=== PATIENT | male | born 1930 | race Caucasian/White ===

== ENCOUNTER → 2016-09-08 | Outpatient (CLI) | payer MEDICARE, OTHER ==
[~2016-09-08] MED LIST: ACET325T49 PO; AMLO10TA4 PO; CARV25TA PO; CARV80CP PO; CEFD300C3 PO; CITA-105 PO; CITA10TA7 PO; DOFE125C PO; FLUT12AE4 IH; FLUT1DIS26 IH; FRSM40T PO; GLIM4TAB PO; INSU100I29 SQ; IPRA3AMP INH; KCL10CCR PO; LOSA50TA6 PO; LVT.1T PO; MAG355OR17 PO; MERO1VIA3 IV; METH4TAB PO; MONT10TA21 PO; Mupirocin TOP; NEBU1EAC2 MC; NF-ESOM40C; NIFE30TA82 PO; PENI500T PO; PRAV10TA23 PO; RT-ALBUTEROL SULF 2.5 MG/3 ML PRE-MIX VIAL INH ONE; TRAN4TAB2 PO; WARF4TAB PO; WARF4TAB7 PO; WARF4TAB9 PO; WARF5TAB6 PO; WARF6TAB7
--- OUTSIDE RECORDS SUMMARY | 2016-09-08 13:39 | XMS REPORT | Continuity of Care Document ---
Author Author [facility] Organization [facility] Address Unknown Phone Unavailable Care Team Providers Care Dexigraph Operator Name Role Phone Alejo Galan PCP [phone] Source Comments Some departments are not documenting in the electronic medical record. If you do not see the information that you expected, contact Release of Information in the Health Information Management department at [phone] for further assistance in locating additional records.[facility] Active Allergies and Adverse Reactions Allergen [...]
== END ==
LOC: RT 13:35
PROVIDERS: ATTEND Internal Medicine
DX: J44.9 Chronic obstructive pulmonary disease, unspecified (principal)
CPT/HCPCS: 94060; 94640; 94726; 94729

== ENCOUNTER 2016-09-11 12:05 | Emergency (ER) | payer MEDICARE, OTHER ==
[~2016-09-11] VITALS: Ht 175.3 cm; Wt 104.3 kg
[~2016-09-11 12:05] MED LIST changes: -RT-ALBUTEROL SULF 2.5 MG/3 ML PRE-MIX VIAL INH ONE
--- OUTSIDE RECORDS SUMMARY | 2016-09-11 12:10 | XMS REPORT | Continuity of Care Document ---
Author Author [facility] Organization [facility] Address Unknown Phone Unavailable Care Team Providers Care Food And Nutrition Professor Name Role Phone Alejo Galan PCP [phone] Source Comments Some departments are not documenting in the electronic medical record. If you do not see the information that you expected, contact Release of Information in the Health Information Management department at [phone] for further assistance in locating additional records.[facility] Active Allergies and Adverse Reactions Allergen [...]
--- NOTE | 2016-09-11 12:43 | Diagnostic Imaging Report ---
INDICATION: Short of air. FINDINGS: Upright portable chest shows normal heart size and vascularity. The lungs are clear. There is no effusion or pneumothorax. A pacemaker is present. IMPRESSION: No acute abnormality is seen. There has been improved aeration of the left lung base since the prior study from 06/27/16. Dictated by: Dictated on workstation # [id number]
[2016-09-11 12:47] LABS: BASOPHILS # (AUTO) 0.1 10^3/uL (0.0-0.1); BASOPHILS % (AUTO) 1 % (0-10); BILIRUBIN,URINE NEGATIVE (NEGATIVE); EOSINOPHILS # (AUTO) 0.7 10^3/uL (0.0-0.3); EOSINOPHILS % (AUTO) 8 % (0-10); KETONES,URINE NEGATIVE (NEGATIVE); LEUKOCYTE ESTERASE ,URINE NEGATIVE (NEGATIVE); LYMPHOCYTES # (AUTO) 1.4 X 10^3 (1.0-4.0); LYMPHOCYTES % (AUTO) 17 % (12-44); MEAN CORPUSCULAR HEMOGLOBIN 29 PG (25-34); MEAN CORPUSCULAR HGB CONC 35 G/DL (32-36); MEAN CORPUSCULAR VOLUME 84 FL (80-99); MEAN PLATELET VOLUME 10.4 FL (7.4-10.4); MONOCYTES # (AUTO) 0.7 X 10^3 (0.0-1.0); MONOCYTES % (AUTO) 9 % (0-12); NEUTROPHILS # (AUTO) 5.2 X 10^3 (1.8-7.8); NEUTROPHILS % (AUTO) 65 % (42-75); NITRITE,URINE NEGATIVE (NEGATIVE); PH,URINE 7 (5-9); PLATELET COUNT 228 10^3/uL (130-400); PROTEIN,URINE 3+ (NEGATIVE); RED BLOOD COUNT 5.36 10^6/uL (4.35-5.85); RED CELL DISTRIBUTION WIDTH 15.8 % (10.0-14.5); UROBILINOGEN,URINE NORMAL (NORMAL); WHITE BLOOD COUNT 8.1 10^3/uL (4.3-11.0)
[2016-09-11 12:54] LABS: SQUAMOUS EPITHELIAL CELL,UR RARE /HPF
[2016-09-11 13:06] LABS: ALANINE AMINOTRANSFERASE 17 U/L (0-55); ALBUMIN 3.9 G/DL (3.2-4.5); ANION GAP 11 MMOL/L (5-14); ASPARTATE AMINO TRANSFERASE 20 U/L (5-34); BILIRUBIN,TOTAL 0.6 MG/DL (0.1-1.0); BLOOD UREA NITROGEN 20 MG/DL (7-18); BUN/CREATININE RATIO 15; CALCIUM 8.8 MG/DL (8.5-10.1); CARBON DIOXIDE 20 MMOL/L (21-32); CHLORIDE 107 MMOL/L (98-107); CREATININE SERUM 1.37 MG/DL (0.60-1.30); GFR ESTIMATED 50; GLUCOSE 154 MG/DL (70-105); POTASSIUM 3.9 MMOL/L (3.6-5.0); SODIUM 138 MMOL/L (135-145)
--- NOTE | 2016-09-11 13:09 | ED Cough/URI ---
General Chief Complaint: Cough/Cold/Flu Symptoms Stated Complaint: SOA Nursing Triage Note: Pt states he had pneumonia in June and hasn't felt since then. States cough/SOA is returning. Denies known fever. Source: patient, family Exam Limitations: no limitations History of Present Illness Time seen by provider: 13:01 Initial Comments The patient is an 85-year-old white male known to me for nearly 40 years. He was hospitalized in June for a pneumonia. He reports he got up this morning and again felt ill with shortness of breath. He had a cough productive of at first white sputum and then more yellow-green. He had terrible post nasal drip and also reported that when he was able to cough up the mucous he felt better for a short period of time and then the cycle was repeated. He was not aware of fever and there were no chills. Timing/Duration: this morning Severity/Quality: moderate, productive cough, sputum Prior Episodes/Possible Cause: occasional episodes Allergies and Home Medications Allergies Coded Allergies: sulfamethoxazole (Verified Allergy, Mild, 08/27/14) trimethoprim (Verified Allergy, Mild, 08/27/14) Home Medications Acetaminophen 325 Mg Tablet 650 MG PO Q6H PRN PRN PAIN (Reported) Amlodipine Besylate 10 Mg Tablet 10 MG PO DAILY (Reported) Carvedilol 25 Mg Tablet 25 MG PO BID (Reported) Cefdinir 300 Mg Capsule #10 300 MG PO BID Prescribed by: ABEBE SALAS on 07/01/16 1115 Citalopram Hydrobromide 10 Mg Tablet #30 10 MG PO DAILY Prescribed by: ABEBE SALAS on 07/01/16 1115 Dofetilide 125 Mcg Capsule 125 MCG PO BID (Reported) Fluticasone/Salmeterol 12 Gm Hfa.aer.ad #1 2 PUFF IH BID@08,20 Prescribed by: ABEBE SALAS on 07/01/16 1115 Glimepiride 4 Mg Tablet 4 MG PO BID (Reported) Ipratropium/Albuterol Sulfate 3 Ml Ampul.neb #60 3 ML INH RTTID Prescribed by: ABEBE SALAS on 07/01/16 1115 Levothyroxine Sodium 100 Mcg Tablet 100 MG PO DAILY (Reported) Losartan Potassium 50 Mg Tablet 50 MG PO DAILY (Reported) Potassium Chloride 10 Meq Capcr 10 MEQ PO BID (Reported) Warfarin Sodium 4 Mg Tablet 4 MG PO HS (Reported) Constitutional: see HPI EENTM: nose congestion Respiratory: cough dyspnea on exertion phlegm short of breath Cardiovascular: no symptoms reported Gastrointestinal: no symptoms reported Genitourinary: no symptoms reported Musculoskeletal: no symptoms reported Skin: other (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) Psychiatric/Neurological: No Symptoms Reported Past Ubkwlom-Tmvyhk-Nfvzil Hx Patient Social History Alcohol Use: Denies Use Recreational Drug Use: No Smoking Status: Never a Smoker Recent Foreign Travel: No Contact w/Someone Who Travel: No Recent Infectious Disease Expo: No Recent Hopitalizations: No Physical Abuse Screen: No Sexual Abuse: No Immunizations Up To Date Tetanus Booster (TDap): Less than 5yrs PED Vaccines UTD: Yes Date of Pneumonia Vaccine: Jun 27, 2014 Date of Influenza Vaccine: May 27, 2016 Seasonal Allergies Seasonal Allergies: No Surgeries HX Surgeries: Yes Surgeries: Defibrillator, Nephrectomy, Pacemaker Respiratory Hx Respiratory Disorders: Yes (CPAP AT HS) Respiratory Disorders: Sleep Apnea Cardiovascular Hx Cardiac Disorders: Yes Cardiac Disorders: Atrial Fibrillation, Chronic Edema/Swelling, Hypertension Neurological Hx Neurological Disorders: Yes (PERIPHERAL NEUROPATHY) Neurological Disorders: Neuropathy Reproductive System Hx Reproductive Disorders: No Sexually Transmitted Disease: No HIV/AIDS: No Genitourinary Hx Genitourinary Disorders: Yes (one kidney removed (left) ) Genitourinary Disorders: Kidney Infection, Prostate Problems, UTI-Chronic Gastrointestinal Hx Gastrointestinal Disorders: No Musculoskeletal Hx Musculoskeletal Disorders: Yes Musculoskeletal Disorders: Arthritis, Gout Endocrine Hx Endocrine Disorders: Yes Endocrine Disorders: Hypothyroidsim, Diabetes, Non-Insulin dep HEENT HX ENT Disorders: Yes (current bilat cataracts, SALIVA GLAND MOVED, HARRISON FROM PAST ISSUE) HEENT Disorders: Cataract Loss of Vision: Bilateral Hearing Impairment: Denies Cancer Hx Cancer: Yes (face/ears) Cancer: Melanoma Psychosocial Hx Psychiatric Problems: No Integumentary HX Skin/Integumentary Disorder: Yes (CHRONIC CELLULITIS OF LOWER LEGS, STASIS ULCERS) Skin/Integumentary Disorders: Eczema, Recent Skin Changes Blood Transfusions Hx Blood Disorders: No Adverse Reaction to a Blood Tr: No Family Medical History Family Medial History: Dysphasia maternal mother FH: kidney cancer G8 SISTER FH: lung cancer 19 FATHER Hypertension maternal mother Kidney disease maternal mother No Family History of: AIDS Abdominal aortic aneurysm Ewing's disease Alcoholism Alzheimer's disease Aphasia Arthritis Asthma Cancer of mouth Cardiovascular disease Cataracts Colon cancer Completed stroke Congenital disease Congenital heart disease Coronary thrombosis Cystic fibrosis Deafness or hearing loss Dementia Diabetes mellitus Drug abuse Fibrocystic disease of breast Gastroenteritis Glaucoma Headache disorder Hypercholesterolemia Infertility Myocardial infarction Neoplasm Not obtainable due to adoption Osteoporosis Parkinson's disease Prostate cancer Psychosocial problem Respiratory disorder Seizure disorder Severe allergy Thyroid disease Tuberculosis Visual disorder Physical Exam Vital Signs Vital Sign - Last 12Hours 09/11/16 12:25 Temp 96.4 Pulse 60 Resp 20 B/P 163/103 Pulse Ox 95 O2 Delivery Room Air Capillary Refill : Less Than 3 Seconds General Appearance: mild distress Eyes: Bilateral Eye Normal Inspection HEENT: normal ENT inspection Neck: full range of motion Respiratory: chest non-tender no respiratory distress no accessory muscle use respiratory distress decreased breath sounds (distant) Cardiovascular: normal peripheral pulses regular rate, rhythm no edema no gallop no JVD no murmur other (pacer) Gastrointestinal: normal bowel sounds non tender soft no organomegaly no pulsatile mass Extremities: normal range of motion non-tender normal inspection no pedal edema no calf tenderness normal capillary refill pelvis stable other (minimal swelling by his standards) Neurologic/Psychiatric: scraper hand II-XII nml as tested no motor/sensory deficits alert normal mood/affect oriented x 3 Skin: normal color warm/dry cyanosis cool diaphoresis damp Progress/Results/Core Measures Results/Orders Lab Results Laboratory Tests Test 09/11/16 12:35 Range/Units Alanine Aminotransferase (ALT/SGPT) 17 0-55 U/L Albumin 3.9 3.2-4.5 G/DL Alkaline Phosphatase 63 40-136 U/L Anion Gap 11 5-14 MMOL/L Aspartate Amino Transf (AST/SGOT) 20 5-34 U/L BUN/Creatinine Ratio 15 Basophils # (Auto) 0.1 0.0-0.1 10^3/uL Basophils (%) (Auto) 1 0-10 % Blood Urea Nitrogen 20 H 7-18 MG/DL Calcium Level 8.8 8.5-10.1 MG/DL Carbon Dioxide Level 20 L 21-32 MMOL/L Chloride Level 107 98-107 MMOL/L Creatinine 1.37 H 0.60-1.30 MG/DL Eosinophils # (Auto) 0.7 H 0.0-0.3 10^3/uL Eosinophils (%) (Auto) 8 0-10 % Estimat Glomerular Filtration Rate 50 Glucose Level 154 H 70-105 MG/DL Hematocrit 45 40-54 % Hemoglobin 15.5 13.3-17.7 G/DL Lymphocytes # (Auto) 1.4 1.0-4.0 X 10^3 Lymphocytes (%) (Auto) 17 12-44 % Mean Corpuscular Hemoglobin 29 25-34 PG Mean Corpuscular Hemoglobin Concent 35 32-36 G/DL Mean Corpuscular Volume 84 80-99 FL Mean Platelet Volume 10.4 7.4-10.4 FL Monocytes # (Auto) 0.7 0.0-1.0 X 10^3 Monocytes (%) (Auto) 9 0-12 % Neutrophils # (Auto) 5.2 1.8-7.8 X 10^3 Neutrophils (%) (Auto) 65 42-75 % Platelet Count 228 130-400 10^3/uL Potassium Level 3.9 3.6-5.0 MMOL/L Red Blood Count 5.36 4.35-5.85 10^6/uL Red Cell Distribution Width 15.8 H 10.0-14.5 % Sodium Level 138 135-145 MMOL/L Total Bilirubin 0.6 0.1-1.0 MG/DL Total Protein 7.0 6.4-8.2 G/DL Troponin I < 0.30 <0.30 NG/ML Urine Bacteria NEGATIVE /HPF Urine Bilirubin NEGATIVE NEGATIVE Urine Casts NONE /LPF Urine Clarity CLEAR Urine Color YELLOW Urine Crystals NONE /LPF Urine Culture Indicated NO Urine Glucose (UA) 1+ H NEGATIVE Urine Ketones NEGATIVE NEGATIVE Urine Leukocyte Esterase NEGATIVE NEGATIVE Urine Mucus NEGATIVE /LPF Urine Nitrite NEGATIVE NEGATIVE Urine Protein 3+ H NEGATIVE Urine RBC NONE /HPF Urine RBC (Auto) 2+ H NEGATIVE Urine Specific [place] 1.010 L 1.016-1.022 Urine Squamous Epithelial Cells RARE /HPF Urine Urobilinogen NORMAL NORMAL MG/DL Urine WBC NONE /HPF Urine pH 7 5-9 White Blood Count 8.1 4.3-11.0 10^3/uL My Orders Orders-SAÚL PUENTE MD Cbc With Automated Diff (09/11/16 12:07) Comprehensive Metabolic Panel (09/11/16 12:07) Troponin I (09/11/16 12:07) Ua Culture If Indicated (09/11/16 12:07) Chest 1 View, Ap/Pa Only (09/11/16 12:07) Vital Signs/I&O Vital Sign - Last 12Hours 09/11/16 09/11/16 12:25 12:34 Temp 96.4 Pulse 60 Resp 20 B/P 163/103 Pulse Ox 95 O2 Delivery Room Air Room Air Blood Pressure Mean: 123 Departure Impression Impression: Primary Impression: acute bronchitis Disposition: 01 HOME, SELF-CARE Condition: Stable/Unchanged Departure-Patient Inst. Decision time for Depature: 13:29 Referrals: MANAN GEE MD (PCP/Family) Primary Care Physician Patient Instructions: Aspiration Pneumonia (DC), Acute Bronchitis, Adult (DC) Add. Discharge Instructions: All discharge instructions reviewed with patient and/or family. Voiced understanding. Increase fluid intake Take Omnicef as directed Tylenol 650 mg every 4-6 hours as needed for fever and muscle aches Scripts Cefdinir 300 Mg [id number] Mg PO twice a day #14 CAP Prov:SAÚL PUENTE MD 09/11/16 SAÚL PUENTE MD Sep 11, 2016 13:09
[2016-09-11 13:12] LABS: TROPONIN I < 0.30 NG/ML (<0.30)
[2016-09-11] MEDS ORDERED: CEFD300C3 PO (13:31)
[2016-09-11 13:40] VITALS: BP 152/90
== END 2016-09-11 13:40 | disposition home or self-care (01) ==
LOC: EDUNIT# 12:05 → ER 12:06
DX: J20.9 Acute bronchitis, unspecified (principal); I48.2 Chronic atrial fibrillation; I10 Essential (primary) hypertension; E11.9 Type 2 diabetes mellitus without complications; Z79.899 Other long term (current) drug therapy; Z79.84 Long term (current) use of oral hypoglycemic drugs; Z95.0 Presence of cardiac pacemaker
CPT/HCPCS: 36415; 71010; 80053; 81000; 84484; 85025

== ENCOUNTER 2016-09-23 09:24 | Outpatient (RCR) | payer MEDICARE, OTHER ==
--- OUTSIDE RECORDS SUMMARY | 2016-07-29 09:56 | XMS REPORT | Continuity of Care Document ---
Author Author [facility] Organization [facility] Address Unknown Phone Unavailable Care Team Providers Care Auto Repair Technician Name Role Phone Alejo Galan PCP [phone] Source Comments Some departments are not documenting in the electronic medical record. If you do not see the information that you expected, contact Release of Information in the Health Information Management department at [phone] for further assistance in locating additional records.[facility] Active Allergies and Adverse Reactions Allergen Noted Date Severity Reactions Comments Septra I.V. 10/15/2014 HIVES Sulfamethoxazole-Trimetho 09/20/2008 HIVES, BLISTERS prim Current Medications Prescription Sig. Disp. Refills Start End Date Status Date potassium chloride SR Take 1 Tab by mouth Twice Active (K-DUR) 10 mEq tablet Daily. Carvedilol Phosphate 80 Take 1 Cap by mouth Active mg CM24 Daily. (brand name Coreg CR). furosemide (LASIX) 40 mg Take 1 Tab by mouth twice Active tablet daily as needed. pravastatin (PRAVACHOL) Take 1 Tab by mouth at Active 10 mg tablet bedtime daily. montelukast (SINGULAIR) Take 1 Tab by mouth at Active 10 mg tablet bedtime daily. levothyroxine (SYNTHROID) Take 1 Tab by mouth Active 100 mcg tablet Daily. fluticasone/salmeterol Inhale 1 Puff by mouth Active (ADVAIR) 250/50 mcg Every 12 Hours. inhalation disk losartan (COZAAR) 50 mg Take 50 mg by mouth Active tablet daily. NIFEdipine SR Take 30 mg by mouth Active (PROCARDIA-XL; ADALAT CC) daily. 30 mg tablet cephalexin (KEFLEX) 500 Take 1 Cap by mouth four 40 Cap 1 10/15/19 Active mg capsule times daily. 15 glimepiride (AMARYL) 4 mg Take 4 mg by mouth twice Active tablet daily. warfarin (COUMADIN) 4 mg Take by mouth daily. Active tablet alternates between 6 and 8 mg daily cetirizine (ZYRTEC) 10 mg Take 10 mg by mouth Active tablet daily. levofloxacin (LEVAQUIN) Take 1 Tab by mouth 14 Tab 1 10/23/19 Active 500 mg tablet daily. 15 Active Problems Problem Noted Date Postop check 12/03/2014 Ankle pain 09/25/2008 Social History Tobacco Use Types Packs/Day Years Used Date Never Smoker Smokeless Tobacco: Never Used Tobacco Cessation: Counseling Given: Yes Comments: Last Filed Vital Signs Vital Sign Reading Time Taken Blood Pressure 154/77 12/17/2014 12:09 PM CDT Pulse 68 12/17/2014 12:09 PM CDT Temperature 36.5 C (97.7 F) 11/04/2014 1:03 PM CDT Respiratory Rate - - Height 1.702 m (5' 7") 12/17/2014 12:09 PM CDT Weight 112.492 kg (248 lb) 12/17/2014 12:09 PM CDT Body Mass Index 38.83 12/17/2014 12:09 PM CDT Oxygen Saturation 98% 11/04/2014 1:48 PM CDT Plan of Care Health Maintenance Due Date Last Done Comments Physical (Comprehensive) 12/01/1937 Exam Pertussis Vaccine 12/01/1942 Tetanus Vaccine 12/01/1948 Shingles Vaccine 1991 Prevnar/Pneumovax (#1) 12/01/1996 Influenza Vaccine 04/22/2015 Results from Last 3 Months Not on file
== END 2016-09-23 16:00 | disposition home or self-care (01) ==
LOC: WOUNDCARE 09:24
PROVIDERS: ATTEND Internal Medicine
DX: E11.622 Type 2 diabetes mellitus with other skin ulcer (principal); L97.802 Non-pressure chronic ulcer of other part of unspecified lower leg with fat layer exposed; I70.232 Atherosclerosis of native arteries of right leg with ulceration of calf; I87.311 Chronic venous hypertension (idiopathic) with ulcer of right lower extremity
CPT/HCPCS: 11042; 29581; 97597; 99212

== ENCOUNTER 2017-03-17 08:57 | Outpatient (RCR) | payer MEDICARE, OTHER | END 2017-03-21 16:00 | disposition home or self-care (01) | LOC: WOUNDCARE 08:57 | PROVIDERS: ATTEND Internal Medicine | DX: E11.622 Type 2 diabetes mellitus with other skin ulcer (principal); L97.802 Non-pressure chronic ulcer of other part of unspecified lower leg with fat layer exposed; I87.311 Chronic venous hypertension (idiopathic) with ulcer of right lower extremity | CPT/HCPCS: 11042; 29581; 87070; 87075; 87077; 87186; 87205 ==

== ENCOUNTER → 2017-03-24 | Outpatient (CLI) | payer MEDICARE, OTHER | LOC: WOUNDCARE 09:02 | PROVIDERS: ATTEND Internal Medicine | DX: E11.622 Type 2 diabetes mellitus with other skin ulcer (principal); L97.802 Non-pressure chronic ulcer of other part of unspecified lower leg with fat layer exposed; I87.311 Chronic venous hypertension (idiopathic) with ulcer of right lower extremity | CPT/HCPCS: 11042 ==

== ENCOUNTER → 2017-03-31 | Outpatient (CLI) | payer MEDICARE, OTHER | LOC: WOUNDCARE 09:04 | PROVIDERS: ATTEND Internal Medicine | DX: E11.622 Type 2 diabetes mellitus with other skin ulcer (principal); L97.802 Non-pressure chronic ulcer of other part of unspecified lower leg with fat layer exposed; I87.311 Chronic venous hypertension (idiopathic) with ulcer of right lower extremity | CPT/HCPCS: 11042 ==

== ENCOUNTER → 2017-04-05 | Outpatient (CLI) | payer MEDICARE, OTHER | LOC: WOUNDCARE 09:50 | PROVIDERS: ATTEND Nurse Practitioner | DX: E11.622 Type 2 diabetes mellitus with other skin ulcer (principal); L97.802 Non-pressure chronic ulcer of other part of unspecified lower leg with fat layer exposed; I87.311 Chronic venous hypertension (idiopathic) with ulcer of right lower extremity | CPT/HCPCS: 15271 ==

== ENCOUNTER → 2017-04-14 | Outpatient (CLI) | payer MEDICARE, OTHER | LOC: WOUNDCARE 09:25 | PROVIDERS: ATTEND Internal Medicine | DX: E11.622 Type 2 diabetes mellitus with other skin ulcer (principal); L97.802 Non-pressure chronic ulcer of other part of unspecified lower leg with fat layer exposed; I87.311 Chronic venous hypertension (idiopathic) with ulcer of right lower extremity | CPT/HCPCS: 99212 ==

== ENCOUNTER → 2017-06-23 | Outpatient (CLI) | payer MEDICARE, OTHER | LOC: WOUNDCARE 09:21 | PROVIDERS: ATTEND Internal Medicine | DX: E11.622 Type 2 diabetes mellitus with other skin ulcer (principal); L97.802 Non-pressure chronic ulcer of other part of unspecified lower leg with fat layer exposed; I87.311 Chronic venous hypertension (idiopathic) with ulcer of right lower extremity | CPT/HCPCS: 11042; 87070; 87075; 87077; 87101; 87205 ==

== ENCOUNTER → 2017-06-23 | Outpatient (CLI) | payer MEDICARE, OTHER ==
[2017-06-23 11:24] LABS: BASOPHILS % (AUTO) 0 % (0-10); EOSINOPHILS # (AUTO) 0.3 10^3/uL (0.0-0.3); EOSINOPHILS % (AUTO) 3 % (0-10); LYMPHOCYTES # (AUTO) 1.1 X 10^3 (1.0-4.0); LYMPHOCYTES % (AUTO) 11 % (12-44); MEAN CORPUSCULAR HEMOGLOBIN 29 PG (25-34); MEAN CORPUSCULAR HGB CONC 33 G/DL (32-36); MEAN CORPUSCULAR VOLUME 86 FL (80-99); MEAN PLATELET VOLUME 9.8 FL (7.4-10.4); MONOCYTES # (AUTO) 0.9 X 10^3 (0.0-1.0); MONOCYTES % (AUTO) 9 % (0-12); NEUTROPHILS # (AUTO) 7.8 X 10^3 (1.8-7.8); NEUTROPHILS % (AUTO) 77 % (42-75); PLATELET COUNT 328 10^3/uL (130-400); RED BLOOD COUNT 4.58 10^6/uL (4.35-5.85); RED CELL DISTRIBUTION WIDTH 14.8 % (10.0-14.5); WHITE BLOOD COUNT 10.2 10^3/uL (4.3-11.0)
[2017-06-23 11:45] LABS: ERYTHROCYTE SEDIMENTATION RATE 19 MM/HR (0-30)
== END ==
LOC: LAB 11:10
PROVIDERS: ATTEND Internal Medicine
DX: E11.622 Type 2 diabetes mellitus with other skin ulcer (principal); L97.802 Non-pressure chronic ulcer of other part of unspecified lower leg with fat layer exposed; I87.311 Chronic venous hypertension (idiopathic) with ulcer of right lower extremity
CPT/HCPCS: 36415; 85025; 85652

== ENCOUNTER → 2017-07-07 | Outpatient (CLI) | payer MEDICARE, OTHER | LOC: WOUNDCARE 08:04 | PROVIDERS: ATTEND Internal Medicine | DX: E11.622 Type 2 diabetes mellitus with other skin ulcer (principal); L97.212 Non-pressure chronic ulcer of right calf with fat layer exposed; L97.802 Non-pressure chronic ulcer of other part of unspecified lower leg with fat layer exposed; I87.311 Chronic venous hypertension (idiopathic) with ulcer of right lower extremity; I70.232 Atherosclerosis of native arteries of right leg with ulceration of calf | CPT/HCPCS: 11042 ==

== ENCOUNTER → 2017-07-12 | Outpatient (CLI) | payer MEDICARE, OTHER | LOC: WOUNDCARE 08:15 | PROVIDERS: ATTEND Nurse Practitioner | DX: L97.802 Non-pressure chronic ulcer of other part of unspecified lower leg with fat layer exposed (principal); L97.212 Non-pressure chronic ulcer of right calf with fat layer exposed; I87.311 Chronic venous hypertension (idiopathic) with ulcer of right lower extremity; I70.232 Atherosclerosis of native arteries of right leg with ulceration of calf; E11.622 Type 2 diabetes mellitus with other skin ulcer | CPT/HCPCS: 11042 ==

== ENCOUNTER → 2017-07-21 | Outpatient (CLI) | payer MEDICARE, OTHER ==
[~2017-07-21] MED LIST changes: +ACET-93 PO; +DOXY100C2 PO; +FLUO20CA25 PO; +LEVO100T7 PO; +LOSA50TA36 PO; +POTA10TA10 PO
== END ==
LOC: WOUNDCARE 08:12
PROVIDERS: ATTEND Internal Medicine
DX: E11.622 Type 2 diabetes mellitus with other skin ulcer (principal); L97.212 Non-pressure chronic ulcer of right calf with fat layer exposed; L97.802 Non-pressure chronic ulcer of other part of unspecified lower leg with fat layer exposed; I87.311 Chronic venous hypertension (idiopathic) with ulcer of right lower extremity; I70.232 Atherosclerosis of native arteries of right leg with ulceration of calf
CPT/HCPCS: 11042

== ENCOUNTER → 2017-07-28 | Outpatient (CLI) | payer MEDICARE, OTHER | LOC: WOUNDCARE 08:37 | PROVIDERS: ATTEND Internal Medicine | DX: E11.622 Type 2 diabetes mellitus with other skin ulcer (principal); I87.311 Chronic venous hypertension (idiopathic) with ulcer of right lower extremity; I70.232 Atherosclerosis of native arteries of right leg with ulceration of calf; L97.212 Non-pressure chronic ulcer of right calf with fat layer exposed; L97.802 Non-pressure chronic ulcer of other part of unspecified lower leg with fat layer exposed | CPT/HCPCS: 11042 ==

== ENCOUNTER → 2017-08-04 | Outpatient (CLI) | payer MEDICARE, OTHER | LOC: WOUNDCARE 08:06 | PROVIDERS: ATTEND Nurse Practitioner | DX: L97.212 Non-pressure chronic ulcer of right calf with fat layer exposed (principal); E11.622 Type 2 diabetes mellitus with other skin ulcer; L97.802 Non-pressure chronic ulcer of other part of unspecified lower leg with fat layer exposed; I87.311 Chronic venous hypertension (idiopathic) with ulcer of right lower extremity; I70.232 Atherosclerosis of native arteries of right leg with ulceration of calf | CPT/HCPCS: 11042; 15271 ==

== ENCOUNTER → 2017-08-11 | Outpatient (CLI) | payer MEDICARE, OTHER | LOC: WOUNDCARE 08:13 | PROVIDERS: ATTEND Internal Medicine | DX: E11.622 Type 2 diabetes mellitus with other skin ulcer (principal); L97.212 Non-pressure chronic ulcer of right calf with fat layer exposed; L97.802 Non-pressure chronic ulcer of other part of unspecified lower leg with fat layer exposed; I87.311 Chronic venous hypertension (idiopathic) with ulcer of right lower extremity; I70.232 Atherosclerosis of native arteries of right leg with ulceration of calf | CPT/HCPCS: 11042; 15271 ==

== ENCOUNTER → 2017-08-18 | Outpatient (CLI) | payer MEDICARE, OTHER ==
[~2017-08-18] MED LIST changes: +CEFE2FRO IV
== END ==
LOC: WOUNDCARE 08:13
PROVIDERS: ATTEND Internal Medicine
DX: E11.622 Type 2 diabetes mellitus with other skin ulcer (principal); L97.212 Non-pressure chronic ulcer of right calf with fat layer exposed; L97.802 Non-pressure chronic ulcer of other part of unspecified lower leg with fat layer exposed; I87.311 Chronic venous hypertension (idiopathic) with ulcer of right lower extremity; I70.232 Atherosclerosis of native arteries of right leg with ulceration of calf
CPT/HCPCS: 11042; 87070; 87075; 87077; 87186; 87205

== ENCOUNTER → 2017-08-23 | Outpatient (CLI) | payer MEDICARE, OTHER | LOC: WOUNDCARE 08:15 | PROVIDERS: ATTEND Nurse Practitioner | DX: E11.622 Type 2 diabetes mellitus with other skin ulcer (principal); L97.802 Non-pressure chronic ulcer of other part of unspecified lower leg with fat layer exposed; I87.311 Chronic venous hypertension (idiopathic) with ulcer of right lower extremity; I70.232 Atherosclerosis of native arteries of right leg with ulceration of calf; L97.212 Non-pressure chronic ulcer of right calf with fat layer exposed | CPT/HCPCS: 11042; 15271 ==

== ENCOUNTER → 2017-09-01 | Outpatient (CLI) | payer MEDICARE, OTHER | LOC: WOUNDCARE 08:12 | PROVIDERS: ATTEND Internal Medicine | DX: E11.622 Type 2 diabetes mellitus with other skin ulcer (principal); L97.802 Non-pressure chronic ulcer of other part of unspecified lower leg with fat layer exposed; I87.311 Chronic venous hypertension (idiopathic) with ulcer of right lower extremity; I70.232 Atherosclerosis of native arteries of right leg with ulceration of calf; L97.212 Non-pressure chronic ulcer of right calf with fat layer exposed | CPT/HCPCS: 11042 ==

== ENCOUNTER 2017-09-05 10:21 | Outpatient (RCR) | payer MEDICARE, OTHER ==
[2017-08-23] MEDS: CEFEPIME 2 GM/NS 50 ML IVPB IV SCH ×2 (13:40)
[2017-08-23] MEDS: CATHETER FLUSH 10 ML SYR IV PRN ×2 (13:40→14:11)
[2017-08-23 14:15] VITALS: BP 135/80
[2017-08-24] MEDS: CEFEPIME 2 GM/NS 50 ML IVPB IV SCH ×2 (08:27)
[2017-08-24 08:28] VITALS: BP 173/78
[2017-08-24 08:56] VITALS: BP 173/78
[2017-08-25] MEDS: CEFEPIME 2 GM/NS 50 ML IVPB IV SCH ×2 (08:38)
[2017-08-25] MEDS: CATHETER FLUSH 10 ML SYR IV PRN (08:39)
[2017-08-25 09:10] VITALS: BP 149/77
[2017-08-26] MEDS: CATHETER FLUSH 10 ML SYR IV PRN (08:28)
[2017-08-26] MEDS: CEFEPIME 2 GM/NS 50 ML IVPB IV SCH ×2 (08:29)
[2017-08-26 09:01] VITALS: BP 147/65
[2017-08-27] MEDS: CATHETER FLUSH 10 ML SYR IV PRN (09:36)
[2017-08-27] MEDS: CEFEPIME 2 GM/NS 50 ML IVPB IV SCH ×2 (09:38)
[2017-08-27 10:07] VITALS: BP 142/76
[2017-08-28] MEDS: CATHETER FLUSH 10 ML SYR IV PRN (09:35)
[2017-08-28] MEDS: CEFEPIME 2 GM/NS 50 ML IVPB IV SCH ×2 (09:36)
[2017-08-28 10:06] VITALS: BP 155/87
[2017-08-29] MEDS: CEFEPIME 2 GM/NS 50 ML IVPB IV SCH ×2 (08:29)
[2017-08-29] MEDS: CATHETER FLUSH 10 ML SYR IV PRN (08:29)
[2017-08-29 08:55] VITALS: BP 155/81
[2017-08-30] MEDS: CEFEPIME 2 GM/NS 50 ML IVPB IV SCH ×2 (08:48)
[2017-08-30] MEDS: CATHETER FLUSH 10 ML SYR IV PRN (08:48)
[2017-08-30 09:15] VITALS: BP 177/84
[2017-08-31] MEDS: CATHETER FLUSH 10 ML SYR IV PRN ×2 (08:44→09:15)
[2017-08-31] MEDS: CEFEPIME 2 GM/NS 50 ML IVPB IV SCH ×2 (08:44)
[2017-08-31 09:35] VITALS: BP 174/84
[2017-09-01] MEDS: CEFEPIME 2 GM/NS 50 ML IVPB IV SCH ×2 (09:10)
[2017-09-01 09:12] VITALS: BP 147/78
[2017-09-01 09:39] VITALS: BP 147/78
[2017-09-02] MEDS: CEFEPIME 2 GM/NS 50 ML IVPB IV SCH ×2 (08:28)
[2017-09-02 08:29] VITALS: BP 165/84
[2017-09-02 08:58] VITALS: BP 165/84
[2017-09-03 09:35] VITALS: BP 160/77
[2017-09-03] MEDS: CEFEPIME 2 GM/NS 50 ML IVPB IV SCH ×2 (09:41)
[2017-09-03] MEDS: CATHETER FLUSH 10 ML SYR IV PRN (09:41)
[2017-09-04 10:30] VITALS: BP_SYST 160; BP_SYST 170; BP_DIAS 77; BP_DIAS 80
[2017-09-04] MEDS: CATHETER FLUSH 10 ML SYR IV PRN (10:35)
[2017-09-04] MEDS: CEFEPIME 2 GM/NS 50 ML IVPB IV SCH ×2 (10:35)
[~2017-09-05] VITALS: Ht 172.7 cm; Wt 110.7 kg
[2017-09-05] MEDS: CEFEPIME 2 GM/NS 50 ML IVPB IV SCH ×2 (10:25)
[2017-09-05] MEDS: CATHETER FLUSH 10 ML SYR IV PRN (10:25)
[2017-09-05 10:58] VITALS: BP 140/79
[2017-09-06 10:22] VITALS: BP 0/0
== END 2017-11-21 | disposition home or self-care (01) ==
LOC: SDC 10:21
PROVIDERS: ATTEND Nurse Practitioner
DX: E11.622 Type 2 diabetes mellitus with other skin ulcer (principal); L97.802 Non-pressure chronic ulcer of other part of unspecified lower leg with fat layer exposed; I87.311 Chronic venous hypertension (idiopathic) with ulcer of right lower extremity; I70.232 Atherosclerosis of native arteries of right leg with ulceration of calf; L97.212 Non-pressure chronic ulcer of right calf with fat layer exposed
CPT/HCPCS: 96365

== ENCOUNTER → 2017-09-08 | Outpatient (CLI) | payer MEDICARE, OTHER | LOC: WOUNDCARE 08:11 | PROVIDERS: ATTEND Internal Medicine | DX: E11.622 Type 2 diabetes mellitus with other skin ulcer (principal); L97.212 Non-pressure chronic ulcer of right calf with fat layer exposed; I87.311 Chronic venous hypertension (idiopathic) with ulcer of right lower extremity; I70.232 Atherosclerosis of native arteries of right leg with ulceration of calf; L97.802 Non-pressure chronic ulcer of other part of unspecified lower leg with fat layer exposed | CPT/HCPCS: 11042 ==

== ENCOUNTER → 2017-09-15 | Outpatient (CLI) | payer MEDICARE, OTHER | LOC: WOUNDCARE 08:13 | PROVIDERS: ATTEND Internal Medicine | DX: E11.622 Type 2 diabetes mellitus with other skin ulcer (principal); L97.802 Non-pressure chronic ulcer of other part of unspecified lower leg with fat layer exposed; I87.311 Chronic venous hypertension (idiopathic) with ulcer of right lower extremity; I70.232 Atherosclerosis of native arteries of right leg with ulceration of calf; L97.212 Non-pressure chronic ulcer of right calf with fat layer exposed | CPT/HCPCS: 15271; 97597 ==

== ENCOUNTER → 2017-09-22 | Outpatient (CLI) | payer MEDICARE, OTHER | LOC: WOUNDCARE 08:16 | PROVIDERS: ATTEND Internal Medicine | DX: E11.622 Type 2 diabetes mellitus with other skin ulcer (principal); L97.802 Non-pressure chronic ulcer of other part of unspecified lower leg with fat layer exposed; I87.311 Chronic venous hypertension (idiopathic) with ulcer of right lower extremity; I70.232 Atherosclerosis of native arteries of right leg with ulceration of calf; L97.212 Non-pressure chronic ulcer of right calf with fat layer exposed | CPT/HCPCS: 15271 ==

== ENCOUNTER → 2017-09-29 | Outpatient (CLI) | payer MEDICARE, OTHER | LOC: WOUNDCARE 08:15 | PROVIDERS: ATTEND Internal Medicine | DX: E11.622 Type 2 diabetes mellitus with other skin ulcer (principal); L97.802 Non-pressure chronic ulcer of other part of unspecified lower leg with fat layer exposed; I87.311 Chronic venous hypertension (idiopathic) with ulcer of right lower extremity; I70.232 Atherosclerosis of native arteries of right leg with ulceration of calf; L97.212 Non-pressure chronic ulcer of right calf with fat layer exposed | CPT/HCPCS: 15271 ==

== ENCOUNTER 2017-09-30 19:40 | Emergency (ER) | payer MEDICARE, OTHER ==
[~2017-09-30] VITALS: Ht 172.7 cm; Wt 110.7 kg
[2017-09-30] MEDS ORDERED: TETANUS,DIPTH,PERTUSS P/F (BOOSTRIX) 0.5 ML VIAL IM STA (20:01)
[2017-09-30 20:08] LABS: BASOPHILS # (AUTO) 0.1 10^3/uL (0.0-0.1); BASOPHILS % (AUTO) 1 % (0-10); EOSINOPHILS # (AUTO) 0.5 10^3/uL (0.0-0.3); EOSINOPHILS % (AUTO) 4 % (0-10); HEMATOCRIT 44 % (40-54); HEMOGLOBIN 14.9 G/DL (13.3-17.7); LYMPHOCYTES # (AUTO) 1.5 X 10^3 (1.0-4.0); LYMPHOCYTES % (AUTO) 14 % (12-44); MEAN CORPUSCULAR HEMOGLOBIN 28 PG (25-34); MEAN CORPUSCULAR HGB CONC 34 G/DL (32-36); MEAN CORPUSCULAR VOLUME 84 FL (80-99); MEAN PLATELET VOLUME 10.3 FL (7.4-10.4); MONOCYTES # (AUTO) 0.9 X 10^3 (0.0-1.0); MONOCYTES % (AUTO) 8 % (0-12); NEUTROPHILS % (AUTO) 73 % (42-75); PLATELET COUNT 265 10^3/uL (130-400); RED BLOOD COUNT 5.24 10^6/uL (4.35-5.85); RED CELL DISTRIBUTION WIDTH 15.5 % (10.0-14.5); WHITE BLOOD COUNT 10.9 10^3/uL (4.3-11.0)
[2017-09-30 20:17] LABS: INR 1.1 (0.8-1.4); PROTHROMBIN TIME PATIENT 14.1 SEC (12.2-14.7)
[2017-09-30 20:27] LABS: BILIRUBIN,TOTAL 0.5 MG/DL (0.1-1.0); CREATININE SERUM 1.73 MG/DL (0.60-1.30); POTASSIUM 4.2 MMOL/L (3.6-5.0); TOTAL PROTEIN 7.4 GM/DL (6.4-8.2)
--- NOTE | 2017-09-30 21:07 | Diagnostic Imaging Report ---
PROCEDURE: CT head and CT cervical spine without contrast. TECHNIQUE: Multiple contiguous axial images were obtained through the brain and cervical spine without the use of intravenous contrast. Sagittal and coronal reformations through the cervical spine were then performed. INDICATION: Hit head. Knot on the forehead. Headache and neck pain. FINDINGS: The ventricles are normal in size, shape and position. There is atrophy present. There is no acute parenchymal hemorrhage, edema or mass. There is no extra-axial mass or hemorrhage. There is no skull fracture. There is scalp edema/hematoma in the left frontal region. There are diffuse degenerative changes of the cervical spine with disc space narrowing at all levels. There is spondylosis which is most prominent at C4-5, C5-6 and C6-7. There is several millimeters of spondylolisthesis at C3-4 and C6-7 which is likely due to the degenerative disc and facet disease that is present. No fracture is evident. There is no swelling. IMPRESSION: 1. CT of the head shows a left frontal scalp hematoma. No acute intracranial abnormality is seen. 2. CT of the cervical spine shows diffuse degenerative changes with no fracture seen. Dictated by: Dictated on workstation # [id number]
--- NOTE | 2017-09-30 21:08 | Diagnostic Imaging Report ---
INDICATION: Pelvic pain A single view of the pelvis shows no fracture, dislocation or other acute bony abnormality. No significant degenerative changes of either hip joint is seen. There is scoliosis and degenerative changes of the spine. IMPRESSION: No acute abnormality is seen. Dictated by: Dictated on workstation # [id number]
--- NOTE | 2017-09-30 21:09 | Diagnostic Imaging Report ---
INDICATION: Chest pain. EXAMINATION: Frontal view of the chest was obtained. FINDINGS: Cardiomegaly with normal vascularity. The lungs are clear. There is no effusion or pneumothorax. A pacemaker is present. IMPRESSION: No acute abnormality is seen with no significant change from 09/11/2016. Dictated by: Dictated on workstation # [id number]
--- NOTE | 2017-09-30 21:37 | ED Fall/Injury ---
General Stated Complaint: FALL/HEAD INJ Source: patient History of Present Illness Date Seen by Provider: Sep 30, 2017 Time Seen by Provider: 19:53 Initial Comments PT ARRIVES VIA POV FROM HOME--DROVE SELF HERE STATES HE FELL AND HIT HIS HEAD ON THE DOOR FRAME, THEN HIT THE [place] FLOOR NO LOSS OF CONSCIOUSNESS OCCURRED AT 1900 TODAY PT LIVES ALONE, WAS ABLE TO GET UP ON HIS OWN NO NECK PAIN NO VISION CHANGES NO NAUSEA/VOMITING NO PARESTHESIAS OR MOTOR DEFICITS HAS SMALL LACERATION TO FOREHEAD LAST TETANUS UNKNOWN PT IS ON COUMADIN FOR CHRONIC ATRIAL FIBRILLATION PCP: DR. GEE Allergies and Home Medications Allergies Coded Allergies: sulfamethoxazole (Verified Allergy, Mild, 08/27/14) trimethoprim (Verified Allergy, Mild, 08/27/14) Home Medications Acetaminophen 500 Mg Tablet, 500 MG PO Q6H PRN for PAIN-MILD, (Reported) Amlodipine Besylate 10 Mg Tablet, 10 MG PO DAILY, (Reported) Carvedilol 25 Mg Tablet, 25 MG PO BID, (Reported) Cefepime HCl/Dextrose, Iso-Osm 2 Gm/100 Ml Froz.piggy, 2 GM IV DAILY for 14 Days , (Reported) Dofetilide 125 Mcg Capsule, 125 MCG PO HS, (Reported) Fluoxetine HCl 20 Mg Capsule, 20 MG PO DAILY, (Reported) Glimepiride 4 Mg Tablet, 4 MG PO BID, (Reported) Insulin Detemir 100 Unit/1 Ml Insuln.pen, 28 UNITS SQ HS, (Reported) Levothyroxine Sodium 100 Mcg Tablet, 100 MCG PO DAILY, (Reported) Losartan Potassium 50 Mg Tablet, 50 MG PO DAILY, (Reported) Potassium Chloride 10 Meq Tablet.er, 10 MEQ PO BID, (Reported) Warfarin Sodium 4 Mg Tablet, 4 MG PO HS, (Reported) Constitutional: no symptoms reported Eyes: No Symptoms Reported Ears, Nose, Mouth, Throat: no symptoms reported Respiratory: no symptoms reported Cardiovascular: no symptoms reported Gastrointestinal: no symptoms reported Genitourinary: no symptoms reported Musculoskeletal: no symptoms reported Skin: see HPI Psychiatric/Neurological: No Symptoms Reported, Denies Headache, Denies Numbness, Denies Paresthesia, Denies Tingling, Denies Weakness Past Prmzoxa-Dxcwwv-Ueyvgu Hx Patient Social History Alcohol Use: Denies Use Recreational Drug Use: No Smoking Status: Never a Smoker Recent Foreign Travel: No Contact w/Someone Who Travel: No Recent Hopitalizations: No Immunizations Up To Date Tetanus Booster (TDap): Unknown PED Vaccines UTD: Yes Date of Pneumonia Vaccine: Jun 27, 2014 Date of Influenza Vaccine: May 25, 2017 Seasonal Allergies Seasonal Allergies: No Surgeries History of Surgeries: Yes (MULTIPLE SKIN CANCERS REMOVED--[facility] ) Surgeries: Defibrillator, Nephrectomy, Pacemaker Respiratory History of Respiratory Disorde: Yes Respiratory Disorders: Sleep Apnea Currently Using CPAP: Yes Currently Using BIPAP: No Cardiovascular History of Cardiac Disorders: Yes Cardiac Disorders: Atrial Fibrillation, Chronic Edema/Swelling, Hypertension Neurological History of Neurological Disord: Yes Neurological Disorders: Neuropathy Reproductive System Hx Reproductive Disorders: No Sexually Transmitted Disease: No HIV/AIDS: No Genitourinary History of Genitourinary Disor: Yes Genitourinary Disorders: Kidney Infection, Prostate Problems, UTI-Chronic Gastrointestinal History of Gastrointestinal Di: No Musculoskeletal History of Musculoskeletal Dis: Yes Musculoskeletal Disorders: Arthritis, Gout Endocrine History of Endocrine Disorders: Yes Endocrine Disorders: Diabetes, Insulin dep, Hypothyroidsim HEENT HEENT Disorders: Cataract Loss of Vision: Bilateral Hearing Impairment: Denies Cancer History of Cancer: Yes Cancer: Melanoma Psychosocial History of Psychiatric Problem: No Integumentary History of Skin or Integumenta: Yes (SKIN CANCERS--MULTIPLE; HARRISON TO BODY FROM THE WAIST UP--[employer]. ) Skin/Integumentary Disorders: Eczema Blood Transfusions Adverse Reaction to a Blood Tr: No Family Medical History Family Medial History: Dysphasia maternal mother FH: kidney cancer G8 SISTER FH: lung cancer 19 FATHER Hypertension maternal mother Kidney disease maternal mother No Family History of: AIDS Abdominal aortic aneurysm [place]'s disease Alcoholism Alzheimer's disease Aphasia Arthritis Asthma Cancer of mouth Cardiovascular disease Cataracts Colon cancer Completed stroke Congenital disease Congenital heart disease Coronary thrombosis Cystic fibrosis Deafness or hearing loss Dementia Diabetes mellitus Drug abuse Fibrocystic disease of breast Gastroenteritis Glaucoma Headache disorder Hypercholesterolemia Infertility Myocardial infarction Neoplasm Not obtainable due to adoption Osteoporosis Parkinson's disease Prostate cancer Psychosocial problem Respiratory disorder Seizure disorder Severe allergy Thyroid disease Tuberculosis Visual disorder Physical Exam Vital Signs Vital Signs - First Documented 09/30/17 19:50 Temp 98.0 Pulse 61 Resp 20 B/P (MAP) 185/78 (113) Pulse Ox 98 O2 Delivery Room Air Capillary Refill : General Appearance: WD/WN, no apparent distress HEENT: PERRL/EOMI, other (MINOR ABRASION TO FRONTAL ASPECT OF HEAD, WITH 2 CM SUPERFICIAL LACERATION TO RIGHT FRONTAL AREA/FOREHEAD; LARGE HEMATOMA TO MID AND LEFT FOREHEAD/FRONTAL AREA) Neck: non-tender, full range of motion, supple, normal inspection Cardiovascular: irregularly irregular Respiratory: chest non-tender, normal breath sounds Gastrointestinal: non tender, soft Back: normal inspection, no CVA tenderness, no vertebral tenderness Extremities: normal range of motion, non-tender, other (2+ EDEMA ON RIGHT, TRACE ON LEFT ( NORMAL FOR PT) HAS CHRONIC VENOUS STASIS CHANGES AND WOODY INDURATION. ) Neurologic/Psychiatric: quantometer operator II-XII nml as tested, no motor/sensory deficits, alert, normal mood/affect, oriented x 3, other (SPEECH CLEAR, GAIT STEADY) Skin: normal color, warm/dry Janneth Coma Score Best Eye Response: (4) Open Spontaneously Best Verbal Response: (5) Oriented Best Motor Response: (6) Obeys Commands Janneth Total: 15 Laceration Repair : Wound Location: Face Other Wound Location FOREHEAD Wound Length (cm): 2 Wound's Depth, Shape: superficial (CURVED) Wound Explored: clean Betadine Prep?: No (BETASEPT) Other Closure Supply: Wound Adhesive (DERMABOND) Progress/Results/Core Measures Results/Orders Lab Results Laboratory Tests Test 09/30/17 20:02 Range/Units White Blood Count 10.9 4.3-11.0 10^3/uL Red Blood Count 5.24 4.35-5.85 10^6/uL Hemoglobin 14.9 13.3-17.7 G/DL Hematocrit 44 40-54 % Mean Corpuscular Volume 84 80-99 FL Mean Corpuscular Hemoglobin 28 25-34 PG Mean Corpuscular Hemoglobin Concent 34 32-36 G/DL Red Cell Distribution Width 15.5 H 10.0-14.5 % Platelet Count 265 130-400 10^3/uL Mean Platelet Volume 10.3 7.4-10.4 FL Neutrophils (%) (Auto) 73 42-75 % Lymphocytes (%) (Auto) 14 12-44 % Monocytes (%) (Auto) 8 0-12 % Eosinophils (%) (Auto) 4 0-10 % Basophils (%) (Auto) 1 0-10 % Neutrophils # (Auto) 8.0 H 1.8-7.8 X 10^3 Lymphocytes # (Auto) 1.5 1.0-4.0 X 10^3 Monocytes # (Auto) 0.9 0.0-1.0 X 10^3 Eosinophils # (Auto) 0.5 H 0.0-0.3 10^3/uL Basophils # (Auto) 0.1 0.0-0.1 10^3/uL Prothrombin Time 14.1 12.2-14.7 SEC INR Comment 1.1 0.8-1.4 Activated Partial Thromboplast Time 28 24-35 SEC Sodium Level 138 135-145 MMOL/L Potassium Level 4.2 3.6-5.0 MMOL/L Chloride Level 107 98-107 MMOL/L Carbon Dioxide Level 19 L 21-32 MMOL/L Anion Gap 12 5-14 MMOL/L Blood Urea Nitrogen 21 H 7-18 MG/DL Creatinine 1.73 H 0.60-1.30 MG/DL Estimat Glomerular Filtration Rate 38 BUN/Creatinine Ratio 12 Glucose Level 174 H 70-105 MG/DL Calcium Level 9.0 8.5-10.1 MG/DL Total Bilirubin 0.5 0.1-1.0 MG/DL Aspartate Amino Transf (AST/SGOT) 26 5-34 U/L Alanine Aminotransferase (ALT/SGPT) 18 0-55 U/L Alkaline Phosphatase 63 40-136 U/L Total Protein 7.4 6.4-8.2 GM/DL Albumin 4.0 3.2-4.5 GM/DL My Orders Orders - SUYOLIS K DO Saline Lock/Iv-Start (09/30/17 20:01) Cbc With Automated Diff (09/30/17 20:01) Comprehensive Metabolic Panel (09/30/17 20:01) Protime With Inr (09/30/17 20:01) Partial Thromboplastin Time (09/30/17 20:01) Chest 1 View, Ap/Pa Only (09/30/17 20:01) Pelvis (09/30/17 20:01) Dipht,Pertuss(Acell),Tet Adult (Boostrix (09/30/17 20:01) Ct Head/Cervical Spine Wo (09/30/17 20:01) Vital Signs/I&O Vital Sign - Last 12Hours 09/30/17 09/30/17 19:50 21:55 Temp 98.0 98.0 Pulse 61 60 Resp 20 16 B/P (MAP) 185/78 (113) Pulse Ox 98 97 O2 Delivery Room Air Room Air Progress Note : Progress Note UNEVENTFUL ER STAY ENCOURAGED PT TO BE ADMITTED FOR OBSERVATION, HE LIVES ALONE AND PT ADAMANTLY DECLINES. Diagnostic Imaging Comments CT HEAD/CERVICAL SPINE--NO ACUTE PROCESS, OTHER THAN FRONTAL SCALP HEMATOMA AND DEGENERATIVE/CHRONIC CHANGES OF BRAIN AND CERVICAL SPINE--PER RADIOLOGIST REPORT @ 2127 Reviewed: Reviewed by Me Departure Impression Impression: Primary Impression: Status post fall Additional Impressions: Closed head injury without loss of consciousness CERVICAL SPINE STRAIN Head contusion Facial laceration Ioikcgfjbk-yfmmuyels-mjabplj (DPT) vaccination administered at current visit Disposition: HOME, SELF-CARE Condition: Stable Departure-Patient Inst. Referrals: MANAN GEE MD (PCP/Family) Primary Care Physician Patient Instructions: Cervical Muscle Strain (DC), Concussion, Adult (DC), Diphtheria and Tetanus Toxoids, and Acellular Pertussis Vaccine, Laceration Repair With Glue (DC) Add. Discharge Instructions: ICE TO SORE AREAS AT 20 MINUTE INTERVALS LEAVE WOUND ADHESIVE ALONE--WILL FALL OFF ON ITS OWN IN A FEW DAYS TYLENOL NEEDED FOR PAIN RETURN TO ER IF PROBLEMS YOLIS BLUE DO Sep 30, 2017 21:37
[2017-09-30 21:55] VITALS: BP 174/80
--- OUTSIDE RECORDS SUMMARY | 2017-10-02 10:32 | XMS REPORT | Continuity of Care Document ---
Author Author [employer] Organization [facility] Address Unknown Phone Unavailable Care Team Providers Care Dump Grader Name Role Phone [employer] Unavailable Unavailable Problems Medications Allergies, Adverse Reactions, Alerts Immunizations Results Vital Signs Encounters Location Location Details Encounter Type Encounter Number Reason For Visit Attending Provider ADM Date DC Date Status Source OUTPATIENT [id number] SHADE SANCHZE 12/17/2014 12/17/2014 Active [facility] Tej H[place] 10/12/2017 Active [facility] Procedures Plan of Care Social History Assessment and Plan Family History Advance Directives Functional Status
--- OUTSIDE RECORDS SUMMARY | 2017-10-02 10:32 | XMS REPORT ---
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 517864023 Problem Lentigo L81.4 Active 501371516 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 508034678 Problem 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 750553759 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 [id number] ALLERGIES No Information SOCIAL HISTORY Never Assessed PLAN OF CARE VITAL SIGNS MEDICATIONS Medication Instructions Dosage Frequency Start Date End Date Duration Status Warfarin Sodium 10 MG Orally Once a day 1 tablet 24h Active Klor-Con 10 10 MEQ Orally Four times a day 1 tablet 6h Active Advair Diskus 100-50 MCG/DOSE Inhalation Twice a day 1 puff 12h Active Levothyroxine Sodium 25 MCG Orally Once a day 1 tablet 24h Active Coreg CR 10 MG Orally Once a day 1 capsule with food 24h Active Clobetasol Propionate 0.05 % Externally apply a thin layer Twice a day for 2 weeks 1 application to affected area May, 14 days Active Keflex 500 MG Orally Twice a day 1 capsule 12h 15 Mar, 2016 7 days Active Mylanta 200-200-20 MG/5ML Orally Four times a day 10 ml as needed 6h Active Losartan Potassium 50 MG Orally Once a day 1 tablet 24h Active lasix 1 tab Active Glimepiride 1 MG Orally Once a day 1 tablet with breakfast or the first main meal of the day 24h Active Cefadroxil 500 MG Orally BID 1 capsule 12h Aug, 07 days Active Nicotinamide - as directed Aug, Active Tikosyn 125 MCG Orally Once a day 1 capsule 24h Active Clobetasol Propionate 0.05 APPLY THIN LAYER TO AFFECTED AREA TWO TIMES A DAY FOR 2 WEEKS 20 Active Efudex 5 % Externally daily 1 application to affected area 24h Jul, 21 days Active RESULTS No Results PROCEDURES No Known procedures IMMUNIZATIONS No Known Immunizations MEDICAL (GENERAL) HISTORY Type Description Date Medical History NIDDM Medical History pacemaker/ defibrillator Medical History asthma Medical History chronic kidney disease Medical History gout Medical History peripheral vascular disease Medical History DJD Medical History hyperthyroid 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
--- OUTSIDE RECORDS SUMMARY | 2017-10-02 10:32 | XMS REPORT | Clinical Summary ---
Author Author [facility] Organization [facility] Address Unknown Phone Unavailable Care Team Providers Care Payroll Processor Name Role Phone Carisa Brown RN Unavailable Unavailable Alejo Galan MD PCP Andra Vargas APRN Unavailable Source Comments Some departments are not documenting in the electronic medical record. If you do not see the information that you expected, contact Release of Information in the Health Information Management department at [phone] for further assistance in locating additional records.[facility] Allergies Active Allergy Reactions Severity Noted Date Comments Septra I.V. HIVES 10/15/2014 Sulfamethoxazole-Trimetho HIVES, BLISTERS 09/20/2008 prim Current Medications Prescription Sig. Disp. Refills [...] Never Used Tobacco Cessation: Counseling Given: Yes Sex Assigned at Date Recorded Not on file Last Filed Vital Signs Vital Sign Reading Time Taken Blood Pressure 154/77 12/17/2014 12:09 PM CDT Pulse 68 12/17/2014 12:09 PM CDT Temperature 36.5 C (97.7 F) 11/04/2014 1:03 PM CDT Respiratory Rate - - Oxygen Saturation 98% 11/04/2014 1:48 PM CDT Inhaled Oxygen - - Concentration Weight 112.5 kg (248 lb) 12/17/2014 12:09 PM CDT Height 170.2 cm (5' 7") 12/17/2014 12:09 PM CDT Body Mass Index 38.84 12/17/2014 12:09 PM CDT Plan of Treatment Health Maintenance Due Date Last Done Comments PHYSICAL (COMPREHENSIVE) 12/01/1938 EXAM PERTUSSIS VACCINE 12/01/1942 TETANUS VACCINE 12/01/1948 SHINGLES VACCINE 1991 PREVNAR/PNEUMOVAX (#1) 12/01/1996 INFLUENZA VACCINE 03/22/2017 Results Not on filefrom Last 3 Months
--- OUTSIDE RECORDS SUMMARY | 2017-10-02 10:33 | XMS REPORT ---
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 189559113 Problem Lentigo L81.4 Active 001889490 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 239925346 Problem 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 118280497 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 347383008 ALLERGIES Substance Reaction Event Type Date Status Septra hives Drug Allergy Aug, Active NIFEdipine itching Drug Allergy Aug, Active SOCIAL HISTORY Never Assessed PLAN OF CARE Activity Details Follow Up 10-14 Days Reason: Future/Pending Procedure MOHS, 1 STAGE, H/N/H/F/G, 5 BLOCKS Future/Pending Procedure GRAFT, FULL THICK, FH/CHEEKS/CHIN/MOUTH/NECK/AXIL/ GENIT/HANDS/FEET <20 CM VITAL SIGNS Heart Rate 82 /min 2017-09-09 Height 68 in 2017-09-09 Weight 234 lbs 2017-09-09 BMI 35.58 kg/m2 2017-09-09 Blood pressure systolic 146 mm Hg 2017-09-09 Blood pressure diastolic 74 mm Hg 2017-09-09 MEDICATIONS Medication Instructions Dosage Frequency Start Date End Date Duration Status Clobetasol Propionate 0.05 APPLY THIN LAYER TO AFFECTED AREA TWO TIMES A DAY FOR 2 WEEKS 20 Active Warfarin Sodium 10 MG Orally Once a day 1 tablet 24h Active Clobetasol Propionate 0.05 % Externally apply a thin layer Twice a day for 2 weeks 1 application to affected area May, 14 days Active Nicotinamide - as directed Aug, Active Levothyroxine Sodium 25 MCG Orally Once a day 1 tablet 24h Active lasix 1 tab Active Coreg CR 10 MG Orally Once a day 1 capsule with food 24h Active Cefadroxil 500 MG Orally BID 1 capsule 12h Aug, 07 days Active Klor-Con 10 10 MEQ Orally Four times a day 1 tablet 6h Active Advair Diskus 100-50 MCG/DOSE Inhalation Twice a day 1 puff 12h Active Losartan Potassium 50 MG Orally Once a day 1 tablet 24h Active Keflex 500 MG Orally Twice a day 1 capsule 12h Mar, 7 days Active Efudex 5 % Externally daily 1 application to affected area 24h Jul, 21 days Active Mylanta 200-200-20 MG/5ML Orally Four times a day 10 ml as needed 6h Active Tikosyn 125 MCG Orally Once a day 1 capsule 24h Active Glimepiride 1 MG Orally Once a day 1 tablet with breakfast or the first main meal of the day 24h Active RESULTS No Results PROCEDURES Procedure Date Ordered Result Body Site MOHS, 1 STAGE, H/N/H/F/G, 5 BLOCKS Sep 09, 2017 SKIN FULL GRAFT Sep 09, 2017 IMMUNIZATIONS No Known Immunizations MEDICAL (GENERAL) HISTORY Type Description Date Medical History NIDDM Medical History pacemaker/ defibrillator Medical History asthma Medical History chronic kidney disease Medical History gout Medical History peripheral vascular disease Medical History DJD Medical History hyperthyroid 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
--- OUTSIDE RECORDS SUMMARY | 2017-10-02 10:33 | XMS REPORT ---
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 Problem Lentigo L81.4 Active Problem 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 Problem Personal history of other malignant neoplasm of skin Z85.828 Active Problem Eczema L30.9 Active 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 Medications Medication Code System Code Instructions Start Date End Date Status Dosage Clobetasol Propionate [facility] [address]-00 0.05 % Externally apply a thin layer Twice a day for 2 weeks Jun 09, 2015 1 application to affected area Coreg CR [facility] [address]-66 10 MG Orally Once a day 1 capsule with food Klor-Con [address] [facility] [address]-49 10 MEQ Orally Four times a day 1 tablet Losartan Potassium [facility] [address]-62 50 MG Orally Once a day [address] [facility] [address]-35 125 MCG Orally Once a day [address] [facility] [address] 200-200-20 MG/5ML Orally Four times a day 10 ml as needed lasix ND 0 Oral 1 tab Advair Diskus [facility] [address]-53 100-50 MCG/DOSE Inhalation Twice a day 1 puff Warfarin Sodium [facility] [address]-55 10 MG Orally Once a day [address] [facility] [address]-36 5 % Externally daily Jul 22, 2016 1 application to affected area Glimepiride [facility] [address]-39 1 MG Orally Once a day 1 tablet with breakfast or the first main meal of the day Clobetasol Propionate [facility] 09240764465 0.05 Externally apply a thin layer Twice a day for 2 weeks 1 application to affected area Keflex [facility] [address]-94 500 MG Orally Twice a day Apr 05, 2016 1 capsule Levothyroxine Sodium [facility] [address]-73 25 MCG Orally Once a day 1 tablet Procedures Procedure Coding System Code Date DESTROY LESIONS, 15 OR MORE CPT-4 77478 Jul 22, 2016 Office Visit, Est Pt., Level 3 CPT-4 02217 Jul 22, 2016 Vital Signs Date/Time: Jul 22, 2016 Blood Pressure Diastolic 72 mm Hg Blood Pressure Systolic 142 mm Hg Cardiac Monitoring Heart Rate 68 /min BMI 35.58 Index Weight 234 lbs Height 68 in Results No Known Results Summary Purpose [employer] Submission
--- OUTSIDE RECORDS SUMMARY | 2017-10-02 10:33 | XMS REPORT ---
Author Author Ehsan Castellon Organization [facility] Address 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 718979536 Problem Personal history of other malignant neoplasm of skin Z85.828 Active 489773304 Problem Lentigo L81.4 Active 984312800 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 192189800 ALLERGIES Substance Reaction Event Type Date Status Septra hives Drug Allergy Jul, Active SOCIAL HISTORY Never Assessed PLAN OF CARE Activity Details Follow Up 6 Months Reason: Pending Test Surgical to [facility] Pathology VITAL SIGNS Heart Rate 88 /min 2017-08-08 Height 68 in 2017-08-08 Weight 234 lbs 2017-08-08 BMI 35.58 kg/m2 2017-08-08 Blood pressure systolic 180 mm Hg 2017-08-08 Blood pressure diastolic 90 mm Hg 2017-08-08 MEDICATIONS Medication Instructions Dosage Frequency Start Date End Date Duration Status Klor-Con 10 10 MEQ Orally Four times a day 1 tablet 6h Active Coreg CR 10 MG Orally Once a day 1 capsule with food 24h Active Advair Diskus 100-50 MCG/DOSE Inhalation Twice a day 1 puff 12h Active Warfarin Sodium 10 MG Orally Once a day 1 tablet 24h Active lasix 1 tab Active Efudex 5 % Externally daily 1 application to affected area 24h Jul, 21 days Active Clobetasol Propionate 0.05 APPLY THIN LAYER TO AFFECTED AREA TWO TIMES A DAY FOR 2 WEEKS 20 Active Mylanta 200-200-20 MG/5ML Orally Four times a day 10 ml as needed 6h Active Glimepiride 1 MG Orally Once a day 1 tablet with breakfast or the first main meal of the day 24h Active Losartan Potassium 50 MG Orally Once a day 1 tablet 24h Active Clobetasol Propionate 0.05 % Externally apply a thin layer Twice a day for 2 weeks 1 application to affected area May, 14 days Active Levothyroxine Sodium 25 MCG Orally Once a day 1 tablet 24h Active Keflex 500 MG Orally Twice a day 1 capsule 12h Mar, 7 days Active Tikosyn 125 MCG Orally Once a day 1 capsule 24h Active RESULTS No Results PROCEDURES Procedure Date Ordered Result Body Site BIOPSY OF SKIN LESION Aug 08, 2017 DESTROY LESIONS, 15 OR MORE Aug 08, 2017 IMMUNIZATIONS No Known Immunizations MEDICAL (GENERAL) HISTORY Type Description Date Medical History NIDDM Medical History pacemaker/ defibrillator Medical History asthma Medical History chronic kidney disease Medical History gout Medical History peripheral vascular disease Medical History DJD Medical History hyperthyroid Medical History Left sup helix SCC 6-16
--- OUTSIDE RECORDS SUMMARY | 2017-10-02 10:33 | XMS REPORT ---
Author Author DAVE GUEVARA Organization [facility] Address [address] [place] [address] Care Team Providers Care Loss Prevention Consultant Name Role Phone DAVE GUEVARA Unavailable PROBLEMS Type Condition ICD9-CM Code [id number] Code Onset Dates Condition Status SNOMED Code Problem COPD exacerbation J44.1 Active [id number] ALLERGIES Substance Reaction Event Type Date Status Septra Unknown Drug Allergy December, Active SOCIAL HISTORY Never Assessed PLAN OF CARE Activity Details Follow Up prn Reason: VITAL SIGNS Height 68 in 2017-01-14 Weight 243.8 lbs 2017-01-14 Temperature 98.4 degrees Fahrenheit 2017-01-14 Heart Rate 63 bpm 2017-01-14 Respiratory Rate 22 2017-01-14 Oximetry 93 % 2017-01-14 BMI 37.07 kg/m2 2017-01-14 Blood pressure systolic 140 mmHg 2017-01-14 Blood pressure diastolic 70 mmHg 2017-01-14 MEDICATIONS Medication Instructions Dosage Frequency Start Date End Date Duration Status Levemir 100 UNIT/ML Subcutaneous Daily 52 Units 24h Active Fluoxetine HCl 20 MG Orally Once a day 1 capsule in the morning 24h Active Levothyroxine Sodium 100 MCG Orally Once a day 1 tablet on an empty stomach in the morning 24h Active PredniSONE 20 MG Orally Once a day 3 tabs x 3 days, 2 tabs x3 days, 1 tab x 3 days, 1/2 tab x 4 days 24h December, Jan, 13 days Active Tikosyn 125 MCG Orally Twice a day 1 capsule 12h Active Albuterol Sulfate HFA 108 (90 Base) MCG/ACT Inhalation every 4 hrs 2 puffs as needed 4h Active Amlodipine Besylate 10 MG Orally Once a day 1 tablet 24h Active RESULTS No Results PROCEDURES Procedure Date Ordered Result Body Site MEASURE BLOOD OXYGEN LEVEL January 14, 2017 [facility] VISIT ESTABLISHED PATIENT January 14, 2017 IMMUNIZATIONS No Known Immunizations MEDICAL (GENERAL) HISTORY Type Description Date Surgical History One kideny removal Surgical History Pacemaker Hospitalization History Pneumonia
--- OUTSIDE RECORDS SUMMARY | 2017-10-02 10:33 | XMS REPORT ---
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 Problem Personal history of other malignant neoplasm of skin Z85.828 Active Medications Medication Code System Code Instructions Start Date End Date Status Dosage Tikosyn [facility] [address]-15 125 MCG Orally Once a day 1 capsule Losartan Potassium [facility] [address]-28 50 MG Orally Once a day 1 tablet Klor-Con 10 [facility] [address]-20 10 MEQ Orally Four times a day 1 tablet Mylanta [facility] [address] 200-200-20 MG/5ML Orally Four times a day 10 ml as needed Glimepiride [facility] [address]-44 1 MG Orally Once a day 1 tablet with breakfast or the first main meal of the day Clobetasol Propionate [facility] [address]-02 0.05 % Externally apply a thin layer Twice a day for 2 weeks Jun 09, 2015 1 application to affected area Keflex [facility] [address]-19 500 MG Orally Twice a day Apr 05, 2016 1 capsule Warfarin Sodium [facility] [address]-36 10 MG Orally Once a day 1 tablet Advair Diskus [facility] [address]-17 100-50 MCG/DOSE Inhalation Twice a day 1 puff Coreg CR [facility] [address]-42 10 MG Orally Once a day 1 capsule with food lasix ND 0 Oral 1 tab Levothyroxine Sodium [facility] [address]-00 25 MCG Orally Once a day 1 tablet Procedures Procedure Coding System Code Date MOHS, H/N/H/F/G EA ADDL STAGE CPT-4 94599 Apr 05, 2016 Graft, nose, ears, eyelids, lips <20cm CPT-4 87832 Apr 05, 2016 MOHS, 1 STAGE, H/N/H/F/G, 5 BLOCKS CPT-4 50374 Apr 05, 2016 Results No Known Results Summary Purpose eClinicalWorks Submission
--- OUTSIDE RECORDS SUMMARY | 2017-10-02 10:34 | XMS REPORT ---
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 856191369 Problem Lentigo L81.4 Active 932161484 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 414677741 Problem 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 022129547 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 501348526 ALLERGIES Substance Reaction Event Type Date Status Septra hives Drug Allergy Aug, Active NIFEdipine itching Drug Allergy Aug, Active SOCIAL HISTORY Never Assessed PLAN OF CARE Activity Details Pending Test Anaerobic/Aerobic/Gram Stain VITAL SIGNS Heart Rate 85 /min 2017-09-20 Height 68 in 2017-09-20 Weight 234 lbs 2017-09-20 BMI 35.58 kg/m2 2017-09-20 Blood pressure systolic 140 mm Hg 2017-09-20 Blood pressure diastolic 75 mm Hg 2017-09-20 MEDICATIONS Medication Instructions Dosage Frequency Start Date End Date Duration Status Klor-Con 10 10 MEQ Orally Four times a day 1 tablet 6h Active Coreg CR 10 MG Orally Once a day 1 capsule with food 24h Active Advair Diskus 100-50 MCG/DOSE Inhalation Twice a day 1 puff 12h Active Cefadroxil 500 MG Orally BID 1 capsule 12h Aug, 07 days Active lasix 1 tab Active Clobetasol Propionate 0.05 % Externally apply a thin layer Twice a day for 2 weeks 1 application to affected area May, 14 days Active Tikosyn 125 MCG Orally Once a day 1 capsule 24h Active Mylanta 200-200-20 MG/5ML Orally Four times a day 10 ml as needed 6h Active Losartan Potassium 50 MG Orally Once a day 1 tablet 24h Active Glimepiride 1 MG Orally Once a day 1 tablet with breakfast or the first main meal of the day 24h Active Keflex 500 MG Orally Twice a day 1 capsule 12h 15 Mar, 2016 7 days Active Levothyroxine Sodium 25 MCG Orally Once a day 1 tablet 24h Active Warfarin Sodium 10 MG Orally Once a day 1 tablet 24h Active Clobetasol Propionate 0.05 APPLY THIN LAYER TO AFFECTED AREA TWO TIMES A DAY FOR 2 WEEKS 20 Active Nicotinamide - as directed Aug, Active Efudex 5 % Externally daily 1 [...]
--- OUTSIDE RECORDS SUMMARY | 2017-10-02 10:34 | XMS REPORT ---
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 [address]-30 10 MG Orally Once a day 1 capsule with food Klor-Con [address] [facility] [address]-85 10 MEQ Orally Four times a day 1 tablet Levothyroxine Sodium [facility] [address]-66 25 MCG Orally Once a day 1 tablet Tikosyn [facility] [address]-94 125 MCG Orally Once a day 1 capsule Advair Diskus [facility] [address]-93 100-50 MCG/DOSE Inhalation Twice a day 1 puff Mylanta [facility] [address] 200-200-20 MG/5ML Orally Four times a day 10 ml as needed lasix [facility] 0 Oral 1 tab Keflex [facility] [address]-77 500 MG Orally Twice a day Apr 05, 2016 1 capsule Clobetasol Propionate [facility] [address]-20 0.05 % Externally apply a thin layer Twice a day for 2 weeks Jun 09, 2015 1 application to affected area Losartan Potassium [facility] [address]-39 50 MG Orally Once a day 1 tablet Warfarin Sodium [facility] [address]-21 10 MG Orally Once a day 1 tablet Glimepiride [facility] [address]-98 1 MG Orally Once a day 1 tablet with breakfast or the first main meal of the day Procedures Procedure Coding System Code Date POSTOP FOLLOW-UP VISIT CPT-4 40615 Apr 15, 2016 Results No Known Results Summary Purpose eClinicalWorks Submission
--- OUTSIDE RECORDS SUMMARY | 2017-10-02 10:34 | XMS REPORT ---
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 199854884 Problem 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 344539758 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 654870988 Problem Lentigo L81.4 Active 488613429 ALLERGIES Substance Reaction Event Type Date Status Tyler hives Drug Allergy Aug, Active SOCIAL HISTORY Never Assessed PLAN OF CARE VITAL SIGNS Heart Rate 88 /min 2017-08-24 Height 68 in 2017-08-24 Weight 234 lbs 2017-08-24 BMI 35.58 kg/m2 2017-08-24 Blood pressure systolic 180 mm Hg 2017-08-24 Blood pressure diastolic 90 mm Hg 2017-08-24 MEDICATIONS Medication Instructions Dosage Frequency Start Date End Date Duration Status Advair Diskus 100-50 MCG/DOSE Inhalation Twice a day 1 puff 12h Active lasix 1 tab Active Klor-Con 10 10 MEQ Orally Four times a day 1 tablet 6h Active Warfarin Sodium 10 MG Orally Once a day 1 tablet 24h Active Coreg CR 10 MG Orally Once a day 1 capsule with food 24h Active Keflex 500 MG Orally Twice a day 1 capsule 12h 15 Mar, 2016 7 days Active Efudex 5 % Externally daily 1 application to affected area 24h Jul, 21 days Active Tikosyn 125 MCG Orally Once a day 1 capsule 24h Active Glimepiride 1 MG Orally Once a day 1 tablet with breakfast or the first main meal of the day 24h Active Losartan Potassium 50 MG Orally Once a day 1 tablet 24h Active Nicotinamide - as directed Aug, Active Mylanta 200-200-20 MG/5ML Orally Four times a day 10 ml as needed 6h Active Levothyroxine Sodium 25 MCG Orally Once a day 1 tablet 24h Active Clobetasol Propionate 0.05 APPLY THIN LAYER TO AFFECTED AREA TWO TIMES A DAY FOR 2 WEEKS 20 Active Clobetasol Propionate 0.05 % Externally apply a thin layer Twice a day for 2 weeks 1 application to affected area May, 14 days Active RESULTS No Results PROCEDURES No [...]
--- OUTSIDE RECORDS SUMMARY | 2017-10-02 10:34 | XMS REPORT ---
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 Problem Squamous cell cancer of skin [...] Start Date End Date Status Dosage Tikosyn [facility] [address]-44 125 MCG Orally Once a day 1 capsule lasix ND 0 Oral 1 tab Levothyroxine Sodium [facility] [address]-23 25 MCG Orally Once a day 1 tablet Warfarin Sodium [facility] [address]-52 10 MG Orally Once a day 1 tablet Mylanta [facility] [address] 200-200-20 MG/5ML Orally Four times a day 10 ml as needed Coreg CR [facility] [address]-88 10 MG Orally Once a day 1 capsule with food Glimepiride [facility] [address]-58 1 MG Orally Once a day 1 tablet with breakfast or the first main meal of the day Keflex [facility] [address]-64 500 MG Orally Twice a day Apr 05, 2016 1 capsule Clobetasol Propionate [facility] [address]-06 0.05 % Externally apply a thin layer Twice a day for 2 weeks Jun 09, 2015 1 application to affected area Advair Diskus [facility] [address]-27 100-50 MCG/DOSE Inhalation Twice a day 1 puff Klor-Con 10 [facility] [address]-87 10 MEQ Orally Four times a day 1 tablet Losartan Potassium [facility] [address]-11 50 MG Orally Once a day 1 tablet Procedures Procedure Coding System Code Date EXC FACE-MM MALIG DARRELL 1.1-2 CPT-4 65818 Jul 12, 2016 REPAIR FACE/EARS/EYELIDS/NOSE/LIPS 2.6-5.0CM CPT-4 27705 Jul 12, 2016 Results No Known Results Summary Purpose eClinicalWorks Submission
--- OUTSIDE RECORDS SUMMARY | 2017-10-02 10:34 | XMS REPORT ---
Author Author Ehsan Castellon Organization [facility] Address 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 146898856 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
--- OUTSIDE RECORDS SUMMARY | 2017-10-02 10:34 | XMS REPORT ---
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 Assessment Encounter for screening for malignant neoplasm of skin Z12.83 Active Assessment Neoplasm of uncertain behavior of skin D48.5 Active Assessment Personal history of other malignant neoplasm of skin Z85.828 Active Assessment Actinic keratosis L57.0 Active Medications Medication Code System Code Instructions Start Date End Date Status Dosage Advair Diskus [facility] [address]-78 100-50 MCG/DOSE Inhalation Twice a day 1 puff Mylanta [facility] [address] 200-200-20 MG/5ML Orally Four times a day 10 ml as needed Losartan Potassium [facility] [address]-30 50 MG Orally Once a day 1 tablet Tikosyn [facility] [address]-13 125 MCG Orally Once a day 1 capsule Coreg CR [facility] [address]-99 10 MG Orally Once a day 1 capsule with food Warfarin Sodium [facility] [address]-73 10 MG Orally Once a day 1 tablet Glimepiride [facility] [address]-90 1 MG Orally Once a day 1 tablet with breakfast or the first main meal of the day lasix ND 0 Oral 1 tab Clobetasol Propionate [facility] [address]-22 0.05 % Externally apply a thin layer Twice a day for 2 weeks Jun 09, 2015 1 application to affected area Levothyroxine Sodium [facility] [address]-62 25 MCG Orally Once a day 1 tablet Klor-Con 10 [facility] [address]-38 10 MEQ Orally Four times a day 1 tablet Procedures Procedure Coding System Code Date DESTROY LESIONS, 15 OR MORE CPT-4 87659 December 08, 2015 BIOPSY OF SKIN LESION CPT-4 01026 December 08, 2015 Office Visit, Est Pt., Level 4 CPT-4 41033 December 08, 2015 BIOPSY, SKIN, EA SEP ADDL LESION CPT-4 44605 December 08, 2015 Vital Signs Date/Time: December 08, 2015 BMI 35.58 Index Weight 234 lbs Height 68 in Results No Known Results Summary Purpose eClinicalWorks Submission
--- OUTSIDE RECORDS SUMMARY | 2017-10-02 10:35 | XMS REPORT ---
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
--- OUTSIDE RECORDS SUMMARY | 2017-10-02 10:35 | XMS REPORT ---
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 Problem Eczema L30.9 Active Assessment 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 Medications Medication Code System Code Instructions Start Date End Date Status Dosage lasix ND 0 Oral 1 tab Losartan Potassium [facility] [address]-57 50 MG Orally Once a day 1 tablet Advair Diskus [facility] [address]-07 100-50 MCG/DOSE Inhalation Twice a day 1 puff Mylanta [facility] 41354-96880 200-200-20 MG/5ML Orally Four times a day 10 ml as needed Tikosyn [facility] [address]-59 125 MCG Orally Once a day 1 capsule Clobetasol Propionate [facility] [address]-07 0.05 % Externally apply a thin layer Twice a day for 2 weeks Jun 09, 2015 1 application to affected area Warfarin Sodium [facility] [address]-09 10 MG Orally Once a day 1 tablet Coreg CR [facility] [address]-05 10 MG Orally Once a day 1 capsule with food Klor-Con 10 [facility] [address]-58 10 MEQ Orally Four times a day 1 tablet Glimepiride [facility] [address]-43 1 MG Orally Once a day 1 tablet with breakfast or the first main meal of the day Levothyroxine Sodium [facility] [address]-83 25 MCG Orally Once a day 1 tablet Procedures Procedure Coding System Code Date EXC MLGNT TRUNK/ARMS/LEGS DARRELL 1.1-2 CM CPT-4 31768 December 15, 2015 REPAIR SCALP/AXILLA/TRUNK/ARMS/LEGS 2.6-7.5CM CPT-4 53661 December 15, 2015 Vital Signs Date/Time: December 15, 2015 Blood Pressure Diastolic 68 mm Hg Blood Pressure Systolic 137 mm Hg Cardiac Monitoring Heart Rate 66 /min BMI 35.58 Index Weight 234 lbs Height 68 in Results No Known Results Summary Purpose eClinicalWorks Submission
--- OUTSIDE RECORDS SUMMARY | 2017-10-02 10:35 | XMS REPORT ---
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 Problem Eczema L30.9 Active Assessment Personal history of other malignant neoplasm of skin Z85.828 Active Problem 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 Problem Personal history of other malignant neoplasm of skin Z85.828 Active Medications Medication Code System Code Instructions Start Date End Date Status Dosage Klor-Con 10 [facility] [address]-10 10 MEQ Orally Four times a day 1 tablet Warfarin Sodium [facility] [address]-34 10 MG Orally Once a day 1 tablet Glimepiride [facility] [address]-75 1 MG Orally Once a day 1 tablet with breakfast or the first main meal of the day Keflex [facility] [address]-57 500 MG Orally Twice a day Apr 05, 2016 1 capsule Levothyroxine Sodium [facility] [address]-35 25 MCG Orally Once a day 1 tablet Coreg CR [facility] [address]-65 10 MG Orally Once a day 1 capsule with food Mylanta [facility] 65217-05712 200-200-20 MG/5ML Orally Four times a day 10 ml as needed Tikosyn [facility] [address]-90 125 MCG Orally Once a day 1 capsule Losartan Potassium [facility] [address]-12 50 MG Orally Once a day 1 tablet Clobetasol Propionate [facility] [address]-78 0.05 % Externally apply a thin layer Twice a day for 2 weeks Jun 09, 2015 1 application to affected area Advair Diskus [facility] [address]-46 100-50 MCG/DOSE Inhalation Twice a day 1 puff lasix ND 0 Oral 1 tab Procedures Procedure Coding System Code Date BIOPSY OF SKIN LESION CPT-4 22687 Jun 07, 2016 DESTROY LESIONS, 15 OR MORE CPT-4 34174 Jun 07, 2016 Office Visit, Est Pt., Level 3 CPT-4 79347 Jun 07, 2016 Results No Known Results Summary Purpose eClinicalWorks Submission
--- OUTSIDE RECORDS SUMMARY | 2017-10-02 10:35 | XMS REPORT ---
Author Shavonne Tillman [facility] eClinicalWorks Address Unknown Phone Unavailable Care Team Providers Care Contractor Buyer Name Role Phone Shavonne Comer CP Unavailable Allergies, Adverse Reactions, Alerts Substance [...] Instructions Start Date End Date Status Dosage Mylanta [facility] [address]63 200-200-20 MG/5ML Orally Four times a day 10 ml as needed Klor-Con 10 [facility] [address]-29 10 MEQ Orally Four times a day 1 tablet Tikosyn [facility] [address]-14 125 MCG Orally Once a day 1 capsule Losartan Potassium [facility] [address]-86 50 MG Orally Once a day 1 tablet Coreg CR [facility] [address]-14 10 MG Orally Once a day 1 capsule with food Warfarin Sodium [facility] [address]-25 10 MG Orally Once a day 1 tablet lasix [facility] 0 Oral 1 tab Glimepiride [facility] [address]-12 1 MG Orally Once a day 1 tablet with breakfast or the first main meal of the day Clobetasol Propionate [facility] [address]-55 0.05 % Externally apply a thin layer Twice a day for 2 weeks Jun 09, 2015 1 application to affected area Levothyroxine Sodium [facility] [address]-21 25 MCG Orally Once a day 1 tablet Advair Diskus [facility] [address]-26 100-50 MCG/DOSE Inhalation Twice a day 1 puff Procedures Procedure Coding System Code Date Office Visit, Est Pt., Level 2 CPT-4 15544 Mar 25, 2016 Vital Signs Date/Time: Mar 25, 2016 BMI 35.58 Index Weight 234 lbs Height 68 in Results No Known Results Summary Purpose eClinicalWorks Submission
--- OUTSIDE RECORDS SUMMARY | 2017-10-02 10:35 | XMS REPORT ---
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
--- OUTSIDE RECORDS SUMMARY | 2017-10-02 10:37 | XMS REPORT | Continuity of Care Document ---
Author Author [facility] Organization [facility] Address Unknown Phone Unavailable Allergies Active Description Code Type Severity Reaction Onset Reported/Identified Relationship to Patient Clinical Status Yes sulfamethoxazole [id number] Drug Allergy Mild N/A 08/27/2014 Yes trimethoprim [id number] Drug Allergy Mild N/A 08/27/2014 Medications There is no data. 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 08/12/2010 Ot 708.9 08/12/2010 Ot 782.1 01/07/2011 Ot 916.0 01/07/2011 Ot E000.8 01/07/2011 Ot E849.0 01/07/2011 Ot E917.9 01/07/2011 Ot V06.1 01/07/2011 Ot V58.61 09/03/2014 SAÚL PUENTE MD Ot 244.9 09/03/2014 SAÚL PUENTE MD Ot 250.80 09/03/2014 SAÚL PUENTE MD Ot 274.9 09/03/2014 SAÚL PUENTE MD Ot 366.9 09/03/2014 SAÚL PUENTE MD Ot 454.2 09/03/2014 SAÚL PUENTE MD Ot 457.1 09/03/2014 SAÚL PUENTE MD Ot 496 09/03/2014 SAÚL PUENTE MD Ot 682.7 09/03/2014 CINDI SORENSEN, SAÚL K Ot 707.15 09/03/2014 ODPIERCE SORENSEN, SAÚL K Ot 716.90 09/03/2014 ODPIERCE SORENSEN, SAÚL K Ot 780.57 09/03/2014 ODPIERCE SORENSEN, SAÚL K Ot V10.82 09/03/2014 ODPIERCE SORENSEN, SAÚL K Ot V12.04 09/03/2014 ODPIERCE SORENSEN, SAÚL K Ot V13.02 09/03/2014 ODPIERCE SORENSEN, SAÚL K Ot V45.73 09/03/2014 ODPIERCE SORENSEN, SAÚL K Ot V58.67 09/03/2014 ODPIERCE SORENSEN, SAÚL K Ot 244.9 09/03/2014 ODPIERCE SORENSEN, SAÚL K Ot 250.80 09/03/2014 ODPIERCE SORENSEN, SAÚL K Ot 274.9 09/03/2014 ODPIERCE SORENSEN, SAÚL K Ot 366.9 09/03/2014 ODPIERCE SORENSEN, SAÚL K Ot 454.2 09/03/2014 CINDI SORENSEN, SAÚL K Ot 457.1 09/03/2014 CINDI SORENSEN, SAÚL K Ot 496 09/03/2014 CINDI SORENSEN, SAÚL K Ot 682.7 09/03/2014 ODPIERCE SORENSEN, SAÚL K Ot 707.15 09/03/2014 CINDI SORENSEN, SAÚL K Ot 716.90 09/03/2014 ODPIERCE SORENSEN, SAÚL K Ot 780.57 09/03/2014 ODPIERCE SORENSEN, SAÚL K Ot V10.82 09/03/2014 CINDI SORENSEN, SAÚL K Ot V12.04 09/03/2014 CINDI SORENSEN, SAÚL K Ot V13.02 09/03/2014 ODPIERCE SORENSEN, SAÚL K Ot V45.73 09/03/2014 CINDI SORENSEN, SAÚL K Ot V58.67 09/05/2014 CINDI SORENSEN, SAÚL K Ot 682.9 09/05/2014 CINDI SORENSEN, SAÚL K Ot 729.5 09/05/2014 CINDI SORENSEN, SAÚL K Ot 682.9 09/05/2014 CINDI SORENSEN, SAÚL K Ot 682.9 09/05/2014 CINDI SORENSEN, SAÚL K Ot 682.9 09/05/2014 CINDI SORENSEN, SAÚL K Ot 682.9 09/06/2014 CINDI SORENSEN, SAÚL K Ot 682.9 09/06/2014 ODPIERCE SORENSEN, SAÚL K Ot 682.9 09/07/2014 ODPIERCE SORENSEN, SAÚL K Ot 682.9 09/07/2014 ODPIERCE SORENSEN, SAÚL K Ot 682.9 09/08/2014 ODPIERCE SORENSEN, SAÚL K Ot 682.9 09/08/2014 ODPIERCE SORENSEN, SAÚL K Ot 682.9 09/08/2014 ODPIERCE SORENSEN, SAÚL K Ot 682.9 09/09/2014 ODPIERCE SORENSEN, SAÚL K Ot 682.9 09/09/2014 ODPIERCE SORENSEN, SAÚL K Ot 682.9 09/09/2014 ODPIERCE SORENSEN, SAÚL K Ot 682.9 09/10/2014 ODPIERCE SORENSEN, SAÚL K Ot 682.9 09/10/2014 ODPIERCE SORENSEN, SAÚL K Ot 682.9 09/11/2014 ODPIERCE SORENSEN, SAÚL K Ot 682.9 09/11/2014 CINDI SORENSEN, SAÚL K Ot 682.9 09/12/2014 CINDI SORENSEN, SAÚL K Ot 682.9 09/12/2014 ODPIERCE SORENSEN, SAÚL K Ot 682.9 09/13/2014 CINDI SORENSEN, SAÚL K Ot 682.9 09/13/2014 CINDI SORENSEN, SAÚL K Ot 682.9 09/14/2014 CINDI SORENSEN, SAÚL K Ot 682.9 09/14/2014 ODPIERCE SORENSEN, SAÚL K Ot 682.9 09/15/2014 CINDI SORENSEN, SAÚL K Ot 682.9 09/15/2014 CINDI SORENSEN, SAÚL K Ot 682.9 09/15/2014 CINDI SORENSEN, SAÚL K Ot 682.9 09/16/2014 ODPIERCE SORENSEN, SAÚL K Ot 682.9 09/16/2014 CINDI SORENSEN, SAÚL K Ot 682.9 09/17/2014 CINDI SORENSEN, SAÚL K Ot 682.9 09/17/2014 ODPIERCE SORENSEN, SAÚL K Ot 682.9 09/17/2014 ODPIERCE SORENSEN, SAÚL K Ot 682.9 09/18/2014 CINDI SORENSEN, SAÚL K Ot 682.9 09/18/2014 CINDI SORENSEN, SAÚL K Ot 682.9 09/18/2014 CINDI SORENSEN, SAÚL K Ot 682.9 09/18/2014 CINDI SORENSEN, SAÚL K Ot 682.9 09/19/2014 CINDI SORENSEN, SAÚL K Ot 682.9 09/19/2014 CINDI SORENSEN, SAÚL K Ot 682.9 09/19/2014 ODPIERCE SORENSEN, SAÚL K Ot 682.9 09/20/2014 ODPIERCE SORENSEN, SAÚL K Ot 682.9 09/20/2014 ODPIERCE SORENSEN, SAÚL K Ot 682.9 09/21/2014 ODPIERCE SORENSEN, SAÚL K Ot 682.9 09/21/2014 ODPIERCE SORENSEN, SAÚL K Ot 682.9 09/22/2014 CINDI SORENSEN, SAÚL K Ot 682.9 09/22/2014 CINDI SORENSEN, SAÚL K Ot 682.9 09/23/2014 ODPIERCE SORENSEN, SAÚL K Ot 682.9 09/23/2014 CINDI SORENSEN, SAÚL K Ot 682.9 09/23/2014 CINDI SORENSEN, SAÚL K Ot 682.9 09/24/2014 CINDI SORENSEN, SAÚL K Ot 682.9 09/24/2014 CINDI SORENSEN, SAÚL K Ot 682.9 09/25/2014 CINDI SORENSEN, SAÚL K Ot 682.9 09/25/2014 CINDI SORENSEN, SAÚL K Ot 682.9 09/26/2014 CINDI SORENSEN, SAÚL K Ot 682.9 09/26/2014 CINDI SORENSEN, SAÚL K Ot 682.9 09/27/2014 CINDI SORENSEN, SAÚL K Ot 682.9 09/27/2014 CINDI SORENSEN, SAÚL K Ot 682.9 09/28/2014 CINDI SORENSEN, SAÚL K Ot 682.9 09/29/2014 CINDI SORENSEN, SAÚL K Ot 682.9 09/29/2014 CINDI SORENSEN, SAÚL K Ot 682.9 09/30/2014 CINDI SORENSEN, SAÚL K Ot 682.9 09/30/2014 CINDI SORENSEN, SAÚL K Ot 682.9 09/30/2014 CINDI SORENSEN, SAÚL K Ot 682.9 10/01/2014 CINDI SORENSEN, SAÚL K Ot 682.9 10/01/2014 CINDI SORENSEN, SAÚL K Ot 682.9 10/02/2014 ODPIERCE SORENSEN, SAÚL K Ot 682.9 10/02/2014 CINDI SORENSEN, SAÚL K Ot 682.9 10/03/2014 ODPIERCE SORENSEN, SAÚL K Ot 682.9 10/03/2014 ODPIERCE SORENSEN, SAÚL K Ot 682.9 10/04/2014 ODPIERCE SORENSEN, SAÚL K Ot 682.9 10/04/2014 ODPIERCE SORENSEN, SAÚL K Ot 682.9 10/04/2014 ODPIERCE SORENSEN, SAÚL K Ot 682.9 10/04/2014 ODPIERCE SORENSEN, SAÚL K Ot 682.9 10/05/2014 CINDI SORENSEN, SAÚL K Ot 682.9 10/05/2014 ODPIERCE SORENSEN, SAÚL K Ot 682.9 10/06/2014 ODPIERCE SORENSEN, SAÚL K Ot 682.9 10/06/2014 CINDI SORENSEN, SAÚL K Ot 682.9 10/07/2014 CINDI SORENSEN, SAÚL K Ot 682.9 10/07/2014 CINDI SORENSEN, SAÚL K Ot 682.9 10/08/2014 CINDI SORENSEN, SAÚL K Ot 682.9 10/08/2014 CINDI SORENSEN, SAÚL K Ot 682.9 10/09/2014 CINDI SORENSEN, SAÚL K Ot 682.9 10/09/2014 ODPIERCE SORENSEN, SAÚL K Ot 682.9 10/09/2014 ODPIERCE SORENSEN, SAÚL K Ot 682.9 10/10/2014 CINDI SORENSEN, SAÚL K Ot 682.9 10/10/2014 CINDI SORENSEN, SAÚL K Ot 682.9 10/10/2014 CINDI SORENSEN, SAÚL K Ot 682.9 10/11/2014 ODPIERCE SORENSEN, SAÚL K Ot 682.9 10/11/2014 CINDI SORENSEN, SAÚL K Ot 682.9 10/12/2014 CINDI SORENSEN, SAÚL K Ot 682.9 10/12/2014 CINDI SORENSEN, SAÚL K Ot 682.9 10/13/2014 CINDI SORENSEN, SAÚL K Ot 682.9 10/13/2014 CINDI SORENSEN, SAÚL K Ot 682.9 10/13/2014 CINDI SORENSEN, SAÚL Childs Ot 682.9 10/14/2014 CINDI SORENSEN, SAÚL Childs Ot 682.9 10/15/2014 CINDI SORENSEN, SAÚL Childs Ot 682.9 10/15/2014 CINDI SORENSEN, SAÚL Childs Ot 682.9 10/16/2014 CINDI SORENSEN, SAÚL Childs Ot 682.9 10/16/2014 CINDI SORENSEN, SAÚL Childs Ot 682.9 10/16/2014 CINDI SORENSEN, SAÚL Childs Ot 682.7 10/16/2014 CINDI SORENSEN, SAÚL K Ot 707.15 10/16/2014 CINDI SORENSEN, SAÚL Chidls Ot 730.27 10/16/2014 CINDI SORENSEN, SAÚL Childs Ot 682.9 11/15/2014 CINDI SORENSEN, SAÚL Childs Ot 682.9 11/21/2014 SAÚL PUENTE MD Ot 682.9 11/29/2014 CINDI SORENSEN, SAÚL Childs Ot 682.9 11/29/2014 CINDI SORENSEN, SAÚL Childs Ot 682.9 06/29/2016 MANAN GEE MD, Ot E86.0 DEHYDRATION 06/29/2016 MANAN GEE MD, Ot I12.9 HYPERTENSIVE CHRONIC KIDNEY DISEASE W ST 06/29/2016 MANAN GEE MD, Ot I87.2 VENOUS INSUFFICIENCY (CHRONIC) (PERIPHER 06/29/2016 MANAN GEE MD Ot L03.115 CELLULITIS OF RIGHT LOWER LIMB 06/29/2016 MANAN GEE MD, Ot N18.9 CHRONIC KIDNEY DISEASE, UNSPECIFIED 06/29/2016 MANAN GEE MD Ot R91.8 OTHER NONSPECIFIC ABNORMAL FINDING OF BESS 06/29/2016 MANAN GEE MD, Ot Z66 DO NOT RESUSCITATE 06/30/2016 MANAN GEE MD, Ot E86.0 DEHYDRATION 06/30/2016 MANAN GEE MD, Ot I12.9 HYPERTENSIVE CHRONIC KIDNEY DISEASE W ST 06/30/2016 MANAN GEE MD Ot I87.2 VENOUS INSUFFICIENCY (CHRONIC) (PERIPHER 06/30/2016 MANAN GEE MD Ot L03.115 CELLULITIS OF RIGHT LOWER LIMB 06/30/2016 MANAN GEE MD, Ot N18.9 CHRONIC KIDNEY DISEASE, UNSPECIFIED 06/30/2016 MANAN GEE MD Ot R91.8 OTHER NONSPECIFIC ABNORMAL FINDING OF BESS 06/30/2016 MANAN GEE MD, Ot Z66 DO NOT RESUSCITATE 07/01/2016 MANAN GEE MD Ot E86.0 DEHYDRATION 07/01/2016 MANAN GEE MD Ot I12.9 HYPERTENSIVE CHRONIC KIDNEY DISEASE W ST 07/01/2016 MANAN GEE MD Ot I87.2 VENOUS INSUFFICIENCY (CHRONIC) (PERIPHER 07/01/2016 MANAN GEE MD Ot L03.115 CELLULITIS OF RIGHT LOWER LIMB 07/01/2016 MANAN GEE MD Ot N18.9 CHRONIC KIDNEY DISEASE, UNSPECIFIED 07/01/2016 MANAN GEE MD Ot R91.8 OTHER NONSPECIFIC ABNORMAL FINDING OF BESS 07/01/2016 MANAN GEE MD Ot Z66 DO NOT RESUSCITATE 07/01/2016 MANAN GEE MD, Ot E86.0 DEHYDRATION 07/01/2016 MANAN GEE MD, Ot I12.9 HYPERTENSIVE CHRONIC KIDNEY DISEASE W ST 07/01/2016 MANAN GEE MD Ot I87.2 VENOUS INSUFFICIENCY (CHRONIC) (PERIPHER 07/01/2016 MANAN GEE MD Ot L03.115 CELLULITIS OF RIGHT LOWER LIMB 07/01/2016 MANAN GEE MD, Ot N18.9 CHRONIC KIDNEY DISEASE, UNSPECIFIED 07/01/2016 MANAN GEE MD Ot R91.8 OTHER NONSPECIFIC ABNORMAL FINDING OF BESS 07/01/2016 MANAN GEE MD Ot Z66 DO NOT RESUSCITATE 07/01/2016 MANAN GEE MD, Ot E86.0 DEHYDRATION 07/01/2016 MANAN GEE MD, Ot I12.9 HYPERTENSIVE CHRONIC KIDNEY DISEASE W ST 07/01/2016 MANAN GEE MD Ot I87.2 VENOUS INSUFFICIENCY (CHRONIC) (PERIPHER 07/01/2016 MANAN GEE MD Ot J18.9 PNEUMONIA, UNSPECIFIED ORGANISM 07/01/2016 MANAN GEE MD, Ot J44.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622 TYPE 2 DIABETES MELLITUS WITH OTHER SKIN 08/05/2016 MANAN GEE MD Ot 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 [place]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 08/05/2016 MANAN GEE MD Ot 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 08/05/2016 MANAN GEE MD Ot 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 08/31/2016 MANAN GEE MD, Ot E11.622 TYPE 2 DIABETES MELLITUS WITH OTHER SKIN 08/31/2016 MANAN GEE MD Ot I70.232 [place]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 08/31/2016 MANAN GEE MD Ot 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 08/31/2016 MANAN GEE MD Ot 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 09/07/2016 MANAN GEE MD, Ot E11.622 TYPE 2 DIABETES MELLITUS WITH OTHER SKIN 09/07/2016 MANAN GEE MD Ot 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 [place]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 09/07/2016 MANAN GEE MD Ot 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 09/07/2016 MANAN GEE MD Ot 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 09/09/2016 MANAN GEE MD Ot J44.9 CHRONIC OBSTRUCTIVE PULMONARY DISEASE, U 09/11/2016 SAÚL PUENTE MD Ot E11.9 TYPE 2 DIABETES MELLITUS WITHOUT COMPLIC 09/11/2016 SALÚ PUENTE MD Ot I10 ESSENTIAL (PRIMARY) HYPERTENSION 09/11/2016 SAÚL PUENTE MD Ot I48.2 CHRONIC ATRIAL FIBRILLATION 09/11/2016 SAÚL PUENTE MD Ot J20.9 ACUTE BRONCHITIS, UNSPECIFIED 09/11/2016 SAÚL PUENTE MD Ot R06.02 SHORTNESS OF BREATH 09/11/2016 SAÚL PUENTE MD Ot Z79.84 GROUP HOME (CURRENT) USE OF ORAL HYPOGLYC 09/11/2016 SAÚL PUENTE MD Ot Z79.899 OTHER GROUP HOME (CURRENT) DRUG THERAPY 09/11/2016 SAÚL PUENTE MD Ot Z95.0 PRESENCE OF CARDIAC PACEMAKER 09/23/2016 MANAN GEE MD Ot E11.622 TYPE 2 DIABETES MELLITUS WITH OTHER SKIN 09/23/2016 MANAN GEE MD Ot I70.232 [place]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 09/23/2016 MANAN GEE MD Ot 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 09/23/2016 MANAN GEE MD Ot 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 10/12/2016 MANAN GEE MD Ot J44.9 CHRONIC OBSTRUCTIVE PULMONARY DISEASE, U 10/18/2016 MANAN GEE MD, Ot J44.9 CHRONIC OBSTRUCTIVE PULMONARY DISEASE, U 03/04/2017 MANAN GEE MD Ot E11.622 TYPE 2 DIABETES MELLITUS WITH OTHER SKIN 03/04/2017 MANAN GEE MD Ot 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 03/04/2017 MANAN GEE MD Ot 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 03/21/2017 MANAN GEE MD Ot E11.622 TYPE 2 DIABETES MELLITUS WITH OTHER SKIN 03/21/2017 MANAN GEE MD Ot 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 03/21/2017 MANAN GEE MD Ot 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 03/30/2017 MANAN GEE MD Ot E11.622 TYPE 2 DIABETES MELLITUS WITH OTHER SKIN 03/30/2017 MANAN GEE MD Ot 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 03/30/2017 MANAN GEE MD Ot 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 04/01/2017 MANAN GEE MD Ot E11.622 TYPE 2 DIABETES MELLITUS WITH OTHER SKIN 04/01/2017 MANAN GEE MD Ot 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 04/01/2017 MANAN GEE MD Ot 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 04/01/2017 MANAN GEE MD Ot E11.622 TYPE 2 DIABETES MELLITUS WITH OTHER SKIN 04/01/2017 MANAN GEE MD Ot 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 04/01/2017 MANAN GEE MD Ot 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 04/06/2017 MANAN GEE MD Ot E11.622 TYPE 2 DIABETES MELLITUS WITH OTHER SKIN 04/06/2017 MANAN GEE MD Ot 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 04/06/2017 MANAN GEE MD Ot 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 04/21/2017 MANAN GEE MD Ot E11.622 TYPE 2 DIABETES MELLITUS WITH OTHER SKIN 04/21/2017 MANAN GEE MD Ot 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 04/21/2017 MANNA GEE MD Ot 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 04/27/2017 DILCIA PORTER CLOTH PATTERN MAKER Ot E11.622 TYPE 2 DIABETES MELLITUS WITH OTHER SKIN 04/27/2017 DILCIA PORTER CLOTH PATTERN MAKER Ot 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 04/27/2017 DILCIA PORTER APRN Ot 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 05/06/2017 MANAN GEE MD Ot E11.622 TYPE 2 DIABETES MELLITUS WITH OTHER SKIN 05/06/2017 MANAN GEE MD Ot 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 05/06/2017 MANAN GEE MD Ot 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 05/09/2017 MANAN GEE MD Ot E11.622 TYPE 2 DIABETES MELLITUS WITH OTHER SKIN 05/09/2017 MANAN GEE MD Ot 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 05/09/2017 MANAN GEE MD Ot 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 05/10/2017 MANAN GEE MD Ot E11.622 TYPE 2 DIABETES MELLITUS WITH OTHER SKIN 05/10/2017 MANAN GEE MD Ot 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 05/10/2017 MANAN GEE MD Ot 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 05/10/2017 DILCIA PORTER APRN Ot E11.622 TYPE 2 DIABETES MELLITUS WITH OTHER SKIN 05/10/2017 DILCIA PORTER CLOTH PATTERN MAKER Ot 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 05/10/2017 DILCIA PORTER CLOTH PATTERN MAKER Ot 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 05/17/2017 MANAN GEE MD Ot E11.622 TYPE 2 DIABETES MELLITUS WITH OTHER SKIN 05/17/2017 MANAN GEE MD Ot 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 05/17/2017 MANAN GEE MD Ot 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 06/24/2017 MANAN GEE MD, Ot E11.622 TYPE 2 DIABETES MELLITUS WITH OTHER SKIN 06/24/2017 MANAN GEE MD Ot 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 06/24/2017 MANAN GEE MD Ot 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 06/29/2017 ERICK COTE MD Ot E11.622 TYPE 2 DIABETES MELLITUS WITH OTHER SKIN 06/29/2017 ERICK COTE MD Ot I70.232 [place]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 06/29/2017 ERICK COTE MD Ot 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 06/29/2017 ERICK COTE MD Ot L97.212 NON-PRESSURE CHRONIC ULCER OF RIGHT CALF 06/29/2017 ERICK COTE MD Ot 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 07/13/2017 DILCIA PORTER APRN Ot E11.622 TYPE 2 DIABETES MELLITUS WITH OTHER SKIN 07/13/2017 DILCIA PORTER APRN Ot 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 [place]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 07/13/2017 DILCIA PORTER APRN Ot 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 07/13/2017 DILCIA PORTER CLOTH PATTERN MAKER Ot L97.212 NON-PRESSURE CHRONIC ULCER OF RIGHT CALF 07/13/2017 DILCIA PORTER CLOTH PATTERN MAKER Ot 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 07/18/2017 [place] DILCIA Vilchis CLOTH PATTERN MAKER Ot E11.622 TYPE 2 DIABETES MELLITUS WITH OTHER SKIN 07/18/2017 DILCIA PORTER CLOTH PATTERN MAKER Ot 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 [place]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 07/18/2017 [place] DILCIA Vilchis CLOTH PATTERN MAKER Ot 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 07/18/2017 [place] DILCIA Vilchis CLOTH PATTERN MAKER Ot L97.212 NON-PRESSURE CHRONIC ULCER OF RIGHT CALF 07/18/2017 DILCIA PORTER CLOTH PATTERN MAKER Ot 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 07/18/2017 MANAN GEE MD, Ot E11.622 TYPE 2 DIABETES MELLITUS WITH OTHER SKIN 07/18/2017 MANAN GEE MD Ot 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 07/18/2017 MANAN GEE MD Ot 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 07/18/2017 MANAN GEE MD, Ot E11.622 TYPE 2 DIABETES MELLITUS WITH OTHER SKIN 07/18/2017 MANAN GEE MD Ot 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 07/18/2017 MANAN GEE MD Ot 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 07/18/2017 Kody DUNN MD Ot E11.622 TYPE 2 DIABETES MELLITUS WITH OTHER SKIN 07/18/2017 Kody DUNN MD Ot I10 ESSENTIAL (PRIMARY) HYPERTENSION 07/18/2017 MONA SORENSEN, Kody MENDEZ Ot I99.8 OTHER DISORDER OF CIRCULATORY SYSTEM 07/18/2017 Kody DUNN MD Ot L97.919 NON-PRS CHRONIC ULC UNSP PRT OF R LOW LE 07/18/2017 Kody DUNN MD Ot N28.0 ISCHEMIA AND INFARCTION OF KIDNEY 07/18/2017 Kody DUNN MD Ot 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 07/19/2017 ERICK COTE MD Ot E11.622 TYPE 2 DIABETES MELLITUS WITH OTHER SKIN 07/19/2017 ERICK COTE MD Ot 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 [place]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 07/19/2017 ERICK COTE MD Ot 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 07/19/2017 ERICK COTE MD Ot L97.212 NON-PRESSURE CHRONIC ULCER OF RIGHT CALF 07/19/2017 ERICK COTE MD Ot 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 07/20/2017 MANAN GEE MD Ot E11.622 TYPE 2 DIABETES MELLITUS WITH OTHER SKIN 07/20/2017 MANAN GEE MD Ot 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 07/20/2017 MANAN GEE MD Ot 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 07/22/2017 MANAN GEE MD Ot E11.622 TYPE 2 DIABETES MELLITUS WITH OTHER SKIN 07/22/2017 MANAN GEE MD Ot 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 [place]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 07/22/2017 MANAN GEE MD Ot 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 07/22/2017 MANAN GEE MD Ot L97.212 NON-PRESSURE CHRONIC ULCER OF RIGHT CALF 07/22/2017 MANAN GEE MD Ot 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 07/25/2017 MANAN GEE MD Ot E11.622 TYPE 2 DIABETES MELLITUS WITH OTHER SKIN 07/25/2017 MANAN GEE MD Ot I70.232 [place]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 07/25/2017 MANAN GEE MD Ot 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 07/25/2017 MANAN GEE MD Ot L97.212 NON-PRESSURE CHRONIC ULCER OF RIGHT CALF 07/25/2017 MANAN GEE MD Ot 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 07/27/2017 Kody DUNN MD Ot E11.622 TYPE 2 DIABETES MELLITUS WITH OTHER SKIN 07/27/2017 Kody DUNN MD Ot I10 ESSENTIAL (PRIMARY) HYPERTENSION 07/27/2017 Kody DUNN MD Ot I99.8 OTHER DISORDER OF CIRCULATORY SYSTEM 07/27/2017 Kody DUNN MD Ot L97.919 NON-PRS CHRONIC ULC UNSP PRT OF R LOW LE 07/27/2017 MONA SORENSEN, Kody MENDEZ Ot N28.0 ISCHEMIA AND INFARCTION OF KIDNEY 07/27/2017 MONA SORENSEN, Kody MENDEZ Ot 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 08/01/2017 MANAN GEE MD Ot E11.622 TYPE 2 DIABETES MELLITUS WITH OTHER SKIN 08/01/2017 MANAN GEE MD Ot I70.232 [place]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 08/01/2017 MANAN GEE MD Ot 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 08/01/2017 MANAN GEE MD Ot L97.212 NON-PRESSURE CHRONIC ULCER OF RIGHT CALF 08/01/2017 MANAN GEE MD, Ot 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 08/01/2017 MANAN GEE MD, Ot E11.622 TYPE 2 DIABETES MELLITUS WITH OTHER SKIN 08/01/2017 MANAN GEE MD, Ot I70.232 [place]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 08/01/2017 MANAN GEE MD, Ot 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 08/01/2017 MANAN GEE MD Ot L97.212 NON-PRESSURE CHRONIC ULCER OF RIGHT CALF 08/01/2017 MANAN GEE MD Ot 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 08/04/2017 DILCIA PORTER APRN Ot E11.622 TYPE 2 DIABETES MELLITUS WITH OTHER SKIN 08/04/2017 DILCIA PORTER CLOTH PATTERN MAKER Ot I70.232 [place]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 08/04/2017 DILCIA PORTER APRN Ot 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 08/04/2017 DILCIA PORTER APRN Ot L97.212 NON-PRESSURE CHRONIC ULCER OF RIGHT CALF 08/04/2017 DILCIA PORTER [employer] PATTERN MAKER Ot 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 08/08/2017 MANAN GEE MD Ot E11.622 TYPE 2 DIABETES MELLITUS WITH OTHER SKIN 08/08/2017 MANAN GEE MD Ot I70.232 [place]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 08/08/2017 MANAN GEE MD Ot 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 08/08/2017 MANAN GEE MD Ot L97.212 NON-PRESSURE CHRONIC ULCER OF RIGHT CALF 08/08/2017 MANAN GEE MD Ot 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 08/11/2017 DILCIA PORTER [employer] PATTERN MAKER Ot E11.622 TYPE 2 DIABETES MELLITUS WITH OTHER SKIN 08/11/2017 DILCIA PORTER [employer] PATTERN MAKER Ot I70.232 [place]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 08/11/2017 DILCIA PORTER CL[employer] PATTERN MAKER Ot 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 08/11/2017 DILCIA PORTER CL[employer] PATTERN MAKER Ot L97.212 NON-PRESSURE CHRONIC ULCER OF RIGHT CALF 08/11/2017 DILCIA PORTER [employer] PATTERN MAKER Ot 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 08/12/2017 MANAN GEE MD Ot E11.622 TYPE 2 DIABETES MELLITUS WITH OTHER SKIN 08/12/2017 MANAN GEE MD Ot I70.232 [place]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 08/12/2017 MANAN GEE MD Ot 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 08/12/2017 MANAN GEE MD Ot L97.212 NON-PRESSURE CHRONIC ULCER OF RIGHT CALF 08/12/2017 MANAN GEE MD Ot 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 08/17/2017 MANAN GEE MD Ot E11.622 TYPE 2 DIABETES MELLITUS WITH OTHER SKIN 08/17/2017 MANAN GEE MD Ot I70.232 [place]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 08/17/2017 MANAN GEE MD Ot 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 08/17/2017 MANAN GEE MD Ot L97.212 NON-PRESSURE CHRONIC ULCER OF RIGHT CALF 08/17/2017 MANAN GEE MD Ot 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 08/18/2017 MANAN GEE MD Ot E11.622 TYPE 2 DIABETES MELLITUS WITH OTHER SKIN 08/18/2017 MANAN GEE MD Ot I70.232 [place]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 08/18/2017 MANAN GEE MD Ot 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 08/18/2017 MANAN GEE MD, Ot L97.212 NON-PRESSURE CHRONIC ULCER OF RIGHT CALF 08/18/2017 MANAN GEE MD Ot 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 08/24/2017 MANAN GEE MD Ot E11.622 TYPE 2 DIABETES MELLITUS WITH OTHER SKIN 08/24/2017 MANAN GEE MD Ot I70.232 [place]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 08/24/2017 MANAN GEE MD Ot 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 08/24/2017 MANAN GEE MD Ot L97.212 NON-PRESSURE CHRONIC ULCER OF RIGHT CALF 08/24/2017 MANAN GEE MD Ot 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 08/24/2017 DILCIA PORTER CL[employer] PATTERN MAKER Ot E11.622 TYPE 2 DIABETES MELLITUS WITH OTHER SKIN 08/24/2017 DILCIA PORTER CL[employer] PATTERN MAKER Ot I70.232 [place]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 08/24/2017 DILCIA PORTER CL[employer] PATTERN MAKER Ot 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 08/24/2017 DILCIA PORTER CL[employer] PATTERN MAKER Ot L97.212 NON-PRESSURE CHRONIC ULCER OF RIGHT CALF 08/24/2017 DILCIA PORTER APRN Ot 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 08/24/2017 MANAN GEE MD Ot E11.622 TYPE 2 DIABETES MELLITUS WITH OTHER SKIN 08/24/2017 MANAN GEE MD Ot I70.232 [place]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 08/24/2017 MANAN GEE MD Ot 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 08/24/2017 MANAN GEE MD Ot L97.212 NON-PRESSURE CHRONIC ULCER OF RIGHT CALF 08/24/2017 MANAN GEE MD Ot 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 08/24/2017 DILCIA PORTER CLOTH PATTERN MAKER Ot E11.622 TYPE 2 DIABETES MELLITUS WITH OTHER SKIN 08/24/2017 DILCIA PORTER CLOTH PATTERN MAKER Ot I70.232 [place]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 08/24/2017 DILCIA PORTER CLOTH PATTERN MAKER Ot 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 08/24/2017 DILCIA PORTER CLOTH PATTERN MAKER Ot L97.212 NON-PRESSURE CHRONIC ULCER OF RIGHT CALF 08/24/2017 DILCIA PORTER CLOTH PATTERN MAKER Ot 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 08/25/2017 DILCIA PORTER CLOTH PATTERN MAKER Ot E11.622 TYPE 2 DIABETES MELLITUS WITH OTHER SKIN 08/25/2017 DILCIA PORTER CLOTH PATTERN MAKER Ot I70.232 [place]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 08/25/2017 DILCIA PORTER CLOTH PATTERN MAKER Ot 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 08/25/2017 DILCIA PORTER CLOTH PATTERN MAKER Ot L97.212 NON-PRESSURE CHRONIC ULCER OF RIGHT CALF 08/25/2017 DILCIA PORTER CLOTH PATTERN MAKER Ot 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 08/25/2017 MARLEN SORENSEN, MANAN Landon Ot E11.622 TYPE 2 DIABETES MELLITUS WITH OTHER SKIN 08/25/2017 MARLEN SORENSEN, MANAN Landon Ot I70.232 [place]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 08/25/2017 MANAN GEE MD Ot 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 08/25/2017 MANAN GEE MD Ot L97.212 NON-PRESSURE CHRONIC ULCER OF RIGHT CALF 08/25/2017 MANAN GEE MD Ot 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 08/26/2017 DILCIA PORTER CLOTH PATTERN MAKER Ot E11.622 TYPE 2 DIABETES MELLITUS WITH OTHER SKIN 08/26/2017 DILCIA PORTER CLOTH PATTERN MAKER Ot I70.232 [place]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 08/26/2017 DILCIA PORTER CLOTH PATTERN MAKER Ot 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 08/26/2017 DILCIA PORTER CLOTH PATTERN MAKER Ot L97.212 NON-PRESSURE CHRONIC ULCER OF RIGHT CALF 08/26/2017 DILCIA PORTER CLOTH PATTERN MAKER Ot 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 08/27/2017 DILCIA PORTER CLOTH PATTERN MAKER Ot E11.622 TYPE 2 DIABETES MELLITUS WITH OTHER SKIN 08/27/2017 DILCIA PORTER CLOTH PATTERN MAKER Ot I70.232 [place]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 08/27/2017 DILCIA PORTER CLOTH PATTERN MAKER Ot 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 08/27/2017 DILCIA PORTER CLOTH PATTERN MAKER Ot L97.212 NON-PRESSURE CHRONIC ULCER OF RIGHT CALF 08/27/2017 DILCIA PORTER CLOTH PATTERN MAKER Ot 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 08/28/2017 DILCIA PORTER CLOTH PATTERN MAKER Ot E11.622 TYPE 2 DIABETES MELLITUS WITH OTHER SKIN 08/28/2017 DILCIA PORTER CLOTH PATTERN MAKER Ot I70.232 [place]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 08/28/2017 DILCIA PORTER CLOTH PATTERN MAKER Ot 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 08/28/2017 DILCIA PORTER CLOTH PATTERN MAKER Ot L97.212 NON-PRESSURE CHRONIC ULCER OF RIGHT CALF 08/28/2017 DILCIA PORTER CLOTH PATTERN MAKER Ot 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 08/29/2017 DILCIA PORTER APRN Ot E11.622 TYPE 2 DIABETES MELLITUS WITH OTHER SKIN 08/29/2017 DILCIA PORTER CLOTH PATTERN MAKER Ot I70.232 [place]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 08/29/2017 DILCIA PORTER CLOTH PATTERN MAKER Ot 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 08/29/2017 DILCIA PORTER CLOTH PATTERN MAKER Ot L97.212 NON-PRESSURE CHRONIC ULCER OF RIGHT CALF 08/29/2017 DILCIA PORTER CLOTH PATTERN MAKER Ot 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 08/29/2017 DILCIA PORTER CLOTH PATTERN MAKER Ot E11.622 TYPE 2 DIABETES MELLITUS WITH OTHER SKIN 08/29/2017 DILCIA PORTER CLOTH PATTERN MAKER Ot I70.232 [place]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 08/29/2017 DILCIA PORTER CLOTH PATTERN MAKER Ot 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 08/29/2017 DILCIA PORTER CLOTH PATTERN MAKER Ot L97.212 NON-PRESSURE CHRONIC ULCER OF RIGHT CALF 08/29/2017 DILCIA PORTER CLOTH PATTERN MAKER Ot 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 08/30/2017 DILCIA PORTER CLOTH PATTERN MAKER Ot E11.622 TYPE 2 DIABETES MELLITUS WITH OTHER SKIN 08/30/2017 DILCIA PORTER CLOTH PATTERN MAKER Ot I70.232 [place]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 08/30/2017 DILCIA PORTER CLOTH PATTERN MAKER Ot 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 08/30/2017 DILCIA PORTER CLOTH PATTERN MAKER Ot L97.212 NON-PRESSURE CHRONIC ULCER OF RIGHT CALF 08/30/2017 DILCIA PORTER CLOTH PATTERN MAKER Ot 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 08/31/2017 DILCIA PORTER CLOTH PATTERN MAKER Ot E11.622 TYPE 2 DIABETES MELLITUS WITH OTHER SKIN 08/31/2017 DILCIA PORTER CLOTH PATTERN MAKER Ot I70.232 [place]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 08/31/2017 DILCIA PORTER CLOTH PATTERN MAKER Ot 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 08/31/2017 DILCIA PORTER CLOTH PATTERN MAKER Ot L97.212 NON-PRESSURE CHRONIC ULCER OF RIGHT CALF 08/31/2017 DILCIA PORTER CLOTH PATTERN MAKER Ot 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 09/01/2017 DILCIA PORETR CLOTH PATTERN MAKER Ot E11.622 TYPE 2 DIABETES MELLITUS WITH OTHER SKIN 09/01/2017 DILCIA PORTER CLOTH PATTERN MAKER Ot I70.232 [place]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 09/01/2017 DILCIA PORTER CLOTH PATTERN MAKER Ot 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 09/01/2017 DILCIA PORTER CLOTH PATTERN MAKER Ot L97.212 NON-PRESSURE CHRONIC ULCER OF RIGHT CALF 09/01/2017 DILCIA PORTER CLOTH PATTERN MAKER Ot 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 09/01/2017 DILCIA PORTER CLOTH PATTERN MAKER Ot E11.622 TYPE 2 DIABETES MELLITUS WITH OTHER SKIN 09/01/2017 DLICIA PORTER CLOTH PATTERN MAKER Ot I70.232 [place]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 09/01/2017 DILCIA PORTER CLOTH PATTERN MAKER Ot 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 09/01/2017 DILCIA PORTER CLOTH PATTERN MAKER Ot L97.212 NON-PRESSURE CHRONIC ULCER OF RIGHT CALF 09/01/2017 DILCIA PORTER CLOTH PATTERN MAKER Ot 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 09/02/2017 DILCIA PORTER CLOTH PATTERN MAKER Ot E11.622 TYPE 2 DIABETES MELLITUS WITH OTHER SKIN 09/02/2017 DILCIA PORTER APRN Ot I70.232 [place]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 09/02/2017 DILCIA PORTER APRN Ot 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 09/02/2017 DILCIA PORTER CLOTH PATTERN MAKER Ot L97.212 NON-PRESSURE CHRONIC ULCER OF RIGHT CALF 09/02/2017 DILCIA PORTER CLOTH PATTERN MAKER Ot 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 09/02/2017 DILCIA PORTER CLOTH PATTERN MAKER Ot E11.622 TYPE 2 DIABETES MELLITUS WITH OTHER SKIN 09/02/2017 DILCIA PORTER CLOTH PATTERN MAKER Ot I70.232 [place]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 09/02/2017 DILCIA PORTER APRN Ot 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 09/02/2017 DILCIA PORTER APRN Ot L97.212 NON-PRESSURE CHRONIC ULCER OF RIGHT CALF 09/02/2017 DILCIA PORTER CLOTH PATTERN MAKER Ot 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 09/03/2017 DILCIA PORTER CLOTH PATTERN MAKER Ot E11.622 TYPE 2 DIABETES MELLITUS WITH OTHER SKIN 09/03/2017 DILCIA PORTER APRN Ot I70.232 [place]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 09/03/2017 DILCIA PORTER APRN Ot 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 09/03/2017 DILCIA PORTER CLOTH PATTERN MAKER Ot L97.212 NON-PRESSURE CHRONIC ULCER OF RIGHT CALF 09/03/2017 DILCIA PORTER CLOTH PATTERN MAKER Ot 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 09/04/2017 DILCIA PORTER CLOTH PATTERN MAKER Ot E11.622 TYPE 2 DIABETES MELLITUS WITH OTHER SKIN 09/04/2017 DILCIA PORTER APRN Ot I70.232 [place]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 09/04/2017 DILCIA PORTER CLOTH PATTERN MAKER Ot 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 09/04/2017 DILCIA PORTER CLOTH PATTERN MAKER Ot L97.212 NON-PRESSURE CHRONIC ULCER OF RIGHT CALF 09/04/2017 DILCIA PORTER CLOTH PATTERN MAKER Ot 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 09/04/2017 DILCIA PORTER CLOTH PATTERN MAKER Ot E11.622 TYPE 2 DIABETES MELLITUS WITH OTHER SKIN 09/04/2017 DILCIA PORTER CLOTH PATTERN MAKER Ot I70.232 [place]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 09/04/2017 DILCIA PORTER CLOTH PATTERN MAKER Ot 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 09/04/2017 DILCIA PORTER CLOTH PATTERN MAKER Ot L97.212 NON-PRESSURE CHRONIC ULCER OF RIGHT CALF 09/04/2017 DILCIA PORTER CLOTH PATTERN MAKER Ot 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 09/05/2017 DILCIA PORTER CLOTH PATTERN MAKER Ot E11.622 TYPE 2 DIABETES MELLITUS WITH OTHER SKIN 09/05/2017 DILCIA PORTER CLOTH PATTERN MAKER Ot I70.232 [place]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 09/05/2017 DILCIA PORTER CLOTH PATTERN MAKER Ot 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 09/05/2017 DILCIA PORTER CLOTH PATTERN MAKER Ot L97.212 NON-PRESSURE CHRONIC ULCER OF RIGHT CALF 09/05/2017 DILCIA PORTER CLOTH PATTERN MAKER Ot 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 09/06/2017 MANAN GEE MD Ot E11.622 TYPE 2 DIABETES MELLITUS WITH OTHER SKIN 09/06/2017 MANAN GEE MD Ot I70.232 [place]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 09/06/2017 MANAN GEE MD Ot 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 09/06/2017 MANAN GEE MD Ot L97.212 NON-PRESSURE CHRONIC ULCER OF RIGHT CALF 09/06/2017 MANAN GEE MD Ot 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 09/06/2017 MANAN GEE MD Ot E11.622 TYPE 2 DIABETES MELLITUS WITH OTHER SKIN 09/06/2017 MANAN GEE MD Ot I70.232 [place]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 09/06/2017 MANAN GEE MD Ot 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 09/06/2017 MANAN GEE MD Ot L97.212 NON-PRESSURE CHRONIC ULCER OF RIGHT CALF 09/06/2017 MANAN GEE MD Ot 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 09/06/2017 DILCIA PORTER APRN Ot E11.622 TYPE 2 DIABETES MELLITUS WITH OTHER SKIN 09/06/2017 DILCIA PORTER CLOTH PATTERN MAKER Ot I70.232 [place]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 09/06/2017 DILCIA PORTER CLOTH PATTERN MAKER Ot 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 09/06/2017 DILCIA PORTER CLOTH PATTERN MAKER Ot L97.212 NON-PRESSURE CHRONIC ULCER OF RIGHT CALF 09/06/2017 DILCIA PORTER CLOTH PATTERN MAKER Ot 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 09/09/2017 MANAN GEE MD, Ot E11.622 TYPE 2 DIABETES MELLITUS WITH OTHER SKIN 09/09/2017 MANAN GEE MD Ot I70.232 [place]TH[place]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 09/09/2017 MANAN GEE MD Ot 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 09/09/2017 MANAN GEE MD Ot L97.212 NON-PRESSURE CHRONIC ULCER OF RIGHT CALF 09/09/2017 MANAN GEE MD Ot 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 09/12/2017 MANAN GEE MD Ot E11.622 TYPE 2 DIABETES MELLITUS WITH OTHER SKIN 09/12/2017 MANAN GEE MD Ot I70.232 [place]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 09/12/2017 MANAN GEE MD Ot 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 09/12/2017 MANAN GEE MD Ot L97.212 NON-PRESSURE CHRONIC ULCER OF RIGHT CALF 09/12/2017 MANAN GEE MD Ot 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 09/15/2017 MANAN GEE MD Ot E11.622 TYPE 2 DIABETES MELLITUS WITH OTHER SKIN 09/15/2017 MANAN GEE MD Ot I70.232 [place]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 09/15/2017 MANAN GEE MD Ot 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 09/15/2017 MANAN GEE MD Ot L97.212 NON-PRESSURE CHRONIC ULCER OF RIGHT CALF 09/15/2017 MANAN GEE MD Ot 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 09/19/2017 DILCIA PORTER CLOTH PATTERN MAKER Ot E11.622 TYPE 2 DIABETES MELLITUS WITH OTHER SKIN 09/19/2017 DILCIA PORTER CLOTH PATTERN MAKER Ot I70.232 [place]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 09/19/2017 DILCIA PORTER CLOTH PATTERN MAKER Ot 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 09/19/2017 DILCIA PORTER CLOTH PATTERN MAKER Ot L97.212 NON-PRESSURE CHRONIC ULCER OF RIGHT CALF 09/19/2017 DILCIA PORTER CLOTH PATTERN MAKER Ot 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 09/19/2017 MANAN GEE MD Ot E11.622 TYPE 2 DIABETES MELLITUS WITH OTHER SKIN 09/19/2017 MANAN GEE MD Ot I70.232 [place]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 09/19/2017 MANAN GEE MD Ot 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 09/19/2017 MANAN GEE MD Ot L97.212 NON-PRESSURE CHRONIC ULCER OF RIGHT CALF 09/19/2017 MANAN GEE MD Ot 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 09/21/2017 MANAN GEE MD Ot E11.622 TYPE 2 DIABETES MELLITUS WITH OTHER SKIN 09/21/2017 MANAN GEE MD Ot I70.232 [place]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 09/21/2017 MANAN GEE MD Ot 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 09/21/2017 MANAN GEE MD Ot L97.212 NON-PRESSURE CHRONIC ULCER OF RIGHT CALF 09/21/2017 MANAN GEE MD Ot 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 09/23/2017 MANAN GEE MD Ot E11.622 TYPE 2 DIABETES MELLITUS WITH OTHER SKIN 09/23/2017 MANAN GEE MD Ot I70.232 [place]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 09/23/2017 MANAN GEE MD Ot 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 09/23/2017 MANAN GEE MD Ot L97.212 NON-PRESSURE CHRONIC ULCER OF RIGHT CALF 09/23/2017 MANAN GEE MD Ot 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 09/23/2017 MANAN GEE MD Ot E11.622 TYPE 2 DIABETES MELLITUS WITH OTHER SKIN 09/23/2017 MANAN GEE MD Ot I70.232 [place]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 09/23/2017 MANAN GEE MD Ot 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 09/23/2017 MANAN GEE MD Ot L97.212 NON-PRESSURE CHRONIC ULCER OF RIGHT CALF 09/23/2017 MANAN GEE MD, Ot 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 09/28/2017 DILCIA PORTER APRN Ot E11.622 TYPE 2 DIABETES MELLITUS WITH OTHER SKIN 09/28/2017 DILCIA PORTER APRN Ot I70.232 [place]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 09/28/2017 DILCIA PORTER APRN Ot 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 Results Test Result Range Complete blood count (CBC) with automated white blood cell (WBC) differential - 06/27/16 00:10 Blood leukocytes automated count (number/volume) 8.1 10*3/uL 4.3-11.0 Blood erythrocytes automated count (number/volume) 4.51 10*6/uL 4.35-5.85 Venous blood hemoglobin measurement (mass/volume) 13.0 g/dL 13.3-17.7 Blood hematocrit (volume fraction) 38 % 40-54 Automated erythrocyte mean corpuscular volume 84 [foz_us] 80-99 Automated erythrocyte mean corpuscular hemoglobin (mass per erythrocyte) 29 pg 25-34 Automated erythrocyte mean corpuscular hemoglobin concentration measurement ( mass/volume) 34 g/dL 32-36 Automated erythrocyte distribution width ratio 15.3 % 10.0-14.5 Automated blood platelet count (count/volume) 251 10*3/uL 130-400 Automated blood platelet mean volume measurement 10.6 [foz_us] 7.4-10.4 Automated blood neutrophils/100 leukocytes 79 % 42-75 Automated blood lymphocytes/100 leukocytes 11 % 12-44 Blood monocytes/100 leukocytes 10 % 0-12 Automated blood eosinophils/100 leukocytes 0 % 0-10 Automated blood basophils/100 leukocytes 0 % 0-10 Blood neutrophils automated count (number/volume) 6.4 10*3 1.8-7.8 Blood lymphocytes automated count (number/volume) 0.9 10*3 1.0-4.0 Blood monocytes automated count (number/volume) 0.8 10*3 0.0-1.0 Automated eosinophil count 0.0 10*3/uL 0.0-0.3 Automated blood basophil count (count/volume) 0.0 10*3/uL 0.0-0.1 Blood lactic acid measurement (moles/volume) - 06/27/16 00:10 Blood lactic acid measurement (moles/volume) 1.3 mmol/L 0.5-2.0 Comprehensive metabolic panel - 06/27/16 00:10 Serum or plasma sodium measurement (moles/volume) 131 mmol/L 135-145 Serum or plasma potassium measurement (moles/volume) 4.1 mmol/L 3.6-5.0 Serum or plasma chloride measurement (moles/volume) 103 mmol/L 98-107 Carbon dioxide 17 mmol/L 21-32 Serum or plasma anion gap determination (moles/volume) 11 mmol/L 5-14 Serum or plasma urea nitrogen measurement (mass/volume) 29 mg/dL 7-18 Serum or plasma creatinine measurement (mass/volume) 1.69 mg/dL 0.60-1.30 Serum or plasma urea nitrogen/creatinine mass ratio 17 NRG Serum or plasma creatinine measurement with calculation of estimated glomerular filtration rate 39 NRG Serum or plasma glucose measurement (mass/volume) 230 mg/dL 70-105 Serum or plasma calcium measurement (mass/volume) 8.2 mg/dL 8.5-10.1 Serum or plasma total bilirubin measurement (mass/volume) 0.7 mg/dL 0.1-1.0 Serum or plasma alkaline phosphatase measurement (enzymatic activity/volume) 68 U/L 40-136 Serum or plasma aspartate aminotransferase measurement (enzymatic activity/ volume) 32 U/L 5-34 Serum or plasma alanine aminotransferase measurement (enzymatic activity/volume ) 32 U/L 0-55 Serum or plasma protein measurement (mass/volume) 6.4 g/dL 6.4-8.2 Serum or plasma albumin measurement (mass/volume) 3.2 g/dL 3.2-4.5 Magnesium - 06/27/16 00:10 Magnesium 2.2 mg/dL 1.8-2.4 Serum or plasma creatine kinase measurement (enzymatic activity/volume) - 06/27 00:10 Serum or plasma creatine kinase measurement (enzymatic activity/volume) 93 U/L 30-200 PT panel in platelet poor plasma by coagulation assay - 06/27/16 00:10 Prothrombin time (PT) in platelet poor plasma by coagulation assay 14.6 s 12.2-14.7 INR in platelet poor plasma or blood by coagulation assay 1.2 0.8-1.4 Activated partial thromboplastin time (aPTT) in platelet poor plasma bycoagulation assay - 06/27/16 00:10 Activated partial thromboplastin time (aPTT) in platelet poor plasma bycoagulation assay 31 s 24-35 Serum or plasma creatine kinase MB measurement (enzymatic activity/volume) - 00:10 Serum or plasma creatine kinase MB measurement (enzymatic activity/volume) 1.7 ng/mL <6.6 Serum or plasma troponin i.cardiac measurement (mass/volume) - 06/27/16 00:10 Serum or plasma troponin i.cardiac measurement (mass/volume) < ng/ mL <0.30 Serum or plasma lithium measurement (moles/volume) - 06/27/16 00:10 BNP level 135.5 pg/mL <100.0 Bacterial blood culture - 06/27/16 00:10 Bacterial blood culture NG NRG Capillary blood glucose measurement by glucometer (mass/volume) - 06/27/16 00: 12 Capillary blood glucose measurement by glucometer (mass/volume) 230 mg/dL 70-110 Influenza virus A and B antigen detection - 06/27/16 00:15 FLU RESULT NEGATIVE FOR INFLUENZA A AND B ANTIGENS BY IA [facility] Gram stain microscopy - 06/27/16 00:15 Bacteria identification in wound by culture - 06/27/16 00:15 Bacteria identification in wound by culture [id number] NR FREE TEXT EXTERNAL SENSITIVITY REPORTED 06/28 17:45 NRG QUANTITY OF GROWTH Moderate Growth NR Bacterial susceptibility panel - 06/27/16 00:15 Oxacillin susceptibility test by minimum inhibitory concentration < = NRG Gentamicin susceptibility test by minimum inhibitory concentration < = NRG Clindamycin susceptibility test by minimum inhibitory concentration <= NRG Erythromycin susceptibility test by minimum inhibitory concentration 0.5 NRG Trimethoprim/sulfamethoxazole susceptibility test by minimum inhibitoryconcentration <= NRG Vancomycin susceptibility test by minimum inhibitory concentration < = NRG Levofloxacin susceptibility test by minimum inhibitory concentration <= NRG Rifampin susceptibility test by minimum inhibitory concentration <= NRG Tetracycline susceptibility test by minimum inhibitory concentration <= [facility] Bacterial susceptibility panel - 06/27/16 00:15 Gentamicin susceptibility test by minimum inhibitory concentration < = NRG Trimethoprim/sulfamethoxazole susceptibility test by minimum inhibitoryconcentration <= NRG Ampicillin susceptibility test by minimum inhibitory concentration R NRG Tobramycin susceptibility test by minimum inhibitory concentration < = NRG Cefazolin susceptibility test by minimum inhibitory concentration < = NRG Ceftriaxone susceptibility test by minimum inhibitory concentration <= NRG Ampicillin/sulbactam susceptibility test by minimum inhibitory concentration <= NRG Piperacillin/tazobactam susceptibility test by minimum inhibitory concentration <= NRG Ciprofloxacin susceptibility test by minimum inhibitory concentration <= NRG Meropenem susceptibility test by minimum inhibitory concentration < = NRG Aztreonam susceptibility test by minimum inhibitory concentration < = NRG Extended spectrum beta lactamase (ESBL) producing bacteria susceptibility test by minimum inhibitory concentration - [facility] Bacterial susceptibility panel - 06/27/16 00:15 Gentamicin susceptibility test by minimum inhibitory concentration < = NRG Trimethoprim/sulfamethoxazole susceptibility test by minimum inhibitoryconcentration >= NRG Ampicillin susceptibility test by minimum inhibitory concentration > = NRG Tobramycin susceptibility test by minimum inhibitory concentration < = NRG Cefazolin susceptibility test by minimum inhibitory concentration < = NRG Ceftriaxone susceptibility test by minimum inhibitory concentration <= NRG Ampicillin/sulbactam susceptibility test by minimum inhibitory concentration >= NRG Piperacillin/tazobactam susceptibility test by minimum inhibitory concentration <= NRG Ciprofloxacin susceptibility test by minimum inhibitory concentration <= NRG Meropenem susceptibility test by minimum inhibitory concentration < = NRG Aztreonam susceptibility test by minimum inhibitory concentration < = NRG Extended spectrum beta lactamase (ESBL) producing bacteria susceptibility test by minimum inhibitory concentration - [facility] Bacterial blood culture - 06/27/16 00:40 Bacterial blood culture [facility] Complete urinalysis with reflex to culture - 06/27/16 01:10 Urine color determination YELLOW NRG Urine clarity determination CLEAR NRG Urine pH measurement by test strip 6 5-9 Specific gravity of urine by test strip 1.020 1.016- 1.022 Urine protein assay by test strip, semi-quantitative 3+ NEGATIVE Urine glucose detection by automated test strip 2+ NEGATIVE Erythrocytes detection in urine sediment by light microscopy 4+ NEGATIVE Urine ketones detection by automated test strip NEGATIVE NEGATIVE Urine nitrite detection by test strip NEGATIVE NEGATIVE Urine total bilirubin detection by test strip NEGATIVE NEGATIVE Urine urobilinogen measurement by automated test strip (mass/volume) NORMAL NORMAL Urine leukocyte esterase detection by dipstick NEGATIVE NEGATIVE Automated urine sediment erythrocyte count by microscopy (number/high power field) [HPF] NRG Automated urine sediment leukocyte count by microscopy (number/high power field ) NONE NRG Bacteria detection in urine sediment by light microscopy TRACE NRG Squamous epithelial cells detection in urine sediment by light microscopy 2-5 NRG Crystals detection in urine sediment by light microscopy NONE NRG Casts detection in urine sediment by light microscopy NONE NRG Mucus detection in urine sediment by light microscopy SMALL NRG Complete urinalysis with reflex to culture NO NRG Complete blood count (CBC) with automated white blood cell (WBC) differential - 06/27/16 03:48 Blood leukocytes automated count (number/volume) 8.1 10*3/uL 4.3-11.0 Blood erythrocytes automated count (number/volume) 4.39 10*6/uL 4.35-5.85 Venous blood hemoglobin measurement (mass/volume) 12.5 g/dL 13.3-17.7 Blood hematocrit (volume fraction) 37 % 40-54 Automated erythrocyte mean corpuscular volume 85 [foz_us] 80-99 Automated erythrocyte mean corpuscular hemoglobin (mass per erythrocyte) 29 pg 25-34 Automated erythrocyte mean corpuscular hemoglobin concentration measurement ( mass/volume) 34 g/dL 32-36 Automated erythrocyte distribution width ratio 15.4 % 10.0-14.5 Automated blood platelet count (count/volume) 242 10*3/uL 130-400 Automated blood platelet mean volume measurement 10.0 [foz_us] 7.4-10.4 Automated blood neutrophils/100 leukocytes 80 % 42-75 Automated blood lymphocytes/100 leukocytes 10 % 12-44 Blood monocytes/100 leukocytes 10 % 0-12 Automated blood eosinophils/100 leukocytes 0 % 0-10 Automated blood basophils/100 leukocytes 0 % 0-10 Blood neutrophils automated count (number/volume) 6.5 10*3 1.8-7.8 Blood lymphocytes automated count (number/volume) 0.8 10*3 1.0-4.0 Blood monocytes automated count (number/volume) 0.8 10*3 0.0-1.0 Automated eosinophil count 0.0 10*3/uL 0.0-0.3 Automated blood basophil count (count/volume) 0.0 10*3/uL 0.0-0.1 Comprehensive metabolic panel - 06/27/16 03:48 Serum or plasma sodium measurement (moles/volume) 132 mmol/L 135-145 Serum or plasma potassium measurement (moles/volume) 4.4 mmol/L 3.6-5.0 Serum or plasma chloride measurement (moles/volume) 104 mmol/L 98-107 Carbon dioxide 19 mmol/L 21-32 Serum or plasma anion gap determination (moles/volume) 9 mmol/L 5-14 Serum or plasma urea nitrogen measurement (mass/volume) 26 mg/dL 7-18 Serum or plasma creatinine measurement (mass/volume) 1.61 mg/dL 0.60-1.30 Serum or plasma urea nitrogen/creatinine mass ratio 16 NRG Serum or plasma creatinine measurement with calculation of estimated glomerular filtration rate 41 NRG Serum or plasma glucose measurement (mass/volume) 204 mg/dL 70-105 Serum or plasma calcium measurement (mass/volume) 8.0 mg/dL 8.5-10.1 Serum or plasma total bilirubin measurement (mass/volume) 0.6 mg/dL 0.1-1.0 Serum or plasma alkaline phosphatase measurement (enzymatic activity/volume) 65 U/L 40-136 Serum or plasma aspartate aminotransferase measurement (enzymatic activity/ volume) 28 U/L 5-34 Serum or plasma alanine aminotransferase measurement (enzymatic activity/volume ) 30 U/L 0-55 Serum or plasma protein measurement (mass/volume) 6.0 g/dL 6.4-8.2 Serum or plasma albumin measurement (mass/volume) 3.0 g/dL 3.2-4.5 Capillary blood glucose measurement by glucometer (mass/volume) - 06/27/16 05: 46 Capillary blood glucose measurement by glucometer (mass/volume) 192 mg/dL 70-110 Capillary blood glucose measurement by glucometer (mass/volume) - 06/27/16 07: 47 Capillary blood glucose measurement by glucometer (mass/volume) 175 mg/dL 70-110 Capillary blood glucose measurement by glucometer (mass/volume) - 06/27/16 11: 03 Capillary blood glucose measurement by glucometer (mass/volume) 197 mg/dL 70-110 Capillary blood glucose measurement by glucometer (mass/volume) - 06/27/16 15: 59 Capillary blood glucose measurement by glucometer (mass/volume) 160 mg/dL 70-110 Sputum Gram stain - 06/27/16 16:40 Sputum Gram stain Few WBC's, scant mixed bacterial can NRG Bacterial sputum culture - 06/27/16 16:40 Bacterial sputum culture NORMAL NRG Capillary blood glucose measurement by glucometer (mass/volume) - 06/27/16 20: 06 Capillary blood glucose measurement by glucometer (mass/volume) 197 mg/dL 70-110 Capillary blood glucose measurement by glucometer (mass/volume) - 06/28/16 04: 56 Capillary blood glucose measurement by glucometer (mass/volume) 141 mg/dL 70-110 PT panel in platelet poor plasma by coagulation assay - 06/28/16 05:25 Prothrombin time (PT) in platelet poor plasma by coagulation assay 15.9 s 12.2-14.7 INR in platelet poor plasma or blood by coagulation assay 1.3 0.8-1.4 Capillary blood glucose measurement by glucometer (mass/volume) - 06/28/16 10: 39 Capillary blood glucose measurement by glucometer (mass/volume) 252 mg/dL 70-110 Capillary blood glucose measurement by glucometer (mass/volume) - 06/28/16 15: 42 Capillary blood glucose measurement by glucometer (mass/volume) 178 mg/dL 70-110 Capillary blood glucose measurement by glucometer (mass/volume) - 06/28/16 20: 51 Capillary blood glucose measurement by glucometer (mass/volume) 188 mg/dL 70-110 Capillary blood glucose measurement by glucometer (mass/volume) - 06/29/16 05: 20 Capillary blood glucose measurement by glucometer (mass/volume) 145 mg/dL 70-110 Whole blood basic metabolic panel - 06/29/16 06:22 Serum or plasma sodium measurement (moles/volume) 134 mmol/L 135-145 Serum or plasma potassium measurement (moles/volume) 4.1 mmol/L 3.6-5.0 Serum or plasma chloride measurement (moles/volume) 107 mmol/L 98-107 Carbon dioxide 16 mmol/L 21-32 Serum or plasma anion gap determination (moles/volume) 11 mmol/L 5-14 Serum or plasma urea nitrogen measurement (mass/volume) 19 mg/dL 7-18 Serum or plasma creatinine measurement (mass/volume) 1.41 mg/dL 0.60-1.30 Serum or plasma urea nitrogen/creatinine mass ratio 13 NRG Serum or plasma creatinine measurement with calculation of estimated glomerular filtration rate 48 NRG Serum or plasma glucose measurement (mass/volume) 160 mg/dL 70-105 Serum or plasma calcium measurement (mass/volume) 8.1 mg/dL 8.5-10.1 Capillary blood glucose measurement by glucometer (mass/volume) - 06/29/16 10: 49 Capillary blood glucose measurement by glucometer (mass/volume) 228 mg/dL 70-110 Capillary blood glucose measurement by glucometer (mass/volume) - 06/29/16 16: 07 Capillary blood glucose measurement by glucometer (mass/volume) 297 mg/dL 70-110 Capillary blood glucose measurement by glucometer (mass/volume) - 06/29/16 20: 29 Capillary blood glucose measurement by glucometer (mass/volume) 145 mg/dL 70-110 Complete blood count (CBC) with automated white blood cell (WBC) differential - 06/30/16 10:00 Blood leukocytes automated count (number/volume) 9.7 10*3/uL 4.3-11.0 Blood erythrocytes automated count (number/volume) 4.34 10*6/uL 4.35-5.85 Venous blood hemoglobin measurement (mass/volume) 12.3 g/dL 13.3-17.7 Blood hematocrit (volume fraction) 37 % 40-54 Automated erythrocyte mean corpuscular volume 85 [foz_us] 80-99 Automated erythrocyte mean corpuscular hemoglobin (mass per erythrocyte) 28 pg 25-34 Automated erythrocyte mean corpuscular hemoglobin concentration measurement ( mass/volume) 34 g/dL 32-36 Automated erythrocyte distribution width ratio 15.4 % 10.0-14.5 Automated blood platelet count (count/volume) 331 10*3/uL 130-400 Automated blood platelet mean volume measurement 9.6 [foz_us] 7.4-10.4 Automated blood neutrophils/100 leukocytes 79 % 42-75 Automated blood lymphocytes/100 leukocytes 11 % 12-44 Blood monocytes/100 leukocytes 7 % 0-12 Automated blood eosinophils/100 leukocytes 3 % 0-10 Automated blood basophils/100 leukocytes 0 % 0-10 Blood neutrophils automated count (number/volume) 7.7 10*3 1.8-7.8 Blood lymphocytes automated count (number/volume) 1.0 10*3 1.0-4.0 Blood monocytes automated count (number/volume) 0.7 10*3 0.0-1.0 Automated eosinophil count 0.3 10*3/uL 0.0-0.3 Automated blood basophil count (count/volume) 0.0 10*3/uL 0.0-0.1 PT panel in platelet poor plasma by coagulation assay - 06/30/16 10:00 Prothrombin time (PT) in platelet poor plasma by coagulation assay 17.9 s 12.2-14.7 INR in platelet poor plasma or blood by coagulation assay 1.5 0.8-1.4 Comprehensive metabolic panel - 06/30/16 10:00 Serum or plasma sodium measurement (moles/volume) 133 mmol/L 135-145 Serum or plasma potassium measurement (moles/volume) 4.2 mmol/L 3.6-5.0 Serum or plasma chloride measurement (moles/volume) 105 mmol/L 98-107 Carbon dioxide 19 mmol/L 21-32 Serum or plasma anion gap determination (moles/volume) 9 mmol/L 5-14 Serum or plasma urea nitrogen measurement (mass/volume) 20 mg/dL 7-18 Serum or plasma creatinine measurement (mass/volume) 1.37 mg/dL 0.60-1.30 Serum or plasma urea nitrogen/creatinine mass ratio 15 NRG Serum or plasma creatinine measurement with calculation of estimated glomerular filtration rate 50 NRG Serum or plasma glucose measurement (mass/volume) 195 mg/dL 70-105 Serum or plasma calcium measurement (mass/volume) 8.2 mg/dL 8.5-10.1 Serum or plasma total bilirubin measurement (mass/volume) 0.6 mg/dL 0.1-1.0 Serum or plasma alkaline phosphatase measurement (enzymatic activity/volume) 82 U/L 40-136 Serum or plasma aspartate aminotransferase measurement (enzymatic activity/ volume) 25 U/L 5-34 Serum or plasma alanine aminotransferase measurement (enzymatic activity/volume ) 33 U/L 0-55 Serum or plasma protein measurement (mass/volume) 6.1 g/dL 6.4-8.2 Serum or plasma albumin measurement (mass/volume) 2.9 g/dL 3.2-4.5 Capillary blood glucose measurement by glucometer (mass/volume) - 06/30/16 10: 45 Capillary blood glucose measurement by glucometer (mass/volume) 212 mg/dL 70-110 Capillary blood glucose measurement by glucometer (mass/volume) - 06/30/16 15: 53 Capillary blood glucose measurement by glucometer (mass/volume) 198 mg/dL 70-110 Complete blood count (CBC) with automated white blood cell (WBC) differential - 07/01/16 05:51 Blood leukocytes automated count (number/volume) 7.6 10*3/uL 4.3-11.0 Blood erythrocytes automated count (number/volume) 4.34 10*6/uL 4.35-5.85 Venous blood hemoglobin measurement (mass/volume) 12.4 g/dL 13.3-17.7 Blood hematocrit (volume fraction) 37 % 40-54 Automated erythrocyte mean corpuscular volume 84 [foz_us] 80-99 Automated erythrocyte mean corpuscular hemoglobin (mass per erythrocyte) 29 pg 25-34 Automated erythrocyte mean corpuscular hemoglobin concentration measurement ( mass/volume) 34 g/dL 32-36 Automated erythrocyte distribution width ratio 15.1 % 10.0-14.5 Automated blood platelet count (count/volume) 371 10*3/uL 130-400 Automated blood platelet mean volume measurement 9.5 [foz_us] 7.4-10.4 Automated blood neutrophils/100 leukocytes 73 % 42-75 Automated blood lymphocytes/100 leukocytes 13 % 12-44 Blood monocytes/100 leukocytes 8 % 0-12 Automated blood eosinophils/100 leukocytes 5 % 0-10 Automated blood basophils/100 leukocytes 0 % 0-10 Blood neutrophils automated count (number/volume) 5.6 10*3 1.8-7.8 Blood lymphocytes automated count (number/volume) 1.0 10*3 1.0-4.0 Blood monocytes automated count (number/volume) 0.6 10*3 0.0-1.0 Automated eosinophil count 0.3 10*3/uL 0.0-0.3 Automated blood basophil count (count/volume) 0.0 10*3/uL 0.0-0.1 PT panel in platelet poor plasma by coagulation assay - 07/01/16 05:51 Prothrombin time (PT) in platelet poor plasma by coagulation assay 18.4 s 12.2-14.7 INR in platelet poor plasma or blood by coagulation assay 1.6 0.8-1.4 Comprehensive metabolic panel - 07/01/16 05:51 Serum or plasma sodium measurement (moles/volume) 135 mmol/L 135-145 Serum or plasma potassium measurement (moles/volume) 4.0 mmol/L 3.6-5.0 Serum or plasma chloride measurement (moles/volume) 106 mmol/L 98-107 Carbon dioxide 20 mmol/L 21-32 Serum or plasma anion gap determination (moles/volume) 9 mmol/L 5-14 Serum or plasma urea nitrogen measurement (mass/volume) 17 mg/dL 7-18 Serum or plasma creatinine measurement (mass/volume) 1.19 mg/dL 0.60-1.30 Serum or plasma urea nitrogen/creatinine mass ratio 14 NRG Serum or plasma creatinine measurement with calculation of estimated glomerular filtration rate 58 NRG Serum or plasma glucose measurement (mass/volume) 143 mg/dL 70-105 Serum or plasma calcium measurement (mass/volume) 8.5 mg/dL 8.5-10.1 Serum or plasma total bilirubin measurement (mass/volume) 0.5 mg/dL 0.1-1.0 Serum or plasma alkaline phosphatase measurement (enzymatic activity/volume) 83 U/L 40-136 Serum or plasma aspartate aminotransferase measurement (enzymatic activity/ volume) 30 U/L 5-34 Serum or plasma alanine aminotransferase measurement (enzymatic activity/volume ) 34 U/L 0-55 Serum or plasma protein measurement (mass/volume) 5.9 g/dL 6.4-8.2 Serum or plasma albumin measurement (mass/volume) 2.8 g/dL 3.2-4.5 Capillary blood glucose measurement by glucometer (mass/volume) - 07/01/16 11: 51 Capillary blood glucose measurement by glucometer (mass/volume) 223 mg/dL 70-110 Complete blood count (CBC) with automated white blood cell (WBC) differential - 09/11/16 12:35 Blood leukocytes automated count (number/volume) 8.1 10*3/uL 4.3-11.0 Blood erythrocytes automated count (number/volume) 5.36 10*6/uL 4.35-5.85 Venous blood hemoglobin measurement (mass/volume) 15.5 g/dL 13.3-17.7 Blood hematocrit (volume fraction) 45 % 40-54 Automated erythrocyte mean corpuscular volume 84 [foz_us] 80-99 Automated erythrocyte mean corpuscular hemoglobin (mass per erythrocyte) 29 pg 25-34 Automated erythrocyte mean corpuscular hemoglobin concentration measurement ( mass/volume) 35 g/dL 32-36 Automated erythrocyte distribution width ratio 15.8 % 10.0-14.5 Automated blood platelet count (count/volume) 228 10*3/uL 130-400 Automated blood platelet mean volume measurement 10.4 [foz_us] 7.4-10.4 Automated blood neutrophils/100 leukocytes 65 % 42-75 Automated blood lymphocytes/100 leukocytes 17 % 12-44 Blood monocytes/100 leukocytes 9 % 0-12 Automated blood eosinophils/100 leukocytes 8 % 0-10 Automated blood basophils/100 leukocytes 1 % 0-10 Blood neutrophils automated count (number/volume) 5.2 10*3 1.8-7.8 Blood lymphocytes automated count (number/volume) 1.4 10*3 1.0-4.0 Blood monocytes automated count (number/volume) 0.7 10*3 0.0-1.0 Automated eosinophil count 0.7 10*3/uL 0.0-0.3 Automated blood basophil count (count/volume) 0.1 10*3/uL 0.0-0.1 Complete urinalysis with reflex to culture - 09/11/16 12:35 Urine color determination YELLOW NRG Urine clarity determination CLEAR NRG Urine pH measurement by test strip 7 5-9 Specific gravity of urine by test strip 1.010 1.016- 1.022 Urine protein assay by test strip, semi-quantitative 3+ NEGATIVE Urine glucose detection by automated test strip 1+ NEGATIVE Erythrocytes detection in urine sediment by light microscopy 2+ NEGATIVE Urine ketones detection by automated test strip NEGATIVE NEGATIVE Urine nitrite detection by test strip NEGATIVE NEGATIVE Urine total bilirubin detection by test strip NEGATIVE NEGATIVE Urine urobilinogen measurement by automated test strip (mass/volume) NORMAL NORMAL Urine leukocyte esterase detection by dipstick NEGATIVE NEGATIVE Automated urine sediment erythrocyte count by microscopy (number/high power field) NONE NRG Automated urine sediment leukocyte count by microscopy (number/high power field ) NONE NRG Bacteria detection in urine sediment by light microscopy NEGATIVE NRG Squamous epithelial cells detection in urine sediment by light microscopy RARE NRG Crystals detection in urine sediment by light microscopy NONE NRG Casts detection in urine sediment by light microscopy NONE NRG Mucus detection in urine sediment by light microscopy NEGATIVE NRG Complete urinalysis with reflex to culture NO NRG Comprehensive metabolic panel - 09/11/16 12:35 Serum or plasma sodium measurement (moles/volume) 138 mmol/L 135-145 Serum or plasma potassium measurement (moles/volume) 3.9 mmol/L 3.6-5.0 Serum or plasma chloride measurement (moles/volume) 107 mmol/L 98-107 Carbon dioxide 20 mmol/L 21-32 Serum or plasma anion gap determination (moles/volume) 11 mmol/L 5-14 Serum or plasma urea nitrogen measurement (mass/volume) 20 mg/dL 7-18 Serum or plasma creatinine measurement (mass/volume) 1.37 mg/dL 0.60-1.30 Serum or plasma urea nitrogen/creatinine mass ratio 15 NRG Serum or plasma creatinine measurement with calculation of estimated glomerular filtration rate 50 NRG Serum or plasma glucose measurement (mass/volume) 154 mg/dL 70-105 Serum or plasma calcium measurement (mass/volume) 8.8 mg/dL 8.5-10.1 Serum or plasma total bilirubin measurement (mass/volume) 0.6 mg/dL 0.1-1.0 Serum or plasma alkaline phosphatase measurement (enzymatic activity/volume) 63 U/L 40-136 Serum or plasma aspartate aminotransferase measurement (enzymatic activity/ volume) 20 U/L 5-34 Serum or plasma alanine aminotransferase measurement (enzymatic activity/volume ) 17 U/L 0-55 Serum or plasma protein measurement (mass/volume) 7.0 g/dL 6.4-8.2 Serum or plasma albumin measurement (mass/volume) 3.9 g/dL 3.2-4.5 Serum or plasma troponin i.cardiac measurement (mass/volume) - 09/11/16 12:35 Serum or plasma troponin i.cardiac measurement (mass/volume) < ng/ mL <0.30 Bacteria identification in isolate by anaerobe culture - 03/10/17 11:07 Bacteria identification in isolate by anaerobe culture NOANA NRG Gram stain microscopy - 03/10/17 11:07 GRAM STAIN RESULT NO WBC'S OR BACTERIA OBSERVED NRG Bacteria identification in wound by culture - 03/10/17 11:07 Bacteria identification in wound by culture [id number] NR FREE TEXT EXTERNAL CORYNEBACTERIUM TUBERCULOSTEARICUM NRG QUANTITY OF GROWTH Scant Growth NRG FREE TEXT ENTRY 2 ID/SENSITIVITY REPORTED BY [facility] NR FREE TEXT ENTRY 3 LAB 03/21/17 09:55. NR Bacterial susceptibility panel - 03/10/17 11:07 Oxacillin susceptibility test by minimum inhibitory concentration > = NRG Gentamicin susceptibility test by minimum inhibitory concentration < = NRG Clindamycin susceptibility test by minimum inhibitory concentration R NRG Erythromycin susceptibility test by minimum inhibitory concentration >= NRG Trimethoprim/sulfamethoxazole susceptibility test by minimum inhibitoryconcentration 80 NRG Vancomycin susceptibility test by minimum inhibitory concentration 1 NRG Levofloxacin susceptibility test by minimum inhibitory concentration 0.25 NRG Rifampin susceptibility test by minimum inhibitory concentration <= NRG Tetracycline susceptibility test by minimum inhibitory concentration <= NRG Bacteria identification in isolate by anaerobe culture - 06/23/17 10:49 Bacteria identification in isolate by anaerobe culture NOANA NRG Gram stain microscopy - 06/23/17 10:49 GRAM STAIN RESULT RARE GRAM POSITIVE COCCI NRG Bacteria identification in wound by culture - 06/23/17 10:49 Bacteria identification in wound by culture [id number] NR FREE TEXT EXTERNAL SENSITIVITY REPORTED 06/25 13:15 NRG QUANTITY OF GROWTH Moderate Growth NR Bacterial susceptibility panel - 06/23/17 10:49 Oxacillin susceptibility test by minimum inhibitory concentration < = NRG Gentamicin susceptibility test by minimum inhibitory concentration < = NRG Clindamycin susceptibility test by minimum inhibitory concentration <= NRG Erythromycin susceptibility test by minimum inhibitory concentration <= NRG Trimethoprim/sulfamethoxazole susceptibility test by minimum inhibitoryconcentration <= NRG Vancomycin susceptibility test by minimum inhibitory concentration 1 NRG Levofloxacin susceptibility test by minimum inhibitory concentration 0.25 NRG Rifampin susceptibility test by minimum inhibitory concentration <= NRG Tetracycline susceptibility test by minimum inhibitory concentration <= NRG Bacterial susceptibility panel - 06/23/17 10:49 Oxacillin susceptibility test by minimum inhibitory concentration < = NRG Gentamicin susceptibility test by minimum inhibitory concentration < = NRG Clindamycin susceptibility test by minimum inhibitory concentration <= NRG Erythromycin susceptibility test by minimum inhibitory concentration <= NRG Trimethoprim/sulfamethoxazole susceptibility test by minimum inhibitoryconcentration <= NRG Vancomycin susceptibility test by minimum inhibitory concentration < = NRG Levofloxacin susceptibility test by minimum inhibitory concentration <= NRG Rifampin susceptibility test by minimum inhibitory concentration <= NRG Tetracycline susceptibility test by minimum inhibitory concentration <= NRG Fungus culture - 06/23/17 10:49 FUNGUS REPORT NO FUNGUS GROWTH OBSERVED NRG Complete blood count (CBC) with automated white blood cell (WBC) differential - 06/23/17 11:20 Blood leukocytes automated count (number/volume) 10.2 10*3/uL 4.3-11.0 Blood erythrocytes automated count (number/volume) 4.58 10*6/uL 4.35-5.85 Venous blood hemoglobin measurement (mass/volume) 13.1 g/dL 13.3-17.7 Blood hematocrit (volume fraction) 39 % 40-54 Automated erythrocyte mean corpuscular volume 86 [foz_us] 80-99 Automated erythrocyte mean corpuscular hemoglobin (mass per erythrocyte) 29 pg 25-34 Automated erythrocyte mean corpuscular hemoglobin concentration measurement ( mass/volume) 33 g/dL 32-36 Automated erythrocyte distribution width ratio 14.8 % 10.0-14.5 Automated blood platelet count (count/volume) 328 10*3/uL 130-400 Automated blood platelet mean volume measurement 9.8 [foz_us] 7.4-10.4 Automated blood neutrophils/100 leukocytes 77 % 42-75 Automated blood lymphocytes/100 leukocytes 11 % 12-44 Blood monocytes/100 leukocytes 9 % 0-12 Automated blood eosinophils/100 leukocytes 3 % 0-10 Automated blood basophils/100 leukocytes 0 % 0-10 Blood neutrophils automated count (number/volume) 7.8 10*3 1.8-7.8 Blood lymphocytes automated count (number/volume) 1.1 10*3 1.0-4.0 Blood monocytes automated count (number/volume) 0.9 10*3 0.0-1.0 Automated eosinophil count 0.3 10*3/uL 0.0-0.3 Automated blood basophil count (count/volume) 0.0 10*3/uL 0.0-0.1 Erythrocyte sedimentation rate by westergren method - 06/23/17 11:20 Erythrocyte sedimentation rate by westergren method 19 mm 0-30 Automated blood complete blood count (hemogram) panel - 07/18/17 12:03 Blood leukocytes automated count (number/volume) 8.1 10*3/uL 4.3-11.0 Blood erythrocytes automated count (number/volume) 5.20 10*6/uL 4.35-5.85 Venous blood hemoglobin measurement (mass/volume) 14.7 g/dL 13.3-17.7 Blood hematocrit (volume fraction) 44 % 40-54 Automated erythrocyte mean corpuscular volume 85 [foz_us] 80-99 Automated erythrocyte mean corpuscular hemoglobin (mass per erythrocyte) 28 pg 25-34 Automated erythrocyte mean corpuscular hemoglobin concentration measurement ( mass/volume) 33 g/dL 32-36 Automated erythrocyte distribution width ratio 15.3 % 10.0-14.5 Automated blood platelet count (count/volume) 239 10*3/uL 130-400 Automated blood platelet mean volume measurement 10.6 [foz_us] 7.4-10.4 Comprehensive metabolic panel - 07/18/17 12:03 Serum or plasma sodium measurement (moles/volume) 139 mmol/L 135-145 Serum or plasma potassium measurement (moles/volume) 4.5 mmol/L 3.6-5.0 Serum or plasma chloride measurement (moles/volume) 107 mmol/L 98-107 Carbon dioxide 24 mmol/L 21-32 Serum or plasma anion gap determination (moles/volume) 8 mmol/L 5-14 Serum or plasma urea nitrogen measurement (mass/volume) 22 mg/dL 7-18 Serum or plasma creatinine measurement (mass/volume) 1.45 mg/dL 0.60-1.30 Serum or plasma urea nitrogen/creatinine mass ratio 15 NRG Serum or plasma creatinine measurement with calculation of estimated glomerular filtration rate 46 NRG Serum or plasma glucose measurement (mass/volume) 151 mg/dL 70-105 Serum or plasma calcium measurement (mass/volume) 8.9 mg/dL 8.5-10.1 Serum or plasma total bilirubin measurement (mass/volume) 0.8 mg/dL 0.1-1.0 Serum or plasma alkaline phosphatase measurement (enzymatic activity/volume) 53 U/L 40-136 Serum or plasma aspartate aminotransferase measurement (enzymatic activity/ volume) 22 U/L 5-34 Serum or plasma alanine aminotransferase measurement (enzymatic activity/volume ) 17 U/L 0-55 Serum or plasma protein measurement (mass/volume) 7.5 g/dL 6.4-8.2 Serum or plasma albumin measurement (mass/volume) 3.8 g/dL 3.2-4.5 PT panel in platelet poor plasma by coagulation assay - 07/18/17 12:03 Prothrombin time (PT) in platelet poor plasma by coagulation assay 19.8 s 12.2-14.7 INR in platelet poor plasma or blood by coagulation assay 1.7 0.8-1.4 Activated partial thromboplastin time (aPTT) in platelet poor plasma bycoagulation assay - 07/18/17 12:03 Activated partial thromboplastin time (aPTT) in platelet poor plasma bycoagulation assay 34 s 24-35 Complete urinalysis with reflex to culture - 07/18/17 12:03 Urine color determination YELLOW NRG Urine clarity determination CLEAR NRG Urine pH measurement by test strip 6 5-9 Specific gravity of urine by test strip 1.020 1.016- 1.022 Urine protein assay by test strip, semi-quantitative 3+ NEGATIVE Urine glucose detection by automated test strip NEGATIVE NEGATIVE Erythrocytes detection in urine sediment by light microscopy 1+ NEGATIVE Urine ketones detection by automated test strip NEGATIVE NEGATIVE Urine nitrite detection by test strip NEGATIVE NEGATIVE Urine total bilirubin detection by test strip NEGATIVE NEGATIVE Urine urobilinogen measurement by automated test strip (mass/volume) NORMAL NORMAL Urine leukocyte esterase detection by dipstick NEGATIVE NEGATIVE Automated urine sediment erythrocyte count by microscopy (number/high power field) NONE NRG Automated urine sediment leukocyte count by microscopy (number/high power field ) RARE NRG Bacteria detection in urine sediment by light microscopy NEGATIVE NRG Squamous epithelial cells detection in urine sediment by light microscopy RARE NRG Crystals detection in urine sediment by light microscopy NONE NRG Casts detection in urine sediment by light microscopy NONE NRG Mucus detection in urine sediment by light microscopy NEGATIVE NRG Complete urinalysis with reflex to culture NO NRG Methicillin resistant Staphylococcus aureus (MRSA) screening culture - 12:03 Methicillin resistant Staphylococcus aureus (MRSA) screening culture NEG NRG Bacteria identification in isolate by anaerobe culture - 08/18/17 08:30 Bacteria identification in isolate by anaerobe culture NOANA NRG Gram stain microscopy - 08/18/17 08:30 GRAM STAIN RESULT FEW GRAM NEGATIVE RODS NRG Bacteria identification in wound by culture - 08/18/17 08:30 Bacteria identification in wound by culture [id number] NR FREE TEXT EXTERNAL SENSITIVITY REPORTED 08/21/17 9:35 NRG QUANTITY OF GROWTH Scant Growth NR Bacterial susceptibility panel - 08/18/17 08:30 Gentamicin susceptibility test by minimum inhibitory concentration < = NRG Tobramycin susceptibility test by minimum inhibitory concentration < = NRG Piperacillin/tazobactam susceptibility test by minimum inhibitory concentration S NRG Ciprofloxacin susceptibility test by minimum inhibitory concentration <= NRG Meropenem susceptibility test by minimum inhibitory concentration < = NRG Cefepime susceptibility test by minimum inhibitory concentration 2 NR Bacterial susceptibility panel - 08/18/17 08:30 Oxacillin susceptibility test by minimum inhibitory concentration < = NRG Gentamicin susceptibility test by minimum inhibitory concentration < = NRG Clindamycin susceptibility test by minimum inhibitory concentration <= NRG Erythromycin susceptibility test by minimum inhibitory concentration <= NRG Trimethoprim/sulfamethoxazole susceptibility test by minimum inhibitoryconcentration S NRG Vancomycin susceptibility test by minimum inhibitory concentration S NRG Levofloxacin susceptibility test by minimum inhibitory concentration <= NRG Rifampin susceptibility test by minimum inhibitory concentration <= NRG Tetracycline susceptibility test by minimum inhibitory concentration >= NRG Bacterial susceptibility panel - 08/18/17 08:30 Gentamicin susceptibility test by minimum inhibitory concentration S NRG Erythromycin susceptibility test by minimum inhibitory concentration >= NRG Vancomycin susceptibility test by minimum inhibitory concentration 1 NRG Ampicillin susceptibility test by minimum inhibitory concentration < = NRG Linezolid susceptibility test by minimum inhibitory concentration 2 NRG Complete blood count (CBC) with automated white blood cell (WBC) differential - 09/30/17 20:02 Blood leukocytes automated count (number/volume) 10.9 10*3/uL 4.3-11.0 Blood erythrocytes automated count (number/volume) 5.24 10*6/uL 4.35-5.85 Venous blood hemoglobin measurement (mass/volume) 14.9 g/dL 13.3-17.7 Blood hematocrit (volume fraction) 44 % 40-54 Automated erythrocyte mean corpuscular volume 84 [foz_us] 80-99 Automated erythrocyte mean corpuscular hemoglobin (mass per erythrocyte) 28 pg 25-34 Automated erythrocyte mean corpuscular hemoglobin concentration measurement ( mass/volume) 34 g/dL 32-36 Automated erythrocyte distribution width ratio 15.5 % 10.0-14.5 Automated blood platelet count (count/volume) 265 10*3/uL 130-400 Automated blood platelet mean volume measurement 10.3 [foz_us] 7.4-10.4 Automated blood neutrophils/100 leukocytes 73 % 42-75 Automated blood lymphocytes/100 leukocytes 14 % 12-44 Blood monocytes/100 leukocytes 8 % 0-12 Automated blood eosinophils/100 leukocytes 4 % 0-10 Automated blood basophils/100 leukocytes 1 % 0-10 Blood neutrophils automated count (number/volume) 8.0 10*3 1.8-7.8 Blood lymphocytes automated count (number/volume) 1.5 10*3 1.0-4.0 Blood monocytes automated count (number/volume) 0.9 10*3 0.0-1.0 Automated eosinophil count 0.5 10*3/uL 0.0-0.3 Automated blood basophil count (count/volume) 0.1 10*3/uL 0.0-0.1 PT panel in platelet poor plasma by coagulation assay - 09/30/17 20:02 Prothrombin time (PT) in platelet poor plasma by coagulation assay 14.1 s 12.2-14.7 INR in platelet poor plasma or blood by coagulation assay 1.1 0.8-1.4 Activated partial thromboplastin time (aPTT) in platelet poor plasma bycoagulation assay - 09/30/17 20:02 Activated partial thromboplastin time (aPTT) in platelet poor plasma bycoagulation assay 28 s 24-35 Comprehensive metabolic panel - 09/30/17 20:02 Serum or plasma sodium measurement (moles/volume) 138 mmol/L 135-145 Serum or plasma potassium measurement (moles/volume) 4.2 mmol/L 3.6-5.0 Serum or plasma chloride measurement (moles/volume) 107 mmol/L 98-107 Carbon dioxide 19 mmol/L 21-32 Serum or plasma anion gap determination (moles/volume) 12 mmol/L 5-14 Serum or plasma urea nitrogen measurement (mass/volume) 21 mg/dL 7-18 Serum or plasma creatinine measurement (mass/volume) 1.73 mg/dL 0.60-1.30 Serum or plasma urea nitrogen/creatinine mass ratio 12 NRG Serum or plasma creatinine measurement with calculation of estimated glomerular filtration rate 38 NRG Serum or plasma glucose measurement (mass/volume) 174 mg/dL 70-105 Serum or plasma calcium measurement (mass/volume) 9.0 mg/dL 8.5-10.1 Serum or plasma total bilirubin measurement (mass/volume) 0.5 mg/dL 0.1-1.0 Serum or plasma alkaline phosphatase measurement (enzymatic activity/volume) 63 U/L 40-136 Serum or plasma aspartate aminotransferase measurement (enzymatic activity/ volume) 26 U/L 5-34 Serum or plasma alanine aminotransferase measurement (enzymatic activity/volume ) 18 U/L 0-55 Serum or plasma protein measurement (mass/volume) 7.4 g/dL 6.4-8.2 Serum or plasma albumin measurement (mass/volume) 4.0 g/dL 3.2-4.5 Encounters ACCT No. Visit Date/Time Discharge Status Pt. Type Provider Facility Loc./Unit Complaint [id number] 09/22/2017 08:16:00 09/22/2017 23:59:59 CLS Outpatient MANAN GEE MD [id number] 09/15/2017 08:13:00 09/15/2017 23:59:59 CLS Outpatient MANAN GEE MD [facility] [id number] 09/08/2017 08:11:00 09/08/2017 23:59:59 CLS Outpatient MANAN GEE MD [facility] [id number] 09/05/2017 10:21:00 09/05/2017 23:59:59 CLS Outpatient DILCIA PORTER APRN [facility] E11.622 L97.802 I87.311 [id number] L97.212 [id number] 09/01/2017 08:12:00 09/01/2017 23:59:59 CLS Outpatient MANAN GEE MD [facility] [id number] 08/23/2017 08:15:00 08/23/2017 23:59:59 CLS Outpatient DILCIA PORTER APRN [facility] [id number] 08/18/2017 08:13:00 08/18/2017 23:59:59 CLS Outpatient MANAN GEE MD [facility] [id number] 08/11/2017 08:13:00 08/11/2017 23:59:59 CLS Outpatient MANAN GEE MD [facility] [id number] 08/04/2017 08:06:00 08/04/2017 23:59:59 CLS Outpatient DILCIA PORTER APRN [facility] [id number] 07/28/2017 08:37:00 07/28/2017 23:59:59 CLS Outpatient MANAN GEE MD [facility] [id number] 07/21/2017 08:12:00 07/21/2017 23:59:59 CLS Outpatient MANAN GEE MD [facility] [id number] 07/18/2017 10:52:00 07/18/2017 19:25:00 DIS Outpatient Kody DUNN MD [facility] CCL REFRACTORY HTN , CKD [id number] 07/12/2017 08:15:00 07/12/2017 23:59:59 CLS Outpatient DILCIA PORTER APRN [facility] [id number] 07/07/2017 08:04:00 07/07/2017 23:59:59 CLS Outpatient MANAN GEE MD [facility] [id number] 06/30/2017 08:03:00 06/30/2017 23:59:59 CLS Outpatient MANAN GEE MD [facility] [id number] 06/27/2017 13:05:00 06/27/2017 23:59:59 CLS Outpatient ERICK COTE MD [facility] [id number] 06/23/2017 11:10:00 06/23/2017 23:59:59 CLS Outpatient MANAN GEE MD [facility] LAB E11.622 [id number] 06/23/2017 09:21:00 06/23/2017 23:59:59 CLS Outpatient MANAN GEE MD [facility] [id number] 04/14/2017 09:25:00 04/14/2017 23:59:59 CLS Outpatient MANAN GEE MD [facility] [id number] 04/05/2017 09:50:00 04/05/2017 23:59:59 CLS Outpatient DILCIA PORTER APRN [facility] [id number] 03/31/2017 09:04:00 03/31/2017 23:59:59 CLS Outpatient MANAN GEE MD [facility] [id number] 03/24/2017 09:02:00 03/24/2017 23:59:59 CLS Outpatient MANAN GEE MD [facility] [id number] 03/17/2017 08:57:00 03/21/2017 16:00:00 DIS Outpatient MANAN GEE MD [facility] [id number] 09/23/2016 09:24:00 09/23/2016 16:00:00 DIS Outpatient MANAN GEE MD [facility] [id number] 09/11/2016 12:06:00 09/11/2016 13:40:00 DIS Emergency SAÚL PUENTE MD [facility] ER SOA [id number] 09/08/2016 13:35:00 09/08/2016 23:59:59 CLS Outpatient MANAN GEE MD [facility] RT COPD [id number] 08/03/2016 10:11:00 08/03/2016 23:59:59 CLS Outpatient MANAN GEE MD [facility] RAD E11.622,L97.801,I87.311 [id number] 06/27/2016 01:21:00 07/01/2016 13:35:00 DIS Inpatient MANAN GEE MD [facility] 4TH BIBASILAR INFILTRATES; CELLULITIS R LEG; DEHYDRATI [id number] 10/07/2014 17:51:00 10/07/2014 23:59:59 CLS Outpatient SAÚL PUENTE MD [facility] 4TH RCR [id number] 09/24/2014 13:02:00 09/24/2014 23:59:59 CLS Outpatient ERICK COTE MD [facility] [id number] 09/23/2014 12:32:00 09/23/2014 23:59:59 CLS Outpatient SAÚL PUENTE MD [facility] CARD [id number] 08/27/2014 13:48:00 09/03/2014 19:30:00 DIS Inpatient SAÚL PUENTE MD [facility] 4TH [id number] 08/07/2013 15:46:00 08/07/2013 23:59:59 CLS Outpatient SAÚL PUENTE MD [facility] RAD [id number] 09/30/2017 20:11:00 Document Registration [id number] 09/29/2017 08:15:00 ACT Outpatient MANAN GEE MD [facility] [id number] 09/05/2014 16:23:00 Document Registration [id number] 01/07/2011 20:02:00 Document Registration [id number] 08/12/2010 20:21:00 Document Registration
== END 2017-09-30 21:55 ==
LOC: EDUNIT# 19:40 → ER 19:41
DX: S09.90XA Unspecified injury of head, initial encounter (principal); S01.81XA Laceration without foreign body of other part of head, initial encounter; S16.1XXA Strain of muscle, fascia and tendon at neck level, initial encounter; E11.40 Type 2 diabetes mellitus with diabetic neuropathy, unspecified; I48.2 Chronic atrial fibrillation; I10 Essential (primary) hypertension; E03.9 Hypothyroidism, unspecified; M10.9 Gout, unspecified; G47.30 Sleep apnea, unspecified; R40.2142 Coma scale, eyes open, spontaneous, at arrival to emergency department; R40.2252 Coma scale, best verbal response, oriented, at arrival to emergency department; R40.2362 Coma scale, best motor response, obeys commands, at arrival to emergency department; Z23 Encounter for immunization; Z85.820 Personal history of malignant melanoma of skin; Z95.810 Presence of automatic (implantable) cardiac defibrillator; Z90.5 Acquired absence of kidney; Z79.01 Long term (current) use of anticoagulants; Z79.4 Long term (current) use of insulin; Z88.8 Allergy status to other drugs, medicaments and biological substances; Z88.2 Allergy status to sulfonamides; Z80.51 Family history of malignant neoplasm of kidney; W01.198A Fall on same level from slipping, tripping and stumbling with subsequent striking against other object, initial encounter
CPT/HCPCS: 36415; 70450; 71045; 72125; 72170; 80053; 85025; 85610; 85730; 90471; 90715

== ENCOUNTER → 2017-10-06 | Outpatient (CLI) | payer MEDICARE, OTHER | LOC: WOUNDCARE 08:14 | PROVIDERS: ATTEND Internal Medicine | DX: L97.212 Non-pressure chronic ulcer of right calf with fat layer exposed (principal); E11.622 Type 2 diabetes mellitus with other skin ulcer; L97.802 Non-pressure chronic ulcer of other part of unspecified lower leg with fat layer exposed; I87.311 Chronic venous hypertension (idiopathic) with ulcer of right lower extremity; I70.232 Atherosclerosis of native arteries of right leg with ulceration of calf | CPT/HCPCS: 11042 ==

== ENCOUNTER → 2017-10-13 | Outpatient (CLI) | payer MEDICARE, OTHER | LOC: WOUNDCARE 08:07 | PROVIDERS: ATTEND Internal Medicine | DX: E11.622 Type 2 diabetes mellitus with other skin ulcer (principal); L97.802 Non-pressure chronic ulcer of other part of unspecified lower leg with fat layer exposed; I87.311 Chronic venous hypertension (idiopathic) with ulcer of right lower extremity; I70.232 Atherosclerosis of native arteries of right leg with ulceration of calf; L97.212 Non-pressure chronic ulcer of right calf with fat layer exposed | CPT/HCPCS: 15271 ==

== ENCOUNTER → 2017-10-20 | Outpatient (CLI) | payer MEDICARE, OTHER | LOC: WOUNDCARE 08:14 | PROVIDERS: ATTEND Internal Medicine | DX: E11.622 Type 2 diabetes mellitus with other skin ulcer (principal); L97.802 Non-pressure chronic ulcer of other part of unspecified lower leg with fat layer exposed; I87.311 Chronic venous hypertension (idiopathic) with ulcer of right lower extremity; I70.232 Atherosclerosis of native arteries of right leg with ulceration of calf; L97.212 Non-pressure chronic ulcer of right calf with fat layer exposed | CPT/HCPCS: 15271 ==

== ENCOUNTER → 2017-10-27 | Outpatient (CLI) | payer MEDICARE, OTHER | LOC: WOUNDCARE 08:10 | PROVIDERS: ATTEND Internal Medicine | DX: L97.212 Non-pressure chronic ulcer of right calf with fat layer exposed (principal); E11.622 Type 2 diabetes mellitus with other skin ulcer; L97.802 Non-pressure chronic ulcer of other part of unspecified lower leg with fat layer exposed; I87.311 Chronic venous hypertension (idiopathic) with ulcer of right lower extremity; I70.232 Atherosclerosis of native arteries of right leg with ulceration of calf | CPT/HCPCS: 11042 ==

== ENCOUNTER → 2017-11-03 | Outpatient (CLI) | payer MEDICARE, OTHER | LOC: WOUNDCARE 08:08 | PROVIDERS: ATTEND Internal Medicine | DX: E11.622 Type 2 diabetes mellitus with other skin ulcer (principal); L97.802 Non-pressure chronic ulcer of other part of unspecified lower leg with fat layer exposed; I87.311 Chronic venous hypertension (idiopathic) with ulcer of right lower extremity; I70.232 Atherosclerosis of native arteries of right leg with ulceration of calf; L97.212 Non-pressure chronic ulcer of right calf with fat layer exposed | CPT/HCPCS: 99212 ==

== ENCOUNTER → 2018-07-12 | Outpatient (CLI) | payer MEDICARE, OTHER ==
[~2018-07-12] MED LIST changes: -IPRA3AMP INH; +IPRA3AMP31 INH; -LOSA50TA36 PO; +LOSA50TA7 PO
--- NOTE | 2018-07-12 15:26 | Diagnostic Imaging Report ---
INDICATION: Shortness of breath and cough. EXAMINATION: PA and lateral chest. FINDINGS: Patient has a dual-chamber pacemaker. There is some atelectasis at both lung bases with tiny effusions. Lungs are otherwise clear. IMPRESSION: Basilar atelectasis with tiny bilateral pleural effusions. Dictated by: Dictated on workstation # [id number]
[2018-07-12 15:40] LABS: BASOPHILS # (AUTO) 0.1 10^3/uL (0.0-0.1); BASOPHILS % (AUTO) 1 % (0-10); EOSINOPHILS # (AUTO) 0.2 10^3/uL (0.0-0.3); EOSINOPHILS % (AUTO) 3 % (0-10); HEMATOCRIT 43 % (40-54); HEMOGLOBIN 13.8 G/DL (13.3-17.7); LYMPHOCYTES # (AUTO) 1.1 X 10^3 (1.0-4.0); LYMPHOCYTES % (AUTO) 13 % (12-44); MEAN CORPUSCULAR HEMOGLOBIN 28 PG (25-34); MEAN CORPUSCULAR HGB CONC 32 G/DL (32-36); MEAN CORPUSCULAR VOLUME 85 FL (80-99); MONOCYTES # (AUTO) 0.7 X 10^3 (0.0-1.0); MONOCYTES % (AUTO) 8 % (0-12); NEUTROPHILS # (AUTO) 6.7 X 10^3 (1.8-7.8); NEUTROPHILS % (AUTO) 76 % (42-75); PLATELET COUNT 227 10^3/uL (130-400); RED BLOOD COUNT 5.01 10^6/uL (4.35-5.85); WHITE BLOOD COUNT 8.9 10^3/uL (4.3-11.0)
[2018-07-12 15:55] LABS: ALBUMIN 3.8 GM/DL (3.2-4.5); BILIRUBIN,TOTAL 0.9 MG/DL (0.1-1.0); CALCIUM 8.9 MG/DL (8.5-10.1); CREATININE SERUM 1.9 MG/DL (0.60-1.30); POTASSIUM 4.5 MMOL/L (3.6-5.0); TOTAL PROTEIN 7.1 GM/DL (6.4-8.2)
== END ==
LOC: RAD 15:00
PROVIDERS: ATTEND Physician Assistant
DX: I50.9 Heart failure, unspecified (principal); J44.9 Chronic obstructive pulmonary disease, unspecified; J98.11 Atelectasis
CPT/HCPCS: 36415; 71046; 80053; 85025

== ENCOUNTER → 2018-08-30 | Outpatient (CLI) | payer MEDICARE, OTHER ==
[~2018-08-30] MED LIST changes: +CLON0.1T PO
--- NOTE | 2018-08-30 12:23 | Diagnostic Imaging Report ---
INDICATION: Pneumonia, followup. TIME OF EXAM: 12:28 PM CORRELATION is made with prior study from 08/16/2018. FINDINGS: The heart size is stable. Cardiac pacemaker is in place. There are small bilateral effusions. No significant infiltrate is seen. No pneumothorax is identified. IMPRESSION: 1. Small bilateral pleural effusions, similar to perhaps slightly increased when compared with the exam from 08/16/2018. Dictated by: Dictated on workstation # [id number]
== END ==
LOC: RAD 11:47
PROVIDERS: ATTEND Internal Medicine
DX: J18.9 Pneumonia, unspecified organism (principal); J90 Pleural effusion, not elsewhere classified
CPT/HCPCS: 71046

== ENCOUNTER → 2018-09-13 | Outpatient (CLI) | payer MEDICARE, OTHER ==
[~2018-09-13] VITALS: Ht 172.7 cm; Wt 106.6 kg
[~2018-09-13] MED LIST changes: +CATHETER FLUSH 10 ML SYR IV PRN; +LOSA50TA63 PO; -LOSA50TA7 PO; +REGADENOSON 0.4 MG/5 ML SYR (LEXISCAN) IV ONE
[2018-09-13 12:43] VITALS: BP 174/111
[2018-09-13 12:47] VITALS: BP 165/91
--- NOTE | 2018-09-13 16:02 | STRESS TEST ---
DATE OF SERVICE: 09/13/2018 LEXISCAN MYOVIEW STRESS TEST REPORT REFERRING PHYSICIAN: Dr. Koehler. Baseline heart rate is 63, baseline blood pressure 174/111. Baseline EKG is ventricular paced rhythm. In summary, the patient was injected with 10.78 mCi of technetium-99 Myoview and the resting images were obtained. Then, the patient received 0.4 mg of Lexiscan followed by 33.0 mCi of technetium-99 Myoview. Throughout the test, there were no EKG changes. The resting and stress images were reviewed and compared in the short axis, horizontal long axis, and vertical long axis views. Review of the images showed diaphragmatic attenuation with fixed defect involving the mid to apical inferior wall and inferoseptum. SSS is 14. SDS is 12. TID value is 1.0. On the gated images, there is diffuse left ventricular hypokinesia with calculated ejection fraction 35%. CONCLUSION: 1. The patient tolerated Lexiscan well. 2. Baseline paced rhythm persisted throughout test. 3. Fixed defect involving the mid to apical inferior wall and inferoseptum. 4. Prominent left ventricle with diffuse left ventricular hypokinesia with calculated ejection fraction 35%. Job ID: [id number] DocumentID: [id number] Dictated Date: 09/13/2018 15:47:31 Integration Technician Date: 09/13/2018 16:02:08 Dictated By: ARGELIA RICK MD
== END ==
LOC: CARD 10:58
PROVIDERS: ATTEND Internal Medicine Cardiovascular Disease
DX: I48.91 Unspecified atrial fibrillation (principal); I12.9 Hypertensive chronic kidney disease with stage 1 through stage 4 chronic kidney disease, or unspecified chronic kidney disease; N18.9 Chronic kidney disease, unspecified; I73.9 Peripheral vascular disease, unspecified; E66.9 Obesity, unspecified
CPT/HCPCS: 78452; 93017

== ENCOUNTER 2018-11-08 15:47 | Inpatient (IN) | payer MEDICARE, OTHER ==
[~2018-11-08] VITALS: Ht 175.3 cm; Wt 101.5 kg
[~2018-11-08 15:47] MED LIST changes: -CATHETER FLUSH 10 ML SYR IV PRN; -REGADENOSON 0.4 MG/5 ML SYR (LEXISCAN) IV ONE
--- NOTE | 2018-11-08 16:15 | NUR ---
Bala Moreno] admitted to room 408-1, with an admitting diagnosis of acute renal failure, on 11/08/18 from home via wheelchair, accompanied by family. BALA MORENO introduced to surroundings, call light, bed controls, phone, TV, temperature control, lights, meal times, smoking policy, visitor policy, side rail policy, bathrooms and showers. Patient Rights given to patient in the handbook.BALA MORENO verbalizes understanding that [facility] is not responsible for the loss or damage to any personal effects or valuables that are kept in the patients possession during their hospitalization. The following Patient Care Plans were discussed with the : Discharge Planning, medications, pain management, and hydration. BALA MORENO verbalizes understanding of Interdisciplinary Patient Education. Patient and/or family were informed about the Rapid Response Team and its purpose.
[2018-11-08 16:24] VITALS: BP 157/93
[2018-11-08] MEDS ORDERED: CATHETER FLUSH 10 ML SYR IV PRN (17:00)
[2018-11-08] MEDS: NS IV 1000 ML 1,000 ML IV SCH (17:06)
[2018-11-08 17:07] LABS: HEMOGLOBIN 13.5 G/DL (13.3-17.7); MEAN PLATELET VOLUME 11.4 FL (7.4-10.4); RED CELL DISTRIBUTION WIDTH 18.1 % (10.0-14.5); WHITE BLOOD COUNT 7.5 10^3/uL (4.3-11.0)
[2018-11-08 17:13] LABS: ALBUMIN 3.5 GM/DL (3.2-4.5); CALCIUM 8.9 MG/DL (8.5-10.1); CREATININE SERUM 1.57 MG/DL (0.60-1.30); POTASSIUM 4.9 MMOL/L (3.6-5.0); TOTAL PROTEIN 6.1 GM/DL (6.4-8.2)
--- NOTE | 2018-11-08 17:25 | NUR ---
Call received from lab with critical high results of PT/INR. Results called to Dr. Husain and Dr. Ruth. Verbal order from Dr. Ruth to hold Coumadin at this time.
[2018-11-08 17:27] LABS: INR 5.6 (0.8-1.4); PROTHROMBIN TIME PATIENT 51.2 SEC (12.2-14.7)
--- NOTE | 2018-11-08 17:44 | History & Physical-Hospitalist ---
History of Present Illness HPI/Chief Complaint Chief complaint: Tongue swelling with severe dehydration. HPI: This is an 87yoWM known to me from prior hospital stay during [place] time last year with a multitude of medical problems including atrial fibrillation maintained on Coumadin, congestive heart failure, DM, and venous stasis who presented to Dr. Koehler's office with inability to eat or drink with tongue swelling and significant dehydration and declined status. He was directly admitted, labs evaluated and placed on an aggressive IV fluid along with Dr. Ruth consultation. He has significant comorbidities, he continues to live at home, his daughters are involved in his care and INR was revealed to be 5.6 with creatinine of 1.5 and mild tongue swelling. Losartan was discontinued and Coumadin was held, and home medication will be evaluated and restarted. Source: patient Date Seen 11/08/18 Time Seen by a Provider: 17:45 Attending Physician Marija Salas DO PCP Federico Koehler MD Referring Physician Date of Admission Nov 08, 2018 at 16:13 Home Medications & Allergies Home Medications Reviewed patient Home Medication Reconciliation performed by pharmacy medication reconciliations social services technician and/or nursing. Patients Allergies have been reviewed. Allergies Allergies Coded Allergies sulfamethoxazole (Verified Allergy, Mild, 08/27/14) trimethoprim (Verified Allergy, Mild, 08/27/14) amlodipine (Verified Allergy, Unknown, Cough, 08/15/18) Past [id number] Hx Past Med/Social Hx: Reviewed Nursing Past Med/Soc Hx, Reviewed and Corrections made Patient Social History Marrital Status: Employed/Student: retired Alcohol Use: Denies Use Recreational Drug Use: No 2nd Hand Smoke Exposure: No Physical Abuse Screen: No Sexual Abuse: No Recent Foreign Travel: No Contact w/other who traveled: No Recent Hopitalizations: Yes Recent Infectious Disease Expo: No Immunizations Up To Date Tetanus Booster (TDap): Unknown Pediatric: Yes Date of Pneumonia Vaccine: Jun 27, 2014 Date of Influenza Vaccine: May 22, 2018 Seasonal Allergies Seasonal Allergies: No Past Medical History Surgeries: Defibrillator, Nephrectomy, Pacemaker Respiratory: Sleep Apnea Currently Using CPAP: Yes Currently Using BIPAP: No Cardiac: Atrial Fibrillation, Chronic Edema/Swelling, Hypertension Neurological: Neuropathy Reproductive: No Sexually Transmitted Disease: No HIV/AIDS: No Genitourinary: Kidney Infection, Prostate Problems, Renal Failure, UTI-Chronic Musculoskeletal: Arthritis, Gout Endocrine: Diabetes, Insulin dep, Hypothyroidsim Are Your Blood Sugars Over 250: No HEENT: Cataract Loss of Vision: Bilateral Hearing Impairment: Denies Cancer: Melanoma Skin/Integumentary: Eczema History of Blood Disorders: No Adverse Reaction to Blood Thomas: No Family History Dysphasia maternal mother FH: kidney cancer G8 SISTER FH: lung cancer 19 FATHER Hypertension maternal mother Kidney disease maternal mother No Family History of: AIDS Abdominal aortic aneurysm Carl's disease Alcoholism Alzheimer's disease Aphasia Arthritis Asthma Cancer of mouth Cardiovascular disease Cataracts Colon cancer Completed stroke Congenital disease Congenital heart disease Coronary thrombosis Cystic fibrosis Deafness or hearing loss Dementia Diabetes mellitus Drug abuse Fibrocystic disease of breast Gastroenteritis Glaucoma Headache disorder Hypercholesterolemia Infertility Myocardial infarction Neoplasm Not obtainable due to adoption Osteoporosis Parkinson's disease Prostate cancer Psychosocial problem Respiratory disorder Seizure disorder Severe allergy Thyroid disease Tuberculosis Visual disorder Review of Systems Constitutional: see HPI, weakness EENTM: mouth pain, mouth swelling, throat pain, throat swelling Respiratory: no symptoms reported Cardiovascular: no symptoms reported Gastrointestinal: no symptoms reported Genitourinary: no symptoms reported Musculoskeletal: no symptoms reported Skin: no symptoms reported Psychiatric/Neurological: Anxiety All Other Systems Reviewed Negative Unless Noted: Yes Physical Exam Physical Exam Vital Signs Vital Signs - First Documented 11/09/18 11/09/18 08:55 20:42 O2 Flow Rate 2.00 FiO2 21 Capillary Refill : Height, Weight, BMI Height: 5'8.00" Weight: 229lbs. 5.0oz. 104.520198xt; 35.7 BMI Method:Stated General Appearance: No Apparent Distress, Chronically ill, Obese Eyes: Right Eye Normal Inspection, Right Eye PERRL HEENT: PERRL/EOMI, Normal ENT Inspection, Pharynx Normal, Other (dry MM) Neck: Full Range of Motion, Normal Inspection, Non Tender Respiratory: Chest Non Tender, Normal Breath Sounds, No Accessory Muscle Use, No Respiratory Distress, Wheezing (subtle) Cardiovascular: Regular Rate, Rhythm, No Edema, No Gallop, No JVD, No Murmur, Normal Peripheral Pulses Gastrointestinal: Normal Bowel Sounds, No Organomegaly, No Pulsatile Mass, Non Tender, Soft Back: Normal Inspection, No CVA Tenderness, No Vertebral Tenderness Extremity: Normal Capillary Refill, Normal Inspection, Normal Range of Motion, Non Tender, No Calf Tenderness, No Pedal Edema, Other (venous stasis changes) Neurologic/Psychiatric: Alert, Oriented x3, No Motor/Sensory Deficits, Normal Mood/Affect Skin: Normal Color, Warm/Dry Lymphatic: No Adenopathy Results Results/Procedures Labs Laboratory Tests 11/08/18 16:47 11/09/18 09:40 Patient resulted labs reviewed. Assessment/Plan Admission Diagnosis Assessment: Dehydration Tongue swelling possible due to ARB CHF COPD AF DM CRI Coumadin toxicity Plan: Hold Coumadin Monitor creat IVF gentle O2 Admission Status: Inpatient Order (span 2 midnights) Reason for Inpatient Admission: Sevre dehydration and coumadin toxicity Diagnosis/Problems Diagnosis/Problems (1) Warfarin toxicity Status: Acute Qualifiers: Encounter type: initial encounter Injury intent: accidental or unintentional Qualified Codes: T45.511A - Poisoning by anticoagulants, accidental (unintentional), initial encounter (2) Acute renal failure (ARF) Status: Acute Qualifiers: Acute renal failure type: unspecified Qualified Codes: N17.9 - Acute kidney failure, unspecified (3) Anxiety Status: Chronic (4) ELIZABETH on CPAP Status: Chronic (5) Advanced age Status: Chronic (6) DNR (do not resuscitate) Status: Chronic (7) Chronic obstructive airway disease Status: Chronic Qualifiers: COPD type: unspecified COPD Qualified Codes: J44.9 - Chronic obstructive pulmonary disease, unspecified (8) Chronic renal insufficiency Status: Chronic Qualifiers: Chronic kidney disease stage: stage 3 (moderate) Qualified Codes: N18.3 - Chronic kidney disease, stage 3 (moderate) (9) Hypothyroidism Status: Chronic Qualifiers: Hypothyroidism type: acquired Qualified Codes: E03.9 - Hypothyroidism, unspecified (10) Diabetes mellitus Status: Chronic Qualifiers: Diabetes mellitus type: type 2 Diabetes mellitus penitentiary insulin use: with penitentiary use Diabetes mellitus complication status: with circulatory complication Diabetes mellitus complication detail: with other circulatory complications Qualified Codes: E11.59 - Type 2 diabetes mellitus with other circulatory complications; Z79.4 - 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
[2018-11-08 20:17] VITALS: BP 178/89
[2018-11-08 20:25] VITALS: BP 178/89
[2018-11-09] VITALS (8 sets, daily range): BP systolic 155–191; BP diastolic 64–98
[2018-11-09] MEDS: NS IV 1000 ML 1,000 ML IV SCH ×4 (04:06→19:24)
[2018-11-09] MEDS ORDERED: FUROSEMIDE 40 MG/4 ML INJ (LASIX) IVP NR (07:30)
--- NOTE | 2018-11-09 07:47 | Consultation-Cardiology ---
HPI-Cardiology Cardiology Consultation Date of Consultation 11/09/18 Date of Admission Time Seen by Provider: 07:40 Indication: shortness of breath HPI 87 years old gentleman with extensive cardiovascular history, he has been having difficulty with increasing shortness of breath and feeling swelling in his tongue, has been having pedal edema. Denied any chest pain. Denied any palpitation, syncope or near syncopal episode, he was admitted directly by Dr. Husain. He denied any fever or chills. No cough or sputum. Home Medications & Allergies Allergies: Coded Allergies: sulfamethoxazole (Verified Allergy, Mild, 08/27/14) trimethoprim (Verified Allergy, Mild, 08/27/14) amlodipine (Verified Allergy, Unknown, Cough, 08/15/18) Home Medication List Reviewed: Yes LVV-Bkohpu-Fjfjwy Hx Patient Social History Marital Status: Employed/Student: retired Alcohol Use: Denies Use Recreational Drug Use: No 2nd Hand Smoke Exposure: No Recent Foreign Travel: No Recent Infectious Disease Expo: No Recent Hopitalizations: Yes Physical Abuse Screen: No Sexual Abuse: No Immunizations Up To Date Tetanus Booster (TDap): Unknown Date of Pneumonia Vaccine: Jun 27, 2014 Date of Influenza Vaccine: May 22, 2018 Past Medical History past medical history discussed below Family Medical History Family History: Dysphasia maternal mother FH: kidney cancer G8 SISTER FH: lung cancer 19 FATHER Hypertension maternal mother Kidney disease maternal mother No Family History of: AIDS Abdominal aortic aneurysm [place]'s disease Alcoholism Alzheimer's disease Aphasia Arthritis Asthma Cancer of mouth Cardiovascular disease Cataracts Colon cancer Completed stroke Congenital disease Congenital heart disease Coronary thrombosis Cystic fibrosis Deafness or hearing loss Dementia Diabetes mellitus Drug abuse Fibrocystic disease of breast Gastroenteritis Glaucoma Headache disorder Hypercholesterolemia Infertility Myocardial infarction Neoplasm Not obtainable due to adoption Osteoporosis Parkinson's disease Prostate cancer Psychosocial problem Respiratory disorder Seizure disorder Severe allergy Thyroid disease Tuberculosis Visual disorder Review of Systems Constitutional: see HPI, malaise EENTM: see HPI, no symptoms reported Respiratory: see HPI, cough, dyspnea on exertion; No hemoptysis, No orthopnea; phlegm, short of breath; No stridor, No wheezing, No other Cardiovascular: see HPI; No chest pain; edema; No Hx of Intervention, No palpitations, No syncope, No vascular heart diseas, No other Gastrointestinal: no symptoms reported, see HPI Genitourinary: no symptoms reported, see HPI Musculoskeletal: see HPI, back pain, joint pain Skin: see HPI, lesions (ulceration on the great toe of the left foot) Psychiatric/Neurological: No Symptoms Reported, See HPI Reviewed Test Results Reviewed Test Results Lab Laboratory Tests Test 11/08/18 16:47 Range/Units White Blood Count 7.5 4.3-11.0 10^3/uL Red Blood Count 4.81 4.35-5.85 10^6/uL Hemoglobin 13.5 13.3-17.7 G/DL Hematocrit 42 40-54 % Mean Corpuscular Volume 88 80-99 FL Mean Corpuscular Hemoglobin 28 25-34 PG Mean Corpuscular Hemoglobin Concent 32 32-36 G/DL Red Cell Distribution Width 18.1 H 10.0-14.5 % Platelet Count 195 130-400 10^3/uL Mean Platelet Volume 11.4 H 7.4-10.4 FL Prothrombin Time 51.2 *H 12.2-14.7 SEC INR Comment 5.6 *H 0.8-1.4 Sodium Level 135 135-145 MMOL/L Potassium Level 4.9 3.6-5.0 MMOL/L Chloride Level 106 98-107 MMOL/L Carbon Dioxide Level 21 21-32 MMOL/L Anion Gap 8 5-14 MMOL/L Blood Urea Nitrogen 23 H 7-18 MG/DL Creatinine 1.57 H 0.60-1.30 MG/DL Estimat Glomerular Filtration Rate 42 BUN/Creatinine Ratio 15 Glucose Level 150 H 70-105 MG/DL Calcium Level 8.9 8.5-10.1 MG/DL Corrected Calcium 9.3 8.5-10.1 MG/DL Total Bilirubin 1.0 0.1-1.0 MG/DL Aspartate Amino Transf (AST/SGOT) 19 5-34 U/L Alanine Aminotransferase (ALT/SGPT) 13 0-55 U/L Alkaline Phosphatase 58 40-136 U/L Total Protein 6.1 L 6.4-8.2 GM/DL Albumin 3.5 3.2-4.5 GM/DL Physical Exam Vital Signs Vital Signs - First Documented Capillary Refill : Height, Weight, BMI Height: 5'9.00" Weight: 228lbs. 0.0oz. [id number]; 33.7 BMI Method:Stated General Appearance: WD/WN, Mild Distress Eyes: Bilateral Eye Normal Inspection, Bilateral Eye PERRL, Bilateral Eye EOMI HEENT: PERRL/EOMI, TMs Normal, Normal ENT Inspection, Pharynx Normal Neck: Full Range of Motion, Normal Inspection, Non Tender, Supple, Carotid Bruit Respiratory: Chest Non Tender, No Accessory Muscle Use, No Respiratory Distress , Rhonci, Wheezing Cardiovascular: Regular Rate, Rhythm, No Gallop, No JVD, Normal Peripheral Pulses, Systolic Murmur, Gallop/S3 Gastrointestinal: Normal Bowel Sounds, No Organomegaly, No Pulsatile Mass, Non Tender, Soft Back: Normal Inspection, No CVA Tenderness, No Vertebral Tenderness Extremity: Normal Inspection, Normal Range of Motion, Non Tender, No Calf Tenderness, Pedal Edema, Slow Capillary Refill, Other (small ulceration on the great toe of the left foot) Neurologic/Psychiatric: Alert, Oriented x3, No Motor/Sensory Deficits, Normal Mood/Affect Skin: Normal Color, Warm/Dry Lymphatic: No Adenopathy A/P-Cardiology Admission Diagnosis Angioedema Shortness of breath Coumadin toxicity Congestive heart failure Assessment/Plan Tongue swelling, questionable angioedema, patient has been on losartan for a long period of time, at this time I am suspecting allergic reaction to ARB, discontinue on monitor closely, currently the swelling is better. Congestive heart failure, Acute on chronic left ventricular systolic dysfunction , ejection fraction 40-45 percent, had a stress test done on September 10 showing fixed defect involving the mid to apical inferior wall and inferoseptum with prominent left ventricle and diffuse left ventricular hypokinesia with ejection fraction 35 percent, I will give him a dose of Lasix and evaluate tolerance and response Shortness of breath, worsening, actively wheezing at this time, I will give him Lasix IV, evaluate chest x-ray Paroxysmal atrial fibrillation, has been maintained on Tykosin and Coumadin, continue to christen and monitor heart rate [id number] score of 5, yearly risk of stroke without oral anticoagulation is 6.7 percent. Has been maintained on Coumadin, difficult to eat to achieve adequate control, INR is 5.1, no active bleeding. Hold Coumadin and monitor INR without the use of vitamin K or FFP History of permanent pacemaker/ICD, BiV, [employer] type, had his initial pacemaker placed in 2002 for sick sinus syndrome, upgraded to an ICD in 2007 and had a generator change in 2014, continue to monitor at this time Peripheral arterial disease, peripheral edema, small ulceration on the great toe of the left foot noted recently. Will evaluate BARBARA. Hypertension, labile blood pressure, difficult to control, questionable allergy to ACEI and/or ARB with angioedema. 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 Chronic renal insufficiency, continue to monitor renal function History of venous stasis ulcers in his feet. Diabetes mellitus, followed and managed by primary care physician Obesity, BMI 33, we discussed weight loss and exercise. Clinical Quality Measures DVT/VTE Risk/Contraindication: Risk Factor Score Per Nursin RFS Level Per Nursing on Admit: 4+=Very High ARGELIA RICK MD Nov 09, 2018 07:47
[2018-11-09] MEDS: UMECLIDINIUM BROMIDE (INCRUSE ELLIPTA) 7'S IH SCH (08:00)
--- NOTE | 2018-11-09 08:41 | Diagnostic Imaging Report ---
INDICATION: Dyspnea. TIME OF EXAM: 7:25 AM Correlation is made with prior study from 08/30/2018. FINDINGS: Cardiac pacer is in place. Heart size is stable. Lungs are hyperinflated consistent with COPD. Trace bilateral effusions are noted. No significant infiltrate or evidence of failure seen. IMPRESSION: Trace bilateral pleural effusions. Dictated by: Dictated on workstation # [id number]
[2018-11-09] MEDS ORDERED: RT-ALBUTEROL/IPRATROPIUM 3 ML (DUONEB) VIAL INH PRN (09:00)
[2018-11-09] MEDS ORDERED: RT-ALBUTEROL/IPRATROPIUM 3 ML (DUONEB) VIAL INH SCH (09:00)
--- NOTE | 2018-11-09 09:23 | Progress Note-Hospitalist ---
Subjective HPI/CC On Admission Date Seen by Provider: Nov 09, 2018 Time Seen by Provider: 09:00 Subjective/Events-last exam Pt doing much better. Eating and drinking well. Tongue swelling much improved. IV fluids resolving the dehydration. Checking CBC, CMP, and INR today. Home medications will be evaluated but holding Losartan and Coumadin. GLORY Castellon at wound care will be consulted for right toe wound. Review of Systems General: Fatigue Objective Exam Vital Signs Vital Signs Date Time Temp Pulse Resp B/P (MAP) Pulse Ox O2 Delivery O2 Flow Rate FiO2 11/09/18 20:42 98 Nasal Cannula 2.00 11/09/18 19:23 98.0 73 18 155/74 (101) 11/09/18 08:55 21 Capillary Refill : General Appearance: WD/WN, Mild Distress HEENT: PERRL/EOMI, TMs Normal, Normal ENT Inspection, Pharynx Normal Neck: Full Range of Motion, Normal Inspection, Non Tender, Supple, Carotid Bruit Respiratory: Chest Non Tender, No Accessory Muscle Use, No Respiratory Distress , Rhonci, Wheezing Cardiovascular: Regular Rate, Rhythm, No Gallop, No JVD, Normal Peripheral Pulses, Systolic Murmur, Gallop/S3 Gastrointestinal: Normal Bowel Sounds, No Organomegaly, No Pulsatile Mass, Non Tender, Soft Back: Normal Inspection, No CVA Tenderness, No Vertebral Tenderness Extremity: Normal Inspection, Normal Range of Motion, Non Tender, No Calf Tenderness, Pedal Edema, Slow Capillary Refill, Other (small ulceration on the great toe of the left foot) Neurologic/Psychiatric: Alert, Oriented x3, No Motor/Sensory Deficits, Normal Mood/Affect Skin: Normal Color, Warm/Dry Lymphatic: No Adenopathy Results/Procedures Lab Laboratory Tests 11/09/18 09:40 Patient resulted labs reviewed. Assessment/Plan Assessment and Plan Assess & Plan/Chief Complaint Assessment: Dehydration Tongue swelling possible due to ARB CHF COPD AF DM CRI Coumadin toxicity Plan: Hold Coumadin Monitor creat IVF gentle O2 Diagnosis/Problems Diagnosis/Problems (1) Acute renal failure (ARF) Status: Acute Qualifiers: Acute renal failure type: unspecified Qualified Codes: N17.9 - Acute kidney failure, unspecified (2) DNR (do not resuscitate) Status: Chronic (3) Advanced age Status: Chronic (4) ELIZABETH on CPAP Status: Chronic (5) Chronic obstructive airway disease Status: Chronic Qualifiers: COPD type: unspecified COPD Qualified Codes: J44.9 - Chronic obstructive pulmonary disease, unspecified (6) Chronic renal insufficiency Status: Chronic Qualifiers: Chronic kidney disease stage: stage 3 (moderate) Qualified Codes: N18.3 - Chronic kidney disease, stage 3 (moderate) (7) Hypothyroidism Status: Chronic Qualifiers: Hypothyroidism type: acquired Qualified Codes: E03.9 - Hypothyroidism, unspecified (8) Anxiety Status: Chronic (9) Diabetes mellitus Status: Chronic Qualifiers: Diabetes mellitus type: type 2 Diabetes mellitus care home insulin use: with continuous churn buttermaker use Diabetes mellitus complication status: with circulatory complication Diabetes mellitus complication detail: with other circulatory complications Qualified Codes: E11.59 - Type 2 diabetes mellitus with other circulatory complications; Z79.4 - termite inspector (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
[2018-11-09] MEDS ORDERED: CLON0.2T PO ×2 (09:34)
[2018-11-09] MEDS ORDERED: LEVA0.6334 NEB (09:34)
[2018-11-09] MEDS ORDERED: FURO40TA4 PO (09:34)
[2018-11-09] MEDS ORDERED: DOFE125C4 PO (09:34)
[2018-11-09] MEDS ORDERED: LEVA15HF5 INH (09:34)
[2018-11-09] MEDS ORDERED: WARF4TAB9 PO (09:34)
[2018-11-09] MEDS ORDERED: CLOB15CR2 TOP (09:35)
--- NOTE | 2018-11-09 09:38 | NUR ---
SPOKE WITH THE PATIENT AND FAMILY ABOUT MEDICATIONS. HE HAD A DETAILED LIST WITH HIM AND I COMPARED WITH THE EXT MED HX. HE STATES HE LOSARTAN HAS BEEN INCREASED TO BID. HE ONLY TAKES HIS LASIX PRN. HE STATES HIS CURRENT DOSE OF JANTOVEN IS 4MG FRI, SAT, SUN AND 8MG ALL OTHER DAYS.
[2018-11-09 10:00] LABS: BASOPHILS % (AUTO) 1 % (0-10); EOSINOPHILS # (AUTO) 0.3 10^3/uL (0.0-0.3); EOSINOPHILS % (AUTO) 4 % (0-10); HEMATOCRIT 46 % (40-54); HEMOGLOBIN 14.6 G/DL (13.3-17.7); LYMPHOCYTES % (AUTO) 12 % (12-44); MEAN CORPUSCULAR HEMOGLOBIN 28 PG (25-34); MEAN CORPUSCULAR HGB CONC 32 G/DL (32-36); MEAN CORPUSCULAR VOLUME 88 FL (80-99); MEAN PLATELET VOLUME 11.5 FL (7.4-10.4); MONOCYTES # (AUTO) 0.4 X 10^3 (0.0-1.0); MONOCYTES % (AUTO) 5 % (0-12); NEUTROPHILS # (AUTO) 6.3 X 10^3 (1.8-7.8); NEUTROPHILS % (AUTO) 78 % (42-75); PLATELET COUNT 217 10^3/uL (130-400); RED CELL DISTRIBUTION WIDTH 18.7 % (10.0-14.5)
[2018-11-09] MEDS ORDERED: FUROSEMIDE 40 MG (LASIX) TAB PO PRN (10:00)
[2018-11-09] MEDS ORDERED: LEVALBUTEROL TARTRATE INH PRN (10:00)
[2018-11-09 10:14] LABS: INR 4.7 (0.8-1.4); PROTHROMBIN TIME PATIENT 44.4 SEC (12.2-14.7)
[2018-11-09] MEDS: CARVEDILOL 12.5 MG (COREG) TABLET PO SCH ×2 (10:15→18:09)
[2018-11-09] MEDS ORDERED: RT-ALBUTEROL SULF 2.5 MG/3 ML PRE-MIX VIAL INH PRN ×2 (10:15)
[2018-11-09 10:21] LABS: ALBUMIN 3.8 GM/DL (3.2-4.5); BILIRUBIN,TOTAL 1.2 MG/DL (0.1-1.0); CALCIUM 9.1 MG/DL (8.5-10.1); CREATININE SERUM 1.58 MG/DL (0.60-1.30); POTASSIUM 4.5 MMOL/L (3.6-5.0); TOTAL PROTEIN 6.8 GM/DL (6.4-8.2)
[2018-11-09 10:24] LABS: BILIRUBIN,URINE NEGATIVE (NEGATIVE); CLARITY,URINE CLEAR; COLOR,URINE YELLOW; GLUCOSE, URINE (UA) NEGATIVE (NEGATIVE); KETONES,URINE NEGATIVE (NEGATIVE); LEUKOCYTE ESTERASE ,URINE NEGATIVE (NEGATIVE); NITRITE,URINE NEGATIVE (NEGATIVE); PH,URINE 5 (5-9); PROTEIN,URINE 1+ (NEGATIVE); UROBILINOGEN,URINE NORMAL (NORMAL)
[2018-11-09 10:42] LABS: BACTERIA,URINE NEGATIVE /HPF; SQUAMOUS EPITHELIAL CELL,UR 0-2 /HPF
[2018-11-09] MEDS ORDERED: cloNIDine 0.2 MG (CATAPRES) TAB PO PRN (12:00)
[2018-11-09] MEDS: RT-ALBUTEROL/IPRATROPIUM 3 ML (DUONEB) VIAL INH SCH ×2 (14:23→20:25)
[2018-11-09] MEDS: cloNIDine 0.2 MG (CATAPRES) TAB PO SCH (18:08)
[2018-11-09] MEDS: GLIMEPIRIDE 4 MG (AMARYL) TAB PO SCH (18:08)
[2018-11-09] MEDS: KCL 10 MEQ TAB (MICRO K) PO SCH (18:09)
[2018-11-09] MEDS ORDERED: CARVEDILOL 12.5 MG (COREG) TABLET PO SCH (19:00)
[2018-11-09] MEDS ORDERED: DOFETILIDE 125 MCG (TIKOSYN) CAPSULE PO SCH ×2 (19:00→21:00)
[2018-11-09] MEDS ORDERED: FLUoxetine HCL 20 MG (PROzac) CAP PO SCH (19:00)
--- NOTE | 2018-11-09 20:16 | NUR ---
PCT notified this RN that the patient was having trouble breathing. When this RN entered the room, patient was found sitting in his chair. Patient was clutching his throat, audibly wheezing and violently rocking back and fourth. Patient was breathing 32 breaths a minute. RT is notified immediately and breathing treatment is given. This RN asked the patient if he felt like his tongue and throat were swelling and he nodded his head yes. Patient is moving air and wheezes are auscultated in the lungs. Tongue is dry but does not appear to be swollen on visual inspection. Dr. Husain spoke with this RN because she was calling about another patient. Dr. Husain ordered 50mg of Benadryl IV once and 0.5mg Ativan IV Q6 PRN for anxiety with the first dose now. Medications are given and patient is calm and breathing normally after medications. Will continue to monitor.
[2018-11-09] MEDS ORDERED: diphenhydrAMINE 50 MG/ML INJ (BENADRYL) ONE (20:24)
[2018-11-09] MEDS ORDERED: RT-SODIUM CHL INHALATION 3 ML VIAL ONE (20:27)
[2018-11-09] MEDS ORDERED: LORazepam INJ 2 MG/ML (ATIVAN) VIAL IVP PRN (20:30)
[2018-11-09] MEDS: inSUlin DETERMIR 1 UNIT/0.01 ML (LEVEMIR) CHARGE PER UNIT SQ SCH (21:00)
[2018-11-09] MEDS: methylPREDNISolone 40 MG/ML (Solu-MEDROL) VIAL IV SCH (22:48)
[2018-11-10] MEDS: NS IV 1000 ML 1,000 ML IV SCH (00:34)
[2018-11-10] MEDS ORDERED: RT-ALBUTEROL/IPRATROPIUM 3 ML (DUONEB) VIAL INH PRN (01:45)
[2018-11-10] MEDS: methylPREDNISolone 40 MG/ML (Solu-MEDROL) VIAL IV SCH ×2 (03:48→08:22)
[2018-11-10 04:00] VITALS: BP 169/98
[2018-11-10 04:25] LABS: BASOPHILS % (AUTO) 0 % (0-10); EOSINOPHILS % (AUTO) 1 % (0-10); HEMATOCRIT 46 % (40-54); HEMOGLOBIN 14.7 G/DL (13.3-17.7); LYMPHOCYTES # (AUTO) 0.5 X 10^3 (1.0-4.0); LYMPHOCYTES % (AUTO) 7 % (12-44); MEAN CORPUSCULAR HEMOGLOBIN 28 PG (25-34); MEAN CORPUSCULAR HGB CONC 32 G/DL (32-36); MEAN CORPUSCULAR VOLUME 87 FL (80-99); MEAN PLATELET VOLUME 11.5 FL (7.4-10.4); MONOCYTES # (AUTO) 0.1 X 10^3 (0.0-1.0); MONOCYTES % (AUTO) 1 % (0-12); NEUTROPHILS # (AUTO) 6.5 X 10^3 (1.8-7.8); NEUTROPHILS % (AUTO) 91 % (42-75); PLATELET COUNT 206 10^3/uL (130-400); RED CELL DISTRIBUTION WIDTH 18.5 % (10.0-14.5); WHITE BLOOD COUNT 7.1 10^3/uL (4.3-11.0)
[2018-11-10 04:49] LABS: INR 4.1 (0.8-1.4); PROTHROMBIN TIME PATIENT 40.2 SEC (12.2-14.7)
[2018-11-10 05:00] LABS: ALBUMIN 3.7 GM/DL (3.2-4.5); BILIRUBIN,TOTAL 1.1 MG/DL (0.1-1.0); CALCIUM 8.8 MG/DL (8.5-10.1); CREATININE SERUM 1.58 MG/DL (0.60-1.30); POTASSIUM 4.5 MMOL/L (3.6-5.0); TOTAL PROTEIN 6.5 GM/DL (6.4-8.2)
[2018-11-10] MEDS: UMECLIDINIUM BROMIDE (INCRUSE ELLIPTA) 7'S IH SCH (07:29)
[2018-11-10] MEDS: RT-ALBUTEROL/IPRATROPIUM 3 ML (DUONEB) VIAL INH SCH ×3 (07:30→19:10)
[2018-11-10] MEDS: cloNIDine 0.2 MG (CATAPRES) TAB PO SCH ×2 (07:39→20:57)
[2018-11-10 08:00] VITALS: BP 183/109
[2018-11-10] MEDS: GLIMEPIRIDE 4 MG (AMARYL) TAB PO SCH ×2 (08:22→21:06)
[2018-11-10] MEDS: LEVOTHYROXINE 100 MCG (LEVOTHROID) TAB PO SCH (08:22)
[2018-11-10] MEDS: CARVEDILOL 12.5 MG (COREG) TABLET PO SCH ×2 (08:22→20:57)
[2018-11-10] MEDS: KCL 10 MEQ TAB (MICRO K) PO SCH ×2 (08:22→20:58)
[2018-11-10] MEDS ORDERED: PATIENT MAY USE OWN MED,SINGLE MED PO SCH (09:00)
--- NOTE | 2018-11-10 10:26 | Progress Note-Hospitalist ---
Subjective HPI/CC On Admission Date Seen by Provider: Nov 10, 2018 Time Seen by Provider: 09:30 Chief complaint: Tongue swelling with severe dehydration. HPI: This is an 87yoWM known to me from prior hospital stay during [facility] time last year with a multitude of medical problems including atrial fibrillation maintained on Coumadin, congestive heart failure, DM, and venous stasis who presented to Dr. Koehler's office with inability to eat or drink with tongue swelling and significant dehydration and declined status. He was directly admitted, labs evaluated and placed on an aggressive IV fluid along with Dr. Ruth consultation. He has significant comorbidities, he continues to live at home, his daughters are involved in his care and INR was revealed to be 5.6 with creatinine of 1.5 and mild tongue swelling. Losartan was discontinued and Coumadin was held, and home medication will be evaluated and restarted. Subjective/Events-last exam Patient had an episode last night that was mostly anxiety and he reports that his tongue was swelling but there was no absolute confirmation of that and I have yet to really see tongue swelling Increased fluoxetine from 20 MG to 40 MG as daughter requests because his anxiety is so [id number] Does not want to be overmedicated Willing to go home on home health Denied any pain Bowels are much improved Responded to IV fluids and a couple of doses of IV Solu-Medrol Nebulizer treatments maintained as he doesn't home Will initiate home O2 evaluation Home health orders were placed Has pulmonary rehabilitation orders from Dr. Koehler he will start soon Likely will need to wait until tomorrow for discharge INR 4.1 Overall very frightened and unsure of the recovery potential Review of Systems Pulmonary: Dyspnea Objective Exam Vital Signs Vital Signs Date Time Temp Pulse Resp B/P (MAP) Pulse Ox O2 Delivery O2 Flow Rate FiO2 11/10/18 08:00 97.1 84 22 183/109 (133) 99 Nasal Cannula 2.00 11/09/18 08:55 21 Capillary Refill : General Appearance: No Apparent Distress, WD/WN, Chronically ill, Mild Distress HEENT: PERRL/EOMI, Normal ENT Inspection, Pharynx Normal, Other (No tongue swelling noted) Neck: Full Range of Motion, Normal Inspection, Non Tender, Supple, Carotid Bruit Respiratory: Chest Non Tender, No Accessory Muscle Use, No Respiratory Distress , Decreased Breath Sounds, Rhonci, Wheezing Cardiovascular: Regular Rate, Rhythm, No Gallop, No JVD, Normal Peripheral Pulses, Systolic Murmur, Gallop/S3 Gastrointestinal: Normal Bowel Sounds, No Organomegaly, No Pulsatile Mass, Non Tender, Soft Back: Normal Inspection, No CVA Tenderness, No Vertebral Tenderness Extremity: Normal Inspection, Normal Range of Motion, Non Tender, No Calf Tenderness, Pedal Edema, Slow Capillary Refill, Other (small ulceration on the great toe of the left foot) Neurologic/Psychiatric: Alert, Oriented x3, No Motor/Sensory Deficits, Normal Mood/Affect Skin: Normal Color, Warm/Dry Lymphatic: No Adenopathy Results/Procedures Lab Laboratory Tests 11/10/18 04:10 Patient resulted labs reviewed. Assessment/Plan Assessment and Plan Assess & Plan/Chief Complaint Assessment: Dehydration resolved and discontinued IV fluids and noted elevated BNP status post Lasix Tongue swelling possible due to ARB now resolved CHF COPD AF DM CRI Coumadin toxicity improved with holding the medication INR 4.1 today Anxiety Plan: Hold Coumadin Monitor creat IVF Hep-Lock O2 evaluation Home health orders placed Home O2 evaluation Pulmonary rehabilitation when he is able Increase fluoxetine to 40 MG daily for anxiety Diagnosis/Problems Diagnosis/Problems (1) Acute renal failure (ARF) Status: Resolved Qualifiers: Acute renal failure type: unspecified Qualified Codes: N17.9 - Acute kidney failure, unspecified Resolution Date/Time: 11/10/18 @ 10:54 (2) DNR (do not resuscitate) Status: Chronic (3) Advanced age Status: Chronic (4) ELIZABETH on CPAP Status: Chronic (5) Chronic obstructive airway disease Status: Chronic Qualifiers: COPD type: unspecified COPD Qualified Codes: J44.9 - Chronic obstructive pulmonary disease, unspecified (6) Chronic renal insufficiency Status: Chronic Qualifiers: Chronic kidney disease stage: stage 3 (moderate) Qualified Codes: N18.3 - Chronic kidney disease, stage 3 (moderate) (7) Hypothyroidism Status: Chronic Qualifiers: Hypothyroidism type: acquired Qualified Codes: E03.9 - Hypothyroidism, unspecified (8) Anxiety Status: Chronic (9) Diabetes mellitus Status: Chronic Qualifiers: Diabetes mellitus type: type 2 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 insulin use: with prison use Diabetes mellitus complication status: with circulatory complication Diabetes mellitus complication detail: with other circulatory complications Qualified Codes: E11.59 - Type 2 diabetes mellitus with other circulatory complications; Z79.4 - longterm (current) use of insulin (10) Warfarin toxicity Status: Acute Qualifiers: Encounter type: initial encounter Injury intent: accidental or unintentional Qualified Codes: T45.511A - Poisoning by anticoagulants, accidental (unintentional), initial encounter (11) Atrial fibrillation Status: Chronic Qualifiers: Atrial fibrillation type: chronic Qualified Codes: I48.2 - Chronic atrial fibrillation Clinical Quality Measures DVT/VTE Risk/Contraindication: Risk Factor Score Per Nursin RFS Level Per Nursing on Admit: 4+=Very High ABEBE SALAS DO Nov 10, 2018 10:26
--- NOTE | 2018-11-10 10:28 | D/C HH Face to Face Order ---
D/C Face to Face Orders Instructions for Patient [facility], Patient Instructions/FollowUp: Dr Zakia allen week Physician to follow Patient: Dr EZIO Koehler Discharge Diet for Home: ADA Diet, Cardiac Diet, Low Sodium Diet Patient Problems: COPD CHF CRI HTN DM Patient Data-Allergies,Ht & Wt Patient Allergies: Coded Allergies: sulfamethoxazole (Verified Allergy, Mild, 08/27/14) trimethoprim (Verified Allergy, Mild, 08/27/14) amlodipine (Verified Allergy, Unknown, Cough, 08/15/18) Height (Feet): 5 Height (Inches): 9.00 Weight (Pounds): 107 Weight (Ounces): 4.0 Home Health Need/Face to Face Date of Face to Face: Nov 10, 2018 Clinical Findings: Generalized weakness and fatigue, Instability, Muscle weakness, Shortness of breath, Unsteady gait I have seen Pt [id number]: Yes Discharged To: Home Diagnosis/Conditions: COPD CHF CRI HTN DM Patient is Homebound due to: CognItive deficits, Aida fall risk due to instabilty, Shortness of breath/distress Homebound Status Due to the above stated illness, injury or surgical procedure (medical condition or diagnosis) and associated clinical findings, the patient is homebound because of his/her inability to leave home except with aid of a supportive device and/or person AND leaving the home requires a considerable and taxing effort or is medically contraindicated. Pt req the following assistanc: Walker Home Health Nursing Orders Home Health Services Order: Nursing Services, Manager Book-Evaluate & Treat, Physical Therapy-Evaluate & Treat Home Health Infusion Therapy Line Start Date: Nov 08, 2018 Line Start Time: 1645 Line Type: Peripheral IV Site Location: Forearm Certify Stmt I certify that this patient is under my care and that I, a nurse practitioner or a physician; a compounding assistant working with me, had a face to face encounter that - meets the physician face to face encounter requirements with this patient as dated. ABEBE SALAS DO Nov 10, 2018 10:28
--- NOTE | 2018-11-10 10:37 | Cardiology Progress Note ---
Subjective Date Seen by Provider: Nov 10, 2018 Time Seen by Provider: 10:35 Subjective/Events-last exam Patient is sitting in a chair, feeling better, had an episode of shortness of breath at night, appear to be related to PND Review of Systems General: No Chills, No Night Sweats, No Fatigue, No Malaise, No Appetite, No Other HEENT: No Head Aches, No Visual Changes, No Eye Pain, No Ear Pain, No Dysphasia , No Sinus Congestion, No Post Nasal Drip, No Sore Throat, No Other Pulmonary: Dyspnea; No Cough, No Pleuritic Chest Pain, No Other Cardiovascular: Edema; No: Chest Pain, Palpitations, Orthopnea, Paroxysmal Noc. Dyspnea, Lt Headedness, Other Objective-Cardiology Exam Last Set of Vital Signs Vital Signs 11/09/18 11/10/18 08:55 08:00 Temp 97.1 Pulse 84 Resp 22 B/P (MAP) 183/109 (133) Pulse Ox 99 O2 Delivery Nasal Cannula O2 Flow Rate 2.00 FiO2 21 Capillary Refill : I&O Intake and Output 11/10/18 00:00 Intake Total 1480 ml Output Total 2450 ml Balance -970 ml Intake Oral 1480 ml Output Urine Total 2450 ml # Bowel Movements 2 General: Alert, Oriented X3, Cooperative HEENT: Atraumatic, PERRLA Neck: Supple, No JVD, No Thyromegaly Lungs: Clear to Auscultation, Normal Air Movement Heart: Normal S1, Normal S2, Other (Systolic murmur at the left sternal border) Abdomen: Normal Bowel Sounds, Soft, No Tenderness, No Hepatosplenomegaly, No Masses Extremities: No Clubbing, No Cyanosis, Normal Pulses, No Tenderness/Swelling, Other (Mild edema) Skin: No Rashes, No Breakdown, No Significant Lesion Neuro: Normal Gait, Normal Speech, Strength at 5/5 X4 Ext, Normal Tone, Sensation Intact Psych/Mental Status: Mental Status NL, Mood NL Results Lab Laboratory Tests 11/10/18 04:10 A/P-Cardiology Admission Diagnosis Angioedema Shortness of breath Coumadin toxicity Congestive heart failure Assessment/Plan Questionable angioedema with questionable tongue swelling, review of his episode that occurred last night it appear to be more related to orthopnea and paroxysmal nocturnal dyspnea. I will increase his Lasix to twice a day and evaluate tolerance and response Congestive heart failure, Acute on chronic left ventricular systolic dysfunction , deterioration the left ventricular systolic function with ejection fraction 25 -30 percent, continue on Lasix with increasing the dose to twice a day and monitor tolerance and response Shortness of breath, still having significant dyspnea with bilateral wheezing and rhonchi, evaluate response to Lasix and bronchodilators Paroxysmal atrial fibrillation, has been maintained on Tykosin and Coumadin, continue to christen and monitor heart rate [id number] score of 5, yearly risk of stroke without oral anticoagulation is 6.7 percent. Has been maintained on Coumadin, difficult to eat to achieve adequate control, INR is 5.1, no active bleeding. Hold Coumadin and monitor INR without the use of vitamin K or FFP History of permanent pacemaker/ICD, BiV, Medtronic type, had his initial pacemaker placed in 2002 for sick sinus syndrome, upgraded to an ICD in 2007 and had a generator change in 2014, continue to monitor at this time Peripheral arterial disease, peripheral edema, small ulceration on the great toe of the left foot noted recently. Will evaluate BARBARA. Hypertension, labile blood pressure, difficult to control, questionable allergy to ACEI and/or ARB with angioedema. 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 Chronic renal insufficiency, continue to monitor renal function History of venous stasis ulcers in his feet. Diabetes mellitus, followed and managed by primary care physician Obesity, BMI 33, we discussed weight loss and exercise. Clinical Quality Measures DVT/VTE Risk/Contraindication: Risk Factor Score Per Nursin RFS Level Per Nursing on Admit: 4+=Very High ARGELIA RICK MD Nov 10, 2018 10:37
--- NOTE | 2018-11-10 11:07 | NUR ---
CM/SS spoke with the patient for discharge planning. Patient is slightly reluctant for HHC, though, agreed to try it. He wanted [facility]. [facility]. Patient may need home oxygen and will continue to follow to see if that is a need.
[2018-11-10 12:00] VITALS: BP 151/83
--- NOTE | 2018-11-10 14:00 | NUR ---
Pastoral care visit.
--- NOTE | 2018-11-10 14:18 | Physical Therapy Evaluation ---
PT Evaluation-General Medical Diagnosis Admission Date Nov 08, 2018 at 16:13 Medical Diagnosis: acute renal failure Onset Date: Nov 08, 2018 Therapy Diagnosis Therapy Diagnosis: debility Height/Weight Height (Feet): 5 Height (Inches): 9.00 Weight (Pounds): 107 Weight (Ounces): 4.0 Precautions Precautions/Isolations: Fall Prevention, Standard Precautions Referral Physician: Lisha Reason for Referral: Evaluation/Treatment Medical History Pertinent Medical History: Atrial Fib, Arthritis, HTN, Hypothroidism, Neuropathy, Renal Insufficiency Current History direct admit from physician's office Reviewed History: Yes Social History Home: Single Level Current Living Status: Alone Entry Into Home: Ramp Prior/Core FIM Prior Level of Function Therapy Code Descriptions/Definitions Functional [place] Measure: 0=Not Assessed/NA 4=Minimal Assistance 1=Total Assistance 5=Supervision or Setup 2=Maximal Assistance 6=Modified [place] 3=Moderate Assistance 7=Complete [place] Therapy Quality Codes: 6 Independent with activity with or without an assistive device 5 Patient requires set up or clean up by helper. Patient completes activity by themselves 4 Supervision or touching assist (CGA). [place] provide cues , steadying assist 3 The helper provides less than half the effort to complete the activity 2 The helper provides more than half the effort to complete the activity 1 Dependent. The helper does all the effort to complete an activity 7 Patient refused to complete or attempt activity 9 The patient did not perform the activity before the current illness or injury 88 Not attempted due to Medical conditions or safety concerns Functional Abilities and Goals: Independent: Patient completed the activities by him/herself, with or without an assistive device, with no assistance from a helper. Needed Some Help: Patient needed partial assistance from another person to complete activities. Dependent: A helper completed the activities for the patient. Unknown: Not Applicable: Bed Mobility: 6 Transfers (B,C,W/C) (FIM): 6 Gait: 6 Indoor Mobility (Ambulation): Independent Stairs: Not [place] Prior Devices Use: None (cane) PT Evaluation-Current Subjective Patient agrees to PT. No c/o. Plans to go home this weekend per his report. Pain Numeric Pain Scale: 0-No Pain Location: No Pain Reported Objective Patient Orientation: Person, Time, Situation Problem Solving: Fair Attachments: Oxygen ROM/Strength ROM Lower Extremities limited right LE due to fusion/left LE WFL Strength Lower Extremities 4-/5 grossly bilateral LE Integumentary/Posture Integumentary refer to nursing notes Bladder Incontinence: Yes Posture trunk flexed posture in stand with noted left hip thrust/trendelenburg posture/ gait Neuromuscular (Tone, Coordination, Reflexes) diminished due to age Sensory Vision: Wears Glasses Hearing: Impaired Sensation Right Lower Extremit: Impaired Sensation Left Lower Extremity: Impaired Transfers Therapy Code Descriptions/Definitions Functional [place] Measure: 0=Not Assessed/NA 4=Minimal Assistance 1=Total Assistance 5=Supervision or Setup 2=Maximal Assistance 6=Modified [place] 3=Moderate Assistance 7=Complete [place] Transfers (B, C, W/C) (FIM): 3 Scootin Sit to/from Stand: 3 Gait Mode of Locomotion: Walk Anticipated Mode of Locomotion: Walk Gait (FIM): 4 Distance (FIM): 3=150 ft Distance: 175' Gait Level of Assist: 4 Gait Assistive Device: FWW Comments/Gait Description Trendelenburg gait (severe) Balance Sitting Static: Normal Sitting Dynamic: Normal Standing Static: Fair Standing Dynamic: Fair Assessment/Needs 87 y.o. male, will benefit from skilled PT to address functional strength and mobility to imrpove current LOF and to safely return to home or care facility at maximum LOF. Rehab Potential: Fair PT Retirement Goals Retirement Goals PT Retirement Goals Time Frame: Nov 18, 2018 Transfers (B,C,W/C) (FIM): 6 Gait (FIM): 5 Gait distance (FIM): 3=150 ft Distance: 200' Gait Level of Assist: 5 Gait Assistive Device: FWW PT Plan Problem List Problem List: Activity Tolerance, Functional Strength, Safety, Gait, Transfer, Bed Mobility Treatment/Plan Treatment Plan: Continue Plan of Care Treatment Plan: Bed Mobility, Education, Functional Activity Mindi, Functional Strength, Gait, Safety, Therapeutic Exercise, Transfers Treatment Duration: Nov 18, 2018 Frequency: 6 times per week Estimated Hrs Per Day: .25 hour per day Patient and/or Family Agrees t: Yes Discharge Recommendations Therapy D/C Recommendations: Home w/ Family Support, Correction Placement Time/GCodes Time In: 1255 Time Out: 1317 Total Billed Treatment Time: 22 Total Billed Treatment 1 visit EVModC 22 min JAVIER PASCUAL PT Nov 10, 2018 14:18
--- NOTE | 2018-11-10 14:35 | NUR ---
DISCHARGE PLANNING: this Rn assisting in discharge plans. Has an order for O2 study that has yet to be completed. Patient would like to go with the one that his daughter uses in [place] for O2 if needed because the one in [place] closed. Explained that [facility] is in [place] and open but will investigate the [place] option. Spoke with RT and she will let me know once the study is complet so that O2 can be ordered if need for anticipated discharge tomorrow. Addendum: 11/10/18 at 1445 by MYKEL SUN RN I was not able to get in touch with patient's daughter Sharon.
--- NOTE | 2018-11-10 15:03 | NUR ---
PATIENT WAS SATTING 96% ON 2 L NC, PATIENT WAS REMOVED FROM O2 AND ON RA FOR 33 MINS AND WAS AT 89%; PATIENT STARTED WALKING AND GOT OUTSIDE OF HIS ROOM AND DROPPED TO 86% AND REMAINED LOW SO RT PLACED PATIENT ON 2 L NC AND HIS SAT CAME UP AND STAYED AT 90% AND ABOVE0. AT THIS TIME PATIENT IS REQUIRING 2 L NC ON EXERTION
--- NOTE | 2018-11-10 15:11 | Occupational Therapy Eval ---
OT Evaluation-General/PLF Medical Diagnosis Admission Date Nov 08, 2018 at 16:13 Medical Diagnosis: acute renal failure Onset Date: Nov 08, 2018 Therapy Diagnosis Therapy Diagnosis: decreased self care skills Height/Weight Height (Feet): 5 Height (Inches): 9.00 Weight (Pounds): 107 Weight (Ounces): 4.0 Precautions Precautions/Isolations: Fall Prevention, Standard Precautions Safety Interventions: None Referral Physician: Lisha Medical History Pertinent Medical History: Atrial Fib, Arthritis, DM, HTN, Hypothroidism, Neuropathy, Renal Insufficiency Additional Medical History CHF, venous stasis, defibrillator, pacemaker, nephrectomy, sleep apnea, chronic edema, gout, melanoma, eczema Social History Home: Single Level Current Living Status: Alone Entry Into Home: Ramp ADL-Prior Level of Function Therapy Code Descriptions/Definitions Functional [place] Measure: 0=Not Assessed/NA 4=Minimal Assistance 1=Total Assistance 5=Supervision or Setup 2=Maximal Assistance 6=Modified [place] 3=Moderate Assistance 7=Complete [place] Therapy Quality Codes: 6 Independent with activity with or without an assistive device 5 Patient requires set up or clean up by helper. Patient completes activity by themselves 4 Supervision or touching assist (CGA). [place] provide cues , steadying assist 3 The helper provides less than half the effort to complete the activity 2 The helper provides more than half the effort to complete the activity 1 Dependent. The helper does all the effort to complete an activity 7 Patient refused to complete or attempt activity 9 The patient did not perform the activity before the current illness or injury 88 Not attempted due to Medical conditions or safety concerns Functional Abilities and Goals: Independent: Patient completed the activities by him/herself, with or without an assistive device, with no assistance from a helper. Needed Some Help: Patient needed partial assistance from another person to complete activities. Dependent: A helper completed the activities for the patient. Unknown: Not Applicable: ADL PLOF Comments Pt reports being independent with self care and mobility. Uses cane for mobility. Self Care: Independent DME/Equipment: Bath Chair, Grab Bars, Tall Toilet Drive Self: Yes OT Current Status Subjective Pt sitting in chair, agrees to therapy. Pt has no c/o pain. Mental Status/Objective Patient Orientation: Person, Place Attachments: Oxygen Current Glasses/Contacts: Yes Hearing Aids: No Dentures/Partials: No Hand Dominance: Right Upper Extremity ROM Decreased shoulder ROM bilaterally. Pt reports secondary to arthritis. Upper Extremity Coordination Fair ADL-Treatment ADL-Current Pt doffed/donned sock with SBA while seated in chair. Performed sit to stand with minimal assistance. Demonstrated ability to perform transfer with minimal assistance and cues for safety. Pt declined to complete bathing or dressing at this time. Sitting in chair with needs met after session. Therapy Code Descriptions/Definitions Functional [place] Measure: 0=Not Assessed/NA 4=Minimal Assistance 1=Total Assistance 5=Supervision or Setup 2=Maximal Assistance 6=Modified [place] 3=Moderate Assistance 7=Complete [place] Therapy Quality Codes: 6 Independent with activity with or without an assistive device 5 Patient requires set up or clean up by helper. Patient completes activity by themselves 4 Supervision or touching assist (CGA). [place] provide cues , steadying assist 3 The helper provides less than half the effort to complete the activity 2 The helper provides more than half the effort to complete the activity 1 Dependent. The helper does all the effort to complete an activity 7 Patient refused to complete or attempt activity 9 The patient did not perform the activity before the current illness or injury 88 Not attempted due to Medical conditions or safety concerns Education OT Patient Education: Rehab process Teaching Recipient: Patient Teaching Methods: Discussion OT Short Term Goals Short Term Goals 1=Demonstrate adherence to instructed precautions during ADL tasks. 2=Patient will verbalize/demonstrate understanding of assistive devices/ modifications for ADL. 3=Patient will improve strength/tolerance for activity to enable patient to perform ADL's. OT Pockets And Pieces Necktie Operator Goals Detention Goals Time Frame: Nov 24, 2018 Grooming(FIM): 6 Upper Body Dressing(FIM): 6 Lower Body Dressing(FIM): 5 Toileting(FIM): 6 Toilet/Commode Transfer(FIM): 5 Additional Goals: 1-Demonstrate ADL Tasks, 2-Verbalize Understanding, 3- ImproveStrength/Mindi 1=Demonstrate adherence to instructed precautions during ADL tasks. 2=Patient will verbalize/demonstrate understanding of assistive devices/ modifications for ADL. 3=Patient will improve strength/tolerance for activity to enable patient to perform ADL's. OT Education/Plan Problem List/Assessment Assessment: Decreased Activ Tolerance, Decreased UE Strength, Dependent Transfers, Impaired Funct Balance, Impaired Self-Care Skills Pt to benefit from skilled OT intervention for ADL training, transfers, strengthening, and safety education to increase level of function and allow safe discharge plan. Discharge Recommendations Plan/Recommendations: Continue POC Treatment Plan/Plan of Care Treatment,Training & Education: Yes Patient would benefit from OT for education, treatment and training to promote independence in ADL's, mobility, safety and/or upper extremity function for ADL' s. Plan of Care: ADL Retraining, Functional Mobility, UE Funct Exercise/Act Treatment Duration: Nov 24, 2018 Frequency: 5 times per week Estimated Hrs Per Day: .25 hour per day Rehab Potential: Fair Time/GCodes Start Time: 13:54 Stop Time: 14:10 Total Time Billed (hr/min): 16 Billed Treatment Time 1 visit, EVKody(16minutes) LUIS A KO OT Nov 10, 2018 15:11
[2018-11-10 15:19] VITALS: BP 169/85
--- NOTE | 2018-11-10 15:51 | NUR ---
DISCHARGE PLANNING: Patient will discharge tomorrow to home likely. He does require O2 on exertion at 2L, this RN has faxed everything but the order for oxygen to [facility]. Once doctor puts order in, it will need to be faxed to [facility] @ [phone]. Fax sheet is in the folder and ready for RN to fax. [facility] is bringing a portable concentrator out today..this is appreciated. They will expect the order to be faxed tomorrow before discharge.
[2018-11-10] MEDS: FUROSEMIDE 40 MG/4 ML INJ (LASIX) IVP SCH (17:19)
[2018-11-10 19:26] VITALS: BP 156/72
[2018-11-10 20:54] VITALS: BP 160/74
[2018-11-10] MEDS: FLUoxetine HCL 20 MG (PROzac) CAP PO SCH (20:58)
[2018-11-10] MEDS: DOFETILIDE 125 MCG PO SCH (21:00)
[2018-11-10] MEDS: inSUlin DETERMIR 1 UNIT/0.01 ML (LEVEMIR) CHARGE PER UNIT SQ SCH (21:07)
[2018-11-11] VITALS (7 sets, daily range): BP systolic 151–179; BP diastolic 74–97
[2018-11-11] MEDS: FUROSEMIDE 40 MG/4 ML INJ (LASIX) IVP SCH ×2 (06:01→17:32)
[2018-11-11 06:18] LABS: BASOPHILS % (AUTO) 0 % (0-10); EOSINOPHILS % (AUTO) 0 % (0-10); HEMATOCRIT 42 % (40-54); HEMOGLOBIN 13.8 G/DL (13.3-17.7); LYMPHOCYTES # (AUTO) 0.6 X 10^3 (1.0-4.0); LYMPHOCYTES % (AUTO) 5 % (12-44); MEAN CORPUSCULAR HEMOGLOBIN 28 PG (25-34); MEAN CORPUSCULAR HGB CONC 33 G/DL (32-36); MEAN CORPUSCULAR VOLUME 85 FL (80-99); MEAN PLATELET VOLUME 11.7 FL (7.4-10.4); MONOCYTES # (AUTO) 0.5 X 10^3 (0.0-1.0); MONOCYTES % (AUTO) 4 % (0-12); NEUTROPHILS # (AUTO) 9.9 X 10^3 (1.8-7.8); NEUTROPHILS % (AUTO) 91 % (42-75); PLATELET COUNT 195 10^3/uL (130-400); RED CELL DISTRIBUTION WIDTH 17.8 % (10.0-14.5); WHITE BLOOD COUNT 10.9 10^3/uL (4.3-11.0)
[2018-11-11 06:30] LABS: INR 3.5 (0.8-1.4); PROTHROMBIN TIME PATIENT 36.5 SEC (12.2-14.7)
[2018-11-11 06:42] LABS: ALBUMIN 3.5 GM/DL (3.2-4.5); BILIRUBIN,TOTAL 0.9 MG/DL (0.1-1.0); CALCIUM 8.4 MG/DL (8.5-10.1); CREATININE SERUM 1.51 MG/DL (0.60-1.30); MAGNESIUM 1.8 MG/DL (1.8-2.4); POTASSIUM 3.7 MMOL/L (3.6-5.0); TOTAL PROTEIN 6.1 GM/DL (6.4-8.2)
[2018-11-11 06:49] LABS: ANISOCYTOSIS SLIGHT; BAND NEUTROPHILS 4 %; ELLIPT/OVALOCYTES SLIGHT; LYMPHOCYTES % (MANUAL) 7 %; MONOCYTES % (MANUAL) 4 %; NEUTROPHILS % (MANUAL) 85 %; POIKILOCYTOSIS SLIGHT; TOXIC GRANULATION/VACUOLAZATIO 1+
[2018-11-11] MEDS: UMECLIDINIUM BROMIDE (INCRUSE ELLIPTA) 7'S IH SCH (07:05)
[2018-11-11] MEDS: RT-ALBUTEROL/IPRATROPIUM 3 ML (DUONEB) VIAL INH SCH ×4 (07:05→19:13)
[2018-11-11] MEDS: GLIMEPIRIDE 4 MG (AMARYL) TAB PO SCH ×2 (08:50→18:16)
[2018-11-11] MEDS: CARVEDILOL 12.5 MG (COREG) TABLET PO SCH ×2 (08:50→18:15)
[2018-11-11] MEDS: LEVOTHYROXINE 100 MCG (LEVOTHROID) TAB PO SCH (08:50)
[2018-11-11] MEDS: KCL 10 MEQ TAB (MICRO K) PO SCH ×2 (08:50→18:16)
[2018-11-11] MEDS: cloNIDine 0.2 MG (CATAPRES) TAB PO SCH ×2 (08:50→18:16)
--- NOTE | 2018-11-11 09:38 | Cardiology Progress Note ---
Subjective Date Seen by Provider: Nov 11, 2018 Time Seen by Provider: 09:36 Subjective/Events-last exam patient is sitting in a chair, had a better night last night, slept well. No new complaint Review of Systems General: No Chills, No Night Sweats, No Fatigue, No Malaise, No Appetite, No Other HEENT: No Head Aches, No Visual Changes, No Eye Pain, No Ear Pain, No Dysphasia , No Sinus Congestion, No Post Nasal Drip, No Sore Throat, No Other Pulmonary: No Dyspnea, No Cough, No Pleuritic Chest Pain, No Other Cardiovascular: No: Chest Pain, Palpitations, Orthopnea, Paroxysmal Noc. Dyspnea, Edema, Lt Headedness, Other Objective-Cardiology Exam Last Set of Vital Signs Vital Signs 11/09/18 11/11/18 11/11/18 08:55 07:06 08:00 Temp 97.1 Pulse 55 Resp 18 B/P (MAP) 160/78 (105) Pulse Ox 98 O2 Delivery Room Air O2 Flow Rate 2.00 FiO2 21 Capillary Refill : I&O Intake and Output 11/11/18 00:00 Intake Total 2905 ml Output Total 2475 ml Balance 430 ml Intake Oral 2905 ml Output Urine Total 2475 ml General: Alert, Oriented X3, Cooperative HEENT: Atraumatic, PERRLA Neck: Supple, No JVD, No Thyromegaly Lungs: Clear to Auscultation, Normal Air Movement Heart: Normal S1, Normal S2, Other (Systolic murmur at the left sternal border) Abdomen: Normal Bowel Sounds, Soft, No Tenderness, No Hepatosplenomegaly, No Masses Extremities: No Clubbing, No Cyanosis, Normal Pulses, No Tenderness/Swelling, Other (Mild edema) Skin: No Rashes, No Breakdown, No Significant Lesion Neuro: Normal Gait, Normal Speech, Strength at 5/5 X4 Ext, Normal Tone, Sensation Intact Psych/Mental Status: Mental Status NL, Mood NL Results Lab Laboratory Tests 11/11/18 05:35 A/P-Cardiology Admission Diagnosis Angioedema Shortness of breath Coumadin toxicity Congestive heart failure Assessment/Plan Questionable angioedema with questionable tongue swelling, review of his episode that occurred last night it appear to be more related to orthopnea and paroxysmal nocturnal dyspnea. better last night no further episodes were reported Congestive heart failure, Acute on chronic left ventricular systolic dysfunction , deterioration the left ventricular systolic function with ejection fraction 25 -30 percent, continue with Lasix and monitor tolerance and response. Possible discharge tomorrow or Tuesday Shortness of breath, reporting improvement. Continue to monitor Paroxysmal atrial fibrillation, has been maintained on Tykosin and Coumadin, I will evaluate EKG. [id number] score of 5, yearly risk of stroke without oral anticoagulation is 6.7 percent. Has been maintained on Coumadin, difficult to eat to achieve adequate control, no active bleeding, INR is coming down. Continue to monitor History of permanent pacemaker/ICD, BiV, Medtronic type, had his initial pacemaker placed in 2002 for sick sinus syndrome, upgraded to an ICD in 2007 and had a generator change in 2014, continue to monitor at this time Peripheral arterial disease, peripheral edema, small ulceration on the great toe of the left foot noted recently. Hypertension, labile blood pressure, difficult to control, questionable allergy to ACEI and/or ARB with angioedema. 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 Chronic renal insufficiency, continue to monitor renal function History of venous stasis ulcers in his feet. Diabetes mellitus, followed and managed by primary care physician Obesity, BMI 33, we discussed weight loss and exercise. Clinical Quality Measures DVT/VTE Risk/Contraindication: Risk Factor Score Per Nursin RFS Level Per Nursing on Admit: 4+=Very High ARGELIA RICK MD Nov 11, 2018 09:38
--- NOTE | 2018-11-11 09:54 | Physical Therapy Daily Note ---
PT Daily Note-Current Subjective States that he is doing better. Transfers Therapy Code Descriptions/Definitions Functional [place] Measure: 0=Not Assessed/NA 4=Minimal Assistance 1=Total Assistance 5=Supervision or Setup 2=Maximal Assistance 6=Modified [place] 3=Moderate Assistance 7=Complete [place] Therapy Quality Codes: 6 Independent with activity with or without an assistive device 5 Patient requires set up or clean up by helper. Patient completes activity by themselves 4 Supervision or touching assist (CGA). [place] provide cues , steadying assist 3 The helper provides less than half the effort to complete the activity 2 The helper provides more than half the effort to complete the activity 1 Dependent. The helper does all the effort to complete an activity 7 Patient refused to complete or attempt activity 9 The patient did not perform the activity before the current illness or injury 88 Not attempted due to Medical conditions or safety concerns Transfers (B, C, W/C) (FIM): 4 Sit to/from Stand: 4 Gait Training Gait (FIM): 5 Distance: 200' Gait Level of Assist: 5 Gait Persons Needed: 1 Gait Assistive Device: FWW Assessment Current Status: Excellent Progress The patient had considerable Trendelenburg gait pattern and fatigued quickly. PT Vault Attendant Goals Vault Attendant Goals PT Vault Attendant Goals Time Frame: Nov 18, 2018 Transfers (B,C,W/C) (FIM): 6 Gait (FIM): 5 Gait distance (FIM): 3=150 ft Distance: 200' Gait Level of Assist: 5 Gait Assistive Device: FWW PT Plan Treatment/Plan Treatment Plan: Continue Plan of Care Treatment Plan: Bed Mobility, Education, Functional Activity Mindi, Functional Strength, Gait, Safety, Therapeutic Exercise, Transfers Treatment Duration: Nov 18, 2018 Frequency: 6 times per week Estimated Hrs Per Day: .25 hour per day Patient and/or Family Agrees t: Yes Time/GCodes Time In: 0940 Time Out: 0950 Total Billed Treatment Time: 10 Total Billed Treatment 1, GT x 10' BRANDO LARSEN PT Nov 11, 2018 09:54
[2018-11-11] MEDS: DOFETILIDE 125 MCG PO SCH (18:15)
[2018-11-11] MEDS: FLUoxetine HCL 20 MG (PROzac) CAP PO SCH (18:16)
[2018-11-11] MEDS: inSUlin DETERMIR 1 UNIT/0.01 ML (LEVEMIR) CHARGE PER UNIT SQ SCH (20:50)
[2018-11-12 06:31] LABS: INR 2.2 (0.8-1.4); PROTHROMBIN TIME PATIENT 25.8 SEC (12.2-14.7)
[2018-11-12] MEDS: FUROSEMIDE 40 MG/4 ML INJ (LASIX) IVP SCH ×2 (06:44→17:14)
[2018-11-12 08:00] VITALS: BP 172/95
[2018-11-12] MEDS: LEVOTHYROXINE 100 MCG (LEVOTHROID) TAB PO SCH (08:48)
[2018-11-12] MEDS: GLIMEPIRIDE 4 MG (AMARYL) TAB PO SCH ×2 (08:48→18:23)
[2018-11-12] MEDS: KCL 10 MEQ TAB (MICRO K) PO SCH ×2 (08:48→18:23)
[2018-11-12] MEDS: cloNIDine 0.2 MG (CATAPRES) TAB PO SCH ×2 (08:48→18:23)
[2018-11-12] MEDS: CARVEDILOL 12.5 MG (COREG) TABLET PO SCH ×2 (08:48→18:24)
--- NOTE | 2018-11-12 10:14 | Cardiology Progress Note ---
Subjective Date Seen by Provider: Nov 12, 2018 Time Seen by Provider: 10:12 Subjective/Events-last exam patient is sitting in a chair, feeling better, no chest pain Review of Systems General: No Chills, No Night Sweats, No Fatigue, No Malaise, No Appetite, No Other HEENT: No Head Aches, No Visual Changes, No Eye Pain, No Ear Pain, No Dysphasia , No Sinus Congestion, No Post Nasal Drip, No Sore Throat, No Other Pulmonary: No Dyspnea, No Cough, No Pleuritic Chest Pain, No Other Cardiovascular: Edema; No: Chest Pain, Palpitations, Orthopnea, Paroxysmal Noc. Dyspnea, Lt Headedness, Other Objective-Cardiology Exam Last Set of Vital Signs Vital Signs 11/09/18 11/12/18 08:55 08:00 Temp 97.8 Pulse 100 Resp 20 B/P (MAP) 172/95 (120) Pulse Ox 94 O2 Delivery Nasal Cannula O2 Flow Rate 2.00 FiO2 21 Capillary Refill : I&O Intake and Output 11/12/18 00:00 Intake Total 2500 ml Output Total 3700 ml Balance -1200 ml Intake Oral 2500 ml Output Urine Total 3700 ml # Bowel Movements 1 General: Alert, Oriented X3, Cooperative HEENT: Atraumatic, PERRLA Neck: Supple, No JVD, No Thyromegaly Lungs: Clear to Auscultation, Normal Air Movement Heart: Normal S1, Normal S2, Other (Systolic murmur at the left sternal border , irregular rhythm) Abdomen: Normal Bowel Sounds, Soft, No Tenderness, No Hepatosplenomegaly, No Masses Extremities: No Clubbing, No Cyanosis, Normal Pulses, No Tenderness/Swelling, Other (Mild edema) Skin: No Rashes, No Breakdown, No Significant Lesion Neuro: Normal Gait, Normal Speech, Strength at 5/5 X4 Ext, Normal Tone, Sensation Intact Psych/Mental Status: Mental Status NL, Mood NL Results Lab Laboratory Tests Test 11/11/18 15:52 11/11/18 20:09 11/12/18 05:16 Range/Units Glucometer 197 H 234 H 70-110 MG/DL Prothrombin Time 25.8 H 12.2-14.7 SEC INR Comment 2.2 H 0.8-1.4 A/P-Cardiology Admission Diagnosis Angioedema Shortness of breath Coumadin toxicity Congestive heart failure Assessment/Plan Questionable angioedema with questionable tongue swelling, review of his episode that occurred last night it appear to be more related to orthopnea and paroxysmal nocturnal dyspnea. better last night no further episodes were reported Congestive heart failure, Acute on chronic left ventricular systolic dysfunction , deterioration the left ventricular systolic function with ejection fraction 25 -30 percent, continue with Lasix and monitor tolerance and response. Shortness of breath, reporting improvement. Continue to monitor Paroxysmal atrial fibrillation, has been maintained on Tykosin and Coumadin, back in atrial fibrillation, I will discontinue to consent and increase Coreg to 50 mg twice daily and monitor tolerance and response [id number] score of 5, yearly risk of stroke without oral anticoagulation is 6.7 percent. Has been maintained on Coumadin, difficult to eat to achieve adequate control, no active bleeding, restart Coumadin at 4 mg daily and monitor tolerance and response History of permanent pacemaker/ICD, BiV, Medtronic type, had his initial pacemaker placed in 2002 for sick sinus syndrome, upgraded to an ICD in 2007 and had a generator change in 2014, continue to monitor at this time Peripheral arterial disease, peripheral edema, small ulceration on the great toe of the left foot noted recently. 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 Chronic renal insufficiency, continue to monitor renal function History of venous stasis ulcers in his feet. Diabetes mellitus, followed and managed by primary care physician Obesity, BMI 33, we discussed weight loss and exercise. Clinical Quality Measures DVT/VTE Risk/Contraindication: Risk Factor Score Per Nursin RFS Level Per Nursing on Admit: 4+=Very High ARGELIA RICK MD Nov 12, 2018 10:14
[2018-11-12] MEDS: RT-ALBUTEROL/IPRATROPIUM 3 ML (DUONEB) VIAL INH SCH ×4 (11:01→19:00)
[2018-11-12] MEDS: UMECLIDINIUM BROMIDE (INCRUSE ELLIPTA) 7'S IH SCH (11:03)
--- NOTE | 2018-11-12 11:25 | Progress Note-Hospitalist ---
Subjective HPI/CC On Admission Date Seen by Provider: Nov 12, 2018 Time Seen by Provider: 10:00 Chief complaint: Tongue swelling with severe dehydration. HPI: This is an 87yoWM known to me from prior hospital stay during [facility] time last year with a multitude of medical problems including atrial fibrillation maintained on Coumadin, congestive heart failure, DM, and venous stasis who presented to Dr. Koehler's office with inability to eat or drink with tongue swelling and significant dehydration and declined status. He was directly admitted, labs evaluated and placed on an aggressive IV fluid along with Dr. Ruth consultation. He has significant comorbidities, he continues to live at home, his daughters are involved in his care and INR was revealed to be 5.6 with creatinine of 1.5 and mild tongue swelling. Losartan was discontinued and Coumadin was held, and home medication will be evaluated and restarted. Subjective/Events-last exam Patient reports that he is feeling better still coughing up greenish sputum per his report but diminishing and feeling less congested. He also notes decreased lower extremity edema and denies any chest pain or palpitation. Objective Exam Vital Signs Vital Signs Date Time Temp Pulse Resp B/P (MAP) Pulse Ox O2 Delivery O2 Flow Rate FiO2 11/12/18 11:05 97 Nasal Cannula 2.00 11/12/18 08:00 97.8 100 20 172/95 (120) 11/09/18 08:55 21 Capillary Refill : General Appearance: No Apparent Distress, WD/WN, Chronically ill, Mild Distress HEENT: PERRL/EOMI, Normal ENT Inspection, Pharynx Normal, Other (No tongue swelling noted) Neck: Full Range of Motion, Normal Inspection, Non Tender, Supple, Carotid Bruit Respiratory: Chest Non Tender, No Accessory Muscle Use, No Respiratory Distress , Decreased Breath Sounds (Posteriorly with a few fine basilar rales) Cardiovascular: No Gallop, No JVD, Systolic Murmur, Irregularly Irregular Gastrointestinal: Normal Bowel Sounds, No Organomegaly, No Pulsatile Mass, Non Tender, Soft Extremity: Non Tender, No Calf Tenderness, Pedal Edema (With chronic venous insufficiency no ulceration on the legs noted.), Slow Capillary Refill, Other ( small ulceration on the great toe of the left foot) Neurologic/Psychiatric: Alert, Oriented x3, No Motor/Sensory Deficits, Normal Mood/Affect Skin: Normal Color, Warm/Dry Lymphatic: No Adenopathy Results/Procedures Lab Patient resulted labs reviewed. Assessment/Plan Assessment and Plan Assess & Plan/Chief Complaint A/P 1 acute on chronic systolic heart failure secondary to combination of hypertensive heart disease and ischemic cardiomyopathy improved edema resolving. Blood pressures remain a little high in the [address] Munoz is increasing carvedilol 50 mg twice a day. 2. Questionable angioedema secondary to NETTA inhibitor therapy I suspect that PND is little more likely but considering renal disease and tenuous status will continue to hold a/ARB therapy. 3. 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 4. Chronic atrial fibrillation underlying paced rhythm with episodes LB it apparently brief of heart rates as high as 120 asymptomatic from the standpoint of palpitations hopefully this will improve with increase in carvedilol patient' s Tikosyn is being discontinued per Dr. Munoz. 5. The daughter's will returned tomorrow with plans for discharge. 6. Coumadin management with INR little over 5 on admission Coumadin had been held today's INR down to 2.2. The patient had been on 8 mg alternating with 4 we will decrease to 4 mg daily repeat INR in the morning. Clinical Quality Measures DVT/VTE Risk/Contraindication: Risk Factor Score Per Nursin RFS Level Per Nursing on Admit: 4+=Very High DEVORAH RAYMOND MD Nov 12, 2018 11:25
--- NOTE | 2018-11-12 11:37 | Progress Note-Hospitalist ---
Subjective HPI/CC On Admission Date Seen by Provider: Nov 11, 2018 Time Seen by Provider: 08:45 Chief complaint: Tongue swelling with severe dehydration. HPI: This is an 87yoWM known to me from prior hospital stay during [facility] time last year with a multitude of medical problems including atrial fibrillation maintained on Coumadin, congestive heart failure, DM, and venous stasis who presented to Dr. Koehler's office with inability to eat or drink with tongue swelling and significant dehydration and declined status. He was directly admitted, labs evaluated and placed on an aggressive IV fluid along with Dr. Ruth consultation. He has significant comorbidities, he continues to live at home, his daughters are involved in his care and INR was revealed to be 5.6 with creatinine of 1.5 and mild tongue swelling. Losartan was discontinued and Coumadin was held, and home medication will be evaluated and restarted. Subjective/Events-last exam Patient thinks lower extremity edema is improving and less short of breath. He still reports some purulent greenish sputum but denies chills or fever. He's having no chest pain or palpitations and denies orthopnea or PND. Objective Exam Vital Signs Vital Signs Date Time Temp Pulse Resp B/P (MAP) Pulse Ox O2 Delivery O2 Flow Rate FiO2 11/12/18 11:05 97 Nasal Cannula 2.00 11/12/18 08:00 97.8 100 20 172/95 (120) 11/09/18 08:55 21 Capillary Refill : General Appearance: No Apparent Distress, WD/WN, Chronically ill, Mild Distress HEENT: PERRL/EOMI, Normal ENT Inspection, Pharynx Normal, Other (No tongue swelling noted) Neck: Full Range of Motion, Normal Inspection, Non Tender, Supple, Carotid Bruit Respiratory: Chest Non Tender, No Accessory Muscle Use, No Respiratory Distress , Decreased Breath Sounds (Posteriorly with a few fine basilar rales) Cardiovascular: No Gallop, No JVD, Systolic Murmur, Irregularly Irregular Gastrointestinal: Normal Bowel Sounds, No Organomegaly, No Pulsatile Mass, Non Tender, Soft Extremity: Non Tender, No Calf Tenderness, Pedal Edema (With chronic venous insufficiency no ulceration on the legs noted.), Slow Capillary Refill, Other ( small ulceration on the great toe of the left foot) Neurologic/Psychiatric: Alert, Oriented x3, No Motor/Sensory Deficits, Normal Mood/Affect Skin: Normal Color, Warm/Dry Lymphatic: No Adenopathy Results/Procedures Lab Patient resulted labs reviewed. Assessment/Plan Assessment and Plan Assess & Plan/Chief Complaint A/P 1 acute on chronic systolic heart failure secondary to combination of hypertensive heart disease and ischemic cardiomyopathy improved edema resolving. Continue IV Lasix 2. Questionable angioedema secondary to NETTA inhibitor therapy I suspect that PND is little more likely but considering renal disease and tenuous status will continue to hold a/ARB therapy. 3. 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 4. Chronic atrial fibrillation underlying paced rhythm with controlled ventricular response thus far 5. Coumadin management with INR little over 5 on admission Coumadin had been held today's INR down to3.5 hold Coumadin today likely resume reduced dose tomorrow the patient reportedly had been on 8 mg alternating with 4 mg daily. Clinical Quality Measures DVT/VTE Risk/Contraindication: Risk Factor Score Per Nursin RFS Level Per Nursing on Admit: 4+=Very High DEVORAH RAYMOND MD Nov 12, 2018 11:37
[2018-11-12 15:47] VITALS: BP 152/74
[2018-11-12] MEDS ORDERED: warFARin 2 MG (COUMADIN) TAB PO SCH (18:00)
[2018-11-12] MEDS: FLUoxetine HCL 20 MG (PROzac) CAP PO SCH (18:23)
[2018-11-12] MEDS: inSUlin DETERMIR 1 UNIT/0.01 ML (LEVEMIR) CHARGE PER UNIT SQ SCH (20:12)
[2018-11-12 23:13] VITALS: BP 133/66
[2018-11-13 06:55] LABS: INR 1.7 (0.8-1.4); PROTHROMBIN TIME PATIENT 20.7 SEC (12.2-14.7)
[2018-11-13] MEDS: FUROSEMIDE 40 MG/4 ML INJ (LASIX) IVP SCH (06:57)
[2018-11-13] MEDS: UMECLIDINIUM BROMIDE (INCRUSE ELLIPTA) 7'S IH SCH (07:28)
[2018-11-13] MEDS: RT-ALBUTEROL/IPRATROPIUM 3 ML (DUONEB) VIAL INH SCH ×2 (07:28→11:08)
[2018-11-13 08:00] VITALS: BP 167/79
[2018-11-13] MEDS: GLIMEPIRIDE 4 MG (AMARYL) TAB PO SCH (08:36)
[2018-11-13] MEDS: KCL 10 MEQ TAB (MICRO K) PO SCH (08:36)
[2018-11-13] MEDS: LEVOTHYROXINE 100 MCG (LEVOTHROID) TAB PO SCH (08:36)
[2018-11-13] MEDS: cloNIDine 0.2 MG (CATAPRES) TAB PO SCH (08:36)
[2018-11-13] MEDS: CARVEDILOL 12.5 MG (COREG) TABLET PO SCH (08:36)
--- NOTE | 2018-11-13 09:06 | Cardiology Progress Note ---
Subjective Date Seen by Provider: Nov 13, 2018 Time Seen by Provider: 08:59 Subjective/Events-last exam Patient is in bed, no new complaint, feeling better Review of Systems General: No Chills, No Night Sweats, No Fatigue, No Malaise, No Appetite, No Other HEENT: No Head Aches, No Visual Changes, No Eye Pain, No Ear Pain, No Dysphasia , No Sinus Congestion, No Post Nasal Drip, No Sore Throat, No Other Pulmonary: Dyspnea; No Cough, No Pleuritic Chest Pain, No Other Cardiovascular: Edema; No: Chest Pain, Palpitations, Orthopnea, Paroxysmal Noc. Dyspnea, Lt Headedness, Other Objective-Cardiology Exam Last Set of Vital Signs Vital Signs 11/09/18 11/12/18 11/13/18 08:55 20:15 08:00 Temp 97.5 Pulse 71 Resp 18 B/P (MAP) 167/79 (108) Pulse Ox 95 O2 Delivery Room Air O2 Flow Rate 2.00 FiO2 21 Capillary Refill : I&O Intake and Output 11/13/18 00:00 Intake Total 2440 ml Output Total 3495 ml Balance -1055 ml Intake Oral 2440 ml Output Urine Total 3495 ml # Bowel Movements 1 General: Alert, Oriented X3, Cooperative HEENT: Atraumatic, PERRLA Neck: Supple, No JVD, No Thyromegaly Lungs: Clear to Auscultation, Normal Air Movement Heart: Normal S1, Normal S2, Other (Systolic murmur at the left sternal border , irregular rhythm) Abdomen: Normal Bowel Sounds, Soft, No Tenderness, No Hepatosplenomegaly, No Masses Extremities: No Clubbing, No Cyanosis, Normal Pulses, No Tenderness/Swelling, Other (Mild edema) Skin: No Rashes, No Breakdown, No Significant Lesion Neuro: Normal Gait, Normal Speech, Strength at 5/5 X4 Ext, Normal Tone, Sensation Intact Psych/Mental Status: Mental Status NL, Mood NL Results Lab Laboratory Tests Test 11/12/18 19:41 11/13/18 05:40 Range/Units Glucometer 223 H 70-110 MG/DL Prothrombin Time 20.7 H 12.2-14.7 SEC INR Comment 1.7 H 0.8-1.4 A/P-Cardiology Admission Diagnosis Angioedema Shortness of breath Coumadin toxicity Congestive heart failure Assessment/Plan Questionable angioedema with questionable tongue swelling, review of his episode that occurred last night it appear to be more related to orthopnea and paroxysmal nocturnal dyspnea. better last night no further episodes were reported Congestive heart failure, Acute on chronic left ventricular systolic dysfunction , deterioration the left ventricular systolic function with ejection fraction 25 -30 percent, continue with Lasix and monitor tolerance and response. Shortness of breath, reporting improvement, ok for discharge Paroxysmal atrial fibrillation, I stopped Tykosin, still in atrial fibrillation , rate is controlled, continue to monitor [id number] score of 5, yearly risk of stroke without oral anticoagulation is 6.7 percent. Has been maintained on Coumadin, difficult to eat to achieve adequate control, no active bleeding, continue Coumadin at 4 mg daily and monitor tolerance and response History of permanent pacemaker/ICD, BiV, [employer]tronic type, had his initial pacemaker placed in 2002 for sick sinus syndrome, upgraded to an ICD in 2007 and had a generator change in 2014, continue to monitor at this time Peripheral arterial disease, peripheral edema, small ulceration on the great toe of the left foot noted recently. 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 Chronic renal insufficiency, continue to monitor renal function History of venous stasis ulcers in his feet. Diabetes mellitus, followed and managed by primary care physician Obesity, BMI 33, we discussed weight loss and exercise. Clinical Quality Measures DVT/VTE Risk/Contraindication: Risk Factor Score Per Nursin RFS Level Per Nursing on Admit: 4+=Very High ARGELIA RICK MD Nov 13, 2018 09:06
--- NOTE | 2018-11-13 09:34 | Discharge Summary-Hospitalist ---
Diagnosis/Chief Complaint Date of Admission Nov 08, 2018 at 16:13 Date of Discharge Discharge Date: Nov 11, 2018 Admission Diagnosis Assessment: Dehydration Tongue swelling possible due to ARB CHF COPD AF DM CRI Coumadin toxicity Plan: Hold Coumadin Monitor creat IVF gentle O2 Discharge Diagnosis (1) Acute renal failure (ARF) Status: Resolved (2) DNR (do not resuscitate) Status: Chronic (3) Advanced age Status: Chronic (4) ELIZABETH on CPAP Status: Chronic (5) Chronic obstructive airway disease Status: Chronic (6) Chronic renal insufficiency Status: Chronic (7) Hypothyroidism Status: Chronic (8) Anxiety Status: Chronic (9) Diabetes mellitus Status: Chronic (10) Warfarin toxicity Status: Acute (11) Atrial fibrillation Status: Chronic Discharge Summary Procedures/Consulations Dr. Ruth- Cardiology Discharge Physical Exam Allergies: Coded Allergies: losartan (Verified Allergy, Severe, angioedema, 11/13/18) sulfamethoxazole (Verified Allergy, Mild, 08/27/14) trimethoprim (Verified Allergy, Mild, 08/27/14) amlodipine (Verified Allergy, Unknown, Cough, 08/15/18) Vitals & I&Os Vital Signs Date Time Temp Pulse Resp B/P (MAP) Pulse Ox O2 Delivery O2 Flow Rate FiO2 11/13/18 11:08 94 Nasal Cannula 2.00 11/13/18 08:00 97.5 71 18 167/79 (108) 11/09/18 08:55 21 General Appearance: No Apparent Distress, Chronically ill Hospital Course Pt was admitted due to dehydration from inability to maintain oral intake from tongue swelling. There were concerns regarding angioedema due to losartan use so this was discontinued. He was also found to have an elevated INR greater than 5. He was treated with IVF and did well. His coumadin was decreased and his INR improved. He was discharged home on oxygen for his COPD and at a lower warfarin dose. His Tikosyn was discontinued and his coreg was increased. He elected to switch to Dr Ruth for further cardiology care. He is to have an INR done on 11/15 and this was ordered with home health. I called and updated his PCP Dr Koehler about these changes. Labs (last 24 hrs) Laboratory Tests 11/12/18 19:41: Glucometer 223H 11/13/18 05:40: Prothrombin Time 20.7H, INR Comment 1.7H Patient resulted labs reviewed. Pending Labs Laboratory Tests 11/13/18 05:40: Prothrombin Time 20.7, INR Comment 1.7 Discussion & Recommendations Discharge Planning: >30 minutes discharge planning Discharge Home Medications: Active Scripts Active Coreg (Carvedilol) 25 Mg Tab 50 Mg PO BID Incruse Ellipta (Umeclidinium [place]) 62.5 Mcg Blst.w.dev 62.5 Mcg IH DAILY Warfarin Sodium 4 Mg Tablet 4 Mg PO DAILY Reported Clobetasol Propionate 15 Gm Cream..g. TOP BID PRN Levalbuterol HCl 0.63 Mg/3 Ml Vial.neb 0.63 Mg NEB Q4H PRN Levalbuterol Tartrate Hfa (Levalbuterol Tartrate) 15 Gm Hfa.aer.ad 2 Puff INH Q4H PRN Clonidine HCl 0.2 Mg Tablet 0.2 Mg PO 1200 PRN Furosemide 40 Mg Tablet 40 Mg PO DAILY PRN Clonidine HCl 0.2 Mg Tablet 0.2 Mg PO 0800,1900 Fluoxetine HCl 20 Mg Capsule 20 Mg PO 1900 Potassium Chloride 10 Meq Tablet.er 20 Meq PO 0900,1900 TAKES 2 (10MEQ) TABLETS Glimepiride 4 Mg Tablet 4 Mg PO 0900,1900 Levemir Flextouch (Insulin Detemir) 100 Unit/1 Ml Insuln.pen 22 Units SQ HS Levothyroxine Sodium 100 Mcg Tablet 100 Mcg PO 0800 Instructions to patient/family Please see electronic discharge instructions given to patient. Clinical Quality Measures DVT/VTE Risk/Contraindication: Risk Factor Score Per Nursin RFS Level Per Nursing on Admit: 4+=Very High Problem Qualifiers (1) Acute renal failure (ARF): Acute renal failure type: unspecified Qualified Codes: N17.9 - Acute kidney failure, unspecified (2) Chronic obstructive airway disease: COPD type: unspecified COPD Qualified Codes: J44.9 - Chronic obstructive pulmonary disease, unspecified (3) Chronic renal insufficiency: Chronic kidney disease stage: stage 3 (moderate) Qualified Codes: N18.3 - Chronic kidney disease, stage 3 (moderate) (4) Hypothyroidism: Hypothyroidism type: acquired Qualified Codes: E03.9 - Hypothyroidism, unspecified (5) Diabetes mellitus: Diabetes mellitus type: type 2 Diabetes mellitus tank terminal gauger insulin use: with tank terminal gauger use Diabetes mellitus complication status: with circulatory complication Diabetes mellitus complication detail: with other circulatory complications Qualified Codes: E11.59 - Type 2 diabetes mellitus with other circulatory complications; Z79.4 - prison (current) use of insulin (6) Warfarin toxicity: Encounter type: initial encounter Injury intent: accidental or unintentional Qualified Codes: T45.511A - Poisoning by anticoagulants, accidental ( unintentional), initial encounter (7) Atrial fibrillation: Atrial fibrillation type: chronic Qualified Codes: I48.2 - Chronic atrial fibrillation CHRISTOPHER MARAVILLA MD Nov 13, 2018 09:34
[2018-11-13] MEDS ORDERED: WARF4TAB70 PO (09:43)
[2018-11-13] MEDS ORDERED: UMEC62.5 IH (09:48)
[2018-11-13] MEDS ORDERED: CRV25T PO (09:49)
--- NOTE | 2018-11-13 10:36 | NUR ---
home oxygen study pt at rest on room air resting and spo2 86%, placed pt on 2 lpm nasal cannula and spo2 increased 94%. pt will require 2 lpm at all times.
--- NOTE | 2018-11-13 11:54 | NUR ---
CM/SS faxed paperwork to [facility] and to [facility], patient was going to discharge on Tuesday and was unable to discharge until this day. Phone call to both daughters and messages left with call back information.
--- NOTE | 2018-11-13 12:05 | NUR ---
Important Message from Medicare presented/reviewed/sign by patient and charted. Patient and daughters voiced no intention to appeal and deny any needs of further questions at this time.
--- NOTE | 2018-11-13 12:20 | NUR ---
CM/SS daughter (Davide) here and will transport patient home.
[2018-11-13 13:45] VITALS: BP 167/79
== END 2018-11-13 13:45 | disposition home health service (06) | DRG 682 ==
LOC: 4TH 16:13
PROVIDERS: ADMIT Internal Medicine; ATTEND Internal Medicine
DX: N17.9 Acute kidney failure, unspecified (principal); E86.0 Dehydration; T45.511A Poisoning by anticoagulants, accidental (unintentional), initial encounter; T78.3XXA Angioneurotic edema, initial encounter; I13.0 Hypertensive heart and chronic kidney disease with heart failure and stage 1 through stage 4 chronic kidney disease, or unspecified chronic kidney disease; I50.23 Acute on chronic systolic (congestive) heart failure; N18.3 Chronic kidney disease, stage 3 (moderate); T46.4X5A Adverse effect of angiotensin-converting-enzyme inhibitors, initial encounter; Z66 Do not resuscitate; I48.2 Chronic atrial fibrillation; I70.1 Atherosclerosis of renal artery; E11.51 Type 2 diabetes mellitus with diabetic peripheral angiopathy without gangrene; E11.40 Type 2 diabetes mellitus with diabetic neuropathy, unspecified; E11.621 Type 2 diabetes mellitus with foot ulcer; L97.529 Non-pressure chronic ulcer of other part of left foot with unspecified severity; J44.9 Chronic obstructive pulmonary disease, unspecified; E03.9 Hypothyroidism, unspecified; R79.1 Abnormal coagulation profile; G47.33 Obstructive sleep apnea (adult) (pediatric); F41.9 Anxiety disorder, unspecified; M19.91 Primary osteoarthritis, unspecified site; M10.9 Gout, unspecified; E66.9 Obesity, unspecified; N42.9 Disorder of prostate, unspecified; I25.5 Ischemic cardiomyopathy; Z79.01 Long term (current) use of anticoagulants; Z68.33 Body mass index [BMI] 33.0-33.9, adult; Z95.810 Presence of automatic (implantable) cardiac defibrillator; Z79.4 Long term (current) use of insulin; Z85.820 Personal history of malignant melanoma of skin
CPT/HCPCS: 36415; 71046; 80053; 81000; 82962; 83735; 83880; 85007; 85025; 85027; 85610; 93005; 93306; 94640; 94760; 94761

== ENCOUNTER → 2018-11-14 | Outpatient (CLI) | payer MEDICARE, OTHER ==
[~2018-11-14] MED LIST changes: +CLOB15CR2 TOP; +CLON0.2T PO; +CRV25T PO; +DOFE125C4 PO; +FURO40TA4 PO; +LEVA0.6334 NEB; +LEVA15HF5 INH; +UMEC62.5 IH; +WARF4TAB70 PO
== END ==
LOC: WOUNDCARE 08:58
PROVIDERS: ATTEND Nurse Practitioner
DX: E11.622 Type 2 diabetes mellitus with other skin ulcer (principal); L97.511 Non-pressure chronic ulcer of other part of right foot limited to breakdown of skin; I87.311 Chronic venous hypertension (idiopathic) with ulcer of right lower extremity
CPT/HCPCS: 99213

== ENCOUNTER → 2018-11-23 | Outpatient (CLI) | payer MEDICARE, OTHER | LOC: WOUNDCARE 08:26 | PROVIDERS: ATTEND Nurse Practitioner | DX: E11.622 Type 2 diabetes mellitus with other skin ulcer (principal); L97.511 Non-pressure chronic ulcer of other part of right foot limited to breakdown of skin; I87.311 Chronic venous hypertension (idiopathic) with ulcer of right lower extremity | CPT/HCPCS: 11042; 87070; 87075; 87205 ==

== ENCOUNTER → 2018-11-30 | Outpatient (CLI) | payer MEDICARE, OTHER | LOC: WOUNDCARE 08:37 | PROVIDERS: ATTEND Nurse Practitioner | DX: E11.622 Type 2 diabetes mellitus with other skin ulcer (principal); L97.511 Non-pressure chronic ulcer of other part of right foot limited to breakdown of skin; I87.311 Chronic venous hypertension (idiopathic) with ulcer of right lower extremity | CPT/HCPCS: 11042 ==

== ENCOUNTER → 2018-12-07 | Outpatient (CLI) | payer MEDICARE, OTHER | LOC: WOUNDCARE 08:37 | PROVIDERS: ATTEND Nurse Practitioner | DX: E11.622 Type 2 diabetes mellitus with other skin ulcer (principal); L97.511 Non-pressure chronic ulcer of other part of right foot limited to breakdown of skin; I87.311 Chronic venous hypertension (idiopathic) with ulcer of right lower extremity | CPT/HCPCS: 99213 ==

== ENCOUNTER → 2018-12-14 | Outpatient (CLI) | payer MEDICARE, OTHER | LOC: WOUNDCARE 08:30 | PROVIDERS: ATTEND Nurse Practitioner | DX: E11.622 Type 2 diabetes mellitus with other skin ulcer (principal); L97.511 Non-pressure chronic ulcer of other part of right foot limited to breakdown of skin; I87.311 Chronic venous hypertension (idiopathic) with ulcer of right lower extremity | CPT/HCPCS: 99212 ==

== ENCOUNTER → 2019-01-26 | Outpatient (CLI) | payer MEDICARE, OTHER ==
[~2019-01-26] MED LIST changes: +RT-ALBUTEROL SULF 2.5 MG/3 ML PRE-MIX VIAL INH ONE
--- NOTE | 2019-01-26 19:54 | Diagnostic Imaging Report ---
PROCEDURE: CT chest without contrast. TECHNIQUE: Multiple contiguous axial images were obtained through the chest without the use of intravenous contrast. Auto Exposure Controls were utilized during the CT exam to meet ALARA standards for radiation dose reduction. INDICATION: Tobacco use, shortness of breath, COPD. COMPARISON: Radiographs dated November 09, 2018. FINDINGS: Pacer device is present with a battery pack overlying the right chest. A left paratracheal lymph node is borderline enlarged measuring 1 cm in short dimension. Scattered vascular calcifications, including within the coronary arteries. No aneurysmal dilatation of the thoracic aorta. The heart is within normal limits in size. No significant pericardial effusion. Moderate-sized right and small left pleural effusion. Mild background emphysematous changes. Patchy ground-glass and reticular opacities are identified scattered throughout the lungs bilaterally. This is seen within all lobes of the lungs. The airway is patent. No pneumothorax. Surgical clips are identified within the left renal fossa. 5 cm hypodensity is identified at this location, though it is only partially included within the qezms-ra-yion. Tiny 9 mm right adrenal gland nodule. This is too small to completely characterize. The visualized upper abdomen is otherwise unremarkable. Scattered osseous degenerative changes without acute osseous abnormality. IMPRESSION: Moderate right and small left dependently layering pleural effusions with minimal adjacent atelectasis. Patchy ground-glass and reticular bilateral pulmonary opacities and nodules. This likely relates to an underlying infectious or inflammatory process. A followup CT of the chest, however, should be obtained 1-2 month after appropriate therapy to ensure improvement/resolution as underlying malignancy at these locations cannot be excluded. Postsurgical changes within the left renal fossa with 5 cm partially visualized hypodensity. This is of uncertain etiology. This could relate to a renal cyst. Alternately, this could relate to a postsurgical fluid collection. Recommend clinical correlation and correlation with prior imaging. Indeterminate 9 mm right adrenal gland nodule which is too small to completely characterize. Mild background fibroemphysematous changes. Additional findings as above. Dictated by: Dictated on workstation # [id number]
== END ==
LOC: RAD 13:14
PROVIDERS: ATTEND Nurse Practitioner Family
DX: J43.9 Emphysema, unspecified (principal); E27.8 Other specified disorders of adrenal gland; I25.10 Atherosclerotic heart disease of native coronary artery without angina pectoris; R59.0 Localized enlarged lymph nodes; N28.89 Other specified disorders of kidney and ureter; J90 Pleural effusion, not elsewhere classified; R91.8 Other nonspecific abnormal finding of lung field; J30.9 Allergic rhinitis, unspecified; G47.33 Obstructive sleep apnea (adult) (pediatric); Z95.0 Presence of cardiac pacemaker; Z98.890 Other specified postprocedural states
CPT/HCPCS: 71250; 94060; 94726; 94729

== ENCOUNTER 2019-02-25 18:55 | Inpatient (IN) | payer MEDICARE, OTHER ==
[~2019-02-25] VITALS: Ht 177.8 cm; Wt 90.7 kg
[~2019-02-25 18:55] MED LIST changes: -RT-ALBUTEROL SULF 2.5 MG/3 ML PRE-MIX VIAL INH ONE
[2019-02-25 19:42] LABS: BASOPHILS % (AUTO) 0 % (0-10); EOSINOPHILS % (AUTO) 0 % (0-10); HEMATOCRIT 41 % (40-54); HEMOGLOBIN 13.6 G/DL (13.3-17.7); LYMPHOCYTES % (AUTO) 7 % (12-44); MEAN CORPUSCULAR HEMOGLOBIN 27 PG (25-34); MEAN CORPUSCULAR HGB CONC 33 G/DL (32-36); MEAN CORPUSCULAR VOLUME 82 FL (80-99); MEAN PLATELET VOLUME 11.5 FL (7.4-10.4); MONOCYTES # (AUTO) 0.9 X 10^3 (0.0-1.0); MONOCYTES % (AUTO) 7 % (0-12); NEUTROPHILS # (AUTO) 11.4 X 10^3 (1.8-7.8); NEUTROPHILS % (AUTO) 86 % (42-75); PLATELET COUNT 202 10^3/uL (130-400); RED CELL DISTRIBUTION WIDTH 19.7 % (10.0-14.5); WHITE BLOOD COUNT 13.3 10^3/uL (4.3-11.0)
[2019-02-25 20:00] LABS: INR 1.7 (0.8-1.4); PROTHROMBIN TIME PATIENT 21.1 SEC (12.2-14.7)
[2019-02-25] MEDS ORDERED: D5 NS 1000 ML IV SOLUTION 1,000 ML IV ONE ×2 (20:00→21:00)
[2019-02-25 20:03] LABS: BASOPHILS % (MANUAL) 1 %; EOSINOPHILS % (MANUAL) 1 %; LYMPHOCYTES % (MANUAL) 7 %; MONOCYTES % (MANUAL) 10 %; NEUTROPHILS % (MANUAL) 81 %; RBC MORPH NORMAL
--- NOTE | 2019-02-25 20:04 | Diagnostic Imaging Report ---
INDICATION: Worsening cough, sore throat and shortness of air since yesterday. Nausea, vomiting and diarrhea over the past 2-3 days. Patient is hypoglycemic. COMPARISON STUDY: Chest from 11/09/[address] scan from 01/26/2019. FINDINGS: Frontal and lateral views of the chest demonstrate a right subclavian cardiac pacer remaining in place. Mild cardiomegaly is stable. There are small bilateral pleural effusions. The vascularity is normal. Degenerative change is present in both shoulders. IMPRESSION: Stable mild cardiomegaly. Small bilateral pleural effusions are present with normal vascularity. Dictated by: Dictated on workstation # [id number]
[2019-02-25 20:07] LABS: ALBUMIN 3.2 GM/DL (3.2-4.5); BILIRUBIN,TOTAL 1.6 MG/DL (0.1-1.0); CALCIUM 9.2 MG/DL (8.5-10.1); CREATININE SERUM 1.6 MG/DL (0.60-1.30); POTASSIUM 4.2 MMOL/L (3.6-5.0); TOTAL PROTEIN 6.5 GM/DL (6.4-8.2)
--- NOTE | 2019-02-25 20:08 | NUR ---
lactic acid is 2.19, RN et physician notified
[2019-02-25] MEDS ORDERED: RT-ALBUTEROL/IPRATROPIUM 3 ML (DUONEB) VIAL INH ONE (20:15)
--- NOTE | 2019-02-25 20:16 | ED General ---
General Stated Complaint: DIARREAH,SOB,SORE THROAT,BLOOD SUGAR, UNABLE TO UR Source of Information: Patient Exam Limitations: No Limitations History of Present Illness Date Seen by Provider: Feb 25, 2019 Time Seen by Provider: 19:32 Initial Comments This 88-year-old gentleman presents to the emergency room with complaints of nausea, vomiting, diarrhea, shortness of breath, sore throat, productive cough, decreased urine output, and a lower than normal blood sugar. His usual doctors are Dr. Gee, Dr. Ruth, and Dr. Joshi. He has been ill for 2 days. He has a DO NOT RESUSCITATE request. He has chronic health conditions including COPD, CHF, and diabetes. He has a unilateral kidney. Patient also has some hot, red, tender skin over the left lower leg suggestive of cellulitis. Allergies and Home Medications Allergies Coded Allergies: losartan (Verified Allergy, Severe, angioedema, 11/13/18) sulfamethoxazole (Verified Allergy, Mild, 08/27/14) trimethoprim (Verified Allergy, Mild, 08/27/14) amlodipine (Verified Allergy, Unknown, Cough, 08/15/18) Home Medications Carvedilol 25 Mg Tab, 50 MG PO BID Prescribed by: CHRISTOPHER MILLER on 11/13/18 0949 Clobetasol Propionate 15 Gm Cream..g., TOP BID PRN for ITCHING, (Reported) Clonidine HCl 0.2 Mg Tablet, 0.2 MG PO 0800,1900, (Reported) Clonidine HCl 0.2 Mg Tablet, 0.2 MG PO 1200 PRN for DBP>100, (Reported) Fluoxetine HCl 20 Mg Capsule, 20 MG PO 1900, (Reported) Furosemide 40 Mg Tablet, 40 MG PO DAILY PRN for FLUID RETENTION, (Reported) Levalbuterol HCl 0.63 Mg/3 Ml Vial.neb, 0.63 MG NEB Q4H PRN for SHORTNESS OF BREATH, (Reported) Levalbuterol Tartrate 15 Gm Hfa.aer.ad, 2 PUFF INH Q4H PRN for SHORTNESS OF BREATH, (Reported) Levothyroxine Sodium 100 Mcg Tablet, 100 MCG PO 0800, (Reported) Potassium Chloride 10 Meq Tablet.er, 20 MEQ PO 0900,1900, (Reported) TAKES 2 (10MEQ) TABLETS Umeclidinium Wylie 62.5 Mcg Blst.w.dev, 62.5 MCG IH DAILY Prescribed by: CHRISTOPHER MILLER on 11/13/1848 Warfarin Sodium 4 Mg Tablet, 4 MG PO DAILY Prescribed by: CHRISTOPHER MILLER on 11/13/18942 Patient Home Medication List Home Medication List Reviewed: Yes Review of Systems Review of Systems Constitutional: no symptoms reported EENTM: see HPI Respiratory: see HPI Cardiovascular: no symptoms reported Gastrointestinal: see HPI Genitourinary: see HPI Musculoskeletal: no symptoms reported Skin: see HPI Psychiatric/Neurological: No Symptoms Reported Hematologic/Lymphatic: No Symptoms Reported Past Fvyyade-Xqyvee-Vhptme Hx Patient Social History 2nd Hand Smoke Exposure: No Recent Foreign Travel: No Contact w/Someone Who Travel: No Recent Hopitalizations: Yes Immunizations Up To Date Tetanus Booster (TDap): Unknown PED Vaccines UTD: Yes Date of Pneumonia Vaccine: Jun 27, 2014 Date of Influenza Vaccine: May 22, 2018 Seasonal Allergies Seasonal Allergies: No Past Medical History Surgeries: No Defibrillator, Nephrectomy, Pacemaker Respiratory: Yes COPD Currently Using CPAP: Yes Currently Using BIPAP: No Cardiac: Yes Atrial Fibrillation, Chronic Edema/Swelling, Hypertension Neurological: No Neuropathy Reproductive Disorders: No Sexually Transmitted Disease: No HIV/AIDS: No Genitourinary: No Kidney Infection, Prostate Problems, Renal Failure, UTI-Chronic Gastrointestinal: No Musculoskeletal: No Arthritis, Gout Endocrine: Yes Diabetes, Insulin dep, Hypothyroidsim HEENT: No Cataract Loss of Vision: Bilateral Hearing Impairment: Denies Cancer: No Melanoma Psychosocial: No Integumentary: No Eczema Blood Disorders: No Adverse Reaction/Blood Tranf: No Family Medical History Dysphasia maternal mother FH: kidney cancer G8 SISTER FH: lung cancer 19 FATHER Hypertension maternal mother Kidney disease maternal mother No Family History of: AIDS Abdominal aortic aneurysm [place]'s disease Alcoholism Alzheimer's disease Aphasia Arthritis Asthma Cancer of mouth Cardiovascular disease Cataracts Colon cancer Completed stroke Congenital disease Congenital heart disease Coronary thrombosis Cystic fibrosis Deafness or hearing loss Dementia Diabetes mellitus Drug abuse Fibrocystic disease of breast Gastroenteritis Glaucoma Headache disorder Hypercholesterolemia Infertility Myocardial infarction Neoplasm Not obtainable due to adoption Osteoporosis Parkinson's disease Prostate cancer Psychosocial problem Respiratory disorder Seizure disorder Severe allergy Thyroid disease Tuberculosis Visual disorder Physical Exam-Suspected Sepsis Physical Exam Vital Signs Vital Signs - First Documented 02/25/19 19:07 Temp 99.7 Pulse 69 Resp 22 B/P (MAP) 110/70 (83) Pulse Ox 98 O2 Delivery Nasal Cannula O2 Flow Rate 2.00 Capillary Refill : Height, Weight, BMI Height: 5'9.00" Weight: 223lbs. 11.8oz. 101.199434bo; 33.7 BMI Method:Stated General Appearance: No Apparent Distress, WD/WN HEENT: PERRL/EOMI, Normal ENT Inspection, Other (oropharynx exhibits some thick film on the soft palate and posterior pharynx. It is unclear if this is dried mucus or possibly Torrie) Neck: Normal Inspection Respiratory: Lungs Clear, Accessory Muscle Use, Decreased Breath Sounds Cardiovascular: Regular Rate, Rhythm, No Edema, No Murmur Extremity: Other (dusky right lower extremity with chronic dark skin changes, stated is unchanged from chronic state. 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 Norm as Tested Skin: normal color, warm/dry Focused Exam Lactate Level 02/25/19 19:21: Lactic Acid Level 2.19*H 02/25/19 21:28: Lactic Acid Level 2.05*H Lactic Acid Level Progress/Results/Core Measures Suspected Sepsis SIRS Temperature: Pulse: Respiratory Rate: Laboratory Tests 02/25/19 19:21: White Blood Count 13.3H 02/26/19 05:25: White Blood Count 8.4 Blood Pressure / Mean: 02/25/19 19:21: Lactic Acid Level 2.19*H 02/25/19 21:28: Lactic Acid Level 2.05*H Laboratory Tests 02/25/19 19:21: Creatinine 1.60H, INR Comment 1.7H, Platelet Count 202, Total Bilirubin 1.6H 02/26/19 05:25: Creatinine 1.64H, Platelet Count 161, Total Bilirubin 1.4H Results/Orders Lab Results Laboratory Tests Test 02/25/19 19:21 02/25/19 19:46 02/25/19 19:47 02/25/19 20:29 Range/Units White Blood Count 13.3 H 4.3-11.0 10^3/uL Red Blood Count 5.00 4.35-5.85 10^6/uL Hemoglobin 13.6 13.3-17.7 G/DL Hematocrit 41 40-54 % Mean Corpuscular Volume 82 80-99 FL Mean Corpuscular Hemoglobin 27 25-34 PG Mean Corpuscular Hemoglobin Concent 33 32-36 G/DL Red Cell Distribution Width 19.7 H 10.0-14.5 % Platelet Count 202 130-400 10^3/uL Mean Platelet Volume 11.5 H 7.4-10.4 FL Neutrophils (%) (Auto) 86 H 42-75 % Lymphocytes (%) (Auto) 7 L 12-44 % Monocytes (%) (Auto) 7 0-12 % Eosinophils (%) (Auto) 0 0-10 % Basophils (%) (Auto) 0 0-10 % Neutrophils # (Auto) 11.4 H 1.8-7.8 X 10^3 Lymphocytes # (Auto) 1.0 1.0-4.0 X 10^3 Monocytes # (Auto) 0.9 0.0-1.0 X 10^3 Eosinophils # (Auto) 0.0 0.0-0.3 10^3/uL Basophils # (Auto) 0.0 0.0-0.1 10^3/uL Neutrophils % (Manual) 81 % Lymphocytes % (Manual) 7 % Monocytes % (Manual) 10 % Eosinophils % (Manual) 1 % Basophils % (Manual) 1 % Blood Morphology Comment NORMAL Prothrombin Time 21.1 H 12.2-14.7 SEC INR Comment 1.7 H 0.8-1.4 Activated Partial Thromboplast Time 40 H 24-35 SEC Sodium Level 133 L 135-145 MMOL/L Potassium Level 4.2 3.6-5.0 MMOL/L Chloride Level 101 98-107 MMOL/L Carbon Dioxide Level 21 21-32 MMOL/L Anion Gap 11 5-14 MMOL/L Blood Urea Nitrogen 29 H 7-18 MG/DL Creatinine 1.60 H 0.60-1.30 MG/DL Estimat Glomerular Filtration Rate 41 BUN/Creatinine Ratio 18 Glucose Level 81 70-105 MG/DL Lactic Acid Level 2.19 *H 0.50-2.00 MMOL/L Calcium Level 9.2 8.5-10.1 MG/DL Corrected Calcium 9.8 8.5-10.1 MG/DL Total Bilirubin 1.6 H 0.1-1.0 MG/DL Aspartate Amino Transf (AST/SGOT) 27 5-34 U/L Alanine Aminotransferase (ALT/SGPT) 12 0-55 U/L Alkaline Phosphatase 62 40-136 U/L C-Reactive Protein High Sensitivity 10.14 H 0.00-0.50 MG/DL B-Type Natriuretic Peptide 2020.6 H <100.0 PG/ML Total Protein 6.5 6.4-8.2 GM/DL Albumin 3.2 3.2-4.5 GM/DL Glucometer 76 78 70-110 MG/DL Thyroid Stimulating Hormone (TSH) 3.50 0.35-4.94 UIU/ML Free Thyroxine 1.06 0.70-1.48 NG/DL Test 02/25/19 21:25 02/25/19 21:28 02/25/19 21:41 02/26/19 00:28 Range/Units Glucometer 148 H 67 L 70-110 MG/DL Lactic Acid Level 2.05 *H 0.50-2.00 MMOL/L Urine Color REYNALDO H Urine Clarity CLEAR Urine pH 5 5-9 Urine Specific [place] 1.020 1.016-1.022 Urine Protein 2+ H NEGATIVE Urine Glucose (UA) NEGATIVE NEGATIVE Urine Ketones NEGATIVE NEGATIVE Urine Nitrite NEGATIVE NEGATIVE Urine Bilirubin NEGATIVE NEGATIVE Urine Urobilinogen NORMAL NORMAL MG/DL Urine Leukocyte Esterase 1+ H NEGATIVE Urine RBC (Auto) NEGATIVE NEGATIVE Urine RBC NONE /HPF Urine WBC 0-2 /HPF Urine Squamous Epithelial Cells RARE /HPF Urine Crystals NONE /LPF Urine Bacteria TRACE /HPF Urine Casts NONE /LPF Urine Mucus NEGATIVE /LPF Urine Culture Indicated CULTURE PENDING Test 02/26/19 02:18 02/26/19 04:24 02/26/19 05:25 Range/Units Glucometer 77 78 70-110 MG/DL White Blood Count 8.4 4.3-11.0 10^3/uL Red Blood Count 4.39 4.35-5.85 10^6/uL Hemoglobin 12.1 L 13.3-17.7 G/DL Hematocrit 37 L 40-54 % Mean Corpuscular Volume 84 80-99 FL Mean Corpuscular Hemoglobin 28 25-34 PG Mean Corpuscular Hemoglobin Concent 33 32-36 G/DL Red Cell Distribution Width 19.9 H 10.0-14.5 % Platelet Count 161 130-400 10^3/uL Mean Platelet Volume 11.1 H 7.4-10.4 FL Neutrophils (%) (Auto) 83 H 42-75 % Lymphocytes (%) (Auto) 9 L 12-44 % Monocytes (%) (Auto) 8 0-12 % Eosinophils (%) (Auto) 1 0-10 % Basophils (%) (Auto) 0 0-10 % Neutrophils # (Auto) 7.0 1.8-7.8 X 10^3 Lymphocytes # (Auto) 0.8 L 1.0-4.0 X 10^3 Monocytes # (Auto) 0.7 0.0-1.0 X 10^3 Eosinophils # (Auto) 0.1 0.0-0.3 10^3/uL Basophils # (Auto) 0.0 0.0-0.1 10^3/uL Sodium Level 137 135-145 MMOL/L Potassium Level 4.2 3.6-5.0 MMOL/L Chloride Level 105 98-107 MMOL/L Carbon Dioxide Level 23 21-32 MMOL/L Anion Gap 9 5-14 MMOL/L Blood Urea Nitrogen 27 H 7-18 MG/DL Creatinine 1.64 H 0.60-1.30 MG/DL Estimat Glomerular Filtration Rate 40 BUN/Creatinine Ratio 16 Glucose Level 65 L 70-105 MG/DL Calcium Level 8.4 L 8.5-10.1 MG/DL Corrected Calcium 9.4 8.5-10.1 MG/DL Total Bilirubin 1.4 H 0.1-1.0 MG/DL Aspartate Amino Transf (AST/SGOT) 13 5-34 U/L Alanine Aminotransferase (ALT/SGPT) 10 0-55 U/L Alkaline Phosphatase 55 40-136 U/L C-Reactive Protein High Sensitivity 13.48 H 0.00-0.50 MG/DL Total Protein 5.8 L 6.4-8.2 GM/DL Albumin 2.8 L 3.2-4.5 GM/DL My Orders Orders - DALJIT SMALLS MD Cbc With Automated Diff (02/25/19 19:32) Comprehensive Metabolic Panel (02/25/19 19:32) Blood Culture (02/25/19 19:32) Sputum Culture (02/25/19 19:32) Urinalysis (02/25/19 19:32) Urine Culture (02/25/19 19:32) Protime With Inr (02/25/19 19:32) Partial Thromboplastin Time (02/25/19 19:32) Ed Iv/Invasive Line Start (02/25/19 19:32) Ed Iv/Invasive Line Start (02/25/19 19:32) Vital Signs Adult Sepsis Patie Q15M (02/25/19 19:32) O2 (02/25/19 19:32) Remove Rings In Anticipation O (02/25/19 19:32) Lactic Acid Analyzer (02/25/19 19:32) Chest Pa/Lat (2 View) (02/25/19 19:32) Manual Differential (02/25/19 19:21) D5 Ns 1000 Ml Iv Solution (Dextrose 5%/0 (02/25/19 20:00) D5 Ns 1000 Ml Iv Solution (Dextrose 5%/0 (02/25/19 21:00) BNP (02/25/19 20:12) Hs C Reactive Protein (02/25/19 20:12) Albuterol/Ipra Inhalation Soln (Duoneb I (02/25/19 20:15) Svn Small Volume Nebulizer (02/25/19 20:13) Piperacillin/Tazobactam (Bulk) (Zosyn In (02/25/19 20:30) Ns (Ivpb) (Sodium Chloride 0.9% Ivpb Bag (02/25/19 20:17) Piperacillin Sodium/Tazobactam (Zosyn Vi (02/25/19 20:17) Accucheck Stat ONCE (02/25/19 20:30) Thyroid Stimulating Hormone (02/25/19 21:41) Free T4 (Free Thyroxine) (02/25/19 21:41) Medications Given in ED Current Medications Medications Dose Ordered Sig/Emiliano Route Start Time Stop Time Status Last Admin Dose Admin Albuterol/ Ipratropium 3 ml ONCE ONCE INH 02/25/19 20:15 02/25/19 20:16 DC 02/25/19 20:22 3 ML Dextrose/Sodium Chloride 1,000 ml @ 0 mls/hr Q0M ONCE IV 02/25/19 20:00 02/25/19 20:01 DC 02/25/19 20:04 1,000 MLS/HR Dextrose/Sodium Chloride 1,000 ml @ 0 mls/hr Q0M ONCE IV 02/25/19 21:00 02/25/19 21:01 DC 02/25/19 22:27 1,000 MLS/HR Piperacillin Sod/ Tazobactam Sod 4.5 gm/Sodium Chloride 120 ml @ 240 mls/hr ONCE ONCE IV 02/25/19 20:30 02/25/19 20:59 DC 02/25/19 20:33 240 MLS/HR Vital Signs/I&O 02/25/19 02/25/19 02/25/19 02/25/19 19:07 20:23 23:00 23:25 Temp 99.7 98.0 Pulse 69 61 Resp 22 18 B/P (MAP) 110/70 (83) 103/63 (76) Pulse Ox 98 98 97 O2 Delivery Nasal Cannula Room Air Nasal Cannula Nasal Cannula O2 Flow Rate 2.00 2.00 2.00 02/25/19 02/25/19 02/26/19 23:45 23:45 04:00 Temp 98.0 97.4 Pulse 61 80 Resp 18 18 B/P (MAP) 103/63 125/64 (84) Pulse Ox 97 95 O2 Delivery Nasal Cannula Nasal Cannula Nasal Cannula O2 Flow Rate 2.00 2.00 2.00 2.00 02/26/19 00:00 Intake Total 1000 ml Balance 1000 ml Capillary Refill : Progress Note : Time: 21:27 Progress Note Septic workup was pursued. Patient was found to have leukocytosis but did not meet sepsis criteria. Chest x-ray did not show any convincing evidence for pneumonia. Patient did have a marginally low blood sugars. He received a liter of D5 normal saline and blood sugar was stable after repeated checks. His left lower leg skin was warm to the touch and erythematous with petechiae suggestive of cellulitis. Zosyn was administered as initial antibiotic therapy. UA was pending at the time of admission. BNP was elevated but he showed no signs of failure on chest x-ray. We will continue to run slow fluids with D5 through the night. I have ordered repeat studies for the morning including chest x-ray and labs. I have ordered frequent blood sugars every 2 hours 4 to ensure stability. Patient and family are quite concerned that patient's blood sugars do drop quickly when he is ill. Patient also reported at the time of admission he still takes warfarin for stroke prophylaxis with A. fib. INR has been added to his workup. Patient had some thick film in the oropharynx and sore throat with coughing and vomiting. Is unclear if this is dried mucus and secretions or if he has some thrush. A dose of Diflucan has been ordered to receive on the floor. A trial of swallowing water produced choking and cough. Patient will be kept nothing by mouth for now. Diagnostic Imaging Diagonstic Imaging: Xray Plain Films/CT/US/NM/MRI: chest Comments Chest x-ray viewed by me and report reviewed. See report below: NAME: GIN MORENO [facility] REC#: [id number] PT STATUS: REG ER : 1930 PHYSICIAN: DALJIT SMALLS MD ADMIT DATE: 02/25/19/ER Signed Date of Exam: 02/25/19 CHEST PA/LAT (2 VIEW) INDICATION: Worsening cough, sore throat and shortness of air since yesterday. Nausea, vomiting and diarrhea over the past 2-3 days. Patient is hypoglycemic. COMPARISON STUDY: Chest from 11/09/[address] scan from 01/26/2019. FINDINGS: Frontal and lateral views of the chest demonstrate a right subclavian cardiac pacer remaining in place. Mild cardiomegaly is stable. There are small bilateral pleural effusions. The vascularity is normal. Degenerative change is present in both shoulders. IMPRESSION: Stable mild cardiomegaly. Small bilateral pleural effusions are present with normal vascularity. Dictated by: Dictated on workstation # [id number] Dict: 02/25/191956 Trans: 02/25/192004 Interpreted by: YAMEL TRACY MD Electronically signed by: YAMEL TRACY MD 02/25/192004 Departure Communication (Admissions) Time/Spoke to Admitting Phy: 21:15 Dr. Miller Impression Primary Impression: Nausea vomiting and diarrhea Additional Impressions: Dysphagia Qualified Codes: R13.10 - Dysphagia, unspecified Cellulitis of left leg Disposition: ADMITTED INPATIENT Condition: Improved Admissions Decision to Admit Reason: Admit from ER (General) Decision to Admit/Date: Feb 25, 2019 Time/Decision to Admit Time: 20:15 Departure-Patient Inst. Referrals: MANAN GEE MD (PCP/Family) Primary Care Physician DALJIT SMALLS MD Feb 25, 2019 20:16
[2019-02-25] MEDS ORDERED: PIPERACILLIN/TAZO 4.5 GM VIAL (ZOSYN) IV ONE (20:17)
[2019-02-25] MEDS ORDERED: NS (IVPB) 100 ML ONE (20:17)
[2019-02-25] MEDS ORDERED: PIPERACILLIN/TAZOBACTAM (BULK) 4.5 GM in NS (IVPB) 100 ML IV ONE (20:30)
[2019-02-25 21:51] LABS: BILIRUBIN,URINE NEGATIVE (NEGATIVE); CLARITY,URINE CLEAR; COLOR,URINE AMBER; GLUCOSE, URINE (UA) NEGATIVE (NEGATIVE); KETONES,URINE NEGATIVE (NEGATIVE); LEUKOCYTE ESTERASE ,URINE 1+ (NEGATIVE); NITRITE,URINE NEGATIVE (NEGATIVE); PH,URINE 5 (5-9); PROTEIN,URINE 2+ (NEGATIVE); UROBILINOGEN,URINE NORMAL (NORMAL)
[2019-02-25 22:02] LABS: BACTERIA,URINE TRACE /HPF; SQUAMOUS EPITHELIAL CELL,UR RARE /HPF; WBC,URINE 0-2 /HPF
--- OUTSIDE RECORDS SUMMARY | 2019-02-25 22:14 | XMS REPORT | Encounter Summary ---
Author Author [facility] Organization [facility] Address Unknown Phone Unavailable Care Team Providers Care Agricultural Economist Name Role Phone Basilio Guzman MD PCP Unavailable Encounter Details Date Type Department Care Team Description [facility] [address] [facility] [address] [place] [address] Social History Tobacco Use Types Packs/Day Years Used Date Never Smoker 0 Smokeless Tobacco: Never Used Alcohol Use Drinks/Week oz/Week Comments No Sex Assigned at Date Recorded Not on file as of this encounter Miscellaneous Notes * Telephone Encounter - Vazquez Koehler LPN - 12/07/2018 9:08 AM CDT Pt Dtr Davide called to ask if we could fax any records that have the dx before he received the pacemaker. In OV with Dr Avila 07/11/2006 there is a note about ischemic cardiomyopathy. She would like that faxed to [phone]. Received con firmation. 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 She was wanting to know if he has a dx of ischemic hea rt disease? Looked at the pt chart, he does not have this dx listed. Returned he r call, LMOM with the above information. in this encounter Plan of Treatment Date Type Specialty Care Team Description 05/23/2019 Nurse [place] [address] [facility] [address] [place] [address] [phone] as of this encounter Visit Diagnoses Not on filein this encounter
--- OUTSIDE RECORDS SUMMARY | 2019-02-25 22:14 | XMS REPORT | Encounter Summary ---
Author Author [facility] Organization [facility] Address Unknown Phone Unavailable Care Team Providers Care Instrument Technician Helper Name Role Phone Basilio Guzman MD PCP Unavailable Reason for Visit * Reason Comments INR Reminder 2nd attempt Encounter Details Date Type Department Care Team Description 01/30/2019 Telephone [facility] Michelle Mulligan LPN INR Reminder (2nd Cardiovascular attempt) [facility] [address] [place] [address] [address] [place] [address] Social History Tobacco Use Types Packs/Day Years Used Date Never Smoker 0 Smokeless Tobacco: Never Used Alcohol Use Drinks/Week oz/Week Comments No Sex Assigned at Date Recorded Not on file as of this encounter Miscellaneous Notes * Telephone Encounter - Michelle Mulligan LPN - 01/30/2019 4:00 PM CDT Received return call from Breana from Dr. Munoz's office confirming that they are managing pt Warfarin. Routing message to . Successfully un-enro lled pt from [facility] via Episodes of Care, removed I flagDavid Nevarez LPN * Telephone Encounter - Michelle Mulligan LPN - 01/30/2019 3:21 PM CDT Spoke with pt daughter Shanita in regards to overdue INR. She states that pt is b eing managed in [facility] by a local Bear Keeper, Dr. Munoz. Called Dr. Nicole lynch's office at [phone] and spoke with Lima, she states it looks like they are managing pt's warfarin but will leave a message with a nurse to call back to confirm. Gave Lima call back number. Roque MIRELES in this encounter Plan of Treatment Date Type Specialty Care Team Description 05/23/2019 Nurse [place] [address] [address] [facility] [address] [place], [place] [id number] as of this encounter Visit Diagnoses Not on filein this encounter
--- OUTSIDE RECORDS SUMMARY | 2019-02-25 22:14 | XMS REPORT | Encounter Summary ---
Author Author [facility] Organization [facility] Address Unknown Phone Unavailable Care Team Providers Care American History Professor Name Role Phone Basilio Guzman MD PCP Unavailable Reason for Visit * Reason Comments INR Reminder Encounter Details Date Type Department Care Team Description 01/17/2019 Telephone [facility] Malissa Schuster LPN INR Reminder [facility] [address] [place] [address] Social History Tobacco Use Types Packs/Day Years Used Date Never Smoker 0 Smokeless Tobacco: Never Used Alcohol Use Drinks/Week oz/Week Comments No Sex Assigned at Date Recorded Not on file as of this encounter Miscellaneous Notes * Telephone Encounter - Malissa Schuster LPN - 01/17/2019 12:35 PM CDT Left message for pt regarding overdue INR. Requested pt recheck INR and for any questions to call [facility] number provided. in this encounter Plan of Treatment Date Type Specialty Care Team Description 05/23/2019 Nurse [place] [address] [facility] [address] [place] [address] [phone] as of this encounter Visit Diagnoses Not on filein this encounter
--- OUTSIDE RECORDS SUMMARY | 2019-02-25 22:14 | XMS REPORT | Clinical Summary ---
Author Author [facility] Organization [facility] Address Unknown Phone Unavailable Care Team Providers Care Coater Smoking Pipe Name Role Phone Carisa Brown RN Unavailable Unavailable Alejo Galan MD PCP Andra Vargas APRN Unavailable Source Comments Some departments are not documenting in the electronic medical record. If you d o not see the information that you expected, contact Release of Information in [facility] [email or web address] Information Management department at [phone] for further assistan ce in locating additional records.[facility] Allergies Comments Active Allergy Reactions Severity Noted Date Sept I.V. HIVES 10/15/2014 Sulfamethoxazole-Trimetho HIVES, 09/20/2008 prim BLISTERS Medications End Date Status Medication Sig Dispensed Refills Start Date Active potassium chloride SR Take 1 Tab by 0 (K-DUR) 10 mEq tablet mouth Twice Daily. Active Carvedilol Phosphate 80 Take 1 Cap by 0 mg CM24 mouth Daily. (brand name Coreg CR). Active furosemide (LASIX) 40 mg Take 1 Tab by 0 tablet mouth twice daily as needed. Active pravastatin (PRAVACHOL) Take 1 Tab by 0 10 mg tablet mouth at bedtime daily. Active montelukast (SINGULAIR) Take 1 Tab by 0 10 mg tablet mouth at bedtime daily. Active levothyroxine (SYNTHROID) Take 1 Tab by 0 100 mcg tablet mouth Daily. Active fluticasone/salmeterol Inhale 1 Puff 0 (ADVAIR) 250/50 mcg by mouth inhalation disk Every 12 Hours. Active losartan (COZAAR) 50 mg Take 50 mg by 0 tablet mouth daily. Active NIFEdipine SR Take 30 mg by 0 (PROCARDIA-XL; ADALAT CC) mouth daily. 30 mg tablet Active cephalexin (KEFLEX) 500 Take 1 Cap by 40 Cap 1 mg capsule mouth four 5 times daily. Active glimepiride (AMARYL) 4 mg Take 4 mg by 0 tablet mouth twice daily. Active warfarin (COUMADIN) 4 mg Take by 0 tablet mouth daily. alternates between 6 and 8 mg daily Active cetirizine (ZYRTEC) 10 mg Take 10 mg by 0 tablet mouth daily. Active levofloxacin (LEVAQUIN) Take 1 Tab by 14 Tab 1 500 mg tablet mouth daily. 5 Active Problems Problem Noted Date Postop check 12/03/2014 Ankle pain 09/25/2008 Social History Date Tobacco Use Types Packs/Day Years Used Never Smoker Smokeless Tobacco: Never Used Tobacco Cessation: Counseling Given: Yes Drinks/Week oz/Week Comments Alcohol Use Not Asked Sex Assigned at Date Recorded Not on file Industry Job Start Date Occupation Not on file Not on file Not on file Travel End Travel History Travel Start No recent travel history available. Last Filed Vital Signs Reading Time Taken Comments Vital Sign 154/77 12/17/2014 12:09 PM CDT Blood Pressure 68 12/17/2014 12:09 PM CDT Pulse 36.5 C (97.7 F) 11/04/2014 1:03 PM CDT Temperature - - Respiratory Rate 98% 11/04/2014 1:48 PM CDT Oxygen Saturation - - Inhaled Oxygen Concentration 112.5 kg (248 lb) 12/17/2014 12:09 PM CDT Weight 170.2 cm (5' 7") 12/17/2014 12:09 PM CDT Height 38.84 12/17/2014 12:09 PM CDT Body Mass Index Plan of Treatment Health Maintenance Due Date Last Done Comments PHYSICAL (COMPREHENSIVE) 12/01/1938 EXAM DTAP/TDAP VACCINES (1 - 12/01/1949 Tdap) SHINGLES RECOMBINANT 12/01/1981 VACCINE (1 of 2) PNEUMONIA (PCV13/PPSV23) 12/01/1996 VACCINES (1 of 2 - PCV13) INFLUENZA VACCINE 05/22/2019 Results Not on filefrom Last 3 Months Insurance Type Payer Benefit Subscriber ID Effective Phone Address Plan / Dates Group MARILYN SCHILLING xxxxxxxx 2014-P [employer] SELECT Medicare MEDICARE MEDICARE xxxxxxxxxx 1996-P PART A AND resent B Advance Directives Patient [employer] Explanation Type Date Recorded Advance 10/22/2014 2:31 PM Directive/DPOA
--- OUTSIDE RECORDS SUMMARY | 2019-02-25 22:14 | XMS REPORT | Clinical Summary ---
Author Author [facility] Organization [facility] Address Unknown Phone Unavailable Care Team Providers Care Global Category Manager Name Role Phone Basilio Guzman MD PCP Unavailable Allergies Active Allergy Reactions Severity Noted Date Comments Bacitracin Hives 12/25/2014 Neomycin Sulfate Hives 12/25/2014 Polymyxin B Hives 12/25/2014 Sulfamethoxazole-Trimetho Blisters 02/28/2015 prim Sulfa (Sulfonamide Hives 03/11/2006 Antibiotics) Sulfamethoxazole Hives 12/25/2014 Trandolapril Hives 12/25/2014 Trimethoprim Hives 12/25/2014 Current Medications Prescription Sig. Disp. Refills Start End Date Status Date MAG HYDROX/AL Take 10 mL by mouth as Active HYDROX/SIMETH (MYLANTA needed. DOUBLE-STRENGTH ORAL) glimepiride (AMARYL) 4 MG take 1 tablet by oral 30 0 02/27/20 Active tablet route 2 times every day 15 levothyroxine take 1 tablet (100MCG) 0 03/06/20 Active (LEVOTHROID) 100 MCG by ORAL route every day 09 tablet potassium chloride Take one tablet (10 mEq 60 tablet 5 04/07/20 Active (KLOR-CON 10) 10 MEQ CR total) by mouth 2 (two) 15 tabletIndications: times a day. Persistent atrial fibrillation (HCC) furosemide (LASIX) 40 MG Take 1 tablet by mouth as Active tablet needed. LEVEMIR FLEXTOUCH 100 Inject 40 Units under the 02/04/20 Active unit/mL (3 mL) InPn skin daily. 16 clobetasol (TEMOVATE) as needed. 07/18/20 Active 0.05 % cream 16 FLUoxetine (PROZAC) 20 mg in the morning. 1 08/30/19 Active capsule 17 levalbuterol (XOPENEX as needed. 11 08/30/19 Active HFA) 45 mcg/actuation 17 inhaler ADVAIR HFA 115-21 as directed. 3 08/23/19 Active mcg/actuation inhaler 17 JANTOVEN 4 mg tablet 12/27/19 Active 18 tolterodine (DETROL LA) 4 12/17/19 Active MG 24 hr capsule 18 carvedilol (COREG) 25 MG Take 1 tablet (25 mg 180 tablet 3 05/30/20 Active tabletIndications: total) by mouth 2 (two) 18 Paroxysmal atrial times a day with meals. fibrillation (HCC) losartan (COZAAR) 50 MG Take 1 tablet (50 mg 90 tablet 3 05/30/20 Active tablet total) by mouth daily. 18 cloNIDine HCl (CATAPRES) Take 1 tablet (0.1 mg 90 tablet 3 06/28/20 Active 0.1 mg tablet total) by mouth daily. 18 dofetilide (TIKOSYN) 125 TAKE 1 CAPSULE BY MOUTH 90 capsule 1 07/19/20 Active MCG capsule DAILY 18 Active Problems Problem Noted Date Paroxysmal atrial fibrillation (HCC) 12/05/2017 Medication management 12/05/2017 Junctional rhythm 09/15/2016 assisted current use of antiarrhythmic drug 05/19/2016 Overview: Tikosyn Ankle pain 09/25/2008 ELIZABETH on CPAP 08/22/2000 Venous insufficiency Overview: Bilateral Pulmonary hypertension ([facility]) Overview: PAP 42 mmHg COPD (chronic obstructive pulmonary disease) ([facility]) Gout BPH (benign prostatic hyperplasia) Erectile dysfunction Depression NICM (nonischemic cardiomyopathy) ([facility]) SSS (sick sinus syndrome) ([facility]) Essential hypertension ICD (implantable cardioverter-defibrillator), dual, in situ Overview: Gen Change-12/27/2014-Medtronic Evera model, serial [id number]. 03/19/2003-RA lead Medtronic 4574, serial [id number]. 10/11/2007- RV lead [employer] 7022, serial [id number]. PFO (patent foramen ovale) Overview: Per ZOHRA 2014 Chronic diastolic congestive heart failure (HCC) Overview: IMO Replacement Update Obesity (BMI 30.0-34.9) Diabetes mellitus, type 2 (HCC) assisted current use of anticoagulant therapy Overview: Coumadin Resolved Problems Problem Noted Date Resolved Date assisted current use of anticoagulant therapy 03/21/2015 10/14/2017 Overview: Coumadin Atrial fibrillation, persistent (HCC) 02/28/2015 10/14/2017 Pacemaker generator end of life 12/27/2014 06/23/2015 Cellulitis 03/31/2017 Overview: R Leg Encounters Date Type Specialty Care Team Description 01/30/2019 Telephone Cardiology Michelle Mulligan LPN INR Reminder (2nd attempt) 01/17/2019 Telephone Cardiology Malissa Schuster LPN INR Reminder 12/07/2018 Telephone Cardiology Vazquez Koehler LPN from Last 3 Months Family History Medical History Relation Name Comments Lung cancer Father Kidney failure Mother Kidney failure Sister Relation Name Status Comments Father (Age 68 ) Mother (Age 82 ) Sister (Age 43 ) Social History Tobacco Use Types Packs/Day Years Used Date Never Smoker 0 Smokeless Tobacco: Never Used Alcohol Use Drinks/Week oz/Week Comments No Sex Assigned at Date Recorded Not on file Last Filed Vital Signs Vital Sign Reading Time Taken Blood Pressure 176/97 05/30/2018 3:44 PM CDT Pulse 61 05/30/2018 3:44 PM CDT Temperature 36.6 C (97.8 F) 03/04/2015 10:55 AM CDT Respiratory Rate 16 03/04/2015 10:55 AM CDT Oxygen Saturation 98% 03/04/2015 10:55 AM CDT Inhaled Oxygen - - Concentration Weight 111 kg (244 lb 12.8 oz) 05/30/2018 3:43 PM CDT Height 180.3 cm (5' 11") 05/30/2018 3:43 PM CDT Body Mass Index 34.14 05/30/2018 3:43 PM CDT Plan of Treatment Date Type Specialty Care Team Description 05/23/2019 Nurse [place] [address] [facility] [address] [place] [address] [phone] Health Maintenance Due Date Last Done Comments Diabetes Mellitus 1931 Hemoglobin A1C Diabetes Mellitus 1931 Ophthalmology Exam Medicare Annual Wellness 1931 Spirometry # 1931 Td # 1931 Diabetes Mellitus Foot 12/01/1941 Exam Zoster Vaccine# (1 of 2) 12/01/1981 Depression Screening 12/01/1996 PHQ-9 # Pneumococcal Immunization 12/01/1996 65+ (1 of 2 - PCV13) Fall Risk Assessment # 03/04/2016 03/04/2015 Lipid Screening 04/29/2017 04/29/2016, 04/09/2014, 06/19/2006, Additional history exists Influenza Vaccine (#1) 2019 06/04/2004 Implants Implanted Type Area Storekeeper Engineering Device Expiration Model / Identifier Date Serial / Lot Icd-12/27/2014 ICD MEDTRONIC [id number] Implanted: 12/30/2014 by WILBER Weber MD (Quantity not on file) / [id number] / Lead Atrial Lead Right: MEDTRONIC [id number] Implanted: 03/19/2003 by Tia Heart JILLIAN Gates MD (Quantity not on file) [employer] SENSE / [id number] / Lead Rv Lead Right: ST TY MEDICAL RIATA Implanted: 10/11/2007 by Octavio, Heart 7022/60 / Jona Zelaya MD (Quantity not on file) Ventricle [id number] / Results Not on filefrom Last 3 Months
--- OUTSIDE RECORDS SUMMARY | 2019-02-25 22:14 | XMS REPORT ---
Author Author Ehsan Castellon Organization [facility] Address [address] 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 [address] [place], [place] [id number] Aug, [facility] [address] in [facility] [address] [place] [address] [id number] Jul, [facility] [address] in [facility] [address] [place] [address] [id number] Jan, [facility] [address] in [facility] [address] [place] [address] [id number] Jan, [facility] in [facility] [address] [place] [address] [id number] Jan, Carcinoma in situ of skin of scalp and neck D04.[address] [id number] December, Benign neoplasm of skin of trunk, except scrotum D23.5 ; Personal history of other malignant neoplasm of skin Z85.828 ; Actinic keratosis L57.0 ; Encounter for screening for malignant neoplasm of skin Z12.83 ; Neoplasm of uncertain behavior of skin D48.5 ; Seborrheic keratoses L82.1 and Lentigo L81.[address] [id number] December, [address] [id number] Sep, Encounter for removal of sutures Z48.[address] [id number] Aug, Encounter for removal of sutures Z48.[address] [id number] Aug, [address] [id number] Aug, 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 C44.[address] [id number] Aug, 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 C44.[address] [id number] Jul, Lentigo L81.4 ; Personal history of other malignant neoplasm of skin Z85.828 ; Actinic keratosis L57.0 and Neoplasm of uncertain behavior of skin D48.[address] in [facility] [address] [place] [address] [id number] Jul, Personal history of other malignant neoplasm of skin Z85.828 ; Actinic keratosis L57.0 ; Lentigo L81.4 and SK (seborrheic keratosis) L82.[address] in [facility] [address] [place] [address] [id number] Jun, 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 [id number] May, Personal history of other malignant neoplasm of skin Z85.828 ; Neoplasm of uncertain behavior of skin D48.5 ; SK (seborrheic keratosis) L82.1 ; AK (actinic keratosis) L57.0 and Lentigo L81.[address] [id number] Mar, Encounter for removal of sutures Z48.[address] [id number] Mar, [address] [id number] Mar, Squamous cell cancer of skin of helix in right ear C44.[address] [id number] Mar, Squamous cell cancer of skin of helix in right ear C44.[address] [id number] Feb, [address] in [facility] [address] [place] [address] [id number] Jan, Lentigo L81.4 and Neoplasm of uncertain behavior of skin D48.[address] in [facility] [address] [place] [address] [id number] December, Actinic keratosis L57.[address] [id number] Nov, 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 D04.[address] [id number] Nov, Personal history of other malignant neoplasm of skin Z85.828 ; Actinic keratosis L57.0 ; Encounter for screening for malignant neoplasm of skin Z12.83 ; Neoplasm of uncertain behavior of skin D48.5 ; Benign neoplasm of skin of trunk, except scrotum D23.5 ; Seborrheic keratoses L82.1 and Lentigo L81.[address] in [facility] [address] [place] [id number] Jun, [address] in [facility] [address] [place] [id number] Jun, Eczema L30.9 ; Encounter for removal of sutures Z48.02 and Actinic keratosis L57.[address] in [facility] [address] [place] [address] [id number] Jun, 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 D04.[address] in [facility] [address] [place] [address] [id number] May, Eczema L30.9 ; Actinic keratosis L57.0 ; Neoplasm of uncertain behavior of skin D48.5 ; Other seborrheic keratosis L82.1 and Other melanin hyperpigmentation L81.4 IMMUNIZATIONS No Known Immunizations SOCIAL HISTORY Never Assessed REASON FOR VISIT disability PLAN OF CARE VITAL SIGNS MEDICATIONS Unknown Medications RESULTS No Results PROCEDURES No Known procedures INSTRUCTIONS MEDICATIONS ADMINISTERED No Known Medications MEDICAL (GENERAL) HISTORY Type Description Date Medical History NIDDM Medical History pacemaker/ defibrillator Medical History asthma Medical History chronic kidney disease Medical History gout Medical History peripheral vascular disease Medical History DJD Medical History hyperthyroid 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
[2019-02-25 22:26] LABS: FREE T4 (FREE THYROXINE) 1.06 NG/DL (0.70-1.48)
--- NOTE | 2019-02-25 22:53 | NUR ---
GIN MORENO admitted to room 425-1, with an admitting diagnosis of N/V/D, CELLULITIS , on 02/25/19 from ED via [facility], accompanied by STAFF AND FAMILY. GIN MORENO introduced to surroundings, call light, bed controls, phone, TV, temperature control, lights, meal times, smoking policy, visitor policy, side rail policy, bathrooms and showers. Patient Rights given to patient in the handbook.GIN MORENO verbalizes understanding that [facility] is not responsible for the loss or damage to any personal effects or valuables that are kept in the patients posession during their hospitalization.
[2019-02-25 23:00] VITALS: BP 103/63
[2019-02-25 23:45] VITALS: BP 103/63
[2019-02-25] MEDS ORDERED: FLUCONAZOLE 200 MG/NACL 100 ML (PRE-MIX) IV ONE (23:45)
[2019-02-25] MEDS: D5 1/2 NS 1000 ML IV SOLUTION 1,000 ML IV SCH (23:55)
[2019-02-26] MEDS ORDERED: DEXTROSE 50% 50 ML (IMS) SYR ONE ×2 (00:33→06:36)
--- NOTE | 2019-02-26 00:35 | NUR ---
FSBS [address] DR[address] MARAVILLA NOTIFIED, NEW ORDERS RECEIVED: INCREASE IVF 100MLS/HR, GIVE 1/2 AMP D50 WILL CONTINUE TO MONITOR.
[2019-02-26] MEDS ORDERED: DEXTROSE 50% 50 ML (IMS) SYR IV ONE ×2 (00:45→06:45)
[2019-02-26] MEDS ORDERED: PIPERACILLIN/TAZO 4.5 GM VIAL (ZOSYN) IV ONE (02:22)
[2019-02-26] MEDS ORDERED: NS (IVPB) 100 ML ONE (02:23)
[2019-02-26] MEDS: PIPERACILLIN/TAZO 4.5 GM/NS 100 ML IV SCH ×6 (02:37→17:38)
[2019-02-26 04:00] VITALS: BP 125/64
[2019-02-26 05:58] LABS: BASOPHILS % (AUTO) 0 % (0-10); EOSINOPHILS # (AUTO) 0.1 10^3/uL (0.0-0.3); EOSINOPHILS % (AUTO) 1 % (0-10); HEMATOCRIT 37 % (40-54); HEMOGLOBIN 12.1 G/DL (13.3-17.7); LYMPHOCYTES # (AUTO) 0.8 X 10^3 (1.0-4.0); LYMPHOCYTES % (AUTO) 9 % (12-44); MEAN CORPUSCULAR HEMOGLOBIN 28 PG (25-34); MEAN CORPUSCULAR HGB CONC 33 G/DL (32-36); MEAN CORPUSCULAR VOLUME 84 FL (80-99); MEAN PLATELET VOLUME 11.1 FL (7.4-10.4); MONOCYTES # (AUTO) 0.7 X 10^3 (0.0-1.0); MONOCYTES % (AUTO) 8 % (0-12); NEUTROPHILS % (AUTO) 83 % (42-75); PLATELET COUNT 161 10^3/uL (130-400); RED CELL DISTRIBUTION WIDTH 19.9 % (10.0-14.5); WHITE BLOOD COUNT 8.4 10^3/uL (4.3-11.0)
[2019-02-26 06:13] LABS: ALBUMIN 2.8 GM/DL (3.2-4.5); BILIRUBIN,TOTAL 1.4 MG/DL (0.1-1.0); CALCIUM 8.4 MG/DL (8.5-10.1); CREATININE SERUM 1.64 MG/DL (0.60-1.30); POTASSIUM 4.2 MMOL/L (3.6-5.0); TOTAL PROTEIN 5.8 GM/DL (6.4-8.2)
--- NOTE | 2019-02-26 06:40 | NUR ---
FSBS [address] DR[address] MARAVILLA NOTIFIED, NEW ORDERS RECEIVED: GIVE 1/2 AMP D50
[2019-02-26] MEDS: D5 1/2 NS 1000 ML IV SOLUTION 1,000 ML IV SCH ×2 (07:37→17:38)
[2019-02-26 08:00] VITALS: BP 156/78
--- NOTE | 2019-02-26 09:20 | ST Dysphagia Evaluation ---
Speech Evaluation-General Medical Diagnosis Dysphagia Onset Date: Feb 25, 2019 Therapy Diagnosis Therapy Diagnosis: Oropharyngeal Dysphagia Precautions Precautions: Aspiration Precautions/Isolations: Standard Precautions Medical History Pertinent Medical History: Atrial Fib, Arthritis, DM, HTN, Hypothroidism, Neuropathy, Renal Insufficiency Reviewed History: Yes Social History Current Living Status: Alone Speech PLF/Current-Dysphagia Prior Level of Function The patient lives alone and was independent for much of his daily needs. He has family support as needed. Subjective The patient was pleasant and cooperative with the bedside evaluation for swallowing. Cognitive Status Patient Orientation: Person, Place, Time, Situation Oral Motor Skills Dentition: Natural, Tumbled, Stained Ability to Follow Directions: Good Patient is NPO pending Bedside Dysphagia Evaluation Oral Expression Ability: No Impairment Voice Voice Phonatory-Based Quality: Hoarse Voice Pitch: Mildly Low Voice Loudness: Mildly Soft/Quiet Face Facial Symmetry: Symmetrical Oral-Facial Assessment Oral-Facial Dentition: Normal Labial Seal Description: Weak Smile: Reduced ROM Puff Cheeks: Reduced Strength Lingual Protrusion: Normal Lingual ROM: Normal Lingual Strength: Normal Pharynx Velopharyngeal Move.: Normal Volitional Dry Swallow: Yes Voluntary Cough: Yes Can Clear Throat Volitionally: Yes Productive Cough: Yes Post oral trial of water the patient said he could feel "junk in my throat" Productive Throat Clear: Yes Dysphagia Evaluation Consistencies Presented: Thin Liquid, Pureed Oral phase of swallow normal with consistencies presented. Pharyngeal phase of swallow normal with consistencies presented. Funct. Velo/Pharyngeal Symptom: Clears Throat, Cough After Swallow Dietary Recommendations: Pureed Liquid Recommendations: Thin Swallowing Precautions: Alternate Liquids/Solids, Double Swallow, Decreased Bolus 1/2 Tsp, Liquids from Straw, Small Bites and Sips, Sitting Upright 90 Degrees, Sitting 90 Degrees 30 Post Intake Dysphagia Evaluation Summary The patient is an alert and pleasant 88 year old man who was admitted via ED on 02/25/19 with suspected sepsis. The patient states he was overdosed on Losartin several months back which caused his mouth and throat to become swollen. At that time his swallow was affected and hasn't been the same since. He was presented water at 1/2 tsp x2 without difficulty. Also presented water by straw small sip, again without incident. The puree at 1/2 tsp. was given with normal swallow and clearing noted. He refused the banana for mechanical soft trial stating he couldn't swallow it. His daughter was present and stated she has been pureeing all of his food with the Ninja Bullet. He is being placed on a Dysphagia I level diet (puree) and thin liquids. Medications should also be crushed in pudding or applesauce at this time. These guidelines have been provided to his nurse and written on the white board in his room. Barriers to Learning The patient's age. Speech Short Term Goals Short Term Goals Short Term Goals 1) The patient will tolerate least restrictive diet level without s/s of aspiration at 90% or greater. 2) The patient will utilize compensatory strategies as trained with 90% or greater given minimal cues. Speech Detention Goals Detention Goals The patient will maintain adequate nutrition/hydration via safe effective swallow function. Speech-Plan Patient/Family Goals Patient/Family Goals: The patient plans on returning home upon hospital discharge. Treatment Plan Speech Therapy Treatment Plan: Continue Plan of Care The patient will receive skilled ST for dysphagia. Treatment Duration: Mar 01, 2019 Frequency: 4 times per week Estimated Hrs Per Day: .25 hour per day Rehab Potential: Fair Barriers to Learning: The patient's age Pt/Family Agrees to Plan: Yes Safety Risks/Education Teaching Recipient: Patient, Family Teaching Methods: Discussion Response to Teaching: Verbalize Understanding Education Topics Provided: Safety of oral intake and appropriate diet level. Time Speech Therapy Time In: 08:15 Speech Therapy Time Out: 08:30 Total Billed Time: 15 Billed Treatment Time 1 SILVANA Mena Feb 26, 2019 09:20
--- NOTE | 2019-02-26 10:47 | Diagnostic Imaging Report ---
Indication: Cough. Time of exam: 10:18 a.m. Correlation is made with prior study from one day earlier. Heart size stable. Cardiac defibrillator remains in place. Bibasilar infiltrates and small effusions persist. Mid and upper lung river are clear. There is no pneumothorax. Impression: Continued bibasilar infiltrates and small effusions similar to one day earlier. Dictated by: Dictated on workstation # [id number]
[2019-02-26 12:00] VITALS: BP 129/71
[2019-02-26] MEDS ORDERED: WARF4TAB9 PO (14:18)
[2019-02-26] MEDS ORDERED: CARV25TA PO (14:18)
[2019-02-26] MEDS ORDERED: UMEC62.5 IH (14:18)
[2019-02-26] MEDS ORDERED: GLIM1TAB PO (14:18)
[2019-02-26] MEDS ORDERED: MONT10TA24 PO (14:18)
--- NOTE | 2019-02-26 14:21 | NUR ---
SPOKE WITH THE PATIENT ABOUT HIS MEDICATIONS. HE HAD A LIST AND I COMPARED WITH THE EXT MED HX. HIS CLONIDINE IS FILLED TID HOWEVER HE STATES HE ONLY TAKES IT BID. HE NO LONGER TAKING THE GLIMEPIRIDE 4MG BUT DOES USE THE 1MG NEEDED FOR HIGH BLOOD SUGAR. HE STATES HE IS NO LONGER TAKING THE LOSARTAN. HE TAKES HIS LASIX AT HS SO HE DOES NOT HAVE TO GO TO THE BATHROOM ALL DAY. IN ADDITION TO WHAT IS SHOWN ON THE EXT MED HX [facility] FILLED LEVOTHYROXINE 100MCG DAILY #30 01-19-19.
--- NOTE | 2019-02-26 15:33 | Physical Therapy Evaluation ---
PT Evaluation-General Medical Diagnosis Admission Date Feb 25, 2019 at 21:16 Medical Diagnosis: Dysphagia Onset Date: Feb 25, 2019 Therapy Diagnosis Therapy Diagnosis: debility Height/Weight Height (Feet): 5 Height (Inches): 10.00 Weight (Pounds): 199 Weight (Ounces): 14.4 Precautions Precautions/Isolations: Standard Precautions Weight Bear Status Right Lower Extremity: Right Full Weight Bearing Left Lower Extremity: Left Full Weight Bearing Referral Physician: Adama Reason for Referral: Evaluation/Treatment Medical History Pertinent Medical History: Atrial Fib, Arthritis, COPD, DM, HTN, Hypothroidism, Neuropathy, Renal Insufficiency Current History ER secondary to N&V, diarrhea/sore throat, decreased blood sugar Reviewed History: Yes Social History Home: Single Level Current Living Status: Alone Entry Into Home: Stairs With Railing PT Steps Into Home: 4 Prior/Core FIM Prior Level of Function Therapy Code Descriptions/Definitions Functional [place] Measure: 0=Not Assessed/NA 4=Minimal Assistance 1=Total Assistance 5=Supervision or Setup 2=Maximal Assistance 6=Modified [place] 3=Moderate Assistance 7=Complete [place] Therapy Quality Codes: 6 Independent with activity with or without an assistive device 5 Patient requires set up or clean up by helper. Patient completes activity by themselves 4 Supervision or touching assist (CGA). [place] provide cues , steadying assist 3 The helper provides less than half the effort to complete the activity 2 The helper provides more than half the effort to complete the activity 1 Dependent. The helper does all the effort to complete an activity 7 Patient refused to complete or attempt activity 9 The patient did not perform the activity before the current illness or injury 88 Not attempted due to Medical conditions or safety concerns Functional Abilities and Goals: Independent: Patient completed the activities by him/herself, with or without an assistive device, with no assistance from a helper. Needed Some Help: Patient needed partial assistance from another person to co mplete activities. Dependent: A helper completed the activities for the patient. Unknown: Not Applicable: Bed Mobility: 6 Transfers (B,C,W/C) (FIM): 6 Gait: 6 Stairs: 2 Indoor Mobility (Ambulation): Independent Stairs: Independent Prior Devices Use: Walker Prior Device Use: 3WW PT Evaluation-Current Subjective Patient is very agreeable to participate with therapy. No c/o. Family present Objective Patient Orientation: Normal For Age Problem Solving: Good Attachments: Oxygen, IV ROM/Strength ROM Lower Extremities bilateral LE WFL Strength Lower Extremities 4-/5 grossly bilaterally Integumentary/Posture Integumentary refer to nursing notes Bowel Incontinence: No Bladder Incontinence: No Posture trunk flexed posture/Trendelenburg stance/gait Neuromuscular (Tone, Coordination, Reflexes) grossly intact Sensory Vision: Wears Glasses Hearing: Functional Sensation Right Lower Extremit: Impaired Sensation Left Lower Extremity: Impaired Transfers Therapy Code Descriptions/Definitions Functional [place] Measure: 0=Not Assessed/NA 4=Minimal Assistance 1=Total Assistance 5=Supervision or Setup 2=Maximal Assistance 6=Modified [place] 3=Moderate Assistance 7=Complete [place] Transfers (B, C, W/C) (FIM): 3 Scootin Rollin Supine to/from Sit: 6 Sit to/from Stand: 3 mod assist from low surface only/patient has a lift chair at home and toilet riser Gait Mode of Locomotion: Walk Anticipated Mode of Locomotion: Walk Gait (FIM): 5 Distance (FIM): 3=150 ft Distance: 150' Gait Level of Assist: 5 Gait Persons Needed: 1 Gait Assistive Device: FWW Comments/Gait Description Trendelenburg gait (chronic) Balance Sitting Static: Normal Sitting Dynamic: Normal Standing Static: Good Standing Dynamic: Good Assessment/Needs 88 y.o. male, will be seen short term by skilled PT to address functional mobility and pulmonary function to return to home at maximum LOF. Patient does participate in outpatient pulmonary rehabilitation in [place]. Rehab Potential: Fair PT Short Term Goals Short Term Goals Time Frame: Mar 02, 2019 Transfers (B,C,W/C) (FIM): 6 Gait (FIM): 6 Distance (FIM): 3=150 ft Gait Level of Assist: 6 Gait Assistive Device: FWW PT Plan Treatment/Plan Treatment Plan: Continue Plan of Care Treatment Plan: Education, Functional Activity Mindi, Functional Strength, Gait, Safety, Therapeutic Exercise, Transfers Treatment Duration: Mar 02, 2019 Frequency: 5 times per week Estimated Hrs Per Day: .25 hour per day Patient and/or Family Agrees t: Yes Discharge Recommendations Therapy D/C Recommendations: Home Independently Time/GCodes Time In: 1455 Time Out: 1525 Total Billed Treatment Time: 30 Total Billed Treatment 1 visit EVModC 20 min GT 10 min JAVIER PASCUAL PT Feb 26, 2019 15:33
[2019-02-26 16:00] VITALS: BP 131/80
--- NOTE | 2019-02-26 16:26 | History & Physical-Hospitalist ---
History of Present Illness HPI/Chief Complaint The patient is an 88-year-old white male known to me for more than 30 years as I provided outpatient care to his family and to him. He reports that he had a scrape on his left lower extremity just distal to the knee. This occurred about 3-4 weeks ago. He is diabetic and has had spent slow to heal. In addition he has had venous stasis dermatitis of long-standing. He has had several previous bouts of cellulitis on each of the lower extremities. He was an inpatient here earlier this year with a pneumonia. He states that he has had a difficult time recovering from that and recovering his energy. He has had a persistent sore throat and hoarseness. He has experienced some difficulty in swallowing. In addition he also stated that he lost about 50 pounds following that hospitalization and related to diarrhea. Date Seen 02/26/19 Time Seen by a Provider: 16:26 Attending Physician Ginger Miller MD PCP Federico Koehler MD Referring Physician Date of Admission Feb 25, 2019 at 21:16 Home Medications & Allergies Home Medications Reviewed patient Home Medication Reconciliation performed by pharmacy medication reconciliations biofuels processing technician and/or nursing. Patients Allergies have been reviewed. Allergies Allergies Coded Allergies losartan (Verified Allergy, Severe, angioedema, 11/13/18) sulfamethoxazole (Verified Allergy, Mild, 08/27/14) trimethoprim (Verified Allergy, Mild, 08/27/14) amlodipine (Verified Allergy, Unknown, Cough, 08/15/18) Past [id number]-[id number] Hx Patient Social History Alcohol Use: Denies Use Recreational Drug Use: No 2nd Hand Smoke Exposure: No Recent Foreign Travel: No Contact w/other who traveled: No Recent Hopitalizations: Yes Recent Infectious Disease Expo: No Immunizations Up To Date Tetanus Booster (TDap): Unknown Pediatric: Yes Date of Pneumonia Vaccine: Jun 27, 2014 Date of Influenza Vaccine: May 22, 2018 Seasonal Allergies Seasonal Allergies: No Past Medical History Surgeries: Defibrillator, Nephrectomy, Pacemaker Respiratory: Sleep Apnea Currently Using CPAP: Yes Currently Using BIPAP: No Cardiac: Atrial Fibrillation, Chronic Edema/Swelling, Hypertension Neurological: Neuropathy Reproductive: No Sexually Transmitted Disease: No HIV/AIDS: No Genitourinary: Kidney Infection, Prostate Problems, Renal Failure, UTI-Chronic Musculoskeletal: Arthritis, Gout Endocrine: Diabetes, Insulin dep, Hypothyroidsim HEENT: Cataract Loss of Vision: Bilateral Hearing Impairment: Denies Cancer: Melanoma Skin/Integumentary: Eczema History of Blood Disorders: No Adverse Reaction to Blood Thomas: No Family History Dysphasia maternal mother FH: kidney cancer G8 SISTER FH: lung cancer 19 FATHER Hypertension maternal mother Kidney disease maternal mother No Family History of: AIDS Abdominal aortic aneurysm Pondera's disease Alcoholism Alzheimer's disease Aphasia Arthritis Asthma Cancer of mouth Cardiovascular disease Cataracts Colon cancer Completed stroke Congenital disease Congenital heart disease Coronary thrombosis Cystic fibrosis Deafness or hearing loss Dementia Diabetes mellitus Drug abuse Fibrocystic disease of breast Gastroenteritis Glaucoma Headache disorder Hypercholesterolemia Infertility Myocardial infarction Neoplasm Not obtainable due to adoption Osteoporosis Parkinson's disease Prostate cancer Psychosocial problem Respiratory disorder Seizure disorder Severe allergy Thyroid disease Tuberculosis Visual disorder Physical Exam Physical Exam Vital Signs Vital Signs - First Documented 02/25/19 19:07 Temp 99.7 Pulse 69 Resp 22 B/P (MAP) 110/70 (83) Pulse Ox 98 O2 Delivery Nasal Cannula O2 Flow Rate 2.00 Capillary Refill : Less Than 3 Seconds Height, Weight, BMI Height: 5'10.00" Weight: 199lbs. 14.4oz. [id number]; 28.7 BMI Method:Stated Results Results/Procedures Labs Laboratory Tests 02/25/19 19:21 02/26/19 05:25 Patient resulted labs reviewed. Clinical Quality Measures DVT/VTE Risk/Contraindication: Risk Factor Score Per Nursin RFS Level Per Nursing on Admit: 4+=Very High SAÚL PUENTE MD Feb 26, 2019 16:26
[2019-02-26 20:09] VITALS: BP 148/82
[2019-02-27 00:20] VITALS: BP 122/73
[2019-02-27 04:00] VITALS: BP 134/84
[2019-02-27] MEDS: PIPERACILLIN/TAZO 4.5 GM/NS 100 ML IV SCH ×6 (04:23→18:07)
[2019-02-27] MEDS: D5 1/2 NS 1000 ML IV SOLUTION 1,000 ML IV SCH ×2 (04:23→13:44)
[2019-02-27 08:00] VITALS: BP 135/80
--- NOTE | 2019-02-27 10:18 | Physical Therapy Daily Note ---
PT Daily Note-Current Subjective Patient reports frustration with diarrhea and weight loss. He states he is very fatigued but agrees to PT. Mental Status Patient Orientation: Normal For Age Attachments: Oxygen, IV Transfers Therapy Code Descriptions/Definitions Functional [place] Measure: 0=Not Assessed/NA 4=Minimal Assistance 1=Total Assistance 5=Supervision or Setup 2=Maximal Assistance 6=Modified [place] 3=Moderate Assistance 7=Complete [place] Therapy Quality Codes: 6 Independent with activity with or without an assistive device 5 Patient requires set up or clean up by helper. Patient completes activity by themselves 4 Supervision or touching assist (CGA). [place] provide cues , steadying assist 3 The helper provides less than half the effort to complete the activity 2 The helper provides more than half the effort to complete the activity 1 Dependent. The helper does all the effort to complete an activity 7 Patient refused to complete or attempt activity 9 The patient did not perform the activity before the current illness or injury 88 Not attempted due to Medical conditions or safety concerns Transfers (B, C, W/C) (FIM): 5 Scootin Supine to/from Sit: 5 Sit to/from Stand: 5 Bed to/from Chair: 5 Weight Bearing Right Lower Extremity: Right Full Weight Bearing Left Lower Extremity: Left Full Weight Bearing Gait Training Gait (FIM): 1 Distance (FIM): 1=up to 49 ft Distance: 20' x 3 Gait Level of Assist: 5 Gait Persons Needed: 1 Gait Assistive Device: FWW Trendelenburg gait/stance Exercises Supine Ex: Ankle pumps, Quad Set, Heel Slides Supine Reps: 15 Seated Therapy Exercises: Ankle pumps, Long arc quads Seated Reps: 15 Assessment Patient incontinent BM during sessions requiring assistance to cleanse. Patient is up in recliner with needs met. PT Short Term Goals Short Term Goals Time Frame: Mar 02, 2019 Transfers (B,C,W/C) (FIM): 6 Gait (FIM): 6 Distance (FIM): 3=150 ft Gait Level of Assist: 6 Gait Assistive Device: FWW PT Plan Treatment/Plan Treatment Plan: Continue Plan of Care Treatment Plan: Education, Functional Activity Mindi, Functional Strength, Gait, Safety, Therapeutic Exercise, Transfers Treatment Duration: Mar 02, 2019 Frequency: 5 times per week Estimated Hrs Per Day: .25 hour per day Patient and/or Family Agrees t: Yes Time/GCodes Time In: 846 Time Out: 910 Total Billed Treatment Time: 24 Total Billed Treatment 1 visit FA x 2 24 min JAVIER PASCUAL PT Feb 27, 2019 10:17
[2019-02-27 12:00] VITALS: BP 134/79
[2019-02-27] MEDS: ONDANSETRON 4 MG/2 ML (SDV) Z0FRAN IV PRN ×2 (14:20→18:15)
--- NOTE | 2019-02-27 14:22 | Progress Note - Hospitalist ---
Progress Note Progress Notes/Assess & Plan Date Seen 02/27/19 Time Seen by Provider: 14:19 Assessment & Plan The patient reports he feels even better today than he did yesterday. His white count has fallen from 13,000 308,400. Vital signs are normal. His leg is also more comfortable. Physical exam: The patient is alert and oriented. Lungs are clear to auscultation. CV is regular. The left leg shows regression of the erythema and a decreasing amount of fiery redness. There continues to be a bronzy discoloration and keratotic flakes throughout. Impression: Cellulitis left lower extremity with evidence of improvement. 2.chronic venous stasis. 3.diabetes Plan: Continue present measures Focused Exam Lactate Level 02/25/19 19:21: Lactic Acid Level 2.19*H 02/25/19 21:28: Lactic Acid Level 2.05*H SAÚL PUENTE MD Feb 27, 2019 14:22
[2019-02-27] MEDS ORDERED: GLIMEPIRIDE 1 MG (AMARYL) TAB PO PRN (14:30)
[2019-02-27] MEDS ORDERED: LEVALBUTEROL TARTRATE INH PRN (14:30)
[2019-02-27] MEDS ORDERED: LEVALBUTEROL HCL 0.63 MG NEB PRN (14:30)
[2019-02-27] MEDS ORDERED: RT-ALBUTEROL SULF 2.5 MG/3 ML PRE-MIX VIAL IH PRN (15:15)
--- NOTE | 2019-02-27 15:31 | Speech Therapy Daily Note ---
Speech Daily Progress Note Subjective Date Seen by Provider: Feb 27, 2019 Time Seen by Provider: 00:15 The patient states he is feeling much better. Objective The patient utilized compensatory strategies as trained for current diet level with 80% given minimal verbal cues. Assessment Assessment Current Status: Good Progress Treatment Plan Continue Plan of Care Speech Short Term Goals Short Term Goals Short Term Goals 1) The patient will tolerate least restrictive diet level without s/s of aspiration at 90% or greater. 2) The patient will utilize compensatory strategies as trained with 90% or greater given minimal cues. Speech Attenuator Goals Nursing Home Goals The patient will maintain adequate nutrition/hydration via safe effective swallow function. Speech-Plan Patient/Family Goals Patient/Family Goals: The patient plans on returning home with family support upon hospital discharge. Treatment Plan Speech Therapy Treatment Plan: Continue Plan of Care The patient is eating much better on the current modified diet level. Treatment Duration: Mar 01, 2019 Frequency: 4 times per week Estimated Hrs Per Day: .25 hour per day Rehab Potential: Fair Barriers to Learning: Patient's age Pt/Family Agrees to Plan: Yes Safety Risks/Education Teaching Recipient: Patient Teaching Methods: Demonstration, Discussion Response to Teaching: Verbalize Understanding, Return Demonstration Education Topics Provided: Safety of oral intake. Time Speech Therapy Time In: 13:30 Speech Therapy Time Out: 13:45 Total Billed Time: 15 Billed Treatment Time 1, SILVANA Pascal Feb 27, 2019 15:31
[2019-02-27] MEDS: FUROSEMIDE 40 MG (LASIX) TAB PO SCH (16:24)
[2019-02-27 16:40] VITALS: BP 130/81
[2019-02-27] MEDS: KCL 10 MEQ TAB (MICRO K) PO SCH (18:07)
[2019-02-27] MEDS: warFARin 2 MG (COUMADIN) TAB PO SCH (18:07)
[2019-02-27] MEDS: FLUoxetine HCL 20 MG (PROzac) CAP PO SCH (18:07)
[2019-02-27] MEDS: cloNIDine 0.2 MG (CATAPRES) TAB PO SCH (18:07)
--- NOTE | 2019-02-27 18:23 | NUR ---
Pt was only able to take about half of his crushed meds tonight before starting to cough and gag.
[2019-02-27] MEDS ORDERED: NON-FORMULARY MEDICATION 1 EA EA (Clonidine HCl 0.2 MG) PO SCH (19:00)
[2019-02-27 20:05] VITALS: BP 122/55
[2019-02-27] MEDS: CARVEDILOL 12.5 MG (COREG) TABLET PO SCH (20:35)
[2019-02-27] MEDS: MONTELUKAST 10 MG (SINGULAIR) TAB PO SCH (20:44)
[2019-02-27] MEDS ORDERED: UMECLIDINIUM BROMIDE (INCRUSE ELLIPTA) 7'S IH SCH (21:00)
[2019-02-27] MEDS ORDERED: NON-FORMULARY MEDICATION 1 EA EA (Carvedilol 25 MG) PO SCH (21:00)
[2019-02-27] MEDS ORDERED: WARFARIN SODIUM 4 MG PO SCH (21:00)
[2019-02-28 00:16] VITALS: BP 93/56
[2019-02-28] MEDS: PIPERACILLIN/TAZO 4.5 GM/NS 100 ML IV SCH ×6 (02:26→18:21)
[2019-02-28 04:00] VITALS: BP 123/73
[2019-02-28] MEDS: UMECLIDINIUM BROMIDE (INCRUSE ELLIPTA) 7'S IH SCH (08:04)
[2019-02-28 08:06] VITALS: BP 132/78
[2019-02-28] MEDS: ONDANSETRON 4 MG/2 ML (SDV) Z0FRAN IV PRN (08:25)
[2019-02-28] MEDS: D5 1/2 NS 1000 ML IV SOLUTION 1,000 ML IV SCH ×3 (08:43→19:38)
[2019-02-28] MEDS: LEVOTHYROXINE 100 MCG (LEVOTHROID) TAB PO SCH (08:45)
[2019-02-28] MEDS: cloNIDine 0.2 MG (CATAPRES) TAB PO SCH ×2 (08:46→19:37)
--- NOTE | 2019-02-28 09:19 | Physical Therapy Daily Note ---
PT Daily Note-Current Subjective Patient in bed pre tx, agrees to PT, has no complaints of pain. Patient needs to use the restroom, he needs assist with wiping. Daughter in the room. Appearance Patient in recliner post tx with nurse call, phone, tray, all needs met, family in the room. Mental Status Patient Orientation: Person, Place Attachments: Oxygen, IV Transfers Therapy Code Descriptions/Definitions Functional [place] Measure: 0=Not Assessed/NA 4=Minimal Assistance 1=Total Assistance 5=Supervision or Setup 2=Maximal Assistance 6=Modified [place] 3=Moderate Assistance 7=Complete [place] Therapy Quality Codes: 6 Independent with activity with or without an assistive device 5 Patient requires set up or clean up by helper. Patient completes activity by themselves 4 Supervision or touching assist (CGA). [place] provide cues , steadying assist 3 The helper provides less than half the effort to complete the activity 2 The helper provides more than half the effort to complete the activity 1 Dependent. The helper does all the effort to complete an activity 7 Patient refused to complete or attempt activity 9 The patient did not perform the activity before the current illness or injury 88 Not attempted due to Medical conditions or safety concerns Transfers (B, C, W/C) (FIM): 4 Scootin Rollin Supine to/from Sit: 4 Sit to/from Stand: 4 Bed to/from Chair: 4 Weight Bearing Right Lower Extremity: Right Full Weight Bearing Left Lower Extremity: Left Full Weight Bearing Gait Training Gait (FIM): 4 Distance: 150' Gait Level of Assist: 4 Gait Persons Needed: 1 Gait Assistive Device: FWW Very slow ambulation, needs several standing rest breaks, has a pretty profound trendelenburg gait. Treatments bed mobility, transfers, ambulation Assessment Current Status: Fair Progress improving endurance PT Short Term Goals Short Term Goals Time Frame: Mar 02, 2019 Transfers (B,C,W/C) (FIM): 6 Gait (FIM): 6 Distance (FIM): 3=150 ft Gait Level of Assist: 6 Gait Assistive Device: FWW PT Plan Problem List Problem List: Activity Tolerance, Functional Strength, Safety, Balance, Gait, Transfer, Bed Mobility, ROM Treatment/Plan Treatment Plan: Continue Plan of Care Treatment Plan: Education, Functional Activity Mindi, Functional Strength, Gait, Safety, Therapeutic Exercise, Transfers Treatment Duration: Mar 02, 2019 Frequency: 5 times per week Estimated Hrs Per Day: .25 hour per day Patient and/or Family Agrees t: Yes Safety Risks/Education Patient Education: Gait Training, Transfer Techniques, Correct Positioning, Safety Issues Teaching Recipient: Patient Teaching Methods: Demonstration, Discussion Response to Teaching: Reinforcement Needed Time/GCodes Time In: 0850 Time Out: 914 Total Billed Treatment Time: 25 Total Billed Treatment 1 visit GT 15' FA 10' WARREN BALL PT Feb 28, 2019 09:19
[2019-02-28] MEDS: CARVEDILOL 12.5 MG (COREG) TABLET PO SCH ×2 (09:42→19:38)
[2019-02-28] MEDS: KCL 10 MEQ TAB (MICRO K) PO SCH ×2 (09:42→19:37)
--- NOTE | 2019-02-28 10:49 | Progress Note - Hospitalist ---
Subjective HPI/CC On Admission Date Seen by Provider: Feb 28, 2019 Time Seen by Provider: 10:00 The patient is an 88-year-old white male known to me for more than 30 years as I provided outpatient care to his family and to him. He reports that he had a scrape on his left lower extremity just distal to the knee. This occurred about 3-4 weeks ago. He is diabetic and has had spent slow to heal. In addition he has had venous stasis dermatitis of long-standing. He has had several previous bouts of cellulitis on each of the lower extremities. He was an inpatient here earlier this year with a pneumonia. He states that he has had a difficult time recovering from that and recovering his energy. He has had a persistent sore t hroat and hoarseness. He has experienced some difficulty in swallowing. In addition he also stated that he lost about 50 pounds following that hospitalization and related to diarrhea. Subjective/Events-last exam Creatinine 1.[address] Posey for EGD because of the significant dysphasia he is having [place] family checking in on him Left leg cellulitis looks much improved White count is now normal Restarted all home meds INR 2.4 on Coumadin so will continue with home dose Review of Systems General: Fatigue HEENT: Dysphasia Focused Exam Lactate Level 02/25/19 21:28: Lactic Acid Level 2.05*H Objective Exam Vital Signs Vital Signs Date Time Temp Pulse Resp B/P (MAP) Pulse Ox O2 Delivery O2 Flow Rate FiO2 02/28/19 19:33 97.0 68 20 118/77 (91) 99 Nasal Cannula 2.00 Capillary Refill : Less Than 3 Seconds General Appearance: No Apparent Distress, WD/WN, Chronically ill, Obese HEENT: PERRL/EOMI, Normal ENT Inspection, Other (oropharynx exhibits some thick film on the soft palate and posterior pharynx. It is unclear if this is dried mucus or possibly [place]) Neck: Normal Inspection Respiratory: Lungs Clear, Accessory Muscle Use, Decreased Breath Sounds Cardiovascular: No Edema, No Murmur, Irregularly Irregular Extremity: Other (dusky right lower extremity with chronic dark skin changes, stated is unchanged from chronic state. 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, cemetery keeper II-XII Norm as Tested Results/Procedures Lab Laboratory Tests 02/28/19 11:05 Patient resulted labs reviewed. Assessment/Plan Assessment and Plan Assess & Plan/Chief Complaint Assessment: Dysphagia acute on chronic consulting Dr Peck Left leg cellulitis Acute on chronic renal failure CHF CAD OAC Plan: Monitor INR Monitor creatinine Abx Consult Dr Peck Diagnosis/Problems Diagnosis/Problems (1) Dysphagia Status: Acute Qualifiers: Dysphagia type: unspecified Qualified Codes: R13.10 - Dysphagia, unspecifi ed (2) Nausea vomiting and diarrhea Status: Acute (3) Cellulitis of left leg Status: Acute (4) Acute renal failure (ARF) Status: Resolved Resolution Date/Time: 11/10/18 @ 10:54 (5) Diabetes mellitus Status: Chronic (6) Atrial fibrillation Status: Chronic (7) ELIZABETH on CPAP Status: Chronic (8) Advanced age Status: Chronic (9) DNR (do not resuscitate) Status: Chronic (10) Chronic obstructive airway disease Status: Chronic (11) Chronic renal insufficiency Status: Chronic (12) Hypothyroidism Status: Chronic (13) Anxiety Status: Chronic (14) Anticoagulant long-term use Status: Chronic Clinical Quality Measures DVT/VTE Risk/Contraindication: Risk Factor Score Per Nursin RFS Level Per Nursing on Admit: 4+=Very High ABEBE SALAS DO Feb 28, 2019 10:49
[2019-02-28 11:10] LABS: BASOPHILS % (AUTO) 0 % (0-10); EOSINOPHILS # (AUTO) 0.3 10^3/uL (0.0-0.3); EOSINOPHILS % (AUTO) 4 % (0-10); HEMATOCRIT 38 % (40-54); LYMPHOCYTES # (AUTO) 0.5 X 10^3 (1.0-4.0); LYMPHOCYTES % (AUTO) 9 % (12-44); MEAN CORPUSCULAR HEMOGLOBIN 27 PG (25-34); MEAN CORPUSCULAR HGB CONC 32 G/DL (32-36); MEAN CORPUSCULAR VOLUME 85 FL (80-99); MEAN PLATELET VOLUME 11.1 FL (7.4-10.4); MONOCYTES # (AUTO) 0.5 X 10^3 (0.0-1.0); MONOCYTES % (AUTO) 7 % (0-12); NEUTROPHILS # (AUTO) 4.9 X 10^3 (1.8-7.8); NEUTROPHILS % (AUTO) 79 % (42-75); PLATELET COUNT 164 10^3/uL (130-400); RED CELL DISTRIBUTION WIDTH 19.2 % (10.0-14.5); WHITE BLOOD COUNT 6.1 10^3/uL (4.3-11.0)
[2019-02-28 11:22] LABS: INR 2.4 (0.8-1.4); PROTHROMBIN TIME PATIENT 27.6 SEC (12.2-14.7)
[2019-02-28 11:28] LABS: ALBUMIN 2.7 GM/DL (3.2-4.5); BILIRUBIN,TOTAL 1.1 MG/DL (0.1-1.0); CREATININE SERUM 1.58 MG/DL (0.60-1.30); TOTAL PROTEIN 5.6 GM/DL (6.4-8.2)
[2019-02-28 11:54] VITALS: BP 118/66
--- NOTE | 2019-02-28 14:53 | Consultation - Surgery ---
History of Present Illness History of Present Illness Patient Consulted On(fabiano/time) 02/28/19 14:47 Time Seen by Provider: 14:01 History of Present Illness Surgery is asked to consult regarding Dysphagia. HPI per IM: The patient is an 88-year-old white male known to me for more than 30 years as I provided outpatient care to his family and to him. He reports that he had a scrape on his left lower extremity just distal to the knee. This occurred about 3-4 weeks ago. He is diabetic and has had spent slow to heal. In addition he has had venous stasis dermatitis of long-standing. He has had several previous bouts of cellulitis on each of the lower extremities. He was an inpatient here earlier this year with a pneumonia. He states that he has had a difficult time recovering from that and recovering his energy. He has had a persistent sore throat and hoarseness. He has experienced some difficulty in swallowing. In addition he also stated that he lost about 50 pounds following that hospitalization and related to diarrhea. When I spoke to pt and his family today their main concern is his inability to swallow, "I can feel the pill get stuck in my throat". Speech therapy did come up today, assessed him and placed him on Dyspagia I diet. He states it all started when he got pneumonia, then came back again with high blood pressure and at that time they doubled his Losartan dose....."which caused me to get red and all my skin peeled off, hurt my throat as well". He doesn't really have any pain at this time and does not have hx of GERD. Allergies and Home Medications Allergies Coded Allergies: losartan (Verified Allergy, Severe, angioedema, 11/13/18) sulfamethoxazole (Verified Allergy, Mild, 08/27/14) trimethoprim (Verified Allergy, Mild, 08/27/14) amlodipine (Verified Allergy, Unknown, Cough, 08/15/18) Home Medications Carvedilol 25 Mg Tablet, 25 MG PO BID, (Reported) Clobetasol Propionate 15 Gm Cream..g., TOP BID PRN for ITCHING, (Reported) Clonidine HCl 0.2 Mg Tablet, 0.2 MG PO 0800,1900, (Reported) Fluoxetine HCl 20 Mg Capsule, 40 MG PO 1900, (Reported) TAKES 2 (20MG) CAPSULES Furosemide 40 Mg Tablet, 40 MG PO HS, (Reported) Glimepiride 1 Mg Tablet, 1 MG PO DAILY PRN for BS>150, (Reported) Levalbuterol HCl 0.63 Mg/3 Ml Vial.neb, 0.63 MG NEB Q4H PRN for SHORTNESS OF BREATH, (Reported) Levalbuterol Tartrate 15 Gm Hfa.aer.ad, 2 PUFF INH Q4H PRN for SHORTNESS OF BREATH, (Reported) Levothyroxine Sodium 100 Mcg Tablet, 100 MCG PO 0800, (Reported) LAST FILLED #30 5-31-19 Montelukast Sodium 10 Mg Tablet, 10 MG PO HS, (Reported) Potassium Chloride 10 Meq Tablet.er, 20 MEQ PO 0900,1900, (Reported) TAKES 2 (10MEQ) TABLETS Umeclidinium [place] 62.5 Mcg Blst.w.dev, 1 PUFF IH HS, (Reported) Warfarin Sodium 4 Mg Tablet, 4 MG PO HS, (Reported) Patient Home Medication List Home Medication List Reviewed: Yes Past Iplnaim-Fooajt-Gsszvn Hx Patient Social History Alcohol Use: Denies Use Recreational Drug Use: No 2nd Hand Smoke Exposure: No Recent Foreign Travel: No Contact w/Someone Who Travel: No Recent Infectious Disease Expo: No Recent Hopitalizations: Yes Immunizations Up To Date Tetanus Booster (TDap): Unknown PED Vaccines UTD: Yes Date of Pneumonia Vaccine: Jun 27, 2014 Date of Influenza Vaccine: May 22, 2018 Seasonal Allergies Seasonal Allergies: No Surgeries History of Surgeries: No Surgeries: Defibrillator, Nephrectomy, Pacemaker Respiratory History of Respiratory Disorde: Yes Respiratory Disorders: COPD Cardiovascular History of Cardiac Disorders: Yes Cardiac Disorders: Atrial Fibrillation, Chronic Edema/Swelling, Hypertension Neurological History of Neurological Disord: No Neurological Disorders: Neuropathy Reproductive System Hx Reproductive Disorders: No Sexually Transmitted Disease: No HIV/AIDS: No Genitourinary History of Genitourinary Disor: No Genitourinary Disorders: Kidney Infection, Prostate Problems, Renal Failure, UTI-Chronic Gastrointestinal History of Gastrointestinal Di: No Musculoskeletal History of Musculoskeletal Dis: No Musculoskeletal Disorders: Arthritis, Gout Endocrine History of Endocrine Disorders: Yes Endocrine Disorders: Diabetes, Insulin dep, Hypothyroidsim HEENT History of HEENT Disorders: No HEENT Disorders: Cataract Loss of Vision: Bilateral Hearing Impairment: Denies Cancer History of Cancer: No Cancer: Melanoma Psychosocial History of Psychiatric Problem: No Integumentary History of Skin or Integumenta: No Skin/Integumentary Disorders: Eczema Blood Transfusions History of Blood Disorders: No Adverse Reaction to a Blood Tr: No Family Medical History Significant Family History: Cancer, Hypertension Family Medial History: Dysphasia maternal mother FH: kidney cancer G8 SISTER FH: lung cancer 19 FATHER Hypertension maternal mother Kidney disease maternal mother No Family History of: AIDS Abdominal aortic aneurysm [place]'s disease Alcoholism Alzheimer's disease Aphasia Arthritis Asthma Cancer of mouth Cardiovascular disease Cataracts Colon cancer Completed stroke Congenital disease Congenital heart disease Coronary thrombosis Cystic fibrosis Deafness or hearing loss Dementia Diabetes mellitus Drug abuse Fibrocystic disease of breast Gastroenteritis Glaucoma Headache disorder Hypercholesterolemia Infertility Myocardial infarction Neoplasm Not obtainable due to adoption Osteoporosis Parkinson's disease Prostate cancer Psychosocial problem Respiratory disorder Seizure disorder Severe allergy Thyroid disease Tuberculosis Visual disorder Review of Systems-General Constitutional: fever, malaise, weakness, weight loss EENTM: blurred vision, hoarseness, mouth pain, mouth swelling, throat pain, th roat swelling; No epistaxis Respiratory: dyspnea on exertion; No hemoptysis; short of breath Cardiovascular: No chest pain, No edema Gastrointestinal: No abdominal pain; constipation; No jaundice, No melena Genitourinary: No dysuria, No frequency, No hematuria Musculoskeletal: joint pain, joint swelling, muscle pain, muscle stiffness Skin: change in color; No change in hair/nails; rash Psychiatric/Neurological: Depressed; Denies Headache, Denies Seizure; Tremors Other pt does bleed easily and bruise easily, he is on Coumadin Physical Exam-General Problems Physical Exam Vital Signs Vital Signs - First Documented 02/25/19 19:07 Temp 99.7 Pulse 69 Resp 22 B/P (MAP) 110/70 (83) Pulse Ox 98 O2 Delivery Nasal Cannula O2 Flow Rate 2.00 Capillary Refill : Less Than 3 Seconds General Appearance: no apparent distress, cachetic, other (chronically ill) Eyes: Bilateral Eye PERRL, Bilateral Eye EOMI HEENT: pharynx normal; No scleral icterus (R), No scleral icterus (L); other (poor dentition) Neck: non-tender; No thyromegaly Respiratory: chest non-tender, no respiratory distress, no accessory muscle use, decreased breath sounds Cardiovascular: no murmur, irregularly irregular Gastrointestinal: soft, no organomegaly; No distended, No guarding Back: no CVA tenderness, no vertebral tenderness Extremities: inflammation (below knee on left leg), pedal edema, swelling, other (Cellulitis left lower leg) Neurologic/Psychiatric: 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 nml as tested, alert, normal mood/affect, oriented x 3 Skin: normal color, warm/dry Lymphatic: no adenopathy (neck, axilla or groin) Data Review Labs Laboratory Tests 02/27/19 17:46: Glucometer 131H 02/28/19 00:18: Glucometer 124H 02/28/19 05:51: Glucometer 110 02/28/19 11:05: White Blood Count 6.1, Red Blood Count 4.40, Hemoglobin 12.0L, Hematocrit 38L, Mean Corpuscular Volume 85, Mean Corpuscular Hemoglobin 27, Mean Corpuscular Hemoglobin Concent 32, Red Cell Distribution Width 19.2H, Platelet Count 164, Mean Platelet Volume 11.1H, Neutrophils (%) (Auto) 79H, Lymphocytes (%) (Auto) 9L, Monocytes (%) (Auto) 7, Eosinophils (%) (Auto) 4, Basophils (%) (Auto) 0, Neutrophils # (Auto) 4.9, Lymphocytes # (Auto) 0.5L, Monocytes # (Auto) 0.5, Eosinophils # (Auto) 0.3, Basophils # (Auto) 0.0, Prothrombin Time 27.6H, INR Comment 2.4H, Sodium Level 135, Potassium Level 3.0L, Chloride Level 104, Carbon Dioxide Level 21, Anion Gap 10, Blood Urea Nitrogen 19H, Creatinine 1.58H, Estimat Glomerular Filtration Rate 42, BUN/Creatinine Ratio 12, Glucose Level 187H, Calcium Level 8.0L, Corrected Calcium 9.0, Total Bilirubin 1.1H, Aspartate Amino Transf (AST/SGOT) 15, Alanine Aminotransferase (ALT/SGPT) 14, Alkaline Phosphatase 59, Total Protein 5.6L, Albumin 2.7L 02/28/19 12:50: Glucometer 238H Microbiology 02/25/19 Blood Culture - Preliminary, Resulted No growth 02/25/19 Gram Stain - Final, Complete 02/25/19 Sputum Culture - Final, Complete Usual upper respiratory can 02/25/19 Urine Culture - Final, Complete NO GROWTH Assessment/Plan Assessment/Plan Assessment/Plan Dysphagia Left Lower Extremity Cellulitis COPD Atrial fibrillation Plan to make pt NPO and will do EGD with possible biopsy tonight. If that does not show anything may get a modified barium swallow. I did talk to the family about increased risk of bleeding because he is on blood thinners. All questions answered to their satisfaction, they are very happy we are doing something tonight. Clinical Quality Measures DVT/VTE Risk/Contraindication: Risk Factor Score Per Nursin RFS Level Per Nursing on Admit: 4+=Very High OLESYA WATERS DO Feb 28, 2019 14:53
--- NOTE | 2019-02-28 15:40 | Speech Therapy Daily Note ---
Speech Daily Progress Note Subjective Date Seen by Provider: Feb 28, 2019 Time Seen by Provider: 00:15 Patient is continuing to have much difficulty with swallowing and was only able to take half of his medication the past evening. Objective Patient has a consult with surgery for further dysphagia investigation. Assessment Assessment Current Status: Poor Progress Treatment Plan Continue Plan of Care Speech Short Term Goals Short Term Goals Short Term Goals 1) The patient will tolerate least restrictive diet level without s/s of aspiration at 90% or greater. 2) The patient will utilize compensatory strategies as trained with 90% or greater given minimal cues. Speech Sld Inclusion Teacher Goals Halfway Goals The patient will maintain adequate nutrition/hydration via safe effective swallow function. Speech-Plan Patient/Family Goals Patient/Family Goals: The patient will be NPO with EGD later today. Treatment Plan Speech Therapy Treatment Plan: Continue Plan of Care The patient may need an MBS as follow up to today's procedures. Treatment Duration: Mar 02, 2019 Frequency: 4 times per week Estimated Hrs Per Day: .25 hour per day Rehab Potential: Fair Barriers to Learning: None identified Pt/Family Agrees to Plan: Yes Safety Risks/Education Teaching Recipient: Patient, Family Teaching Methods: Discussion Response to Teaching: Verbalize Understanding Education Topics Provided: Modified Barium Swallow procedure Time Speech Therapy Time In: 15:45 Speech Therapy Time Out: 16:00 Total Billed Time: 15 Billed Treatment Time 1, SILVANA Pascal Feb 28, 2019 15:40
[2019-02-28 16:30] VITALS: BP 130/77
[2019-02-28] MEDS ORDERED: MIDAZOLAM 2 MG/2 ML (VERSED) VIAL ONE (16:49)
[2019-02-28] MEDS ORDERED: proPOfol 200 MG/20 ML (DIPRIVAN) VIAL IV ONE (16:49)
[2019-02-28] MEDS: FUROSEMIDE 40 MG (LASIX) TAB PO SCH (17:00)
[2019-02-28] MEDS ORDERED: LACTATED RINGERS 1,000 ML IV ONE ×2 (17:04→17:15)
--- NOTE | 2019-02-28 17:05 | NUR ---
EGD STAFF TO FLOOR AND TOOK PT DOWN FOR EGD -- DAUGHTER WENT DOWN WITH PT AND EGD STAFF
[2019-02-28] MEDS ORDERED: HURRICAINE EXT TUBE (BENZOCAINE) XX PRN (17:15)
--- NOTE | 2019-02-28 17:47 | Progress Note-Post Operative ---
Post-Operative Progess Note Surgeon (s)/Banquet Prep Cook (s) Surgeon OLESYA WATERS DO Banquet Prep Cook: none Pre-Operative Diagnosis Dysphagia Post-Operative Diagnosis Gastritis Gastric Polyps Esophagitis ??small hiatal hernia Procedure & Operative Findings Date of Procedure 02/28/19 Procedure Performed/Findings EGD Anesthesia Type IV sedation by PULL OVER MACHINE OPERATOR Estimated Blood Loss Estimated blood loss (mL): none Specimens/Packing Specimens Removed none OLESYA WATERS DO Feb 28, 2019 17:47
[2019-02-28] MEDS: warFARin 2 MG (COUMADIN) TAB PO SCH (18:00)
--- NOTE | 2019-02-28 18:15 | NUR ---
BACK TO FLOOR -- REPORT FROM ENDO RN -- GASTRITIS -- PLAN BARIUM SWALLOW --
[2019-02-28 19:33] VITALS: BP 118/77
[2019-02-28] MEDS: FLUoxetine HCL 20 MG (PROzac) CAP PO SCH (19:37)
[2019-02-28] MEDS: MONTELUKAST 10 MG (SINGULAIR) TAB PO SCH (19:38)
[2019-03-01] VITALS: BP 116/64
--- NOTE | 2019-03-01 02:16 | OPERATIVE REPORT ---
DATE OF SERVICE: PREOPERATIVE DIAGNOSIS: Dysphagia. POSTOPERATIVE DIAGNOSES: 1. Dysphagia. 2. Gastritis. 3. Gastric polyps. PROCEDURE: EGD. SURGEON: Jose Alejandro Peck DO COAL WHEELER: None. ANESTHESIA: IV sedation by TIMBER INSPECTOR. SPECIMENS: None. BLOOD LOSS: None. FLUIDS: Per anesthesia. POSTOPERATIVE CONDITION: Stable. INDICATION FOR PROCEDURE: The patient is an 88-year-old male who was having increasing dysphagia and needed to make sure there is nothing causing obstruction in the mouth, esophagus. FINDINGS: The patient had normal appearing esophagus, possibly some mild esophagitis. He did have some gastritis and some gastric polyps. Duodenum looked okay. PROCEDURE NOTE: After informed consent was obtained, the patient was brought to the endoscopy suite, placed in the bed in left lateral decubitus position. He was administered IV sedation by the TIMBER INSPECTOR, who then monitored his vitals the entire time, heart rate, blood pressure and pulse ox and the scope was inserted down the mouth through the esophagus and stomach. Upon entry mild to moderate gastritis, took a picture of this, noted some inflamed gastric polyps. Pushed towards the antrum and then into the duodenum. First and second portion of duodenum looked good. Took pictures and then pulled back into the antrum and then into the stomach, retroflexed, made a small hiatal hernia. Nothing else obvious in the upper portion of the body of the stomach, pulled the scope back into the GE junction and saw some mild creeping up of the Z line, took a picture of this patient is on Coumadin and INR 2.4 selective do no biopsies and then pulled the scope up the esophagus, did not see any strictures and then into the mouth, did not see obvious masses, but did not really look around the mouth or posterior oropharynx. Vocal cords looked good, did not see any back here. Scope was removed. The patient tolerated the procedure, recovered in endoscopy suite. Job ID: [id number] DocumentID: [id number] Dictated Date: 02/28/2019 17:41:25 Diaper Folder Date: 03/01/2019 02:16:14 Dictated By: JOSE ALEJANDRO PCEK DO
[2019-03-01] MEDS: PIPERACILLIN/TAZO 4.5 GM/NS 100 ML IV SCH ×4 (02:18→09:58)
[2019-03-01 04:00] VITALS: BP 101/71
[2019-03-01] MEDS: D5 1/2 NS 1000 ML IV SOLUTION 1,000 ML IV SCH (06:04)
[2019-03-01 06:58] LABS: BASOPHILS % (AUTO) 0 % (0-10); EOSINOPHILS # (AUTO) 0.5 10^3/uL (0.0-0.3); EOSINOPHILS % (AUTO) 9 % (0-10); HEMATOCRIT 38 % (40-54); HEMOGLOBIN 12.2 G/DL (13.3-17.7); LYMPHOCYTES # (AUTO) 0.8 X 10^3 (1.0-4.0); LYMPHOCYTES % (AUTO) 15 % (12-44); MEAN CORPUSCULAR HEMOGLOBIN 28 PG (25-34); MEAN CORPUSCULAR HGB CONC 32 G/DL (32-36); MEAN CORPUSCULAR VOLUME 85 FL (80-99); MEAN PLATELET VOLUME 11.1 FL (7.4-10.4); MONOCYTES # (AUTO) 0.5 X 10^3 (0.0-1.0); MONOCYTES % (AUTO) 10 % (0-12); NEUTROPHILS # (AUTO) 3.4 X 10^3 (1.8-7.8); NEUTROPHILS % (AUTO) 65 % (42-75); PLATELET COUNT 150 10^3/uL (130-400); WHITE BLOOD COUNT 5.1 10^3/uL (4.3-11.0)
[2019-03-01 07:19] LABS: ALBUMIN 2.6 GM/DL (3.2-4.5); CALCIUM 8.1 MG/DL (8.5-10.1); CREATININE SERUM 1.46 MG/DL (0.60-1.30); POTASSIUM 3.4 MMOL/L (3.6-5.0); TOTAL PROTEIN 5.6 GM/DL (6.4-8.2)
[2019-03-01 08:00] VITALS: BP 118/79
[2019-03-01] MEDS: cloNIDine 0.2 MG (CATAPRES) TAB PO SCH (08:25)
[2019-03-01] MEDS: LEVOTHYROXINE 100 MCG (LEVOTHROID) TAB PO SCH (08:25)
[2019-03-01] MEDS: CARVEDILOL 12.5 MG (COREG) TABLET PO SCH (08:25)
[2019-03-01] MEDS: KCL 10 MEQ TAB (MICRO K) PO SCH (08:25)
[2019-03-01] MEDS: UMECLIDINIUM BROMIDE (INCRUSE ELLIPTA) 7'S IH SCH (08:28)
--- NOTE | 2019-03-01 09:37 | ST Mod Barium Swallow ---
Speech Evaluation-General Medical Diagnosis Dysphagia Onset Date: Feb 25, 2019 Therapy Diagnosis Therapy Diagnosis: Oropharyngeal Dysphagia Precautions Precautions: Aspiration Precautions/Isolations: Fall Prevention, Standard Precautions, Pressure Ulcer Referral Referring Physician: Dr. Peck Medical History Pertinent Medical History: Atrial Fib, Arthritis, COPD, DM, HTN, Hypothroidism, Neuropathy, Renal Insufficiency Reviewed History: Yes Social History Current Living Status: Alone Speech Mod Barium Swallow Oral Motor Skills Dentition Natural Dentures: Full Lingual Protrusion: Normal Lingual ROM: Normal Lingual Strength: Normal Velum: Normal Volitional Dry Swallow: Yes Can Clear Throat Volitionally: Yes Patient stated after the intake he felt like if he coughed he would vomit Textures-Lateral View Lateral View Food Presentation: Thin Liquid via Spoon, Thin Liquid via Straw, Pureed Solids, Mechanial Soft Solids, Regular Solids Oral Phase Labial Closure: No Impairment (WFL) Bolus Formation Pooling L/R: No Impairment (WFL) Bolus Formation Placement: Minimal Impairment Mastication Rotary Chew: Minimal Impairment A/P Lingual Propulsion: No Impairment (WFL) Lingual Movement: No Impairment (WFL) The patient exhibits normal swallow onset. Cleared residue with additional swallow. Oral Phase Residue: No Impairment (WFL) Pharyngeal Phase Swallow Response: No Impairment (WFL) Base of Tongue: No Impairment (WFL) Epiglottic Movement: No Impairment (WFL) Laryngeal Elevation: No Impairment (WFL) Vallecular Residue: Swallow to Clear Pharyngeal Wall Residue: No Impairment (WFL) Piriform Sinus Residue: Swallow to Clear Laryngeal Penetration: None Aspiration Observations: None Other Pharyngeal Observations: Patient exhibits normal pharyngeal function for all consistencies. Esophageal Phase Peristalsis: WFL A/P Esophageal Propulsion Time: Less Than 5 Seconds Normal Performed-A/P View Not Applicable/Performed Summary/Impressions Oral Phase Impression: No Impairment (WFL) The patient exhibits normal swallow function for all consistencies presented. He was able to clear mild residue with additional swallow. Speech Short Term Goals Short Term Goals Short Term Goals 1) The patient will tolerate least restrictive diet level without s/s of aspiration at 90% or greater. 2) The patient will utilize compensatory strategies as trained with 90% or greater given minimal cues. Speech [facility] Goals Liquor Rectifier Goals The patient will maintain adequate nutrition/hydration via safe effective swallow function. Speech-Plan Patient/Family Goals Patient/Family Goals: The patient plans to return home with family support upon discharge. Treatment Plan Speech Therapy Treatment Plan: Continue Plan of Care The patient will continue to be followed until discharge. Treatment Duration: Mar 02, 2019 Frequency: 4 times per week Estimated Hrs Per Day: .25 hour per day Rehab Potential: Fair Barriers to Learning: None identified Pt/Family Agrees to Plan: Yes Safety Risks/Education Teaching Recipient: Patient, Family Teaching Methods: Demonstration, Discussion Response to Teaching: Verbalize Understanding, Return Demonstration Education Topics Provided: Safety of oral intake strategies. Time Speech Therapy Time In: 08:50 Speech Therapy Time Out: 09:05 Total Billed Time: 15 Billed Treatment Time 1, MOD No SILVANA LOBATO Mar 01, 2019 09:37
[2019-03-01] MEDS ORDERED: CEFD300C3 PO (10:30)
--- NOTE | 2019-03-01 10:31 | Discharge Summary ---
Diagnosis/Chief Complaint Date of Admission Feb 25, 2019 at 21:16 Date of Discharge Discharge Date: Mar 01, 2019 Discharge Diagnosis (1) Dysphagia Status: Acute (2) Nausea vomiting and diarrhea Status: Acute (3) Cellulitis of left leg Status: Acute (4) Acute renal failure (ARF) Status: Resolved (5) Diabetes mellitus Status: Chronic (6) Atrial fibrillation Status: Chronic (7) ELIZABETH on CPAP Status: Chronic (8) Advanced age Status: Chronic (9) DNR (do not resuscitate) Status: Chronic (10) Chronic obstructive airway disease Status: Chronic (11) Chronic renal insufficiency Status: Chronic (12) Hypothyroidism Status: Chronic (13) Anxiety Status: Chronic (14) Anticoagulant long-term use Status: Chronic Discharge Summary Discharge Physical Exam Allergies: Coded Allergies: losartan (Verified Allergy, Severe, angioedema, 11/13/18) sulfamethoxazole (Verified Allergy, Mild, 08/27/14) trimethoprim (Verified Allergy, Mild, 08/27/14) amlodipine (Verified Allergy, Unknown, Cough, 08/15/18) Vitals & I&Os Vital Signs Date Time Temp Pulse Resp B/P (MAP) Pulse Ox O2 Delivery O2 Flow Rate FiO2 03/01/19 15:35 67 20 108/66 94 Nasal Cannula 2.00 03/01/19 12:00 97.6 General Appearance: No Apparent Distress, WD/WN Respiratory: Chest Non Tender, Lungs Clear, Normal Breath Sounds, No Accessory Muscle Use, No Respiratory Distress Cardiovascular: Regular Rate, Rhythm, No Edema, No Gallop, No JVD, No Murmur, Normal Peripheral Pulses Skin: Other (improved left leg cellulitis) Neurologic/Psychiatric: Alert, Oriented x3, No Motor/Sensory Deficits, Normal Mood/Affect, 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 Pt was placed on Zosyn with good results of the left leg improved erythema and pain by the time of discharge. EGD was required by Dr. Peck because of dysphagia that was within normal limits and swallow study was performed without any evidence of any major dysfunction so he was stable at discharge, was initiated of 3 days of antibiotics to complete the Omnicef and will have close follow-up with Dr. Koehler, although advanced age and significant comorbidities preclude anything but a poor prognosis overall, but [place] His family checks on him quite frequently and will monitor the Pt closely in the meantime. Labs (last 24 hrs) Laboratory Tests 03/01/19 00:20: Glucometer 219H 03/01/19 05:57: Glucometer 153H 03/01/19 06:40: White Blood Count 5.1, Red Blood Count 4.44, Hemoglobin 12.2L, Hematocrit 38L, Mean Corpuscular Volume 85, Mean Corpuscular Hemoglobin 28, Mean Corpuscular Hemoglobin Concent 32, Red Cell Distribution Width 19.0H, Platelet Count 150, Mean Platelet Volume 11.1H, Neutrophils (%) (Auto) 65, Lymphocytes (%) (Auto) 15, Monocytes (%) (Auto) 10, Eosinophils (%) (Auto) 9, Basophils (%) (Auto) 0, Neutrophils # (Auto) 3.4, Lymphocytes # (Auto) 0.8L, Monocytes # (Auto) 0.5, Eosinophils # (Auto) 0.5H, Basophils # (Auto) 0.0, Sodium Level 136, Potassium Level 3.4L, Chloride Level 105, Carbon Dioxide Level 21, Anion Gap 10, Blood Urea Nitrogen 15, Creatinine 1.46H, Estimat Glomerular Filtration Rate 46, BUN/Creatinine Ratio 10, Glucose Level 116H, Calcium Level 8.1L, Corrected Calcium 9.2, Total Bilirubin 1.0, Aspartate Amino Transf (AST/SGOT) 19, Alanine Aminotransferase (ALT/SGPT) 11, Alkaline Phosphatase 56, Total Protein 5.6L, Albumin 2.6L 03/01/19 11:49: Glucometer 249H Microbiology 02/25/19 Blood Culture - Preliminary, Resulted No growth 02/28/19 MRSA Screen - Preliminary, Resulted MRSA not isolated 02/25/19 Urine Culture - Final, Complete NO GROWTH Patient resulted labs reviewed. Pending Labs Discussion & Recommendations Discharge Planning: <30 minutes discharge planning Discharge Home Medications: Active Scripts Active Cefdinir 300 Mg Capsule 300 Mg PO BID Reported Jantoven (Warfarin Sodium) 4 Mg Tablet 4 Mg PO HS Carvedilol 25 Mg Tablet 25 Mg PO BID Montelukast Sodium 10 Mg Tablet 10 Mg PO HS Glimepiride 1 Mg Tablet 1 Mg PO DAILY PRN Incruse Ellipta (Umeclidinium [place]) 62.5 Mcg Blst.w.dev 1 Puff IH HS Clobetasol Propionate 15 Gm Cream..g. TOP BID PRN Levalbuterol HCl 0.63 Mg/3 Ml Vial.neb 0.63 Mg NEB Q4H PRN Levalbuterol Tartrate Hfa (Levalbuterol Tartrate) 15 Gm Hfa.aer.ad 2 Puff INH Q4H PRN Furosemide 40 Mg Tablet 40 Mg PO HS Clonidine HCl 0.2 Mg Tablet 0.2 Mg PO 0800,1900 Fluoxetine HCl 20 Mg Capsule 40 Mg PO 1900 TAKES 2 (20MG) CAPSULES Potassium Chloride 10 Meq Tablet.er 20 Meq PO 0900,1900 TAKES 2 (10MEQ) TABLETS Levothyroxine Sodium 100 Mcg Tablet 100 Mcg PO 0800 LAST FILLED #30 5-31-19 Instructions to patient/family Please see electronic discharge instructions given to patient. Clinical Quality Measures DVT/VTE Risk/Contraindication: Risk Factor Score Per Nursin RFS Level Per Nursing on Admit: 4+=Very High Problem Qualifiers (1) Dysphagia: Dysphagia type: unspecified Qualified Codes: R13.10 - Dysphagia, unspecified ABEBE SALAS DO Mar 01, 2019 10:31
--- NOTE | 2019-03-01 10:34 | Diagnostic Imaging Report ---
INDICATION: Dysphagia. TECHNIQUE: This study was performed in conjunction with Speech Pathology. Videofluoroscopy was performed during the swallowing of barium in multiple consistencies. A total of 1 minute and 52 seconds of fluoroscopy was utilized. FINDINGS: The patient ingested thin consistency with a spoon and through a straw. The patient also ingested applesauce, banana, and cracker consistencies. There is mild vallecular residue present with multiple consistencies. This did typically clear after a second swallow. There is normal epiglottic tilt. No laryngeal penetration or aspiration was observed. IMPRESSION: Mild vallecular residue. No penetration or aspiration was observed. Dictated by: Dictated on workstation # [id number]
--- NOTE | 2019-03-01 11:32 | Physical Therapy Daily Note ---
PT Daily Note-Current Subjective Patient agrees to PT. He reports he is going home on this date. Mental Status Patient Orientation: Normal For Age Attachments: Oxygen, IV Transfers Therapy Code Descriptions/Definitions Functional Bryan Measure: 0=Not Assessed/NA 4=Minimal Assistance 1=Total Assistance 5=Supervision or Setup 2=Maximal Assistance 6=Modified Bryan 3=Moderate Assistance 7=Complete Bryan Therapy Quality Codes: 6 Independent with activity with or without an assistive device 5 Patient requires set up or clean up by helper. Patient completes activity by themselves 4 Supervision or touching assist (CGA). [place] provide cues , steadying assist 3 The helper provides less than half the effort to complete the activity 2 The helper provides more than half the effort to complete the activity 1 Dependent. The helper does all the effort to complete an activity 7 Patient refused to complete or attempt activity 9 The patient did not perform the activity before the current illness or injury 88 Not attempted due to Medical conditions or safety concerns Transfers (B, C, W/C) (FIM): 3 Scootin Sit to/from Stand: 3 Weight Bearing Right Lower Extremity: Right Full Weight Bearing Left Lower Extremity: Left Full Weight Bearing Gait Training Gait (FIM): 2 Distance (FIM): 3=069-17 ft Distance: 45' Gait Level of Assist: 5 Gait Assistive Device: FWW extreme Trendelenburg gait Assessment Patient tolerated treatment well and will dismiss to home on this date. PT Short Term Goals Short Term Goals Time Frame: Mar 02, 2019 Transfers (B,C,W/C) (FIM): 6 Gait (FIM): 6 Distance (FIM): 3=150 ft Gait Level of Assist: 6 Gait Assistive Device: FWW PT Plan Treatment/Plan Treatment Plan: Discontinue PT Treatment Plan: Education, Functional Activity Mindi, Functional Strength, Gait, Safety, Therapeutic Exercise, Transfers Treatment Duration: Mar 02, 2019 Frequency: 5 times per week Estimated Hrs Per Day: .25 hour per day Patient and/or Family Agrees t: Yes Time/GCodes Time In: 1040 Time Out: 1050 Total Billed Treatment Time: 10 Total Billed Treatment 1 visit FA 10 min JAVIER PASCUAL PT Mar 01, 2019 11:32
[2019-03-01 12:00] VITALS: BP 108/66
--- NOTE | 2019-03-01 14:52 | NUR ---
Explained and had patient sign his Medicaid Important Message. Placed on patient's chart.
[2019-03-01 15:35] VITALS: BP 108/66
--- NOTE | 2019-03-01 15:35 | NUR ---
GIN MORENO demonstrates understanding of discharge instructions and accurately returns instructions upon questioning. Copy of Post-Discharge Instructions and Medication Discharge Instructions given to PT. GIN MORENO is able to manage continuing needs after discharge. Patients belongings returned to PT. Skin dry and intact; no breakdown noted. Patient discharged from 6-1 on 03/01/19 at 1535. GIN MORENO left floor via , accompanied by STAFF AND DAUGHTER.
[2019-03-01 15:51] VITALS: BP 108/66
== END 2019-03-01 15:38 | disposition home or self-care (01) | DRG 603 ==
LOC: EDUNIT# 18:55 → ER 18:57 → 4TH 21:16
PROVIDERS: ADMIT Family Medicine; ATTEND Family Medicine
PROC: 0DJ08ZZ Inspection of Upper Intestinal Tract, Via Natural or Artificial Opening Endoscopic (ICD-10-PCS; principal; 2019-02-28 17:24)
DX: L03.116 Cellulitis of left lower limb (principal); N17.9 Acute kidney failure, unspecified; B37.0 Candidal stomatitis; R13.10 Dysphagia, unspecified; I13.0 Hypertensive heart and chronic kidney disease with heart failure and stage 1 through stage 4 chronic kidney disease, or unspecified chronic kidney disease; I50.9 Heart failure, unspecified; I87.2 Venous insufficiency (chronic) (peripheral); J02.9 Acute pharyngitis, unspecified; Z66 Do not resuscitate; K29.70 Gastritis, unspecified, without bleeding; K31.7 Polyp of stomach and duodenum; R19.7 Diarrhea, unspecified; E11.40 Type 2 diabetes mellitus with diabetic neuropathy, unspecified; R11.2 Nausea with vomiting, unspecified; E11.649 Type 2 diabetes mellitus with hypoglycemia without coma; R05 Cough; J44.9 Chronic obstructive pulmonary disease, unspecified; N18.9 Chronic kidney disease, unspecified; I48.91 Unspecified atrial fibrillation; E03.9 Hypothyroidism, unspecified; M10.9 Gout, unspecified; M19.91 Primary osteoarthritis, unspecified site; G47.33 Obstructive sleep apnea (adult) (pediatric); F41.9 Anxiety disorder, unspecified; Z95.810 Presence of automatic (implantable) cardiac defibrillator; Z79.4 Long term (current) use of insulin; Z79.01 Long term (current) use of anticoagulants; Z90.5 Acquired absence of kidney; S80.812A Abrasion, left lower leg, initial encounter; K44.9 Diaphragmatic hernia without obstruction or gangrene
CPT/HCPCS: 36415; 71046; 74230; 80053; 81000; 82962; 83605; 83880; 84439; 84443; 85007; 85025; 85027; 85610; 85730; 86141; 87040; 87070; 87081; 87088; 87205; 94640; 94760; 96361; 96365

== ENCOUNTER 2019-03-15 11:40 | Emergency (ER) | payer MEDICARE, OTHER ==
[~2019-03-15] VITALS: Ht 172.7 cm; Wt 95.3 kg
[~2019-03-15 11:40] MED LIST changes: +GLIM1TAB PO; +MONT10TA24 PO
[2019-03-15 11:56] LABS: BASOPHILS % (AUTO) 0 % (0-10); EOSINOPHILS # (AUTO) 0.1 10^3/uL (0.0-0.3); EOSINOPHILS % (AUTO) 1 % (0-10); HEMATOCRIT 44 % (40-54); LYMPHOCYTES # (AUTO) 0.8 X 10^3 (1.0-4.0); LYMPHOCYTES % (AUTO) 11 % (12-44); MEAN CORPUSCULAR HEMOGLOBIN 28 PG (25-34); MEAN CORPUSCULAR HGB CONC 32 G/DL (32-36); MEAN CORPUSCULAR VOLUME 86 FL (80-99); MEAN PLATELET VOLUME 11.5 FL (7.4-10.4); MONOCYTES # (AUTO) 0.6 X 10^3 (0.0-1.0); MONOCYTES % (AUTO) 8 % (0-12); NEUTROPHILS # (AUTO) 6.1 X 10^3 (1.8-7.8); NEUTROPHILS % (AUTO) 80 % (42-75); PLATELET COUNT 211 10^3/uL (130-400); RED CELL DISTRIBUTION WIDTH 22.4 % (10.0-14.5); WHITE BLOOD COUNT 7.5 10^3/uL (4.3-11.0)
[2019-03-15 12:09] LABS: INR 1.8 (0.8-1.4); PROTHROMBIN TIME PATIENT 21.9 SEC (12.2-14.7)
--- NOTE | 2019-03-15 12:12 | Diagnostic Imaging Report ---
Patient History: Generalized weakness. Technique: Single frontal view of the chest Comparison: Chest radiograph on 02/26/2019 FINDINGS: Stable configuration of the right pectoral pacemaker. Slight increase in small bilateral pleural effusions with stable right and increasing left bibasilar opacities. Stable enlarged cardiac silhouette. No pneumothorax. No acute osseous abnormalities. IMPRESSION: Slight increase in small bilateral pleural effusions with stable right increasing left bibasilar opacities. These may represent atelectasis, edema and/or infection. Dictated by: Dictated on workstation # [id number]
[2019-03-15 12:17] LABS: ALANINE AMINOTRANSFERASE 11 U/L (0-55); ALBUMIN 3.2 GM/DL (3.2-4.5); ALKALINE PHOSPHATASE 78 U/L (40-136); BILIRUBIN,TOTAL 1.5 MG/DL (0.1-1.0); BUN/CREATININE RATIO 15; CARBON DIOXIDE 23 MMOL/L (21-32); CHLORIDE 100 MMOL/L (98-107); CREATININE SERUM 1.71 MG/DL (0.60-1.30); GFR ESTIMATED 38; GLUCOSE 114 MG/DL (70-105); LIPASE 20 U/L (8-78); MAGNESIUM 1.7 MG/DL (1.8-2.4); POTASSIUM 4.5 MMOL/L (3.6-5.0); SODIUM 134 MMOL/L (135-145); TOTAL PROTEIN 6.4 GM/DL (6.4-8.2)
--- NOTE | 2019-03-15 12:39 | ED General ---
General Chief Complaint: General Problems/Pain Stated Complaint: GENERALIZED WEAKNESS Nursing Triage Note: Pt sent to ED via EMS by home health nurse. Pt reports just not feeling well and generalized weakness. Nursing Sepsis Screen: No Definite Risk Source of Information: Patient Exam Limitations: No Limitations History of Present Illness Date Seen by Provider: Mar 15, 2019 Time Seen by Provider: 11:45 Initial Comments To ER by EMS from home after EMS was called by the home health nurse with reported increasing weakness and inability to ambulate. He reports not feeling well overall. He states [place], when questioned about CODE STATUS he states "let me go." During my conversation with him he spends much of his time talking about how he is tired of illness/Hospital stays, [place] and [place] bothered. He reports chronic shortness of breath no worse than usual today, no abdominal pain no chest pain Timing/Duration: 1-2 Days Severity: Moderate Associated Systoms: Weakness Allergies and Home Medications Allergies Coded Allergies: losartan (Verified Allergy, Severe, angioedema, 11/13/18) sulfamethoxazole (Verified Allergy, Mild, 08/27/14) trimethoprim (Verified Allergy, Mild, 08/27/14) amlodipine (Verified Allergy, Unknown, Cough, 08/15/18) Home Medications Carvedilol 25 Mg Tablet, 25 MG PO BID, (Reported) Cefdinir 300 Mg Capsule, 300 MG PO BID Prescribed by: ABEBE SALAS on 03/01/19 1030 Clobetasol Propionate 15 Gm Cream..g., TOP BID PRN for ITCHING, (Reported) Clonidine HCl 0.2 Mg Tablet, 0.2 MG PO 0800,1900, (Reported) Fluoxetine HCl 20 Mg Capsule, 40 MG PO 1900, (Reported) TAKES 2 (20MG) CAPSULES Furosemide 40 Mg Tablet, 40 MG PO HS, (Reported) Glimepiride 1 Mg Tablet, 1 MG PO DAILY PRN for BS>150, (Reported) Levalbuterol HCl 0.63 Mg/3 Ml Vial.neb, 0.63 MG NEB Q4H PRN for SHORTNESS OF BREATH, (Reported) Levalbuterol Tartrate 15 Gm Hfa.aer.ad, 2 PUFF INH Q4H PRN for SHORTNESS OF BREATH, (Reported) Levothyroxine Sodium 100 Mcg Tablet, 100 MCG PO 0800, (Reported) LAST FILLED #30 5-31-19 Montelukast Sodium 10 Mg Tablet, 10 MG PO HS, (Reported) Potassium Chloride 10 Meq Tablet.er, 20 MEQ PO 0900,1900, (Reported) TAKES 2 (10MEQ) TABLETS Umeclidinium [place] 62.5 Mcg Blst.w.dev, 1 PUFF IH HS, (Reported) Warfarin Sodium 4 Mg Tablet, 4 MG PO HS, (Reported) Patient Home Medication List Home Medication List Reviewed: Yes Review of Systems Review of Systems Constitutional: see HPI, weakness EENTM: see HPI Respiratory: no symptoms reported Cardiovascular: no symptoms reported Genitourinary: no symptoms reported Musculoskeletal: no symptoms reported Skin: no symptoms reported Psychiatric/Neurological: No Symptoms Reported Hematologic/Lymphatic: No Symptoms Reported Immunological/Allergic: no symptoms reported Past [id number] Hx Patient Social History Alcohol Use: Denies Use Recreational Drug Use: No 2nd Hand Smoke Exposure: No Recent Foreign Travel: No Contact w/Someone Who Travel: No Recent Infectious Disease Expo: No Recent Hopitalizations: Yes Physical Abuse: No Sexual Abuse: No Immunizations Up To Date Tetanus Booster (TDap): Unknown PED Vaccines UTD: Yes Date of Pneumonia Vaccine: Jun 27, 2014 Date of Influenza Vaccine: May 22, 2018 Seasonal Allergies Seasonal Allergies: No Past Medical History Surgeries: No Defibrillator, Nephrectomy, Pacemaker Respiratory: Yes COPD Currently Using CPAP: Yes Currently Using BIPAP: No Cardiac: Yes Atrial Fibrillation, Chronic Edema/Swelling, Hypertension Neurological: No Neuropathy Reproductive Disorders: No Sexually Transmitted Disease: No HIV/AIDS: No Genitourinary: No Kidney Infection, Prostate Problems, Renal Failure, UTI-Chronic Gastrointestinal: No Musculoskeletal: No Arthritis, Gout Endocrine: Yes Diabetes, Insulin dep, Hypothyroidsim HEENT: No Cataract Loss of Vision: Bilateral Hearing Impairment: Denies Cancer: No Melanoma Psychosocial: No Integumentary: No Eczema Blood Disorders: No Adverse Reaction/Blood Tranf: No Family Medical History Dysphasia maternal mother FH: kidney cancer G8 SISTER FH: lung cancer 19 FATHER Hypertension maternal mother Kidney disease maternal mother No Family History of: AIDS Abdominal aortic aneurysm Carl's disease Alcoholism Alzheimer's disease Aphasia Arthritis Asthma Cancer of mouth Cardiovascular disease Cataracts Colon cancer Completed stroke Congenital disease Congenital heart disease Coronary thrombosis Cystic fibrosis Deafness or hearing loss Dementia Diabetes mellitus Drug abuse Fibrocystic disease of breast Gastroenteritis Glaucoma Headache disorder Hypercholesterolemia Infertility Myocardial infarction Neoplasm Not obtainable due to adoption Osteoporosis Parkinson's disease Prostate cancer Psychosocial problem Respiratory disorder Seizure disorder Severe allergy Thyroid disease Tuberculosis Visual disorder Cancer, Hypertension Physical Exam Vital Signs Vital Signs - First Documented 03/15/19 11:43 Temp 97.3 Pulse 79 Resp 12 B/P (MAP) 135/96 (109) Pulse Ox 98 O2 Delivery Nasal Cannula O2 Flow Rate 2.00 Capillary Refill : Less Than 3 Seconds Height, Weight, BMI Height: 5'8.00" Weight: 210lbs. 14.4oz. 95.576283we; 28.7 BMI Method:Stated General Appearance: No Apparent Distress, WD/WN, Chronically ill Eyes: Bilateral Eye Normal Inspection (dry mucous membranes), Bilateral Eye PERRL, Bilateral Eye EOMI HEENT: PERRL/EOMI Neck: Full Range of Motion, Normal Inspection Respiratory: No Accessory Muscle Use, No Respiratory Distress, Decreased Breath Sounds Cardiovascular: Regular Rate, Rhythm, Normal Peripheral Pulses Gastrointestinal: Normal Bowel Sounds, Non Tender, Soft Extremity: Normal Capillary Refill, Normal Inspection Neurologic/Psychiatric: Alert, Oriented x3 Skin: Normal Color, Warm/Dry, Other (Chronic discoloration chronic discoloration and thickening of the skin bilateral lower extremities consistent with venous stasis dermatitis. No erythema.) Progress/Results/Core Measures Suspected Sepsis Recent Fever Within 48 Hours: No Infection Criteria Present: None New/Unexplained Altered Menta: No Sepsis Screen: No Definite Risk SIRS Temperature:97.3 Pulse: 79 Respiratory Rate: 12 Laboratory Tests 03/15/19 11:45: White Blood Count 7.5 Blood Pressure 135 /96 Mean: 109 Laboratory Tests 03/15/19 11:45: Creatinine 1.71H, INR Comment 1.8H, Platelet Count 211, Total Bilirubin 1.5H Results/Orders Lab Results Laboratory Tests Test 03/15/19 11:45 03/15/19 14:20 Range/Units White Blood Count 7.5 4.3-11.0 10^3/uL Red Blood Count 5.06 4.35-5.85 10^6/uL Hemoglobin 14.0 13.3-17.7 G/DL Hematocrit 44 40-54 % Mean Corpuscular Volume 86 80-99 FL Mean Corpuscular Hemoglobin 28 25-34 PG Mean Corpuscular Hemoglobin Concent 32 32-36 G/DL Red Cell Distribution Width 22.4 H 10.0-14.5 % Platelet Count 211 130-400 10^3/uL Mean Platelet Volume 11.5 H 7.4-10.4 FL Neutrophils (%) (Auto) 80 H 42-75 % Lymphocytes (%) (Auto) 11 L 12-44 % Monocytes (%) (Auto) 8 0-12 % Eosinophils (%) (Auto) 1 0-10 % Basophils (%) (Auto) 0 0-10 % Neutrophils # (Auto) 6.1 1.8-7.8 X 10^3 Lymphocytes # (Auto) 0.8 L 1.0-4.0 X 10^3 Monocytes # (Auto) 0.6 0.0-1.0 X 10^3 Eosinophils # (Auto) 0.1 0.0-0.3 10^3/uL Basophils # (Auto) 0.0 0.0-0.1 10^3/uL Prothrombin Time 21.9 H 12.2-14.7 SEC INR Comment 1.8 H 0.8-1.4 Activated Partial Thromboplast Time 38 H 24-35 SEC Sodium Level 134 L 135-145 MMOL/L Potassium Level 4.5 3.6-5.0 MMOL/L Chloride Level 100 98-107 MMOL/L Carbon Dioxide Level 23 21-32 MMOL/L Anion Gap 11 5-14 MMOL/L Blood Urea Nitrogen 25 H 7-18 MG/DL Creatinine 1.71 H 0.60-1.30 MG/DL Estimat Glomerular Filtration Rate 38 BUN/Creatinine Ratio 15 Glucose Level 114 H 70-105 MG/DL Calcium Level 9.0 8.5-10.1 MG/DL Corrected Calcium 9.6 8.5-10.1 MG/DL Magnesium Level 1.7 L 1.8-2.4 MG/DL Total Bilirubin 1.5 H 0.1-1.0 MG/DL Aspartate Amino Transf (AST/SGOT) 15 5-34 U/L Alanine Aminotransferase (ALT/SGPT) 11 0-55 U/L Alkaline Phosphatase 78 40-136 U/L Myoglobin 90.0 10.0-92.0 NG/ML Troponin I < 0.028 <0.028 NG/ML Total Protein 6.4 6.4-8.2 GM/DL Albumin 3.2 3.2-4.5 GM/DL Lipase 20 8-78 U/L Thyroid Stimulating Hormone (TSH) 4.44 0.35-4.94 UIU/ML My Orders Orders - PATRICIA ORTIZ APRN Cbc With Automated Diff (03/15/19 11:50) Magnesium (03/15/19 11:50) Chest 1 View, Ap/Pa Only (03/15/19 11:50) Ekg Tracing (03/15/19 11:50) Cardiac Profile 1 (03/15/19 11:50) Comprehensive Metabolic Panel (03/15/19 11:50) Myoglobin Serum (03/15/19 11:50) Protime With Inr (03/15/19 11:50) Partial Thromboplastin Time (03/15/19 11:50) O2 (03/15/19 11:50) Monitor-Rhythm Ecg Trace Only (03/15/19 11:50) Lipid Panel (03/16/19 06:00) Ed Iv/Invasive Line Start (03/15/19 11:50) Lipase (03/15/19 11:45) Thyroid Stimulating Hormone (03/15/19 11:45) Ua Culture If Indicated (03/15/19 12:39) Us Gallbladder [id number] (03/15/19 13:06) Palliative Care Consult (03/15/19 13:06) Ns Iv 500 Ml (Sodium Chloride 0.9%) (03/15/19 13:15) C Difficile Ag + Toxin A/B. (03/15/19 14:31) Vital Signs/I&O 03/15/19 03/15/19 11:43 11:43 Temp 97.3 Pulse 79 Resp 12 B/P (MAP) 135/96 (109) Pulse Ox 98 98 O2 Delivery Nasal Cannula Nasal Cannula O2 Flow Rate 2.00 2.00 Capillary Refill : Less Than 3 Seconds Blood Pressure Mean: 109 Diagnostic Imaging Diagonstic Imaging: Xray Plain Films/CT/US/NM/MRI: chest Comments NAME: [facility] REC#: [id number] PT STATUS: REG ER : 1930 PHYSICIAN: PATRICIA ORTIZ APRN ADMIT DATE: 03/15/19/ER Signed Date of Exam:03/15/19 CHEST 1 VIEW, AP/PA ONLY Patient History: Generalized weakness. Technique: Single frontal view of the chest Comparison: Chest radiograph on 02/26/2019 FINDINGS: Stable configuration of the right pectoral pacemaker. Slight increase in small bilateral pleural effusions with stable right and increasing left bibasilar opacities. Stable enlarged cardiac silhouette. No pneumothorax. No acute osseous abnormalities. IMPRESSION: Slight increase in small bilateral pleural effusions with stable right increasing left bibasilar opacities. These may represent atelectasis, edema and/or infection. Dictated by: Dictated on workstation # [id number] Dict: 03/15/19 1208 Trans: 03/15/19 1216 CV [id number] Interpreted by: KIRTI LEA DO Electronically signed by: KIRTI LEA DO 03/15/19 1216 Departure Communication (Admissions) Ben from palliative care has been down to talk with the patient to discuss hospice options. He states he will consider it, he's been given information to follow up. Advised him he can go home, both he and his daughter are okay with this plan. I spoke with Dr. Waters about the ultrasound findings. He'll follow- up with the patient in clinic. I went ahead and made an appointment for the patient with Dr. Bhardwaj since Dr. Waters leaves on Tuesday, the patient will see Dr. Bhardwaj on Tuesday at 2:30 PM NAME: [facility] REC#: [id number] PT STATUS: REG ER : 1930 PHYSICIAN: PATRICIA ORTIZ APRN ADMIT DATE: 03/15/19/ER US GALLBLADDER [id number] PROCEDURE: US Gallbladder. TECHNIQUE: Multiple real-time grayscale images were obtained over the right upper quadrant in various projections. INDICATION: Nausea. COMPARISON: None. FINDINGS: The liver is normal in size and shape. The liver echogenicity is within normal limits. There are no focal lesions. No intrahepatic biliary dilatation is present. The common bile duct is not dilated and measures 4 mm. The main portal vein is hepatopedal. Ascites is visualized in the right upper quadrant. Multiple gallstones are visualized within the gallbladder lumen with at least two appearing to be impacted within the neck of the gallbladder. The largest stone measures approximately 11 mm. The gallbladder wall is slightly thickened measuring 4 mm. No sonographic Thacker's sign is elicited. The pancreas is not well visualized due to overlying bowel gas. The visualized portions of the IVC and aorta appear normal. The right kidney measures approximately 13 cm in length and has a normal appearance. Right pleural effusion is noted. IMPRESSION: 1. Cholelithiasis with findings concerning for impacted gallstones in the neck of the gallbladder including gallbladder wall thickening and fluid. However, sonographic Thacker's sign is negative and white count is normal. Consider repeat liver gallbladder ultrasound if symptoms worsen. 2. Small amount of ascites in the right upper quadrant. 3. Right pleural effusion. Findings were discussed with Patricia Ortiz APRN at 2:26 pm on 03/15/2019. Dictated by: Dictated on workstation # [id number] Dict: 03/15/19 1416 Trans: 03/15/19 1440 [facility] [id number] Interpreted by: KIRTI LEA DO Electronically signed by: KIRTI LEA DO 03/15/19 1440 Impression Primary Impression: Chronic renal insufficiency Qualified Codes: N18.9 - Chronic kidney disease, unspecified Additional Impression: Cardiomyopathy Qualified Codes: I42.9 - Cardiomyopathy, unspecified Disposition: 01 HOME, SELF-CARE Condition: Stable Departure-Patient Inst. Decision time for Depature: 13:54 Referrals: MANAN GEE MD (PCP/Family) Primary Care Physician Patient Instructions: NO INSTRUCTIONS GIVEN Add. Discharge Instructions: 1. I made an appointment for you to see Dr. Bhardwaj (Dr. Waters's partner) on Tuesday at 2:30 PM. All discharge instructions reviewed with patient an d/or family. Voiced understanding. Copy Copies To 1: OLESYA WATERS DO Copies To 2: MANAN GEE MD, PETER J APRN Mar 15, 2019 12:39
[2019-03-15] MEDS ORDERED: NS IV 500 ML 500 ML IV SCH (13:15)
--- NOTE | 2019-03-15 13:29 | NUR ---
Zoë in room at this time to consult about palliative care.
--- NOTE | 2019-03-15 14:19 | NUR ---
PALLIATIVE CARE RN in to see patient at the request of Rodney Ortiz NP. 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 Upon my arrival patient is laying in bed and his daughter was at bedside. Patient is quite friendly and has a good since of humor. We spoke of his declaration of not wanting to be at the hospital and that he just wants to go home and stay there and he agreed that this is what he wants to do.We talked about the differences between HHC and hospice care. He is currently receiving HHC services and is not happy because he is home bound which made him happy to learn was not the case when talking about hospice. He does however which to get stronger and with HHC he is receiving therapy services and hoping to get stronger. This was a negative in the hospice discussion because he likely will not be able to receive PT on hospice services. Daughter is rightfully concerned that he is getting to the point where he needs more supervision. I have given them a caregiver list. He does have a Detention Care Insurance that I suggested they call to see what they will assist with . My card was given if they have further questions.
[2019-03-15 14:31] LABS: BILIRUBIN,URINE NEGATIVE (NEGATIVE); CLARITY,URINE CLEAR; COLOR,URINE YELLOW; GLUCOSE, URINE (UA) NEGATIVE (NEGATIVE); KETONES,URINE NEGATIVE (NEGATIVE); LEUKOCYTE ESTERASE ,URINE NEGATIVE (NEGATIVE); NITRITE,URINE NEGATIVE (NEGATIVE); PH,URINE 5 (5-9); PROTEIN,URINE 2+ (NEGATIVE); UROBILINOGEN,URINE NORMAL (NORMAL)
--- NOTE | 2019-03-15 14:32 | Diagnostic Imaging Report ---
PROCEDURE: US Gallbladder. TECHNIQUE: Multiple real-time grayscale images were obtained over the right upper quadrant in various projections. INDICATION: Nausea. COMPARISON: None. FINDINGS: The liver is normal in size and shape. The liver echogenicity is within normal limits. There are no focal lesions. No intrahepatic biliary dilatation is present. The common bile duct is not dilated and measures 4 mm. The main portal vein is hepatopedal. Ascites is visualized in the right upper quadrant. Multiple gallstones are visualized within the gallbladder lumen with at least two appearing to be impacted within the neck of the gallbladder. The largest stone measures approximately 11 mm. The gallbladder wall is slightly thickened measuring 4 mm. No sonographic Thacker's sign is elicited. The pancreas is not well visualized due to overlying bowel gas. The visualized portions of the IVC and aorta appear normal. The right kidney measures approximately 13 cm in length and has a normal appearance. Right pleural effusion is noted. IMPRESSION: 1. Cholelithiasis with findings concerning for impacted gallstones in the neck of the gallbladder including gallbladder wall thickening and fluid. However, sonographic Thacker's sign is negative and white count is normal. Consider repeat liver gallbladder ultrasound if symptoms worsen. 2. Small amount of ascites in the right upper quadrant. 3. Right pleural effusion. Findings were discussed with Rodney Ortiz APRN at 2:26 pm on 03/15/2019. Dictated by: Dictated on workstation # [id number]
[2019-03-15 14:46] LABS: BACTERIA,URINE NEGATIVE /HPF; HYALINE CASTS, URINE >50 /LPF
[2019-03-15 15:50] VITALS: BP 116/102
== END 2019-03-15 15:50 | disposition home or self-care (01) ==
LOC: EDUNIT# 11:40 → ER 11:41
DX: E11.22 Type 2 diabetes mellitus with diabetic chronic kidney disease (principal); I12.9 Hypertensive chronic kidney disease with stage 1 through stage 4 chronic kidney disease, or unspecified chronic kidney disease; N18.9 Chronic kidney disease, unspecified; I42.9 Cardiomyopathy, unspecified; J44.9 Chronic obstructive pulmonary disease, unspecified; I48.91 Unspecified atrial fibrillation; E11.40 Type 2 diabetes mellitus with diabetic neuropathy, unspecified; M10.9 Gout, unspecified; E03.9 Hypothyroidism, unspecified; Z79.4 Long term (current) use of insulin; Z85.820 Personal history of malignant melanoma of skin; Z88.2 Allergy status to sulfonamides; Z80.51 Family history of malignant neoplasm of kidney; Z80.1 Family history of malignant neoplasm of trachea, bronchus and lung; Z82.49 Family history of ischemic heart disease and other diseases of the circulatory system; Z88.1 Allergy status to other antibiotic agents; Z88.8 Allergy status to other drugs, medicaments and biological substances; Z79.01 Long term (current) use of anticoagulants; Z99.89 Dependence on other enabling machines and devices; Z90.5 Acquired absence of kidney; Z95.810 Presence of automatic (implantable) cardiac defibrillator
CPT/HCPCS: 36415; 71045; 76705; 80053; 81000; 83690; 83735; 83874; 84443; 84484; 85025; 85610; 85730; 87324; 87449; 93005; 93041; 96360